=== PATIENT | female | born 1995 | race Two or more races ===

== ENCOUNTER 2020-08-25 18:26 | Emergency (ER) | payer MEDICAID, SELFPAY ==
[2020-08-25 18:46] VITALS: BP 141/69; PULSE 72; RESP 18; TEMP 36.9; O2SAT 98; BMI 47.7
== END 2020-08-25 19:58 | disposition left against medical advice (07) ==
PROVIDERS: Emergency Provider Emergency Medicine
DX: O46.90 Antepartum hemorrhage, unspecified, unspecified trimester (principal); Z3A.00 Weeks of gestation of pregnancy not specified
CPT/HCPCS: 99281; 99282

== ENCOUNTER 2020-08-28 11:27 | Outpatient (REF) | payer BC, SELFPAY ==
[2020-08-29 09:38] LABS: CT PCR NOT DETECTED (Not Detect.); NG PCR NOT DETECTED (Not Detect.)
== END 2020-08-28 11:28 | disposition home or self-care (01) ==
LOC: HO.LAB 11:27
PROVIDERS: Visit Provider Obstetrics & Gynecology
DX: O03.9 Complete or unspecified spontaneous abortion without complication (principal); O26.899 Other specified pregnancy related conditions, unspecified trimester; E28.2 Polycystic ovarian syndrome; Z3A.00 Weeks of gestation of pregnancy not specified
CPT/HCPCS: 87491; 87591

== ENCOUNTER 2020-09-02 06:14 | Outpatient (REF) | payer BC, SELFPAY ==
[2020-09-02 07:10] LABS: HCG Quantitative < 2 mIU/mL
== END 2020-09-02 06:15 | disposition home or self-care (01) ==
LOC: HO.LAB 06:14
PROVIDERS: Visit Provider Obstetrics & Gynecology
DX: N91.2 Amenorrhea, unspecified (principal); O03.9 Complete or unspecified spontaneous abortion without complication; E55.9 Vitamin D deficiency, unspecified
CPT/HCPCS: 36415; 84702

== ENCOUNTER 2020-09-05 08:58 | Outpatient (REF) | payer BC, SELFPAY ==
[2020-09-05 09:53] LABS: Alanine Aminotransferase 18 U/L (0-31); Albumin Level 4.3 g/dL (3.5-5.0); Alkaline Phosphatase 79 U/L (39-117); Anion Gap 10 (12-20); Aspartate Amino Transferase 14 U/L (5-31); Bilirubin Total 0.3 mg/dL (0.0-1.0); Blood Urea Nitrogen 9 mg/dL (9-16); Calcium 8.8 mg/dL (8.4-10.2); Carbon Dioxide 26 mmol/L (22-29); Chloride 104 mmol/L (96-108); Cholesterol 153 mg/dL; Estimated Glomerular Filt Rate > 60; Glucose Random 93 mg/dL (60-115); HDL Cholesterol 42 mg/dL; LDL Cholesterol Calculated 98 mg/dl; Potassium 4.2 mmol/L (3.3-5.1); Sodium 136 mmol/L (135-145); Total Protein 7.4 g/dL (6.5-8.0); Triglycerides 69 mg/dL
[2020-09-05 09:57] LABS: Estimated Average Glucose 100 mg/dL; Hemoglobin A1c % 5.1 %
[2020-09-05 10:16] LABS: Free T4 (Free Thyroxine) 1.08 ng/dL (0.71-1.85); Thyroid Stimulating Hormone 0.44 uIU/mL (0.32-4.0)
[2020-09-05 10:28] LABS: HCG Quantitative < 2 mIU/mL
[2020-09-06 03:52] LABS: LDL Cholesterol Direct 96 mg/dL (<100)
[2020-09-06 05:07] LABS: Follicle Stimulating Hormone 6.4 mIU/mL; Lutenizing Hormone 2.9 mIU/mL; Prolactin 9.6 ng/mL
[2020-09-06 10:17] LABS: DHEA Sulfate 266 mcg/dL (18-391); Sex Hormone Binding Globulin 18 nmol/L (17-124)
[2020-09-06 22:43] LABS: Adrenocorticotropic Hormone 13 pg/mL (6-50)
[2020-09-08 00:22] LABS: Estradiol Ultra Sensitive 26 pg/mL
[2020-09-10 14:26] LABS: Testosterone, Free 7.4 pg/mL (0.1-6.4); Testosterone, Total 39 ng/dL (2-45)
[2020-09-10 20:57] LABS: Androstenedione 145 ng/dL
[2020-09-12 01:56] LABS: Estradiol Free 0.71 pg/mL; Estradiol, Ultrasensitive 28 pg/mL
== END 2020-09-05 08:59 | disposition home or self-care (01) ==
LOC: HO.LAB 08:58
PROVIDERS: Visit Provider Internal Medicine
DX: N91.2 Amenorrhea, unspecified (principal); E55.9 Vitamin D deficiency, unspecified
CPT/HCPCS: 36415; 80053; 80061; 82024; 82157; 82306; 82533; 82627; 82670; 82681; 83001; 83002; 83036; 83498; 83721; 84146; 84270; 84402; 84403; 84439; 84443; 84702

== ENCOUNTER → 2020-10-24 11:59 | Outpatient (BNVA) | payer BC, SELFPAY | PROVIDERS: Visit Provider Internal Medicine ==

== ENCOUNTER → 2020-12-18 10:34 | Outpatient (BNVA) | payer BC, SELFPAY | PROVIDERS: Visit Provider Internal Medicine ==

== ENCOUNTER → 2021-02-03 11:05 | Outpatient (BNVA) | payer BC, SELFPAY | PROVIDERS: Visit Provider Internal Medicine ==

== ENCOUNTER 2022-12-02 11:46 | Outpatient (REF) | payer OTHER, SELFPAY ==
[2022-12-02 14:46] LABS: Syphilis Screen Nonreactive (Nonreactive)
[2022-12-03 02:44] LABS: CT PCR NOT DETECTED (Not Detect.); NG PCR NOT DETECTED (Not Detect.)
[2022-12-03 08:11] LABS: HBS Num1 8.23 mIU/mL (0-7.99); HBc Num1 0.23 S/CO (0.00-0.79); HIV AB/AG Nonreactive (Nonreactive); HIV Num 1 0.06 S/CO (0.00-0.99); Hepatitis A Antibody IgM 0.17 Index (0-0.79); Hepatitis B Core Antibody Nonreactive (Nonreactive); Hepatitis B Surface Antigen Negative (Negative); ~HepC Num1 0.17 S/CO (0.00-0.79); ~Hepatitis A Antibody IgM Nonreactive (Nonreactive); ~Hepatitis C Antibody Nonreactive (Nonreactive)
[2022-12-03 10:09] LABS: HBS Num2 7.82 mIU/mL (0-7.99); HBS Num3 7.87 mIU/mL (0-7.99)
[2022-12-03 10:10] LABS: ~Hepatitis B Surface Antibody NONREACTIVE (Nonreactive)
== END 2022-12-02 11:47 | disposition home or self-care (01) ==
LOC: HO.HHCL 11:46
PROVIDERS: Student in an Organized Health Care Education/Training Program; Visit Provider Registered Nurse
DX: Z11.4 Encounter for screening for human immunodeficiency virus [HIV] (principal); Z20.2 Contact with and (suspected) exposure to infections with a predominantly sexual mode of transmission
CPT/HCPCS: 0353U; 86704; 86706; 86709; 86780; 86803; 87340; 87389

== ENCOUNTER → 2022-12-23 08:05 | Outpatient (BNVA) | payer BC, SELFPAY | PROVIDERS: PCP Registered Nurse; Visit Provider Physician Assistant Surgical ==

== ENCOUNTER → 2022-12-23 08:10 | Outpatient (BNVA) | payer OTHER, SELFPAY | PROVIDERS: PCP Student in an Organized Health Care Education/Training Program; Visit Provider Physician Assistant Surgical ==

== ENCOUNTER 2023-01-06 12:03 | Emergency (ER) | payer OTHER, SELFPAY ==
[2023-01-06 12:18] VITALS: BP 143/86; PULSE 76; RESP 19; TEMP 36.6; O2SAT 98; BMI 23.0
--- NOTE | 2023-01-06 12:19 | ED.GENADULT ---
HPI - General Adult General Chief complaint: General Medical Stated complaint: ? Miscarriage Time Seen by Provider: 01/06/23 17:21 Source: patient Mode of arrival: ambulatory Limitations: no limitations History of Present Illness HPI narrative: 27 yo female with PMH of prior miscarriage and PCOS she comes in after she started to box and lose weight. On wednesday she was using a new squat machine and she developed some cramps and bleeding vaginally - nothing significant but it was out of the ordinary starting to Wednesday. She took a test on Wednesday x 2 one there was a positive line and the other was questionable. She has not bled since and feels okay but came to be sure. complaint: pos test at home Onset (ago): day(s) (2) Location: pelvis Radiation: non-radiation Severity: mild Quality: dull Pain Consistency: now resolved Relieving factors: none Exacerbating factors: none Associated symptoms: denies other symptoms Treatments prior to arrival: none Related Data Home Medications Medication Instructions Recorded Confirmed cholecalciferol (vitamin D3) 50 50 mcg PO DAILY 09/02/20 02/03/21 mcg (2,000 unit) capsule metformin 500 mg tablet 500 mg PO BID 09/02/20 02/03/21 vitamin B complex (B 1 tab PO DAILY 09/02/20 02/03/21 Complex-Vitamin B12 tablet) Allergies Allergy/AdvReac Type Severity Reaction Status Date / Time No Known Allergies Allergy Verified 01/06/23 12:16 [No Known Allergies*] Review of Systems Review of Systems: Constitutional : No Fever, No Chills Cardiovascular : No Chest Pain, No SOB Respiratory : No Cough, No Sputum, No Wheezing Gastrointestinal : positive Nausea, No Vomiting, No Diarrhea, no abdominal pain, Genitourinary : positive irregular bleeding, No Dysuria, No Urinary Frequency, positive pelvic pain Musculoskeletal : No Myalgias Skin : No rash Neuro : No Weakness, No Headache Psych : No Anxiety/Panic, No Depression Heme/Lymph: No bruising, No Lymphadenopathy Endocrine : No Polyuria, No Polydipsia All other systems reviewed and are negative [facility] Past Medical History Attestation statement: The following information was validated with the patient. Medical History Amenorrhea Elevated testosterone level in female Low serum cortisol level PCOS (polycystic ovarian syndrome) Vitamin D deficiency Surgical History No history of previous surgery Family History Family History Mother Unknown family medical history Father Unknown family medical history Social History Social History Alcohol intake: current Patient Tobacco Use Status: Current everyday Tobacco user Cigarettes Per Day: 5 Years Smoked: 5 Substance Use Type: Marijuana Advance Directives: No Advance Directives Information Provided: No Physical Exam ED Vital Signs: Vital Signs - 24 hr 01/06/23 12:18 Temperature 98 F Pulse Rate 76 Respiratory Rate 19 Blood Pressure 143/86 H Pulse Oximetry 98 Oxygen Delivery Method Room Air BMI result Body Mass Index 23.0 Appearance: Alert. Oriented X3. No acute distress. Eyes: Pupils equal, round and reactive to light. ENT: Pharynx normal. Neck: Normal inspection. CVS: Normal heart rate and rhythm. Pulses normal. Respiratory: No respiratory distress. Abdomen: Soft and non-tender. Skin: Skin warm and dry. Normal skin color. Extremities: No lower extremity edema. Neuro: Oriented X 3. No motor deficit. No sensory deficit. Course Course Course Narrative: This is an RME: Additional HPI, ROS, PE not included below will be deferred to primary provider. 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 Pt reports that she had unusal vaginal bleeding wednesday - wednesday. Took test on wednesday and was faintly positive. LMP was December 01. No abdominal pain. No longer having any vaginal bleeding. Plan: Labs, UA Medical Decision Making Medical Decision Making MDM Narrative: 27 yo female with hx of PCOS and prior miscarriages who comes in with c/o vaginal bleeding and cramping after doing squats at that gym that has resolved - she then had pos preg test that was questionable on Wednesday - she feels fine now does not have pain and bleeding has resolved - will obtain quant and urine. No pain to suggest cyst or ectopic at this time. Differential Diagnosis Differential Diagnoses: The differential diagnosis associated with the presentation includes , ovarian cyst, PCOS Admission/Observation Consideration of admission/observation: Escalation of care including admission/observation considered normal labs, VS, benign abdominal exam doubt ectopic Lab Data MDM Lab Attestation statement: I reviewed the patient's lab results. 01/06/23 13:22 01/06/23 13:22 Labs: Lab Results 01/06/23 01/06/23 01/06/23 Range/Units 13:22 13:22 13:22 WBC 9.9 (4.8-10.8) X10*3/uL RBC 4.83 (4.20-5.50) X10*6/uL Hgb 14.0 (12.0-16.0) g/dl Hct 41.6 (37.0-47.0) % MCV 86.1 (80.0-98.0) fL MCH 29.0 (27.0-33.0) pg MCHC 33.7 (31.0-35.0) g/dl RDW 13.8 (11.0-16.0) % Plt Count 271 (160-400) X10*3/uL MPV 8.8 L (9.4-12.3) fL Immature Gran % (Auto) 0.2 (0.0-0.4) % Neut % (Auto) 67.6 (45-73) % Lymph % (Auto) 23.7 (20-40) % [place] % (Auto) 6.1 (2-11) % Eos % (Auto) 1.8 (0-4) % Baso % (Auto) 0.6 (0-2) % Lymph # (Auto) 2.4 (1.2-4.9) X10*3/uL [place] # (Auto) 0.6 (0.1-1.2) X10*3/uL Eos # (Auto) 0.2 (0.0-0.4) X10*3/uL Baso # (Auto) 0.1 (0.0-0.2) X10*3/uL Abs Immat Gran (auto) 0.02 (0.00-0.03) X10*3/uL Absolute Neuts (auto) 6.7 (2.0-8.3) x10*3/uL Absolute Nucleated RBC 0.000 (0.0-0.012) X10*3/uL Nucleated RBC % (auto) 0.0 (0.0-0.2) /100WBC Sodium 140 (135-145) mmol/L Potassium 3.9 (3.3-5.1) mmol/L Chloride 107 (96-108) mmol/L Carbon Dioxide 26 (22-29) mmol/L Anion Gap 11 L (12-20) BUN 8 L (9-16) mg/dL Creatinine 0.66 (0.5-1.4) mg/dL Estim Creat Clear Calc 117.2 Estimated GFR > 60 Random Glucose 118 H (60-115) mg/dL Calcium 9.9 D (8.4-10.2) mg/dL Total Bilirubin 0.3 (0.0-1.0) mg/dL Direct Bilirubin 0.1 (0.0-0.5) mg/dL AST 18 (5-31) U/L ALT 20 (0-31) U/L Alkaline Phosphatase 64 (39-117) U/L Total Protein 7.9 (6.5-8.0) g/dL Albumin 4.3 (3.5-5.0) g/dL Beta HCG, Quant < 2 mIU/mL Urine Color Yellow Urine Appearance Cloudy Urine pH 6.0 (5.0-9.0) Ur Specific [place] >= 1.030 H (1.005-1.025) Urine Protein Trace (Neg-Trace) mg/dL Urine Glucose (UA) Negative (Negative) mg/dL Urine Ketones Trace (Negative) mg/dL Urine Blood Negative (Negative) Urine Nitrite Negative (Negative) Ur Leukocyte Esterase Negative (Negative) Urine Test (NEGATIVE) 01/06/23 Range/Units 13:22 WBC (4.8-10.8) X10*3/uL RBC (4.20-5.50) X10*6/uL Hgb (12.0-16.0) g/dl Hct (37.0-47.0) % MCV (80.0-98.0) fL MCH (27.0-33.0) pg MCHC (31.0-35.0) g/dl RDW (11.0-16.0) % Plt Count (160-400) X10*3/uL MPV (9.4-12.3) fL Immature Gran % (Auto) (0.0-0.4) % Neut % (Auto) (45-73) % Lymph % (Auto) (20-40) % [place] % (Auto) (2-11) % Eos % (Auto) (0-4) % Baso % (Auto) (0-2) % Lymph # (Auto) (1.2-4.9) X10*3/uL [place] # (Auto) (0.1-1.2) X10*3/uL Eos # (Auto) (0.0-0.4) X10*3/uL Baso # (Auto) (0.0-0.2) X10*3/uL Abs Immat Gran (auto) (0.00-0.03) X10*3/uL Absolute Neuts (auto) (2.0-8.3) x10*3/uL Absolute Nucleated RBC (0.0-0.012) X10*3/uL Nucleated RBC % (auto) (0.0-0.2) /100WBC Sodium (135-145) mmol/L Potassium (3.3-5.1) mmol/L Chloride (96-108) mmol/L Carbon Dioxide (22-29) mmol/L Anion Gap (12-20) BUN (9-16) mg/dL Creatinine (0.5-1.4) mg/dL Estim Creat Clear Calc Estimated GFR Random Glucose (60-115) mg/dL Calcium (8.4-10.2) mg/dL Total Bilirubin (0.0-1.0) mg/dL Direct Bilirubin (0.0-0.5) mg/dL AST (5-31) U/L ALT (0-31) U/L Alkaline Phosphatase (39-117) U/L Total Protein (6.5-8.0) g/dL Albumin (3.5-5.0) g/dL Beta HCG, Quant mIU/mL Urine Color Urine Appearance Urine pH (5.0-9.0) Ur Specific [place] (1.005-1.025) Urine Protein (Neg-Trace) mg/dL Urine Glucose (UA) (Negative) mg/dL Urine Ketones (Negative) mg/dL Urine Blood (Negative) Urine Nitrite (Negative) Ur Leukocyte Esterase (Negative) Urine Test NEGATIVE (NEGATIVE) External Record Review External record reviewed: Inpatient record Tests considered The following testing was considered but not selected: US but given negative quant and no further bleeding not indicated Discharge Plan Discharge Clinical Impression: Abnormal vaginal bleeding Patient Disposition: Home, Self-Care Instructions: Dysfunctional Uterine Bleeding (ED) Additional Instructions: repeat home test in 1 week return for worsening pain, bleeding and clots, fevers, severe pain or any other concerns. hold squats for one week. Prescriptions: No Action metformin 500 mg tablet 500 mg PO BID cholecalciferol (vitamin D3) 50 mcg (2,000 unit) capsule 50 mcg PO DAILY vitamin B complex [B Complex-Vitamin B12] Tablet 1 tab PO DAILY
[2023-01-06 13:28] LABS: MANUAL DIFF FLAG NO
[2023-01-06 13:29] LABS: Basophils Absolute Auto 0.1 X10*3/uL (0.0-0.2); Basophils Percent Auto 0.6 % (0-2); Eosinophils Absolute Auto 0.2 X10*3/uL (0.0-0.4); Eosinophils Percent Auto 1.8 % (0-4); Hematocrit 41.6 % (37.0-47.0); Imm Gran Abs Auto 0.02 X10*3/uL (0.00-0.03); Imm Gran Pct Auto 0.2 % (0.0-0.4); Lymphocytes Absolute Auto 2.4 X10*3/uL (1.2-4.9); Lymphocytes Percent Auto 23.7 % (20-40); Mean Corpuscular HGB Conc 33.7 g/dl (31.0-35.0); Mean Corpuscular Volume 86.1 fL (80.0-98.0); Mean Platelet Volume 8.8 fL (9.4-12.3); Monocytes Absolute Auto 0.6 X10*3/uL (0.1-1.2); Monocytes Percent Auto 6.1 % (2-11); Neutrophils Absolute Auto 6.7 x10*3/uL (2.0-8.3); Neutrophils Percent Auto 67.6 % (45-73); Platelet Count 271 X10*3/uL (160-400); Red Blood Count 4.83 X10*6/uL (4.20-5.50); Red Cell Distribution Width 13.8 % (11.0-16.0); White Blood Count 9.9 X10*3/uL (4.8-10.8)
[2023-01-06 13:34] LABS: Appearance Urine Cloudy; Color Urine Yellow; Glucose Urine UA Negative (Negative); Leukocyte Esterase Urine Negative (Negative); Nitrite Urine Negative (Negative); Specific Gravity - Urine >= 1.030 (1.005-1.025); Urine Blood Negative (Negative); Urine Ketones Trace mg/dL (Negative); Urine Protein Trace mg/dL (Neg-Trace)
[2023-01-06 13:35] LABS: UPreg QC Valid YES; Urine Pregnancy NEGATIVE (NEGATIVE)
[2023-01-06 13:49] LABS: Alanine Aminotransferase 20 U/L (0-31); Albumin Level 4.3 g/dL (3.5-5.0); Alkaline Phosphatase 64 U/L (39-117); Anion Gap 11 (12-20); Aspartate Amino Transferase 18 U/L (5-31); Bilirubin Direct 0.1 mg/dL (0.0-0.5); Bilirubin Total 0.3 mg/dL (0.0-1.0); Blood Urea Nitrogen 8 mg/dL (9-16); Calcium 9.9 mg/dL (8.4-10.2); Carbon Dioxide 26 mmol/L (22-29); Chloride 107 mmol/L (96-108); Creatinine Clr Calc Pharmacy 117.2; Estimated Glomerular Filt Rate > 60; Glucose Random 118 mg/dL (60-115); HCG Quantitative < 2 mIU/mL; Potassium 3.9 mmol/L (3.3-5.1); Sodium 140 mmol/L (135-145); Total Protein 7.9 g/dL (6.5-8.0)
[2023-01-06 17:00] VITALS: BP 136/84; PULSE 84; RESP 14; O2SAT 98
== END 2023-01-06 18:06 | disposition home or self-care (01) ==
PROVIDERS: Physician Assistant Medical; Emergency Provider Emergency Medicine
DX: N93.9 Abnormal uterine and vaginal bleeding, unspecified (principal); F17.210 Nicotine dependence, cigarettes, uncomplicated
CPT/HCPCS: 36415; 80048; 80076; 81003; 81025; 84702; 85025; 99282; 99283

== ENCOUNTER 2023-01-20 10:53 | Outpatient (AMB) | payer OTHER, SELFPAY ==
--- NOTE | 2023-01-20 10:57 | A.OFFVIS_ITS ---
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 Her goal isto weigh around 150 lbs. She reports first being concerned about her weight since childhood, over the last 3 months more committed. She has tried multiple methods of weight loss including exercise without permanent results. She lives with her . She works 5- 7 days per week from 7am - 6 pm. Has lost 17 lbs over the last 3 weeks with diet and exercise. Stopped soda She wakes at: 4am, bed at 10 pm Breakfast: 7:30 am - 1 egg , 1 slice toast, half avocado. water Lunch: 2 pm - chicken wrap or chicken with potatoes, sometimes with salad. makes it herself - water Dinner: 9pm - rice/beans and pork OR pasta with tuna. vegetables 3d/ week. water After dinner: grapres Other snacks: Fruits - mid morning banana, eats grapes all day. Liquids: stopped soda and fruit juice Alcohol intake: none, tobacco: cigarettes 5/day, marijuana: smokes twice per day Exercise: started 3 weeks ago - gym 4d/week. 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 2-3 d/ week PF - Treadmill for an hour, and stepper for 30 minutes. Last mammogram: never, too young Last pap smear: up to date control method: has had 2 miscarraiges, no contraception now - will contact her [place] provdier BHARAT: 7 ESS:14 GERD:0 QOL:101 PFSH Medical History (Updated 01/20/23 @ 11:30 by [place] [address] PA-C) PCOS (polycystic ovarian syndrome) Low serum cortisol level Elevated testosterone level in female Amenorrhea Vitamin D deficiency Surgical History No history of previous surgery Family History Mother Unknown family medical history Father Unknown family medical history Social History Alcohol intake: current Patient Tobacco Use Status: Current everyday Tobacco user Cigarettes Per Day: 5 Years Smoked: 5 Substance Use Type: Marijuana Female Reproductive History Menstrual Age of Menarche: 11 Physical Exam Vital Signs: Last Vital Signs Temp 98.3 F 01/20/23 11:06 Pulse 92 01/20/23 11:06 BP 136/69 01/20/23 11:06 Pulse Ox 97 01/20/23 11:06 Oxygen Delivery Method Room Air 01/20/23 11:06 BMI result Body Mass Index 50.4 Const General: cooperative, no acute distress and well developed Nutritional Appearance: obese Orientation/consciousness: patient oriented x3 HEENT Head: Yes normal to inspection Neck Neck: Yes normal visual inspection Thyroid: Thyroid normal Resp Effort & Inspection: normal respiratory effort Auscultation: clear to auscultation bilaterally Cardio Rate: regular rate Rhythm: regular rhythm Heart sounds: S1 normal heart sound present, S2 normal heart sound present and no murmurs GI Inspection: No distended and Yes obesity Palpation (GI): Soft to palpation, nontender and no guarding Skin General skin exam: no rashes or lesions noted and other (warm and dry) Wounds: no wounds Hair: normal Neuro General: patient oriented x3 Extrem General: Yes no pedal edema and Yes no calf tenderness Psych Attitude: cooperative Thought process: Normal thought process present Thought content: Normal thought content present Insight: Good insight present (Psych) Judgement: Good judgement present (Psych) Assessment & Plan Assessment & Plan (1) Morbid obesity: Code(s): E66.01 - Morbid (severe) obesity due to excess calories Plan: This is a 27 yo woman with morbid obesitywho will start SWL program to prepare for bariatric surgery. Blood work, h pylori , CXR, ECG, Abd ULS and UGI have been ordered. She is being scheduled for RD and BH initial consultations. She will start SWL classes and watch at 3 classes before her next appt with Jacy. Will have another sleep study now. 1. Adequate sleep of 7-8 hours per night discussed 2. Healthy meal plan - stop skipping meals and stop all sweetened drinks All meals/MR's need to take 20 minutes to complete 8am - 30 gram shake 11 am -yogurt or bar 2 pm- dinner of 6 oz lean protein, 6oz vegetable, 1 serving fruit 8pm - shake Exercise - Cardio - work with medical management trainer - if goes ot gym treadmill speed 3.5, inlcine 2-8 or hillprogram ofr 350 calories. The importance of avoiding and breast feeding for at least 18 months after bariatric surgery was discussed in the information session and was reinforced today. Pt will purchase body composition analyzer (recommended list given to patient) and weight herself weekly. Next appt with me in 3 weeks. Text me with any questions and weekly weights. Patient is morbidly obese and is not considered stable at this time.?I spent a total of 60 minutes reviewing/updating records, examining the patient and counseling the patient on weight management as detailed above. (2) PCOS (polycystic ovarian syndrome): Code(s): E28.2 - Polycystic ovarian syndrome Orders: Orders Insulin Today E28.2 - Polycystic ovarian syndrome, E66.01 - Morbid (severe) obesity due to excess calories, G47.30 - Sleep apnea, unspecified Lipid Panel Today E28.2 - Polycystic ovarian syndrome, E66.01 - Morbid (severe) obesity due to excess calories, G47.30 - Sleep apnea, unspecified IRON PROFILE Today E28.2 - Polycystic ovarian syndrome, E66.01 - Morbid (severe) obesity due to excess calories, G47.30 - Sleep apnea, unspecified C Reactive Protein Today E28.2 - Polycystic ovarian syndrome, E66.01 - Morbid (severe) obesity due to excess calories, G47.30 - Sleep apnea, unspecified Ferritin Today E28.2 - Polycystic ovarian syndrome, E66.01 - Morbid (severe) obesity due to excess calories, G47.30 - Sleep apnea, unspecified PTHI Today E28.2 - Polycystic ovarian syndrome, E66.01 - Morbid (severe) obesity due to excess calories, G47.30 - Sleep apnea, unspecified TSH reflex Free T4 Today E28.2 - Polycystic ovarian syndrome, E66.01 - Morbid (severe) obesity due to excess calories, G47.30 - Sleep apnea, unspecified H Pylori Breath Test Today E28.2 - Polycystic ovarian syndrome, E66.01 - Morbid (severe) obesity due to excess calories, G47.30 - Sleep apnea, unspecified Vitamin D 25-OH Total Today E28.2 - Polycystic ovarian syndrome, E66.01 - Morbid (severe) obesity due to excess calories, G47.30 - Sleep apnea, unspecified US abdomen comp w elastography Today E28.2 - Polycystic ovarian syndrome, E66.01 - Morbid (severe) obesity due to excess calories, G47.30 - Sleep apnea, unspecified XR chest 2V Today E28.2 - Polycystic ovarian syndrome, E66.01 - Morbid (severe) obesity due to excess calories, G47.30 - Sleep apnea, unspecified ECG 12 lead EKG Today E28.2 - Polycystic ovarian syndrome, E66.01 - Morbid (severe) obesity due to excess calories, G47.30 - Sleep apnea, unspecified RT home sleep study Today E28.2 - Polycystic ovarian syndrome, E66.01 - Morbid (severe) obesity due to excess calories, G47.30 - Sleep apnea, unspecified Vitamin B12 and Folate Today E28.2 - Polycystic ovarian syndrome, E66.01 - Morbid (severe) obesity due to excess calories, G47.30 - Sleep apnea, unspecified Zinc Today E28.2 - Polycystic ovarian syndrome, E66.01 - Morbid (severe) obesity due to excess calories, G47.30 - Sleep apnea, unspecified Vitamin B1 Today E28.2 - Polycystic ovarian syndrome, E66.01 - Morbid (severe) obesity due to excess calories, G47.30 - Sleep apnea, unspecified Vitamin A Today E28.2 - Polycystic ovarian syndrome, E66.01 - Morbid (severe) obesity due to excess calories, G47.30 - Sleep apnea, unspecified FL upper GI w air Today E28.2 - Polycystic ovarian syndrome, E66.01 - Morbid (severe) obesity due to excess calories, G47.30 - Sleep apnea, unspecified Referrals Nutrition/Dietitian Referral E28.2 - Polycystic ovarian syndrome, E66.01 - Morbid (severe) obesity due to excess calories, G47.30 - Sleep apnea, unspecified Behavioral Health Referral E28.2 - Polycystic ovarian syndrome, E66.01 - Morbid (severe) obesity due to excess calories, G47.30 - Sleep apnea, unspecified Coding Level of Care Code New Pt Level 5 (86132) Diagnoses Morbid obesity E66.01 PCOS (polycystic ovarian syndrome) E28.2
[2023-01-20 11:06] VITALS: BP 136/69; PULSE 92; TEMP 36.8; O2SAT 97; BMI 50.4
== END 2023-01-20 12:07 | disposition home or self-care (01) ==
PROVIDERS: PCP Registered Nurse; Visit Provider Physician Assistant
DX: E66.01 Morbid (severe) obesity due to excess calories (principal); Z68.43 Body mass index [BMI] 50.0-59.9, adult; E28.2 Polycystic ovarian syndrome
CPT/HCPCS: 99205

== ENCOUNTER 2023-01-20 10:53 | Outpatient (REF) | payer OTHER, SELFPAY ==
[2023-01-22 13:51] LABS: H Pylori Breath Test Negative (Negative)
== END 2023-01-20 10:54 | disposition home or self-care (01) ==
LOC: HO.LNP 10:53
PROVIDERS: PCP Registered Nurse; Visit Provider Physician Assistant
DX: E66.01 Morbid (severe) obesity due to excess calories (principal); E28.2 Polycystic ovarian syndrome; G47.30 Sleep apnea, unspecified
CPT/HCPCS: 83013; 99211

== ENCOUNTER 2023-02-03 10:00 | Outpatient (AMB) | payer OTHER, SELFPAY ==
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
== END 2023-02-03 11:00 | disposition home or self-care (01) ==
LOC: HO.HBST 10:27
PROVIDERS: PCP Registered Nurse; Visit Provider Counselor Mental Health
DX: F43.9 Reaction to severe stress, unspecified (principal)
CPT/HCPCS: 90791

== ENCOUNTER → 2023-02-03 10:00 | Outpatient (BNVA) | payer OTHER, SELFPAY | PROVIDERS: PCP Registered Nurse; Visit Provider Counselor Mental Health ==

== ENCOUNTER 2023-03-01 09:00 | Outpatient (AMB) | payer OTHER, SELFPAY ==
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
== END 2023-03-01 10:00 | disposition home or self-care (01) ==
LOC: HO.HBST 09:10
PROVIDERS: PCP Registered Nurse; Visit Provider Counselor Mental Health
DX: F43.9 Reaction to severe stress, unspecified (principal)
CPT/HCPCS: 90834

== ENCOUNTER → 2023-03-01 09:00 | Outpatient (BNVA) | payer OTHER, SELFPAY | PROVIDERS: PCP Registered Nurse; Visit Provider Counselor Mental Health ==

== ENCOUNTER 2024-01-05 10:02 | Outpatient (REF) | payer OTHER, SELFPAY ==
[2024-01-05 11:31] LABS: Hematocrit 42.9 % (37.0-47.0); Hemoglobin 14.1 g/dl (12.0-16.0); Mean Corpuscular HGB Conc 32.9 g/dl (31.0-35.0); Mean Corpuscular Hemoglobin 28.2 pg (27.0-33.0); Mean Corpuscular Volume 85.8 fL (80.0-98.0); Mean Platelet Volume 9.3 fL (9.4-12.3); Platelet Count 259 X10*3/uL (160-400); Red Cell Distribution Width 14.1 % (11.0-16.0); White Blood Count 10.9 X10*3/uL (4.8-10.8)
[2024-01-05 11:36] LABS: Estimated Average Glucose 111 mg/dL; Hemoglobin A1c % 5.5 % (<6.0)
[2024-01-05 11:48] LABS: Alanine Aminotransferase 19 U/L (0-31); Albumin Level 4.2 g/dL (3.5-5.0); Alkaline Phosphatase 64 U/L (39-117); Anion Gap 10 (12-20); Aspartate Amino Transferase 14 U/L (5-31); Bilirubin Total 0.5 mg/dL (0.0-1.0); Blood Urea Nitrogen 7 mg/dL (9-16); Calcium 9.8 mg/dL (8.4-10.2); Carbon Dioxide 25 mmol/L (22-29); Chloride 106 mmol/L (96-108); Cholesterol 130 mg/dL (<200); Estimated Glomerular Filt Rate > 60; Glucose Random 85 mg/dL (60-115); HDL Cholesterol 40 mg/dL (>40); LDL Cholesterol Calculated 75 mg/dL (<100); Potassium 4.1 mmol/L (3.3-5.1); Sodium 137 mmol/L (135-145); Total Protein 7.7 g/dL (6.5-8.0); Triglycerides 76 mg/dL (<150)
[2024-01-05 12:10] LABS: TSH reflex Free T4 0.58 uIU/mL (0.32-4.0); Vitamin D 25-OH Total 19.6 ng/mL (>30)
[2024-01-05 12:31] LABS: Folate 12.5 ng/mL (> or = 4.0); Vitamin B12 559 pg/mL (200-900)
[2024-01-06 03:56] LABS: Syphilis Screen Nonreactive (Nonreactive)
[2024-01-06 04:20] LABS: HBS Num1 8.35 mIU/mL (0-7.99); HBsAGNum1 0.24 S/CO (0.00-0.99); HIV AB/AG Nonreactive (Nonreactive); HIV Num 1 0.05 S/CO (0.00-0.99); Hepatitis B Core Antibody Nonreactive (Nonreactive); Hepatitis B Surface Antigen Negative (Negative); ~HepC Num1 0.19 S/CO (0.00-0.79); ~Hepatitis C Antibody Nonreactive (Nonreactive)
[2024-01-06 05:27] LABS: HBS Num2 8.28 mIU/mL (0-7.99); HBS Num3 8.08 mIU/mL (0-7.99); ~Hepatitis B Surface Antibody GRAYZONE (Nonreactive)
[2024-01-06 12:49] LABS: Follicle Stimulating Hormone 2.1 mIU/mL; Lutenizing Hormone 3.1 mIU/mL
[2024-01-11 15:19] LABS: Testosterone, Free 7.8 pg/mL (0.1-6.4); Testosterone, Total 51 ng/dL (2-45)
== END 2024-01-05 10:03 | disposition home or self-care (01) ==
LOC: HO.HHCL 10:02
PROVIDERS: Visit Provider Student in an Organized Health Care Education/Training Program
DX: Z00.00 Encounter for general adult medical examination without abnormal findings (principal); Z13.1 Encounter for screening for diabetes mellitus; Z13.89 Encounter for screening for other disorder
CPT/HCPCS: 36415; 80053; 80061; 82306; 82607; 82746; 83001; 83002; 83036; 84402; 84403; 84443; 85027; 86704; 86706; 86780; 86803; 87340; 87389

== ENCOUNTER 2024-01-11 17:55 | Outpatient (REF) | payer OTHER, SELFPAY ==
[2024-01-12 06:01] LABS: CT PCR NOT DETECTED (Not Detect.); NG PCR NOT DETECTED (Not Detect.)
== END 2024-01-11 17:56 | disposition home or self-care (01) ==
LOC: HO.HHCLNP 17:55
PROVIDERS: Visit Provider Student in an Organized Health Care Education/Training Program
DX: Z00.00 Encounter for general adult medical examination without abnormal findings (principal)
CPT/HCPCS: 87491; 87591

== ENCOUNTER 2024-01-18 05:19 | Emergency (ER) | payer OTHER, SELFPAY ==
--- NOTE | ~2024-01-18 | US_ITS ---
EXAMINATION: US OBSTETRICAL ULTRASOUND CLINICAL INFORMATION: Vaginal bleeding with COMPARISON: Ultrasound 07/06/2016 LMP: 12/06/2023. Gestational age by maternal dates is 6 weeks 1 day. Estimated date of delivery by maternal dates is 09/11/2024. TECHNIQUE: Both transabdominal and endovaginal scanning was seen. FINDINGS: An anteverted uterus is present. The endometrium is thickened at 1.7 cm and a gestational sac is not present. No heart beat is detected. The right ovary measures 4.4 x 2.0 x 2.3 cm and appears normal. The left ovary measures 3.3 x 2.4 x 2.4 cm and contains a 1.9 x 2.0 x 1.7 cm corpus luteal cyst. There is trace fluid in the cul-de-sac. US/US OB pelvic and transvaginal IMPRESSION: No intrauterine is identified at this time. Correlation with beta hCG levels is recommended, as nonvisualization of a gestational sac could be due to an early stage of . Alternatively, lack of an intrauterine gestational sac may also be seen with missed or ectopic , although no adnexal mass is seen to strongly suggest ectopic . Short-term sonographic follow-up and serial beta hCG levels are recommended to assess for development of an intrauterine gestational sac. Electronically signed by: Arthur Christina MD 01/18/2024 08:43 AM EDT
[2024-01-18 05:29] VITALS: BP 149/73; PULSE 75; RESP 14; TEMP 36.9; O2SAT 100; BMI 49.9
[2024-01-18 05:36] VITALS: BP 135/76; PULSE 79; RESP 17; TEMP 36.6; O2SAT 99
[2024-01-18 05:54] LABS: MANUAL DIFF FLAG NO
[2024-01-18 05:55] LABS: Basophils Percent Auto 0.3 % (0-2); Eosinophils Absolute Auto 0.2 X10*3/uL (0.0-0.4); Eosinophils Percent Auto 1.3 % (0-4); Hematocrit 38.1 % (37.0-47.0); Hemoglobin 12.7 g/dl (12.0-16.0); Imm Gran Abs Auto 0.04 X10*3/uL (0.00-0.03); Imm Gran Pct Auto 0.3 % (0.0-0.4); Lymphocytes Absolute Auto 2.3 X10*3/uL (1.2-4.9); Lymphocytes Percent Auto 19.8 % (20-40); Mean Corpuscular HGB Conc 33.3 g/dl (31.0-35.0); Mean Corpuscular Hemoglobin 28.5 pg (27.0-33.0); Mean Corpuscular Volume 85.4 fL (80.0-98.0); Mean Platelet Volume 8.3 fL (9.4-12.3); Monocytes Percent Auto 8.8 % (2-11); Neutrophils Percent Auto 69.5 % (45-73); Platelet Count 256 X10*3/uL (160-400); Red Blood Count 4.46 X10*6/uL (4.20-5.50); Red Cell Distribution Width 14.3 % (11.0-16.0); White Blood Count 11.5 X10*3/uL (4.8-10.8)
[2024-01-18 06:24] LABS: Alanine Aminotransferase 23 U/L (0-31); Albumin Level 3.7 g/dL (3.5-5.0); Alkaline Phosphatase 60 U/L (39-117); Anion Gap 9 (12-20); Aspartate Amino Transferase 16 U/L (5-31); Bilirubin Total 0.4 mg/dL (0.0-1.0); Blood Urea Nitrogen 6 mg/dL (9-16); Calcium 8.7 mg/dL (8.4-10.2); Carbon Dioxide 25 mmol/L (22-29); Chloride 107 mmol/L (96-108); Creatinine Clr Calc Pharmacy 212.9; Estimated Glomerular Filt Rate > 60; Glucose Random 113 mg/dL (60-115); HCG Quantitative 497 mIU/mL; Potassium 4.1 mmol/L (3.3-5.1); Sodium 137 mmol/L (135-145); Total Protein 6.9 g/dL (6.5-8.0)
--- NOTE | 2024-01-18 06:55 | ED.GENADULT ---
HPI - General Adult General Chief complaint: Vaginal Bleeding Stated complaint: vaginal bleeding, 6 weeks preg Time Seen by Provider: 01/18/24 06:41 Source: patient Mode of arrival: ambulatory Limitations: no limitations History of Present Illness ED Provider: Christiane Sellers PA-C HPI narrative: Patient is a 28 year old assigned female at with a history of previous miscarriage and currently being 6 weeks presenting to the emergency department today with vaginal bleeding. Patient states that she woke up this morning with bright red bleeding with clots. Patient states that she is 6 weeks along. Patient denies any dizziness, lightheadedness, abdominal pain, nausea, vomiting, fever, chills, blurry vision, double vision, loss of vision, chest pain, difficulty breathing, shortness of breath, back pain, night sweats, pain with urination, increased urinary frequency, increased urinary urgency, syncope or a near syncopal episode, recent trauma or falls, bowel incontinence, bladder incontinence, or any other complaints at this time. Relieving factors: none Exacerbating factors: none Associated symptoms: denies other symptoms Treatments prior to arrival: none Related Data Home Medications ?Medication ?Instructions ?Recorded ?Confirmed cholecalciferol (vitamin D3) 50 50 mcg PO DAILY 09/02/20 02/03/21 mcg (2,000 unit) capsule metformin 500 mg tablet 500 mg PO BID 09/02/20 02/03/21 vitamin B complex (B 1 tab PO DAILY 09/02/20 02/03/21 Complex-Vitamin B12 tablet) Allergies Allergy/AdvReac Type Severity Reaction Status Date / Time No Known Allergies Allergy Verified 01/18/24 05:31 [No Known Allergies*] Review of Systems Constitutional: Constitutional: Reports no additional constitutional complaints, Denies chills, Denies fever(s) and Denies night sweats Eyes: Eyes: Reports no additional eye complaints, Denies blurry vision, Denies change in vision, Denies diplopia, Denies eye discharge, Denies loss of vision and Denies eye pain ENT: Denies dizziness Cardiovascular: Cardiovascular: Reports no additional cardiovascular complaints, Denies chest pain, Denies lightheadedness, Denies Loss of Consciousness and Denies dyspnea Respiratory: Respiratory: Reports no additional respiratory complaints and Denies dyspnea Gastrointestinal: Gastrointestinal: Reports no additional gastrointestinal complaints, Denies abdominal pain, Denies melena, Denies hematochezia, Denies change in bowel habits and Denies change in stool character Genitourinary: Genitourinary: Denies hematuria, Denies urinary frequency, Denies dysuria, Denies urinary incontinence, Denies urinary hesitancy and Denies urinary urgency Comments: vaginal bleeding Musculoskeletal: Musculoskeletal: Reports no additional musculoskeletal complaints, Denies numbness and Denies tingling Neurologic: Denies dizziness, Denies loss of vision, Denies numbness and Denies tingling Psychiatric: Psychiatric: Reports no additional psychiatric complaints Endocrine: Endocrine: Reports no additional endocrine complaints Hematologic/Lymphatic: Hematologic/Lymphatic: Reports no additional hematologic/lymphatic complaints Allergic/Immunologic: Allergic/Immunologic: Reports no additional allergic/immunologic complaints PMF Past Medical History Attestation statement: The following information was validated with the patient. 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 Amenorrhea Vitamin D deficiency Surgical History No history of previous surgery Family History Family History Mother Unknown family medical history Father Unknown family medical history Social History Social History Alcohol intake: current Patient Tobacco Use Status: Current everyday Tobacco user Cigarettes Per Day: 5 Years Smoked: 5 Smoked in Last 30 Days: No Use of substances other than those prescribed or required for medical reasons: No Substance Use Type: Marijuana Advance Directives: No Advance Directives Information Provided: No Do you have a plan to hurt others: No Plan Patient : Yes Physical Exam ED Vital Signs: Vital Signs - 24 hr 01/18/24 05:29 01/18/24 05:36 01/18/24 08:16 Temperature 98.4 F 97.8 F Pulse Rate 75 79 79 Respiratory Rate 14 17 16 Blood Pressure 149/73 H 135/76 135/75 Pulse Oximetry 100 99 99 Oxygen Delivery Method Room Air Room Air Room Air 01/18/24 09:20 Temperature 97.8 F Pulse Rate 79 Respiratory Rate 16 Blood Pressure 135/75 Pulse Oximetry 99 Oxygen Delivery Method Room Air BMI result Body Mass Index 49.9 Const General: cooperative, no acute distress, alert and awake Nutritional Appearance: well nourished Orientation/consciousness: patient oriented x3 Limitations: no limitations HENMT Head: Yes normal to inspection and Yes atraumatic Ears: hearing grossly normal bilaterally and external ears normal General nose exam: Normal external nose present, no nasal discharge noted and no epistaxis Face and sinus: Yes normal facial exam, No abrasion and No laceration Mouth: Normal oral and palatal mucosa present, no drooling and no muffled voice Eyes General: appearance normal, both eyes and all related structures Periorbital: periorbital findings normal Eyelids: Yes eyelids normal Conjunctivae: conjunctivae normal Pupils: Equal, round and reactive pupils present EOM: EOMs intact bilaterally Neck Neck: Yes normal visual inspection, Yes full ROM and Yes no lymphadenopathy Chest Chest palpation & inspection: normal inspection of the chest Resp Effort & Inspection: normal respiratory effort and able to speak in complete sentences GI Inspection: Yes normal to inspection Palpation (GI): Soft to palpation, not firm, nontender and no guarding Neuro General: patient oriented x3 and moves all extremities Cranial nerves: Yes Equal, round and reactive pupils present Cognition (Neuro): normal cognition Extrem General: Yes normal to inspection, Yes full ROM and Yes capillary refill normal Psych Appearance: grossly normal Mental Status: mental status grossly normal Affect: normal affect Attitude: cooperative Thought process: Normal thought process present Thought content: Normal thought content present Insight: Good insight present (Psych) Medical Decision Making Medical Decision Making MDM Narrative: Patient is a 28 year old assigned female at with a history of previous miscarriage and being 6 weeks presenting to the emergency department today with vaginal bleeding. Patient's physical exam was unremarkable. Patient's blood work showed a low HCG of 497. Patient's OB US showed no acute process. I explained my physical exam findings as well as all test results to the patient. I answered all questions asked by the patient. I stressed the importance of the patient taking her medication as directed (either prescribed or as the over the counter packaging recommends). I stressed the importance of the patient following up with her primary care provider and an OBGYN to continue to follow up on her HCG levels. I stressed the importance of the patient returning to the emergency department immediately if her symptoms were to worsen or if she were to develop any dizziness, shortness of breath, difficulty breathing, chest pain, blurry vision, loss of vision, nausea, vomiting, abdominal pain, fever, chills, back pain, or any other complaints. Patient verbalized agreement and understanding with this treatment plan and discharge. Differential Diagnosis Differential Diagnoses: The differential diagnosis associated with the presentation includes Vaginal bleeding Miscarriage Admission/Observation Consideration of admission/observation: Escalation of care including admission/observation considered Patient would have been admitted to the hospital had her work up had any findings where hospital admission was appropriate and her clinical presentation warranted hospital admission. Lab Data [facility] Lab Attestation statement: I reviewed the patient's lab results. My interpretation of these results are in the [facility] Rationale portion of this note. 01/18/24 05:51 01/18/24 05:51 Labs: Lab Results 01/18/24 Range/Units 05:51 WBC 11.5 H (4.8-10.8) X10*3/uL RBC 4.46 (4.20-5.50) X10*6/uL Hgb 12.7 (12.0-16.0) g/dl Hct 38.1 (37.0-47.0) % MCV 85.4 (80.0-98.0) fL MCH 28.5 (27.0-33.0) pg MCHC 33.3 (31.0-35.0) g/dl RDW 14.3 (11.0-16.0) % Plt Count 256 (160-400) X10*3/uL MPV 8.3 L (9.4-12.3) fL Immature Gran % (Auto) 0.3 (0.0-0.4) % Neut % (Auto) 69.5 (45-73) % Lymph % (Auto) 19.8 L (20-40) % [place] % (Auto) 8.8 (2-11) % Eos % (Auto) 1.3 (0-4) % Baso % (Auto) 0.3 (0-2) % Lymph # (Auto) 2.3 (1.2-4.9) X10*3/uL [place] # (Auto) 1.0 (0.1-1.2) X10*3/uL Eos # (Auto) 0.2 (0.0-0.4) X10*3/uL Baso # (Auto) 0.0 (0.0-0.2) X10*3/uL Abs Immat Gran (auto) 0.04 H (0.00-0.03) X10*3/uL Absolute Neuts (auto) 8.0 (2.0-8.3) x10*3/uL Absolute Nucleated RBC 0.000 (0.0-0.012) X10*3/uL Nucleated RBC % (auto) 0.0 (0.0-0.2) /100WBC Sodium 137 (135-145) mmol/L Potassium 4.1 (3.3-5.1) mmol/L Chloride 107 (96-108) mmol/L Carbon Dioxide 25 (22-29) mmol/L Anion Gap 9 L (12-20) BUN 6 L (9-16) mg/dL Creatinine 0.56 (0.5-1.4) mg/dL Estim Creat Clear Calc 212.9 Estimated GFR > 60 Random Glucose 113 (60-115) mg/dL Calcium 8.7 D (8.4-10.2) mg/dL Total Bilirubin 0.4 (0.0-1.0) mg/dL AST 16 (5-31) U/L ALT 23 (0-31) U/L Alkaline Phosphatase 60 (39-117) U/L Total Protein 6.9 (6.5-8.0) g/dL Albumin 3.7 (3.5-5.0) g/dL Beta HCG, Quant 497 mIU/mL Independent Interpretation I performed an independent interpretation of an: Ultrasound Interpretation: My interpretation is in agreement with the radiologist's impression of this imaging study. EXAMINATION: US OBSTETRICAL ULTRASOUND CLINICAL INFORMATION: Vaginal bleeding with COMPARISON: Ultrasound 07/06/2016 LMP: 12/06/2023. Gestational age by maternal dates is 6 weeks 1 day. Estimated date of delivery by maternal dates is 09/11/2024. TECHNIQUE: Both transabdominal and endovaginal scanning was seen. FINDINGS: An anteverted uterus is present. The endometrium is thickened at 1.7 cm and a gestational sac is not present. No heart beat is detected. The right ovary measures 4.4 x 2.0 x 2.3 cm and appears normal. The left ovary measures 3.3 x 2.4 x 2.4 cm and contains a 1.9 x 2.0 x 1.7 cm corpus luteal cyst. There is trace fluid in the cul-de-sac. US/US OB pelvic and transvaginal IMPRESSION: No intrauterine is identified at this time. Correlation with beta hCG levels is recommended, as nonvisualization of a gestational sac could be due to an early stage of . Alternatively, lack of an intrauterine gestational sac may also be seen with missed or ectopic , although no adnexal mass is seen to strongly suggest ectopic . Short-term sonographic follow-up and serial beta hCG levels are recommended to assess for development of an intrauterine gestational sac. Electronically signed by: Arthur Christina MD 01/18/2024 08:43 AM EDT RP Dictated By: Arthur Christina MD Signed By: Electronically signed by Arthur Christina MD 01/18/24 0843 Radiology Impression Discussion of test interpretation with radiology: I have reviewed the radiologist's reading. Discharge Plan Discharge Clinical Impression: Miscarriage Patient Disposition: Home, Self-Care Instructions: Miscarriage (ED) Additional Instructions: Follow up with your primary care provider and an OBGYN. Return to the emergency department immediately if your symptoms worsen or if you develop any dizziness, shortness of breath, difficulty breathing, chest pain, blurry vision, loss of vision, nausea, vomiting, abdominal pain, fever, chills, back pain, or any other complaints. Prescriptions: No Action metformin 500 mg tablet 500 mg PO BID cholecalciferol (vitamin D3) 50 mcg (2,000 unit) capsule 50 mcg PO DAILY vitamin B complex [B Complex-Vitamin B12] Tablet 1 tab PO DAILY Referrals: May Tinsley MD [Primary Care Provider] - Lee Short MD [Physician] - (Call to establish and follow up with an OBGYN. ) Stand Alone Forms: Work/School Release Interventions: ED Discharge Assessment Last Done: 01/18/24 09:20 Discharge Date/Time: 01/18/24 09:51 Print Language: Khmer
[2024-01-18 08:16] VITALS: BP 135/75; PULSE 79; RESP 16; O2SAT 99
[2024-01-18 09:20] VITALS: BP 135/75; PULSE 79; RESP 16; TEMP 36.6; O2SAT 99
== END 2024-01-18 09:51 | disposition home or self-care (01) ==
PROVIDERS: Emergency Provider Emergency Medicine Emergency Medical Services; PCP Student in an Organized Health Care Education/Training Program
DX: O03.9 Complete or unspecified spontaneous abortion without complication (principal)
CPT/HCPCS: 36415; 76801; 76817; 80053; 84702; 85025; 99284

== ENCOUNTER 2024-01-28 08:40 | Outpatient (REF) | payer OTHER, SELFPAY ==
[2024-01-28 12:10] LABS: HCG Quantitative < 2 mIU/mL
[2024-02-04 21:47] LABS: Testosterone, Free 5.7 pg/mL (0.1-6.4); Testosterone, Total 39 ng/dL (2-45)
== END 2024-01-28 08:41 | disposition home or self-care (01) ==
LOC: HO.HHCL 08:40
PROVIDERS: Visit Provider Student in an Organized Health Care Education/Training Program
DX: Z34.90 Encounter for supervision of normal pregnancy, unspecified, unspecified trimester (principal); E28.2 Polycystic ovarian syndrome
CPT/HCPCS: 36415; 84402; 84403; 84702

== ENCOUNTER 2024-03-01 12:50 | Outpatient (AMB) | payer OTHER, SELFPAY ==
--- NOTE | 2024-03-01 12:53 | MHC.OFFVIS ---
Vital Signs 03/01/24 12:54 Height 5 ft 5 in Weight 345 lb 7.43 oz BMI 57.5 BP 118/82 Blood Pressure Location Lt brachial Position Sitting Pulse 72 Pulse Source Pulse Oximeter Intake Visit Reasons: PCOS/Wed only per pt-conf Intake Note: Patient present today for PCOS follow up visit. Cartographic Drafter Required: No Accompanied by: Self / Same As Patient Allergies No Known Allergies [No Known Allergies*] Allergy (Verified 03/01/24 12:58) Medication List - Last Reconciled 03/01/24 by Celina Liu MD cholecalciferol (vitamin D3) 50 mcg PO DAILY [id number] fum-folic ac-om3 [id number] mg-mcg-mg (One Daily ) pkgs PO vitamin B complex (B Complex-Vitamin B12 tablet) 1 tab PO DAILY HPI Comments Details: 28 YO Female here today for evaluation of PCOS with history of infertility and recurrent miscarriages . She has been seen in the past in our practice by Dr. Chino and her last visit was in 2020. She reports being diagnosed with PCOS in 2018. She was diagnosed due to infertility, and underwent a workup which revealed elevated testostosterone and with features of hyperandrogenism and irregular mensturation met criteria for PCOS. Menarche was age 11. Menses were irregular for many years. +4 Has been seeing OBgyn at [facility] She thinks she was 6 weeks long at the time of last miscarriagein Jan 2024. 2020: miscarried at 8 weeks , expectant management, conceived after being started on metformin July 2020 thinks it was 500 mg BID , subsequenlt miscarried 2021: miscarried early no sure when, expectant management 2022 : miscarried at 8 weeks , expenctant mangemtn 2023: most recent one in Jan 2024, at 6 weeks [place] ,expenctant No period since She had a light positive preganancy test 2 days ago 02/28/24 . Lives with OCP use: None /never Metformin use: Was Taking 500 mg PO BID. Stopped in 2022 She saw reproductive endocrinology in [facility] : per patient all testing was normal including blood work and hysteroslapingogram but at that time her doctor was leaving and it became difficult for her to afford treatment Not taken letrozole or clomid , no IUI or IVF done Weight gain: BMI 57.5 kg/m2 . Gained 45 lbs in the last month . Was seeing bariatric surgery Feb 2023 but no follow up because she wants to conceive now She denies a change in ring size or shoe size. Does endorse easy bruising, no proximal muscle weakness. Exercise Treadmill walks for an hour slowly daily for the past month Diet : 2 meals a day Yesterday Breakfast : sandwich with ham and cheese Dinner : mashed potatoes with ground beef and cheese Hirsutism/hyperandrogenism: Has hidradenitis suppurativa. not recently seeing dermatology Has hirsutism of her face and abdomen . Shaves daily. Denies hair loss Acne : not muc h She denies a history of HTN, hyperlipidemia, prediabetes. Physical exam General: sitting comfortably in no acute distress HEENT: normocephalic/atraumatic, no facial plethora Neck: supple, symmetrical, no thyromegaly , acanthosis nigricans noted on the neck, multiple skin tags noted, also has dorsocervical and supraclavicular fat pads Cardiac: normal heart sounds Pulm: normal breath sounds B/L, no added breath sounds Abd: not distended, no tenderness, excessive hair noted on the abdomen, no purple striae Extremities: no edema, no signs of myxedema PFSH Medical History PCOS (polycystic ovarian syndrome) Low serum cortisol level Elevated testosterone level in female Amenorrhea Vitamin D deficiency Surgical History No history of previous surgery Family History Mother Unknown family medical history Father Unknown family medical history Social History Alcohol intake: current Patient Tobacco Use Status: Current everyday Tobacco user Cigarettes Per Day: 5 Years Smoked: 5 Substance Use Type: Marijuana Female Reproductive History Menstrual Age of Menarche: 11 Results Reviewed Results Reviewed: Laboratory Tests 02/15/18 09/05/20 01/05/24 08:40 09:18 10:03 Hemoglobin A1c 5.1 Insulin Level 15.7 C-Peptide 2.07 TSH 0.44 Free Estradiol 0.71 Total Estradiol 28 [id number]-[id number] Progester 39 Estradiol Ultra LCMSMS 26 FSH 6.4 2.1 Luteinizing Hormone 2.9 3.1 Prolactin 9.6 Total Testosterone 39 39 51 H Free Testosterone 7.2 H Fr Testosterone Dialys 7.4 H 7.8 H Sex Hormone Bind Glob 18 Androstenedione 145 DHEA Sulfate 266 Cortisol 8.0 5.6 ACTH 13 17-Hydroxyprogesterone 20 01/28/24 08:47 Hemoglobin A1c Insulin Level C-Peptide TSH Free Estradiol Total Estradiol [id number]-zjpnrji Progester Estradiol Ultra LCMSMS FSH Luteinizing Hormone Prolactin Total Testosterone 39 Free Testosterone Fr Testosterone Dialys 5.7 Sex Hormone Bind Glob Androstenedione DHEA Sulfate Cortisol ACTH 17-Hydroxyprogesterone Laboratory Tests 02/15/18 01/05/24 08:40 10:03 Hemoglobin A1c 5.1 Hemoglobin A1c % 5.5 Triglycerides 76 Cholesterol 130 LDL Cholesterol, Calc 75 HDL Cholesterol 40 L 25-OH Vitamin D Total 19.6 L EXAMINATION: US OBSTETRICAL ULTRASOUND 01/31 CLINICAL INFORMATION: Vaginal bleeding with COMPARISON: Ultrasound 07/06/2016 LMP: 12/06/2023. Gestational age by maternal dates is 6 weeks 1 day. Estimated date of delivery by maternal dates is 09/11/2024. TECHNIQUE: Both transabdominal and endovaginal scanning was seen. FINDINGS: An anteverted uterus is present. The endometrium is thickened at 1.7 cm and a gestational sac is not present. No heart beat is detected. The right ovary measures 4.4 x 2.0 x 2.3 cm and appears normal. The left ovary measures 3.3 x 2.4 x 2.4 cm and contains a 1.9 x 2.0 x 1.7 cm corpus luteal cyst. There is trace fluid in the cul-de-sac. US/US OB pelvic and transvaginal IMPRESSION: No intrauterine is identified at this time. Correlation with beta hCG levels is recommended, as nonvisualization of a gestational sac could be due to an early stage of . Alternatively, lack of an intrauterine gestational sac may also be seen with missed or ectopic , although no adnexal mass is seen to strongly suggest ectopic . Short-term sonographic follow-up and serial beta hCG levels are recommended to assess for development of an intrauterine gestational sac. Electronically signed by: Arthur Christina MD 01/18/2024 08:43 AM EDT RP Assessment & Plan Assessment & Plan (1) PCOS (polycystic ovarian syndrome): Code(s): E28.2 - Polycystic ovarian syndrome Category: Medical Plan: Patient with a history of PCOS diagnosed in 2017 when she was having issues with fertility and was found to have history of irregular menses with elevated testosterone levels and features of hyperandrogenism. Workup from August 2020 showed unremarkable 17 hydroxyprogesterone, DHEA-S was within normal range. Total testosterone and free testosterone was noted to be elevated at 51 ng/dL and 7.2 pg/mL but actively. However total testosterone levels not greater than 150 ng/dL to suggest possible tumors of the adrenal grand or ovarian tumors. Plus her history of irregular menses, hyperandrogenism features such as hirsutism has been chronic with no sudden worsening. Unlikely she has any neoplasm of the adrenal glands are ovarian pathology to cause these symptoms. She has gained 45 lb in the past 1 month which she endorses herself as well. She has started working out in the treadmill by walking slowly for an hour daily for the past month, and though she can not give me an exact amount or account of calorie counting she is doing, however she says she only eats 2 meals in a day. Though some of these meals seem to be highly dense in calories. I reviewed with the patient the implications of polycystic ovarian syndrome in terms of 1) reproductive health (increased risk of infertity, miscarriage), 2) metabolic issues (type 2 diabetes, hypertension, dyslipidemia, cardiovascular disease) and 3) hyperandrogenism (acne, hirsuitism, male pattern hair loss). We reviewed that weight loss in overweight woman can help improve these morbidities, but often woman with PCOS do need further assistance with fertility using metformin plus clomiphene or letrazole. She has had history of recurrent miscarriages with 4 miscarriages since 2019. Most recently she miscarried at 6 weeks in January 2024. She seems to have been evaluated by reproductive endocrinology at [facility] back in 2020, which reportedly patient says the workup was unremarkable however she could not afford to go do them further. She is interested in conceiving. I discussed with her importance of weight loss. She had a positive test 2 days ago. At this point I will do an HCG serum levels since I am getting blood work. If she has conceived again, she would definitely be a high-risk needing close monitoring. She has an appointment coming up on 03/09/2024 with [facility] OBGYN. If she has not conceived, I discussed with her metformin can definitely have with conception, however she would likely be a better candidate for letrozole or Clomid. Again these discussions would be carried out by her OBGYN or reproductive endocrinology. I did discuss with her that [facility] reproductive endocrinology has now merged with [facility], and they have an office in [place] in the [facility]. I have asked her to discuss this with her OBGYN on her upcoming appointment to see if she is already or she would benefit from a referral to [facility] Recent labs from December 2023 showed normal HbA1c, lipids within good range. Her blood pressure is within normal range. Weight lost discussed in further detail below. She is not a candidate for spironolactone given she is actively trying to conceive for hirsutism. Plan: -follow up with the OBGYN on 03/09/2024 with regards to recurrent miscarriages and referral to reproductive endocrinology for consideration of letrozole/Clomid -she might benefit from metformin 500 mg twice or thrice a day to help with conception. There is also some weak data suggesting that it can also help with reducing the risk of miscarriage and PCOS. We will defer to OBGYN, she has an upcoming appointment -do serum hCG test as she had a positive urine test 2 days ago -weight loss with lifestyle modification advised as below -normal thyroid function, however we will also check TPO antibody levels given history of recurrent miscarriages (2) Morbid obesity: Code(s): E66.01 - Morbid (severe) obesity due to excess calories Category: Medical Plan: Patient with BMI of 57.5 kg per m2. Current weight is 345 lb. She says this is the highest weight she has ever been. She has put on 45 lb in the past month. Patient also endorses this. I reviewed with patient the importance of weight loss as it relates to decreasing the risk of diabetes, cardiovascular disease, obstructive sleep apnea,PCOS, arthritis. She has a diagnosis PCOS and has had in fertility plus recurrent miscarriages. She was evaluated by weight management/bariatric surgery in 2022, however she did not follow up with them as she was actively trying to conceive and did not want to undergo bariatric surgery requiring contraception. I did discuss with her that weight loss with bariatric surgery would help with achieving a healthy in the future and she should strongly consider it and she would need to stop trying to conceive for about 18 months after surgery but it would result in better outcomes. She is going to give this a thought. We reviewed the importance of decreasing total calorie consumption, minimizing fats and carbohydrates. We reviewed the 500 calorie deficit plan to lose 1 lb per week. While she is only eating 2 meals per day, she seems to be eating very calorie dense foods with a red meat and dressing. Encouraged to exercise at least 30 minutes daily Or walking more than 10,000 steps a day. She is not a candidate for weight loss medications such as GLP 1 agonist as she is actively trying to conceive and might currently be . She does have features of insulin resistance on exam including acanthosis nigricans, skin tags. No specific features of [place]'s syndrome. However I will check a cortisol level, acth, DHEA-S. We will also evaluate with 24 hour urine cortisol levels. Given this skin tags in the hidradenitis suppurativa, we will also check for acromegaly with IGF-1 levels. Plan: -weight loss with lifestyle modification as advised above -she denied being referred to a data integration developer -check IGF-1, growth hormone, 24 hour urine cortisol, cortisol, acth, DHEA-S levels Plan I spent 45 minutes in reviewing the record, seeing the patient and documenting in the medical record. Orders: Orders Free T4 (Free Thyroxine) Today E28.2 - Polycystic ovarian syndrome, E66.01 - Morbid (severe) obesity due to excess calories Thyroid Peroxidase Antibodies Today E28.2 - Polycystic ovarian syndrome, E66.01 - Morbid (severe) obesity due to excess calories Adrenocorticotropic Hormone Today E28.2 - Polycystic ovarian syndrome, E66.01 - Morbid (severe) obesity due to excess calories Creatinine, 24 Hr Group Today E28.2 - Polycystic ovarian syndrome, E66.01 - Morbid (severe) obesity due to excess calories Cortisol, Free 24Hr Urine Today E28.2 - Polycystic ovarian syndrome, E66.01 - Morbid (severe) obesity due to excess calories IGF-1 (Somatomedin C) Today E28.2 - Polycystic ovarian syndrome Human Growth Hormone Today E28.2 - Polycystic ovarian syndrome Thyroid Stimulating Hormone Today E28.2 - Polycystic ovarian syndrome, E66.01 - Morbid (severe) obesity due to excess calories Cortisol Random Today E28.2 - Polycystic ovarian syndrome, E66.01 - Morbid (severe) obesity due to excess calories HCG Quantitative Today E28.2 - Polycystic ovarian syndrome, E66.01 - Morbid (severe) obesity due to excess calories DHEA Sulfate Today E28.2 - Polycystic ovarian syndrome Patient Instructions: Do 24 hr urine collection 24 hr urine collection instructions You have been asked to collect your urine for 24 hours to assess for calcium excretion. You must choose a 24 hour period of time when you will be home. The morning of the first day, DISCARD the FIRST morning void and then note the time. You will collect every single void from then on for 24 hours. For example, if you wake up at 6am and urinate, flush down that void. You will then collect every drop of urine all day and all night through 6am the following day. You will urinate one last time at 6am for the collection. The jug of urine must be kept in the refrigerator until you bring it to the lab.You have been asked to collect your urine for 24 hours to assess for calcium excretion. You must choose a 24 hour period of time when you will be home. The morning of the first day, DISCARD the FIRST morning void and then note the time. You will collect every single void from then on for 24 hours. For example, if you wake up at 6am and urinate, flush down that void. You will then collect every drop of urine all day and all night through 6am the following day. You will urinate one last time at 6am for the collection. The jug of urine must be kept in the refrigerator until you bring it to the lab. Do blood work See filemaker developer on 03/09/24 Metformin helps with coneiving but since you think you might be we will hold off on starting this till you see your Obgyn Weight loss counselling Use LOSE IT angel to account for calories ? Limit added sugars to less than 25 grams daily. There are 4.2 grams of sugar per teaspoon of sugar. A teaspoon of honey has 6 grams of sugar! Bread also can have more sugar than you think-check labels ? No soda or juices. Drink water, unsweetened iced tea or seltzer ? Limit eating out/take out or prepared meals to twice weekly at most ? Avoid red meat, hot dogs, beauchamp and deli meat. Substitute plant protein for animal protein as much as you can. Beans, nuts, tofu, soy milk ? Limit cheese to 1 ounce a few times weekly ? Eat high fiber foods like beans, apples and green veggies, salsa is a great snack with whole grain cracker like Wasa ? Look for the whole grain stamp when choosing bread etc. Aim for 48 grams of whole grains daily. Whole wheat does not equal whole grains! ? Don't keep tempting treats in the house. Go out once in a while for a treat. ? Don't eat anything deep fried or cream based-no sour cream Coding Level of Care Code New Pt Level 4 (10645) Diagnoses PCOS (polycystic ovarian syndrome) E28.2 Morbid obesity E66.01 Time Spent (min) 45
[2024-03-01 12:54] VITALS: BP 118/82; PULSE 72; BMI 57.5
== END 2024-03-01 14:11 | disposition home or self-care (01) ==
PROVIDERS: PCP Student in an Organized Health Care Education/Training Program; Visit Provider Student in an Organized Health Care Education/Training Program
DX: E28.2 Polycystic ovarian syndrome (principal); E66.01 Morbid (severe) obesity due to excess calories
CPT/HCPCS: 99204

== ENCOUNTER → 2024-03-01 12:50 | Outpatient (BNVA) | payer OTHER, SELFPAY | PROVIDERS: PCP Student in an Organized Health Care Education/Training Program; Visit Provider Student in an Organized Health Care Education/Training Program ==

== ENCOUNTER 2024-03-03 08:04 | Outpatient (REF) | payer OTHER, SELFPAY ==
[2024-03-03 08:56] LABS: Creatinine, mg/dL 140.03
[2024-03-03 09:40] LABS: Creatinine, 24Hr Urine 1.8 G/Day (1.0-2.0); Total Volume 24 Hour Urine 1250 mL
[2024-03-11 17:34] LABS: Cortisol Free, 24 Hr Urine 35.6 mcg/24 h (4.0-50.0); Creatinine, 24 Hr Urine 1.68 g/24 h (0.50-2.15); Total Volume, 24 Hr Urine 1250 mL
== END 2024-03-03 08:05 | disposition home or self-care (01) ==
LOC: HO.LNP 08:04
PROVIDERS: Visit Provider Student in an Organized Health Care Education/Training Program
DX: E28.2 Polycystic ovarian syndrome (principal); E66.01 Morbid (severe) obesity due to excess calories
CPT/HCPCS: 82530; 82570

== ENCOUNTER 2024-03-27 05:16 | Inpatient (IN) | payer OTHER, SELFPAY ==
[2024-03-27] VITALS (11 sets, daily range): BP systolic 93–132; BP diastolic 37–77; PULSE 82–137; RESP 16–35; TEMP 36.8–39.4; O2SAT 97–100; BMI 55.6
--- NOTE | 2024-03-27 | ECG_ITS ---
Test Reason : TACHY Blood Pressure : / mmHG Vent. Rate : 115 BPM Atrial Rate : 115 BPM P-R Int : 172 ms QRS Dur : 086 ms QT Int : 314 ms P-R-T Axes : -05 009 005 degrees QTc Int : 434 ms Sinus tachycardia Cannot rule out Anterior infarct , age undetermined Abnormal ECG No previous ECGs available Referred By: Generic ED Physician Electronically Signed By:JAMA GALLEGOS MD
--- NOTE | ~2024-03-27 | US_ITS ---
EXAMINATION: US VENOUS LEFT LOWER EXTREMITY CLINICAL INFORMATION: Left lower extremity pain and cellulitis COMPARISON: Left lower extremity DVT study 12/17/2017. TECHNIQUE: Doppler spectral analysis and color flow Doppler imaging was performed of the left lower extremity. Compression and augmentation maneuvers were performed. FINDINGS: The left common femoral, femoral, popliteal and calf veins were well-identified and normal. They demonstrate normal compressibility and color fill-in. There is no Del Angel's cyst. There is a prominent left groin lymph node measuring 1.3 x 1.3 x 1.7 cm. US/US venous duplex LE LT IMPRESSION: No evidence for left lower extremity deep vein thrombosis. Electronically signed by: Arthur Christina MD 03/27/2024 08:15 AM [facility]
--- NOTE | ~2024-03-27 | MR_ITS ---
EXAMINATION: MR LUMBAR SPINE WITHOUT CONTRAST CLINICAL INFORMATION: Incontinence. Back pain. Concerning cauda equina syndrome. COMPARISON: None available. TECHNIQUE: MRI of the lumbar spine was obtained using routine sequences without contrast. FINDINGS: Last rib-bearing vertebra labeled T12. Disc desiccation at L5-S1. The alignment is normal. Intrinsic hyperintense T1 signal at L3 vertebra likely intraosseous hemangioma. Conus medullaris ends at inferior endplate of L1 with normal signal. T12-L1: Normal. L1-2: Normal. L2-3: Facet joint hypertrophy as well as ligamentum flavum. Broad-based disc bulging. No disc herniation. No neuroforamina stenosis. L3-4: Facet joint hypertrophy as well as ligamentum flavum. Broad-based disc bulging. No disc herniation. No neuroforamina stenosis L4-5: Facet joint hypertrophy as well as ligamentum flavum. Broad-based disc bulging. No disc herniation. No neuroforamina stenosis. L5-S1: Left subarticular foraminal and extraforaminal broad-based disc herniation encroaching likely compressing the left S1 and left L5 exiting nerve roots. Facet joint hypertrophy with facet effusions. Hypertrophy of ligamentum flavum. No prevertebral compartment hematoma, mass or fluid collection. MR/MR lumbar spine wo con IMPRESSION: [Subarticular, foraminal and extraforaminal broad-based disc herniation, L5-S1 encroaching likely compressing left S1 and L5 exiting nerve roots. Normal cauda equina. Electronically signed by: Gabriel Duran MD 03/27/2024 02:18 PM [facility] [place]
--- NOTE | ~2024-03-27 | CT_ITS ---
EXAMINATION: CT scan of the left lower leg with contrast CLINICAL INFORMATION: Cellulitis. Evaluate for gas necrotizing fasciitis COMPARISON: Venous ultrasound performed same day TECHNIQUE: CT scan of the left lower extremity performed with contrast. Contrast dose 85 cc of Omnipaque 300 given intravenously. [id number] extends from the knee through the foot. FINDINGS: Subcutaneous soft tissues: There is feathery appearing fluidlike density along the anterior medial aspect of the left lower leg and foot. No focal fluid collection. No ulceration or sinus tract. Muscles/tendons: Normal. No gas. Fascia unremarkable. Osseous structures: Normal. Neurovascular structures: CT/CT lower leg LT w IV con IMPRESSION: 1. Findings compatible with edema and/or cellulitis along the anterior medial aspect of the left lower leg and foot. 2. No evidence of necrotizing fasciitis. Electronically signed by: Harley Cortez MD 03/27/2024 01:45 PM [facility]
[2024-03-27 06:00] LABS: Basophils Absolute Auto 0.1 X10*3/uL (0.0-0.2); Basophils Percent Auto 0.3 % (0-2); Hematocrit 41.4 % (37.0-47.0); Imm Gran Abs Auto 0.67 X10*3/uL (0.00-0.03); Imm Gran Pct Auto 2.1 % (0.0-0.4); Lymphocytes Absolute Auto 1.1 X10*3/uL (1.2-4.9); Lymphocytes Percent Auto 3.6 % (20-40); MANUAL DIFF FLAG SCAN; Mean Corpuscular HGB Conc 33.8 g/dl (31.0-35.0); Mean Corpuscular Hemoglobin 28.3 pg (27.0-33.0); Mean Corpuscular Volume 83.8 fL (80.0-98.0); Mean Platelet Volume 8.7 fL (9.4-12.3); Monocytes Absolute Auto 1.3 X10*3/uL (0.1-1.2); Monocytes Percent Auto 4.1 % (2-11); Neutrophils Percent Auto 89.9 % (45-73); Platelet Count 229 X10*3/uL (160-400); Red Blood Count 4.94 X10*6/uL (4.20-5.50); Red Cell Distribution Width 13.5 % (11.0-16.0); SCAN SMEAR FLAG 1
[2024-03-27 06:01] LABS: White Blood Count 31.2 X10*3/uL (4.8-10.8)
--- NOTE | 2024-03-27 06:04 | PC.NURSE ---
MD Bernal made aware of pt WBC count. ordering blood cultures and lactic acid.
[2024-03-27 06:21] LABS: Alanine Aminotransferase 35 U/L (0-31); Albumin Level 4.1 g/dL (3.5-5.0); Alkaline Phosphatase 71 U/L (39-117); Anion Gap 14 (12-20); Aspartate Amino Transferase 32 U/L (5-31); Bilirubin Total 0.6 mg/dL (0.0-1.0); Blood Urea Nitrogen 10 mg/dL (9-16); Calcium 9.3 mg/dL (8.4-10.2); Carbon Dioxide 20 mmol/L (22-29); Chloride 101 mmol/L (96-108); Creatinine Clr Calc Pharmacy 182.2; Estimated Glomerular Filt Rate > 60; Glucose Fasting 130 mg/dL (60-99); Potassium 3.9 mmol/L (3.3-5.1); Sodium 131 mmol/L (135-145); Total Protein 7.7 g/dL (6.5-8.0)
[2024-03-27 06:23] LABS: SLIDE REVIEW VERIFIED
[2024-03-27] MEDS: Piperacillin Sodium/Tazobactam 3.375 GM in 0.9 % Sodium Chloride 50 ML IV (06:26)
[2024-03-27 06:27] LABS: Lipase 13 U/L (8-78); Magnesium 1.5 mg/dL (1.6-2.6)
[2024-03-27] MEDS: 0.9 % Sodium Chloride 2,000 ML 999 ML IVCONT (06:27)
[2024-03-27 06:36] LABS: Lactic Acid 1.2 mmol/L (0.5-2.0)
[2024-03-27] MEDS: Acetaminophen 325 MG TABLET 975 MG PO ×2 (06:55→11:30)
--- NOTE | 2024-03-27 06:56 | ED_ITS ---
HPI - General Adult General Chief complaint: General Medical Stated complaint: left leg pain Time Seen by Provider: 03/27/24 06:28 Source: patient, RN notes reviewed and old records reviewed Mode of arrival: wheelchair History of Present Illness ED Provider: Laura Plasencia PA-C HPI narrative: 28-year-old female with a past medical history PCOS, amenorrhea, presenting to the ED complaining left lower extremity pain/erythema and low back pain with 3 episodes of urinary incontinence beginning yesterday. States this morning was unable to ambulate secondary to LLE pain. Denies known injury, trauma, fall, numbness, tingling, weakness, travel, history of clots, known tick or insect bites. Denies taking daily prescribed medications. Denies dysuria/hematuria, abdominal pain, CP/SOB. Denies history of IVDA Related Data Home Medications ?Medication ?Instructions ?Recorded ?Confirmed cholecalciferol (vitamin D3) 50 50 mcg PO DAILY 09/02/20 03/01/24 mcg (2,000 unit) capsule vitamin B complex (B 1 tab PO DAILY 09/02/20 03/01/24 Complex-Vitamin B12 tablet) vits 75-iron 28 mg-folic pkg PO 03/01/24 03/01/24 acid 800 mcg-omega3 440 mg oral pack (One Daily ) Allergies Allergy/AdvReac Type Severity Reaction Status Date / Time No Known Allergies Allergy Verified 03/27/24 05:23 [No Known Allergies*] Review of Systems 2 Review of Systems: Yes all other systems are reviewed and are negative Constitutional: Constitutional: Reports as per HPI Neurologic: Denies Sensory deficit (Neuro) [facility] Past Medical History Attestation statement: The following information was validated with the patient. Source: old records reviewed Medical History PCOS (polycystic ovarian syndrome) Low serum cortisol level Elevated testosterone level in female Amenorrhea Vitamin D deficiency Surgical History No history of previous surgery Family History Family History Mother Unknown family medical history Father Unknown family medical history Social History Social History Alcohol intake: current Patient Tobacco Use Status: Current everyday Tobacco user Cigarettes Per Day: 5 Years Smoked: 5 Smoked in Last 30 Days: Yes Use of substances other than those prescribed or required for medical reasons: No Substance Use Type: Marijuana Advance Directives: No Advance Directives Information Provided: Yes Do you have a plan to hurt others: No Plan Patient : No Physical Exam ED Vital Signs: Vital Signs - 24 hr 03/27/24 05:21 03/27/24 06:45 03/27/24 06:45 Temperature 99.4 F 100.8 F H Pulse Rate 137 H 113 H Pulse Rate [Monitor] 113 H Respiratory Rate 20 35 H 35 H Blood Pressure 114/53 L Pulse Oximetry 98 Oxygen Delivery Method Room Air 03/27/24 07:58 03/27/24 08:30 03/27/24 09:19 Temperature 98.6 F 98.2 F Pulse Rate 101 H 111 H Pulse Rate [Monitor] Respiratory Rate 16 18 Blood Pressure 93/37 L 126/41 L 105/37 L Pulse Oximetry 97 97 Oxygen Delivery Method Room Air Room Air 03/27/24 11:22 03/27/24 14:39 03/27/24 15:02 Temperature 100.7 F H 98.5 F 98.3 F Pulse Rate 114 H 93 96 Pulse Rate [Monitor] Respiratory Rate 18 20 16 Blood Pressure 117/53 L 123/77 114/62 Pulse Oximetry 99 100 99 Oxygen Delivery Method Room Air Room Air Room Air BMI result Body Mass Index 55.6 Const General: cooperative, healthy appearing and no acute distress Orientation/consciousness: patient oriented x3 Limitations: no limitations HENWV Head: Yes normal to inspection and Yes atraumatic Ears: hearing grossly normal bilaterally General nose exam: Normal external nose present Face and sinus: Yes normal facial exam Eyes General: appearance normal, both eyes and all related structures EOM: EOMs intact bilaterally Neck Neck: Yes normal visual inspection and Yes no meningeal signs Resp Effort & Inspection: normal respiratory effort and no respiratory distress Auscultation: clear to auscultation bilaterally Cardio Rate: regular rate Heart sounds: S1 normal heart sound present and S2 normal heart sound present GI Inspection: Yes normal to inspection Palpation (GI): Soft to palpation, nontender, no guarding and not rigid General: Yes no CVA tenderness Back/Spine/Pelvis Other: No midline cervical/thoracic/lumbar spinous tenderness/step-off or deformity Back: no CVA tenderness Skin Wounds: no wounds Neuro Other: Limited ROM LLE secondaary to pain. No saddle anesthesia. Sensation intact to light touch. Neurovascular intact distally. Good rectal tone General: patient oriented x3, tone normal, moves all extremities and no meningeal signs Cranial nerves: Yes CN's II-XII intact bilaterally Motor exam (neuro): 5/5 motor strength present throughout Sensory Exam: No Sensory deficit (Neuro) Extrem Other: Please refer to image above. Well-demarcated erythema with warmth and tenderness to palpation. Pain out of proportion to exam findings. Compartments soft. No crepitus. Tenderness extends to upper medial thigh. No lymphangitis. Neurovascularly intact distally. Left ankle with tenderness and limited ROM secondary to pain. Slight ecchymosis. Course Course Course Narrative: Case d/w ED Attending Dr. Fields -Leukocytosis of 31.2 with left shift. Labs otherwise reassuring. Lactic acid WNL. CRP mildly elevated -[id number]--Consulted general surgery, Dr. Weaver > evaluated patient in the ED, low suspicion for acute necrotizing fasciitis at this time. US venous duplex LE LT IMPRESSION: No evidence for left lower extremity deep vein thrombosis. CT lower leg LT w IV con IMPRESSION: 1. Findings compatible with edema and/or cellulitis along the anterior medial aspect of the left lower leg and foot. 2. No evidence of necrotizing fasciitis. MR lumbar spine wo con IMPRESSION: [Subarticular, foraminal and extraforaminal broad-based disc herniation, L5-S1 encroaching likely compressing left S1 and L5 exiting nerve roots. Normal cauda equina. > plan to admit for further management Medications Administered Discontinued Medications Generic Name Dose Route Start Last Admin Trade Name Freq PRN Reason Stop Dose Admin Acetaminophen 975 mg 03/27/24 06:40 03/27/24 06:55 Acetaminophen 325 Mg Tablet PO 03/27/24 06:41 975 mg ONCE ONE Administration Acetaminophen 975 mg 03/27/24 11:25 03/27/24 11:30 Acetaminophen 325 Mg Tablet PO 03/27/24 11:26 975 mg ONCE ONE Administration Sodium Chloride 2,000 mls @ 999 mls/hr 03/27/24 06:11 03/27/24 08:30 Ns IVCONT 03/27/24 08:11 Infused .Q2H1M ONE Infusion Vancomycin HCl 2,000 mg in 500 mls @ 250 mls/hr 03/27/24 06:11 03/27/24 09:23 Vancomycin/Ns IV 03/27/24 08:10 Infused ONCE ONE Infusion Piperacillin Sod/Tazobactam 50 mls @ 100 mls/hr 03/27/24 06:11 03/27/24 07:18 Sod 3.375 gm/ Sodium Chloride IV 03/27/24 06:40 Infused ONCE ONE Infusion Clindamycin Phosphate 600 mg in 50 mls @ 100 mls/hr 03/27/24 07:42 03/27/24 09:46 Cleocin IV 03/27/24 08:11 Infused ONCE ONE Infusion Iohexol 85 ml 03/27/24 10:10 03/27/24 10:11 Iohexol 350 Mg/Ml 100 Ml Infus..Btl IV 03/27/24 10:11 85 ml ONCE ONE Administration Morphine Sulfate 2 mg 03/27/24 08:02 03/27/24 09:17 Morphine Sulfate 2 Mg/Ml Cartridge IVPUSH 03/27/24 08:03 2 mg ONCE ONE Administration Protocol Medical Decision Making Medical Decision Making MDM Narrative: 28-year-old female with a past medical history PCOS, amenorrhea, presenting to the ED complaining left lower extremity pain/erythema and low back pain with 3 episodes of urinary incontinence beginning yesterday. On exam tachycardic, tachypneic, febrile to 100.8 rectally. Please refer to image above, pain out of proportion to exam findings, compartments soft. Rectal tone WNL. Concern for cellulitis vs necrotizing fasciitis vs radiculopathy vs cauda equina vs DVT. Lower suspicion for PAD/arterial compromise, fracture Plan: EKG, labs, UA, x-ray, ultrasound, MRI, blood culture/sciatic, empiric IV antibiotics, admission Please refer to course for remaining clinical decision making, interpretation of labs/imaging results, and discussions with consultants and/or family members. 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 03/27/24 05:55 03/27/24 05:55 Labs: Lab Results 03/27/24 03/27/24 Range/Units 05:55 06:16 WBC 31.2 H* (4.8-10.8) X10*3/uL RBC 4.94 (4.20-5.50) X10*6/uL Hgb 14.0 (12.0-16.0) g/dl Hct 41.4 (37.0-47.0) % MCV 83.8 (80.0-98.0) fL MCH 28.3 (27.0-33.0) pg MCHC 33.8 (31.0-35.0) g/dl RDW 13.5 (11.0-16.0) % Plt Count 229 (160-400) X10*3/uL MPV 8.7 L (9.4-12.3) fL Immature Gran % (Auto) 2.1 H (0.0-0.4) % Neut % (Auto) 89.9 H (45-73) % Lymph % (Auto) 3.6 L (20-40) % [place] % (Auto) 4.1 (2-11) % Eos % (Auto) 0.0 (0-4) % Baso % (Auto) 0.3 (0-2) % Lymph # (Auto) 1.1 L (1.2-4.9) X10*3/uL [place] # (Auto) 1.3 H (0.1-1.2) X10*3/uL Eos # (Auto) 0.0 (0.0-0.4) X10*3/uL Baso # (Auto) 0.1 (0.0-0.2) X10*3/uL Abs Immat Gran (auto) 0.67 H (0.00-0.03) X10*3/uL Absolute Neuts (auto) 28.0 H (2.0-8.3) x10*3/uL Absolute Nucleated RBC 0.000 (0.0-0.012) X10*3/uL Nucleated RBC % (auto) 0.0 (0.0-0.2) /100WBC Smear Tech's Comments VERIFIED ESR 7 (0-20) MM/HR Sodium 131 L (135-145) mmol/L Potassium 3.9 (3.3-5.1) mmol/L Chloride 101 (96-108) mmol/L Carbon Dioxide 20 L (22-29) mmol/L Anion Gap 14 (12-20) BUN 10 (9-16) mg/dL Creatinine 0.70 (0.5-1.4) mg/dL Estim Creat Clear Calc 182.2 Estimated GFR > 60 Fasting Glucose 130 H (60-99) mg/dL Lactic Acid 1.2 (0.5-2.0) mmol/L Calcium 9.3 D (8.4-10.2) mg/dL Magnesium 1.5 L (1.6-2.6) mg/dL Total Bilirubin 0.6 (0.0-1.0) mg/dL AST 32 H (5-31) U/L ALT 35 H (0-31) U/L Alkaline Phosphatase 71 (39-117) U/L Total Creatine Kinase 64 (26-140) U/L C-Reactive Protein 5.30 H (< or = 0.50) mg/dL Total Protein 7.7 (6.5-8.0) g/dL Albumin 4.1 (3.5-5.0) g/dL Lipase 13 (8-78) U/L Beta HCG, Quant < 2 mIU/mL Independent Interpretation I performed an independent interpretation of an: EKG, Plain X-Ray and Ultrasound Radiology Impression Discussion of test interpretation with radiology: I have reviewed the radiologist's reading. External Record Review External record reviewed: Inpatient record, Office record, Outpatient record, Prior outpatient labs, Prior outpatient radiology, Primary care record and Outside ED record Tests considered The following testing was considered but not selected: As above Prescription Management I considered prescription management with: Pain Medication and Antibiotic Chronic Conditions Patient?s care impacted by: Other Social Determinants Patient?s care significantly limited by Social Determinants of Health including: Other Social Determinant of Health Critical Care Time Critical Care Time Critical Care Time: Yes Total Critical Care Time: 45 Attestation: I have personally provided critical care time exclusive of time spent on separately billable procedures. Time includes review of lab data, radiology results, discussion with consultants, and monitoring for potential decompensation. Intervention performed as documented. Discharge Plan Discharge Clinical Impression: Cellulitis of left leg, Herniation of lumbar intervertebral disc Patient Disposition: Admitted As Inpatient
[2024-03-27] MEDS: vancomycin/NS 2,000 MG/500 ML PLAST..BAG 250 MG IV (06:58)
--- NOTE | 2024-03-27 06:58 | PC.NURSE ---
Vanco admin delayed due to unavailability in pyxsis
--- NOTE | 2024-03-27 06:58 | PC.NURSE ---
Sepsis criteria met- provider initiated process as of 6:11 wbc, techy and febrile
[2024-03-27 07:00] LABS: Erythrocyte Sedimentation Rate 7 MM/HR (0-20)
--- NOTE | 2024-03-27 08:00 | PC.NURSE ---
ultrasound completed, awaiting results. IV fluids/antibiotics infusing
--- NOTE | 2024-03-27 09:06 | P.CONGS_ITS ---
History of Present Illness Consult details Consult date: 03/27/24 Narrative: Patient is a 28-year-old female who started having left lower leg pain and discomfort starting she states late last evening. Because of progression of symptoms, she presents to the emergency department further evaluation. Consultation is for left leg cellulitis. Patient denies any trauma to the area. He does not recall any ingrown hairs in the area or bug bites. She has never had this before. Patient has collection of comorbidities. Chart was reviewed and patient evaluated. Patient has a marked leukocytosis of 31,000. Lower extremity Doppler negative for DVT PMFSH Past Medical History Medical History PCOS (polycystic ovarian syndrome) Low serum cortisol level Elevated testosterone level in female Amenorrhea Vitamin D deficiency Family History Family History Mother Unknown family medical history Father Unknown family medical history Surgical History Surgical History No history of previous surgery Social History Social History Alcohol intake: current Patient Tobacco Use Status: Current everyday Tobacco user Cigarettes Per Day: 5 Years Smoked: 5 Smoked in Last 30 Days: Yes Use of substances other than those prescribed or required for medical reasons: No Substance Use Type: Marijuana Advance Directives: No Advance Directives Information Provided: Yes Do you have a plan to hurt others: No Plan Patient : No Meds Allergies Allergy/AdvReac Type Severity Reaction Status Date / Time No Known Allergies Allergy Verified 03/27/24 05:23 [No Known Allergies*] Home Medications ?Medication ?Instructions ?Recorded ?Confirmed ?Last Taken ?Type cholecalciferol (vitamin D3) 50 50 mcg PO DAILY 09/02/20 03/01/24 Unknown History mcg (2,000 unit) capsule vitamin B complex (B 1 tab PO DAILY 09/02/20 03/01/24 Unknown History Complex-Vitamin B12 tablet) vits 75-iron 28 mg-folic pkg PO 03/01/24 03/01/24 Unknown History acid 800 mcg-omega3 440 mg oral pack (One Daily ) Physical Exam 2 Vital Signs: Vital Signs: Last Vital Signs Temp 98.6 F 03/27/24 07:58 Pulse 101 H 03/27/24 07:58 Resp 16 03/27/24 07:58 BP 126/41 L 03/27/24 08:30 Pulse Ox 97 03/27/24 07:58 O2 Del Method Room Air 03/27/24 07:58 BMI result Body Mass Index 55.6 Const: Other: Patient was evaluated with mother present. Chest: Other: Chest breath sounds bilaterally. No evidence of any skin changes or infections. Breast exam grossly negative. GI: Other: Abdomen very corpulent, soft, benign Extrem: Other: Extremity exam is most noteworthy for a significant cellulitis involving the distal anterolateral aspect of the left lower leg. This was demarcated with a marking pen. The extremities grossly neurovascularly intact. No evidence of crepitus or skin blisters. Results Labs 03/27/24 05:55 03/27/24 05:55 Labs: Abnormal lab results 03/27/24 Range/Units 05:55 WBC 31.2 H* (4.8-10.8) X10*3/uL MPV 8.7 L (9.4-12.3) fL Immature Gran % (Auto) 2.1 H (0.0-0.4) % Neut % (Auto) 89.9 H (45-73) % Lymph % (Auto) 3.6 L (20-40) % Lymph # (Auto) 1.1 L (1.2-4.9) X10*3/uL [place] # (Auto) 1.3 H (0.1-1.2) X10*3/uL Abs Immat Gran (auto) 0.67 H (0.00-0.03) X10*3/uL Absolute Neuts (auto) 28.0 H (2.0-8.3) x10*3/uL Sodium 131 L (135-145) mmol/L Carbon Dioxide 20 L (22-29) mmol/L Fasting Glucose 130 H (60-99) mg/dL Magnesium 1.5 L (1.6-2.6) mg/dL AST 32 H (5-31) U/L ALT 35 H (0-31) U/L C-Reactive Protein 5.30 H (< or = 0.50) mg/dL Short CBC 03/27/24 Range/Units 05:55 WBC 31.2 H* (4.8-10.8) X10*3/uL Hgb 14.0 (12.0-16.0) g/dl Hct 41.4 (37.0-47.0) % Plt Count 229 (160-400) X10*3/uL BMP 03/27/24 05:55 Sodium 131 L Potassium 3.9 Chloride 101 Carbon Dioxide 20 L BUN 10 Creatinine 0.70 Calcium 9.3 D Cardiac Enzymes 03/27/24 Range/Units 05:55 Total Creatine Kinase 64 (26-140) U/L Liver Function 03/27/24 Range/Units 05:55 Total Bilirubin 0.6 (0.0-1.0) mg/dL AST 32 H (5-31) U/L ALT 35 H (0-31) U/L Alkaline Phosphatase 71 (39-117) U/L Albumin 4.1 (3.5-5.0) g/dL All other labs normal. Assessment and Plan (1) Left leg cellulitis: Status: Acute Plan Patient was having a CT scan of the area to rule out any other occult pathology. At present, we will continue IV antibiotics, local wound care in the form of wound elevation, and serial exams. Procedures Date of Service Date of Service: 03/27/24
[2024-03-27] MEDS: Clindamycin Phosphate/D5W 600 MG/50 ML PIGGYBACK 100 MG IV (09:16)
[2024-03-27] MEDS: Morphine Sulfate 2 MG/ML CARTRIDGE IVPUSH (09:17)
--- NOTE | 2024-03-27 09:26 | PC.NURSE ---
patient resting quietly in room, assisted with bedpan. patient reports improvement in symptoms, able to bend left leg and place some weight on it. states the pain has improved.
[2024-03-27 09:27] LABS: HCG Quantitative < 2 mIU/mL
[2024-03-27] MEDS: iohexoL 350 MG/ML 100 ML INFUS..BTL 85 ML IV (10:11)
--- NOTE | 2024-03-27 16:29 | PM.IMHP ---
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 The patient reports pain started last night with increasing erythema, warmth and tenderness with associated fever. No chest pain, palpitations, SOB, nausea, vomiting, diarrhea or urinary symptoms (reports incontinence though). In ED found to have elevated WBCs of 31k, CT LLE showing edema. She also had lower back pain with MR showing disc herniation with no cauda equina syndrome Admitted for further work up and treatment. Review of Systems Review of Systems: No fever, chills or weakness No chest pain, palpitation No shortness of breath or coughing No abdominal pain, nausea or vomiting No urinary symptoms LLE rash and erythema PMFSH Medical History PCOS (polycystic ovarian syndrome) Low serum cortisol level Elevated testosterone level in female Amenorrhea Vitamin D deficiency Family History Mother Unknown family medical history Father Unknown family medical history Surgical History No history of previous surgery Social History Alcohol intake: current Patient Tobacco Use Status: Current everyday Tobacco user Cigarettes Per Day: 5 Years Smoked: 5 Smoked in Last 30 Days: Yes Use of substances other than those prescribed or required for medical reasons: No Substance Use Type: Marijuana Advance Directives: No Advance Directives Information Provided: Yes Do you have a plan to hurt others: No Plan Patient : No Meds Allergies Allergy/AdvReac Type Severity Reaction Status Date / Time No Known Allergies Allergy Verified 03/27/24 05:23 [No Known Allergies*] Home Medications ?Medication ?Instructions ?Recorded ?Confirmed ?Last Taken ?Type cholecalciferol (vitamin D3) 50 50 mcg PO DAILY 09/02/20 03/01/24 Unknown History mcg (2,000 unit) capsule vitamin B complex (B 1 tab PO DAILY 09/02/20 03/01/24 Unknown History Complex-Vitamin B12 tablet) vits 75-iron 28 mg-folic pkg PO 03/01/24 03/01/24 Unknown History acid 800 mcg-omega3 440 mg oral pack (One Daily ) Physical Exam Vital Signs and Narrative: Vital Signs: Last Vital Signs Temp 98.3 F 03/27/24 15:02 Pulse 96 03/27/24 15:02 Resp 16 03/27/24 15:02 BP 114/62 03/27/24 15:02 Pulse Ox 99 03/27/24 15:02 O2 Del Method Room Air 03/27/24 15:02 BMI result Body Mass Index 55.6 Const: Other: Constitutional : Awake, interactive, morbidly obese Neck : Normal inspection, Supple Cardiovascular : RRR, no JVP, no lower extremity edema Respiratory : good bilateral air entry, no crackles, wheezes or rhonchi Gastrointestinal: soft, lax, Normal bowel sounds, Non tender Skin : Warm, Dry, LLE warmth, erythema and tenderness Neurological : Alert & oriented x3, No focal deficit Results Labs 03/27/24 05:55 03/27/24 05:55 Labs: Laboratory Results - last 24 hr 03/27/24 03/27/24 05:55 06:16 MCV 83.8 MCH 28.3 MCHC 33.8 RDW 13.5 Plt Count 229 MPV 8.7 L Immature Gran % (Auto) 2.1 H Neut % (Auto) 89.9 H Lymph % (Auto) 3.6 L [place] % (Auto) 4.1 Eos % (Auto) 0.0 Baso % (Auto) 0.3 Lymph # (Auto) 1.1 L [place] # (Auto) 1.3 H Eos # (Auto) 0.0 Baso # (Auto) 0.1 Abs Immat Gran (auto) 0.67 H Absolute Neuts (auto) 28.0 H Absolute Nucleated RBC 0.000 Nucleated RBC % (auto) 0.0 Smear Tech's Comments VERIFIED ESR 7 Anion Gap 14 Estim Creat Clear Calc 182.2 Estimated GFR > 60 Fasting Glucose 130 H Lactic Acid 1.2 Calcium 9.3 D Magnesium 1.5 L Total Bilirubin 0.6 AST 32 H ALT 35 H Alkaline Phosphatase 71 Total Creatine Kinase 64 C-Reactive Protein 5.30 H Total Protein 7.7 Albumin 4.1 Lipase 13 Beta HCG, Quant < 2 Imaging Radiologist's Impressions: Impressions Venous Duplex 03/27/24 07:30 IMPRESSION: No evidence for left lower extremity deep vein thrombosis. Electronically signed by: Arthur Christina MD 03/27/2024 08:15 AM EST RP Lower Extremity CT 03/27/24 10:01 IMPRESSION: 1. Findings compatible with edema and/or cellulitis along the anterior medial aspect of the left lower leg and foot. 2. No evidence of necrotizing fasciitis. Electronically signed by: Harley Cortez MD 03/27/2024 01:45 PM EST RP Lumbar Spine MRI 03/27/24 12:30 IMPRESSION: [Subarticular, foraminal and extraforaminal broad-based disc herniation, L5-S1 encroaching likely compressing left S1 and L5 exiting nerve roots. Normal cauda equina. 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 Sepsis 2/[address] LLE ruled out necrotizing faciatis US negative for DVT PEnding cultures IV VAncomycin and Cefazolin monitor vanco trough Disc hernation MRI as reported Pain is chronic, no acute neurological defecit will need OP PT and weight reduction Neurosurgery outpatient Morbid obesity Advised losing weight check HbA1c Athlete foot Apply Clotrimazole cream DVT PPx Lovenox The patient will need 2 overnight hospital stay for Sepsis management pending blood cultures on IV Antibiotics Quality Stroke Does the patient have a stroke diagnosis?: No VTE Prior VTE?: No VTE Risk Level:: Medical - moderate - high VTE Device Contraindication: Treatment Not Indicated VTE Drug Contraindication: N/A - Med Ordered
--- NOTE | 2024-03-27 16:46 | PHA.PROG ---
Admission Date/Time: Indication:skin and skin structure Weight in k.5 kg Adjusted body weight in Kg: [place] body weight in Kg: Obesity Dosing Indication % IBW: BMI 55.6 Serum Creatinine - Last 168 Hours 03/27/24 05:55 Creatinine 0.70 Estimated CrCl and GFR - Last 168 Hours 03/27/24 05:55 Estim Creat Clear Calc 182.2 Estimated GFR > 60 Vancomycin Loading Dose: 2000mg X1 Current Vancomycin Dosing Regimen: 1500mg Q12H Vancomycin Monitoring using AUC goal of 400 - 600 range with trough as surrogate marker: 504 Date and Time for next Vancomycin Level to be drawn: 03/28 @1700 Pharmacist Comments on Vancomycin Plan:renal function stable, BMI = 55.6, predicted trough 13.3. Vancomycin dosing will take advantage of [employer] as a clinical decision support tool that uses Bayesian modeling to calculate individual patient's pharmacokinetic parameters and forecast the patient's drug concentration time course with the target goal AUC 24 range of 400 - 600 mg/L/hr.
[2024-03-27] MEDS: Ketorolac Tromethamine 30 MG/ML VIAL IVPUSH (16:54)
[2024-03-27] MEDS: Acetaminophen 325 MG TABLET 650 MG PO (16:54)
[2024-03-27] MEDS: Enoxaparin Sodium 40 MG/0.4 ML SYRINGE SUBCUT (16:55)
[2024-03-27] MEDS: ceFAZolin Sodium 1 GM VIAL IVPUSH (16:55)
[2024-03-27] MEDS: 0.9 % Sodium Chloride 1,000 ML 100 ML IVCONT (16:59)
[2024-03-27 17:08] LABS: Estimated Average Glucose 114 mg/dL; Hemoglobin A1C 137.6467 umol/L; Hemoglobin A1c % 5.6 % (<6.0); Total Hemoglobin (HGBA1C) 3644.9244 umol/L
--- NOTE | 2024-03-27 17:42 | PHA.MEDREC ---
Addendum entered by Priscila Joshua RP 03/27/24 18:00: [facility] Original Note: Pharmacy Consult ? Medication Reconciliation Pharmacy has completed the medication reconciliation. Confirmed she is only taking a vitamins 75-iron 28 mg-folic acid 800 mcg-omega 3 440 mg oral pack and Vitamin D3 50mcg tab once daily and confirmed she gets them OTC but would fill any medications at the [facility] on [facility]. She states she took them both yesterday.
--- NOTE | 2024-03-27 18:54 | PC.NURSE ---
Pt given diet tray at this time.
[2024-03-27] MEDS: vancomycin HCL 1,500 MG in 0.9 % Sodium Chloride 500 ML 333.33 MG IV (19:23)
--- NOTE | 2024-03-27 22:24 | PC.NURSE ---
Pt sleeping at the bedside. No apparent distress noted. Breaths are even regular and unlabored with equal chest rises. Monitoring is ongoing.
[2024-03-28] VITALS (7 sets, daily range): BP systolic 113–135; BP diastolic 52–75; PULSE 84–108; RESP 16–20; TEMP 36.4–38.7; O2SAT 96–99; BMI 59.5
[2024-03-28] MEDS: ceFAZolin Sodium 1 GM VIAL IVPUSH ×3 (00:28→16:47)
[2024-03-28] MEDS: Ketorolac Tromethamine 30 MG/ML VIAL IVPUSH ×3 (02:08→20:34)
[2024-03-28] MEDS: 0.9 % Sodium Chloride 1,000 ML 100 ML IVCONT ×3 (02:09→23:38)
[2024-03-28 05:37] LABS: MANUAL DIFF FLAG NO
[2024-03-28 05:40] LABS: Basophils Absolute Auto 0.1 X10*3/uL (0.0-0.2); Basophils Percent Auto 0.3 % (0-2); Eosinophils Absolute Auto 0.1 X10*3/uL (0.0-0.4); Eosinophils Percent Auto 0.3 % (0-4); Hematocrit 36.5 % (37.0-47.0); Hemoglobin 12.1 g/dl (12.0-16.0); Imm Gran Abs Auto 0.09 X10*3/uL (0.00-0.03); Imm Gran Pct Auto 0.5 % (0.0-0.4); Lymphocytes Absolute Auto 1.9 X10*3/uL (1.2-4.9); Lymphocytes Percent Auto 11.1 % (20-40); Mean Corpuscular HGB Conc 33.2 g/dl (31.0-35.0); Mean Corpuscular Hemoglobin 27.8 pg (27.0-33.0); Mean Corpuscular Volume 83.7 fL (80.0-98.0); Mean Platelet Volume 8.5 fL (9.4-12.3); Monocytes Percent Auto 5.8 % (2-11); Neutrophils Absolute Auto 14.2 x10*3/uL (2.0-8.3); Platelet Count 203 X10*3/uL (160-400); Red Blood Count 4.36 X10*6/uL (4.20-5.50); Red Cell Distribution Width 13.6 % (11.0-16.0); White Blood Count 17.4 X10*3/uL (4.8-10.8)
[2024-03-28 05:52] LABS: Anion Gap 13 (12-20); Blood Urea Nitrogen 8 mg/dL (9-16); Calcium 8.9 mg/dL (8.4-10.2); Carbon Dioxide 19 mmol/L (22-29); Chloride 106 mmol/L (96-108); Creatinine Clr Calc Pharmacy 212.6; Estimated Glomerular Filt Rate > 60; Glucose Random 94 mg/dL (60-115); Potassium 3.6 mmol/L (3.3-5.1); Sodium 134 mmol/L (135-145)
[2024-03-28] MEDS: vancomycin HCL 1,500 MG in 0.9 % Sodium Chloride 500 ML 333.33 MG IV ×2 (07:29→18:40)
--- NOTE | 2024-03-28 09:46 | PC.NURSE ---
Lotrimin cream administration delayed d/t med not in pyxis. Pharmacy notified.
--- NOTE | 2024-03-28 12:47 | MHC.CM.PN ---
pt lives w/ has own ride home and is independent dc plan home no servies
[2024-03-28] MEDS: Acetaminophen 325 MG TABLET 650 MG PO (14:36)
--- NOTE | 2024-03-28 15:13 | P.PNIM_ITS ---
Subjective Subjective Date of Service: 03/28/24 Interval History: Seen and evaluated this morning still having significant eryhtma and tenderness extending up w lymphatic drainage LLE spiking fever no other overnight events Review of Systems Review of Systems: Yes all other systems are reviewed and are negative Physical Exam 2 Vital Signs: Vital Signs: Last Vital Signs Temp 101.7 F H 03/28/24 15:06 Pulse 100 03/28/24 15:06 Resp 18 03/28/24 15:06 BP 132/75 03/28/24 15:06 Pulse Ox 98 03/28/24 15:06 O2 Del Method Room Air 03/28/24 15:06 BMI result Body Mass Index 59.5 Const: Other: Constitutional : Awake, interactive, morbidly obese Neck : Normal inspection, Supple Cardiovascular : RRR, no JVP, no lower extremity edema Respiratory : good bilateral air entry, no crackles, wheezes or rhonchi Gastrointestinal: soft, lax, Normal bowel sounds, Non tender Skin : Warm, Dry, LLE warmth, erythema and tenderness with lymphangenic distribution up Neurological : Alert & oriented x3, No focal deficit Objective Data Active Medications Acetaminophen (Acetaminophen 325 Mg Tablet) 650 mg PO Q6H PRN PRN Reason: Pain, Mild (Pain Scale 1-3), fever or headache Last Admin: 03/28/24 14:36 Dose: 650 mg Documented By: ANDREA Calcium Carbonate (Calcium Carbonate 750 Mg Tab.Chew) 750 mg PO Q4H PRN PRN Reason: Heartburn Cefazolin Sodium (Cefazolin Sodium 1 Gm Vial) 1 gm IVPUSH Q8H [facility] Last Admin: 03/28/24 09:42 Dose: 1 gm Documented By: SALVADOR Clotrimazole (Clotrimazole 1 % Cream 15 Gm Tube) 1 appl TOPICAL BID [facility]; Protocol Last Admin: 03/28/24 09:46 Dose: Not Given Documented By: SALVADOR Non-Admin Reason: Med Not Available Enoxaparin Sodium (Enoxaparin Sodium 40 Mg/0.4 Ml Syringe) 40 mg SUBCUT Q24H [facility] Last Admin: 03/27/24 16:55 Dose: 40 mg Documented By: BHARATH Sodium Chloride (Ns) 1,000 mls @ 100 mls/hr IVCONT .Q10H [facility] Last Admin: 03/28/24 13:00 Dose: 100 mls/hr Documented By: SALVADOR Vancomycin HCl 1,500 mg/ (Sodium Chloride) 500 mls @ 333.333 mls/hr IV Q12H [facility] Last Infusion: 03/28/24 09:40 Dose: Infused Documented By: SALVADOR Ibuprofen (Ibuprofen 400 Mg Tablet) 400 mg PO Q6H PRN PRN Reason: Fever or Pain, Mild (Pain Scale 1-3) Ketorolac Tromethamine (Ketorolac Tromethamine 30 Mg/Ml Vial) 30 mg IVPUSH Q6H PRN PRN Reason: Pain, Moderate(Pain Scale 4-6) Stop: 04/01/24 16:16 Last Admin: 03/28/24 08:27 Dose: 30 mg Documented By: SALVADOR Magnesium Hydroxide (Milk Of Magnesia 30 Ml Oral.Susp) 30 ml PO DAILY PRN PRN Reason: Constipation Melatonin (Melatonin 3 Mg Tablet) 6 mg PO BEDTIME PRN PRN Reason: Insomnia Ondansetron HCl (Ondansetron Hcl 4 Mg/2 Ml Vial) 4 mg IVPUSH Q8H PRN PRN Reason: Nausea and Vomiting Pharmacy Consult (Consult Rx Vancomycin Dosing) 1 each MISCELLANE DAILY PRN PRN Reason: Consult order Sodium Chloride (0.9 % Sodium Chloride Flush 3 Ml Syringe) [facility] Last Admin: 03/28/24 08:39 Dose: Not Given Documented By: SALVADOR Non-Admin Reason: IV Running Labs 03/28/24 05:32 03/28/24 05:32 Labs: Laboratory Results - last 24 hr 03/27/24 03/28/24 05:55 05:32 MCV 83.7 MCH 27.8 MCHC 33.2 RDW 13.6 Plt Count 203 MPV 8.5 L Immature Gran % (Auto) 0.5 H Neut % (Auto) 82.0 H Lymph % (Auto) 11.1 L Nuckolls % (Auto) 5.8 Eos % (Auto) 0.3 Baso % (Auto) 0.3 Lymph # (Auto) 1.9 Nuckolls # (Auto) 1.0 Eos # (Auto) 0.1 Baso # (Auto) 0.1 Abs Immat Gran (auto) 0.09 H Absolute Neuts (auto) 14.2 H Absolute Nucleated RBC 0.000 Nucleated RBC % (auto) 0.0 Anion Gap 13 Estim Creat Clear Calc 212.6 Estimated GFR > 60 Random Glucose 94 Estimat Average Glucose 114 Hemoglobin A1c % 5.6 Calcium 8.9 Microbiology Microbiology Results: Microbiology 03/27/24 06:26 Blood Culture - Preliminary Blood - Venous No growth after 24 hours. 03/27/24 06:16 Blood Culture - Preliminary Blood - Venous No growth after 24 hours. Assessment and Plan (1) Herniation of lumbar intervertebral disc: Status: Acute (2) Cellulitis of left leg: Status: Acute (3) Sepsis: Status: Acute Plan A 28 years old lady with PMH of PCOSm VICKEY, obesity who presents to the hospital with LLE pain and erythema for 1 day [employer]. Sepsis 2/[address] LLE ruled out necrotizing faciatis US negative for DVT PEnding cultures Continue IV VAncomycin and Cefazolin Tylenol, Toradol for pain and fever monitor vanco trough Disc hernation MRI as reported Pain is chronic, no acute neurological deficit will need OP PT and weight reduction Neurosurgery outpatient Morbid obesity Advised losing weight HbA1c 5.6 Acute hypomagnesemia replacement given Athlete foot Apply Clotrimazole cream DVT PPx Lovenox The patient will need overnight hospital stay for Sepsis management pending blood cultures on IV Antibiotics Quality Stroke Does the patient have a stroke diagnosis?: No VTE Prior VTE?: No VTE Risk Level:: Medical - moderate - high VTE Device Contraindication: Treatment Not Indicated VTE Drug Contraindication: N/A - Med Ordered
[2024-03-28] MEDS: Magnesium Oxide 400 MG TABLET PO (15:39)
[2024-03-28] MEDS: Enoxaparin Sodium 40 MG/0.4 ML SYRINGE SUBCUT (16:45)
[2024-03-28] MEDS: 0.9 % Sodium Chloride Flush 3 ML SYRINGE IVFLUSH ×2 (16:47→20:27)
[2024-03-28 18:02] LABS: Vancomycin Random 3.2 mcg/mL (15-20)
[2024-03-29] MEDS: ceFAZolin Sodium 1 GM VIAL IVPUSH ×3 (00:30→17:09)
[2024-03-29] MEDS: vancomycin HCL 1,500 MG in 0.9 % Sodium Chloride 500 ML 333.33 MG IV ×3 (02:08→21:22)
[2024-03-29] MEDS: Acetaminophen 325 MG TABLET 650 MG PO (02:09)
[2024-03-29 03:11] VITALS: RESP 18
[2024-03-29 03:26] VITALS: BP 132/62; PULSE 97; RESP 20; TEMP 36; O2SAT 97
[2024-03-29 06:10] LABS: Hemoglobin 11.7 g/dl (12.0-16.0); Mean Corpuscular HGB Conc 33.4 g/dl (31.0-35.0); Mean Corpuscular Hemoglobin 27.8 pg (27.0-33.0); Mean Corpuscular Volume 83.1 fL (80.0-98.0); Mean Platelet Volume 8.7 fL (9.4-12.3); Platelet Count 192 X10*3/uL (160-400); Red Blood Count 4.21 X10*6/uL (4.20-5.50); Red Cell Distribution Width 13.8 % (11.0-16.0)
[2024-03-29 06:22] LABS: Anion Gap 13 (12-20); Blood Urea Nitrogen 6 mg/dL (9-16); Calcium 8.5 mg/dL (8.4-10.2); Carbon Dioxide 19 mmol/L (22-29); Chloride 109 mmol/L (96-108); Creatinine Clr Calc Pharmacy 246.8; Estimated Glomerular Filt Rate > 60; Glucose Random 101 mg/dL (60-115); Potassium 3.5 mmol/L (3.3-5.1); Sodium 137 mmol/L (135-145)
[2024-03-29 07:28] VITALS: BP 132/71; PULSE 83; RESP 18; TEMP 36.3; O2SAT 99
[2024-03-29] MEDS: 0.9 % Sodium Chloride Flush 3 ML SYRINGE IVFLUSH ×3 (08:33→22:56)
[2024-03-29] MEDS: Magnesium Oxide 400 MG TABLET PO (09:41)
--- NOTE | 2024-03-29 10:52 | P.PNIM_ITS ---
Subjective Subjective Date of Service: 03/29/24 Interval History: worsening lle pain and ertyhema Physical Exam 2 Vital Signs: Vital Signs: Last Vital Signs Temp 97.3 F 03/29/24 07:28 Pulse 83 03/29/24 07:28 Resp 18 03/29/24 07:28 BP 132/71 03/29/24 07:28 Pulse Ox 99 03/29/24 07:28 O2 Del Method Room Air 03/29/24 07:28 BMI result Body Mass Index 59.5 woresning erythema moving outside drawn borders Objective Data Active Medications Acetaminophen (Acetaminophen 325 Mg Tablet) 650 mg PO Q6H PRN PRN Reason: Pain, Mild (Pain Scale 1-3), fever or headache Last Admin: 03/29/24 02:09 Dose: 650 mg Documented By: BASHIR Calcium Carbonate (Calcium Carbonate 750 Mg Tab.Chew) 750 mg PO Q4H PRN PRN Reason: Heartburn Cefazolin Sodium (Cefazolin Sodium 1 Gm Vial) 1 gm IVPUSH Q8H [facility] Last Admin: 03/29/24 09:41 Dose: 1 gm Documented By: RICHARD Clotrimazole (Clotrimazole 1 % Cream 15 Gm Tube) 1 appl TOPICAL BID [facility]; Protocol Last Admin: 03/28/24 23:40 Dose: Not Given Documented By: BASHIR Non-Admin Reason: Patient Refused Enoxaparin Sodium (Enoxaparin Sodium 40 Mg/0.4 Ml Syringe) 40 mg SUBCUT Q24H [facility] Last Admin: 03/28/24 16:45 Dose: 40 mg Documented By: ANDREA Sodium Chloride (Ns) 1,000 mls @ 100 mls/hr IVCONT .Q10H [facility] Last Admin: 03/29/24 08:35 Dose: Not Given Documented By: RICHARD Non-Admin Reason: IV Running Vancomycin HCl 1,500 mg/ (Sodium Chloride) 500 mls @ 333.333 mls/hr IV Q8H [facility] Last Infusion: 03/29/24 03:39 Dose: Infused Documented By: BASHIR Ibuprofen (Ibuprofen 400 Mg Tablet) 400 mg PO Q6H PRN PRN Reason: Fever or Pain, Mild (Pain Scale 1-3) Ketorolac Tromethamine (Ketorolac Tromethamine 30 Mg/Ml Vial) 30 mg IVPUSH Q6H PRN PRN Reason: Pain, Moderate(Pain Scale 4-6) Stop: 04/01/24 16:16 Last Admin: 03/28/24 20:34 Dose: 30 mg Documented By: BASHIR Magnesium Hydroxide (Milk Of Magnesia 30 Ml Oral.Susp) 30 ml PO DAILY PRN PRN Reason: Constipation Magnesium Oxide (Magnesium Oxide 400 Mg Tablet) 400 mg PO DAILY [facility] Last Admin: 03/29/24 09:41 Dose: 400 mg Documented By: RICHARD Melatonin (Melatonin 3 Mg Tablet) 6 mg PO BEDTIME PRN PRN Reason: Insomnia Ondansetron HCl (Ondansetron Hcl 4 Mg/2 Ml Vial) 4 mg IVPUSH Q8H PRN PRN Reason: Nausea and Vomiting Pharmacy Consult (Consult Rx Vancomycin Dosing) 1 each MISCELLANE DAILY PRN PRN Reason: Consult order Sodium Chloride (0.9 % Sodium Chloride Flush 3 Ml Syringe) 3 ml IVFLUSH [facility] Last Admin: 03/29/24 08:33 Dose: 3 ml Documented By: RICHARD Labs 03/29/24 05:54 03/29/24 05:54 Labs: Laboratory Results - last 24 hr 03/28/24 03/29/24 17:17 05:54 MCV 83.1 MCH 27.8 MCHC 33.4 RDW 13.8 Plt Count 192 MPV 8.7 L Absolute Nucleated RBC 0.000 Nucleated RBC % (auto) 0.0 Anion Gap 13 Estim Creat Clear Calc 246.8 Estimated GFR > 60 Random Glucose 101 Calcium 8.5 Random Vancomycin 3.2 L Microbiology Microbiology Results: Microbiology 03/27/24 06:26 Blood Culture - Preliminary Blood - Venous No growth after 48 hours. 03/27/24 06:16 Blood Culture - Preliminary Blood - Venous No growth after 48 hours. Assessment and Plan (1) Left leg cellulitis: Status: Acute Plan 28F PMH PCOS, VICKEY, morbid obesity presented with LLE pain and erythema Sepsis due to left lower extremity cellulitis due to morbid obesity Continue IV vancomycin cefazolin, follow up cultures Ultrasound negative for DVT Back pain due to disc herniation Outpatient Neurosurgery and PT Morbid obesity Weight loss advised Hypomagnesemia Replaced DVT prophylaxis with Lovenox Full Code reason for continued hospitalization: Worsening erythema Quality Stroke Does the patient have a stroke diagnosis?: No VTE Prior VTE?: No VTE Risk Level:: Medical - moderate - high VTE Device Contraindication: Treatment Not Indicated VTE Drug Contraindication: N/A - Med Ordered
[2024-03-29] MEDS: Ketorolac Tromethamine 30 MG/ML VIAL IVPUSH (13:00)
[2024-03-29] MEDS: Clotrimazole 1 % Cream 15 GM TUBE 1 APPL TOPICAL ×2 (13:01→21:24)
--- NOTE | 2024-03-29 13:21 | MHC.CM.PN ---
EMR REVIEWED AND PER MD ROUNDS, PT IS NOT MEDICALLY CLEARED FOR DC (LLE PAIN, ERYTHEMA) CM WILL CONTINUE TO FOLLOW FOR ANY CHANGE TO DC PLAN/NEEDS.
[2024-03-29 15:40] VITALS: BP 138/78; PULSE 89; RESP 18; TEMP 36.3; O2SAT 97
[2024-03-29] MEDS: Enoxaparin Sodium 40 MG/0.4 ML SYRINGE SUBCUT (16:53)
[2024-03-29 19:21] VITALS: BP 112/70; PULSE 86; RESP 18; TEMP 36.2; O2SAT 100
[2024-03-29 19:31] LABS: Vancomycin Random 9.4 mcg/mL (15-20)
[2024-03-29] MEDS: Ibuprofen 400 MG TABLET PO (21:42)
[2024-03-30] MEDS: ceFAZolin Sodium 1 GM VIAL IVPUSH ×3 (01:17→17:14)
--- NOTE | 2024-03-30 03:41 | PC.NURSE ---
2300- Patients IVF noted to drop off for stop/renewal, Hospitalist on duty notified and responded okay leave off, therefore, NS 100ml/hr completed at this time and patient updated. Continue to monitor IVABX as ordered, tolerating po fluids with no N/V.
[2024-03-30 04:00] VITALS: BP 123/59; PULSE 71; RESP 18; TEMP 36.3; O2SAT 97
[2024-03-30] MEDS: vancomycin HCL 1,500 MG in 0.9 % Sodium Chloride 500 ML 333.33 MG IV ×3 (05:16→21:27)
[2024-03-30 07:10] LABS: Hematocrit 33.8 % (37.0-47.0); Hemoglobin 11.4 g/dl (12.0-16.0); Mean Corpuscular HGB Conc 33.7 g/dl (31.0-35.0); Mean Corpuscular Hemoglobin 27.9 pg (27.0-33.0); Mean Corpuscular Volume 82.8 fL (80.0-98.0); Mean Platelet Volume 9.4 fL (9.4-12.3); Platelet Count 246 X10*3/uL (160-400); Red Blood Count 4.08 X10*6/uL (4.20-5.50); Red Cell Distribution Width 13.9 % (11.0-16.0); White Blood Count 9.5 X10*3/uL (4.8-10.8)
[2024-03-30 07:20] LABS: Anion Gap 11 (12-20); Blood Urea Nitrogen 7 mg/dL (9-16); C Reactive Protein 10.09 mg/dL (< or = 0.50); Calcium 8.4 mg/dL (8.4-10.2); Carbon Dioxide 22 mmol/L (22-29); Chloride 108 mmol/L (96-108); Creatinine Clr Calc Pharmacy 277.6; Estimated Glomerular Filt Rate > 60; Glucose Fasting 84 mg/dL (60-99); Potassium 3.4 mmol/L (3.3-5.1); Sodium 138 mmol/L (135-145)
[2024-03-30 07:33] VITALS: BP 126/77; PULSE 80; RESP 17; TEMP 36.9; O2SAT 98
[2024-03-30] MEDS: Magnesium Oxide 400 MG TABLET PO (09:25)
[2024-03-30] MEDS: Ibuprofen 400 MG TABLET PO (09:25)
[2024-03-30] MEDS: 0.9 % Sodium Chloride Flush 3 ML SYRINGE IVFLUSH ×3 (09:25→21:28)
[2024-03-30] MEDS: Clotrimazole 1 % Cream 15 GM TUBE 1 APPL TOPICAL ×2 (09:27→21:27)
--- NOTE | 2024-03-30 09:32 | HO.PM.IMPN ---
Subjective Subjective Date of Service: 03/30/24 Interval History: a bit better today, less pain, still significant erythema Physical Exam Vital Signs: Vital Signs: Last Vital Signs Temp 98.4 F 03/30/24 07:33 Pulse 80 03/30/24 07:33 Resp 17 03/30/24 07:33 BP 126/77 03/30/24 07:33 Pulse Ox 98 03/30/24 07:33 O2 Del Method Room Air 03/30/24 07:33 BMI result Body Mass Index 59.5 LLE ertyhema Objective Data Active Medications Acetaminophen (Acetaminophen 325 Mg Tablet) 650 mg PO Q6H PRN PRN Reason: Pain, Mild (Pain Scale 1-3), fever or headache Last Admin: 03/29/24 02:09 Dose: 650 mg Documented By: BASHIR Calcium Carbonate (Calcium Carbonate 750 Mg Tab.Chew) 750 mg PO Q4H PRN PRN Reason: Heartburn Cefazolin Sodium (Cefazolin Sodium 1 Gm Vial) 1 gm IVPUSH Q8H [facility] Last Admin: 03/30/24 09:27 Dose: 1 gm Documented By: CARTER Clotrimazole (Clotrimazole 1 % Cream 15 Gm Tube) 1 appl TOPICAL BID [facility]; Protocol Last Admin: 03/30/24 09:27 Dose: 1 appl Documented By: CARTER Enoxaparin Sodium (Enoxaparin Sodium 40 Mg/0.4 Ml Syringe) 40 mg SUBCUT Q24H [facility] Last Admin: 03/29/24 16:53 Dose: 40 mg Documented By: RICHARD Vancomycin HCl 1,500 mg/ (Sodium Chloride) 500 mls @ 333.333 mls/hr IV Q8H [facility] Last Infusion: 03/30/24 06:57 Dose: Infused Documented By: NAEL Ibuprofen (Ibuprofen 400 Mg Tablet) 400 mg PO Q6H PRN PRN Reason: Fever or Pain, Mild (Pain Scale 1-3) Last Admin: 03/30/24 09:25 Dose: 400 mg Documented By: CARTER Ketorolac Tromethamine (Ketorolac Tromethamine 30 Mg/Ml Vial) 30 mg IVPUSH Q6H PRN PRN Reason: Pain, Moderate(Pain Scale 4-6) Stop: 04/01/24 16:16 Last Admin: 03/29/24 13:00 Dose: 30 mg Documented By: RICHARD Magnesium Hydroxide (Milk Of Magnesia 30 Ml Oral.Susp) 30 ml PO DAILY PRN PRN Reason: Constipation Magnesium Oxide (Magnesium Oxide 400 Mg Tablet) 400 mg PO DAILY [facility] Last Admin: 03/30/24 09:25 Dose: 400 mg Documented By: CARTER Melatonin (Melatonin 3 Mg Tablet) 6 mg PO BEDTIME PRN PRN Reason: Insomnia Ondansetron HCl (Ondansetron Hcl 4 Mg/2 Ml Vial) 4 mg IVPUSH Q8H PRN PRN Reason: Nausea and Vomiting Pharmacy Consult (Consult Rx Vancomycin Dosing) 1 each MISCELLANE DAILY PRN PRN Reason: Consult order Sodium Chloride (0.9 % Sodium Chloride Flush 3 Ml Syringe) 3 ml IVFLUSH QSHIFT [facility] Last Admin: 03/30/24 09:25 Dose: 3 ml Documented By: CARTER Labs 03/30/24 05:29 03/30/24 05:29 Labs: Laboratory Results - last 24 hr 03/29/24 03/30/24 19:02 05:29 MCV 82.8 MCH 27.9 MCHC 33.7 RDW 13.9 Plt Count 246 D MPV 9.4 Absolute Nucleated RBC 0.000 Nucleated RBC % (auto) 0.0 Anion Gap 11 L Estim Creat Clear Calc 277.6 Estimated GFR > 60 Fasting Glucose 84 Calcium 8.4 C-Reactive Protein 10.09 H Random Vancomycin 9.4 L Microbiology Microbiology Results: Microbiology 03/27/24 06:26 Blood Culture - Preliminary Blood - Venous No growth after 48 hours. 03/27/24 06:16 Blood Culture - Preliminary Blood - Venous No growth after 48 hours. Assessment and Plan (1) Left leg cellulitis: Status: Acute Plan 28F PMH PCOS, VICKEY, morbid obesity presented with LLE pain and erythema Sepsis due to left lower extremity cellulitis due to morbid obesity Continue IV vancomycin cefazolin Ultrasound negative for DVT Back pain due to disc herniation Outpatient Neurosurgery and PT Morbid obesity Weight loss advised Hypomagnesemia Replaced DVT prophylaxis with Lovenox Full Code reason for continued hospitalization: still with significant erythema Quality Stroke Does the patient have a stroke diagnosis?: No VTE Prior VTE?: No VTE Risk Level:: Medical - moderate - high VTE Device Contraindication: Treatment Not Indicated VTE Drug Contraindication: N/A - Med Ordered
[2024-03-30] MEDS: Ketorolac Tromethamine 30 MG/ML VIAL IVPUSH (11:20)
[2024-03-30 15:10] VITALS: BP 133/82; PULSE 72; RESP 18; TEMP 36.7; O2SAT 99
[2024-03-30] MEDS: Enoxaparin Sodium 40 MG/0.4 ML SYRINGE SUBCUT (17:04)
[2024-03-30 19:36] VITALS: BP 118/57; PULSE 84; RESP 20; TEMP 36.7; O2SAT 99
[2024-03-30 20:05] LABS: Vancomycin Random 11.7 mcg/mL (15-20)
--- NOTE | 2024-03-30 20:10 | HE.PHANOTE ---
RE: VANCO DOSING Random came back as 11.7. Patient's renal function is improving, continue with dose of 1500 mg q8h. Due to concern of dose dumping, next random is scheduled after 2 doses, @1100 on 03/31/24.
[2024-03-31] MEDS: ceFAZolin Sodium 1 GM VIAL IVPUSH ×3 (00:53→16:55)
[2024-03-31 03:27] VITALS: BP 119/56; PULSE 78; RESP 20; TEMP 36; O2SAT 97
[2024-03-31] MEDS: vancomycin HCL 1,500 MG in 0.9 % Sodium Chloride 500 ML 333.33 MG IV ×2 (05:10→12:30)
[2024-03-31 06:25] LABS: Hematocrit 33.1 % (37.0-47.0); Hemoglobin 11.1 g/dl (12.0-16.0); Mean Corpuscular HGB Conc 33.5 g/dl (31.0-35.0); Mean Corpuscular Hemoglobin 27.4 pg (27.0-33.0); Mean Corpuscular Volume 81.7 fL (80.0-98.0); Mean Platelet Volume 8.7 fL (9.4-12.3); Platelet Count 261 X10*3/uL (160-400); Red Blood Count 4.05 X10*6/uL (4.20-5.50); Red Cell Distribution Width 13.7 % (11.0-16.0); White Blood Count 8.7 X10*3/uL (4.8-10.8)
[2024-03-31 06:43] LABS: Anion Gap 13 (12-20); Blood Urea Nitrogen 6 mg/dL (9-16); C Reactive Protein 6.78 mg/dL (< or = 0.50); Calcium 8.6 mg/dL (8.4-10.2); Carbon Dioxide 20 mmol/L (22-29); Chloride 107 mmol/L (96-108); Creatinine Clr Calc Pharmacy 266.6; Estimated Glomerular Filt Rate > 60; Glucose Fasting 97 mg/dL (60-99); Potassium 3.8 mmol/L (3.3-5.1); Sodium 136 mmol/L (135-145)
--- NOTE | 2024-03-31 06:46 | PC.NURSE ---
0515- Vancomycin as ordered, shortly after start patient stated iv site was sore, burning some, therefore, abx stopped, iv site removed, catheter intact., and violeta well. 2 failed attempts by nursing park worker supervisor and staff. RN from ICU came to floor and inserted an ultrasound guided #20 to left forearm. Vanco dose running behind due to needing new iv site, day RN updated.
[2024-03-31 07:17] VITALS: BP 128/60; PULSE 75; RESP 16; TEMP 36.9; O2SAT 98
[2024-03-31] MEDS: 0.9 % Sodium Chloride Flush 3 ML SYRINGE IVFLUSH ×3 (07:56→20:44)
[2024-03-31] MEDS: Ketorolac Tromethamine 30 MG/ML VIAL IVPUSH ×2 (07:56→16:55)
[2024-03-31] MEDS: Magnesium Oxide 400 MG TABLET PO (07:56)
[2024-03-31] MEDS: Clotrimazole 1 % Cream 15 GM TUBE 1 APPL TOPICAL ×2 (07:57→22:19)
--- NOTE | 2024-03-31 09:24 | HO.PM.IMPN ---
Subjective Subjective Date of Service: 03/31/24 Interval History: pain improved, erythema about the same Physical Exam Vital Signs: Vital Signs: Last Vital Signs Temp 98.4 F 03/31/24 07:17 Pulse 75 03/31/24 07:17 Resp 16 03/31/24 07:17 BP 128/60 03/31/24 07:17 Pulse Ox 98 03/31/24 07:17 O2 Del Method Room Air 03/31/24 07:17 BMI result Body Mass Index 59.5 LLE ertmichaelhema Objective Data Active Medications Acetaminophen (Acetaminophen 325 Mg Tablet) 650 mg PO Q6H PRN PRN Reason: Pain, Mild (Pain Scale 1-3), fever or headache Last Admin: 03/29/24 02:09 Dose: 650 mg Documented By: BASHIR Calcium Carbonate (Calcium Carbonate 750 Mg Tab.Chew) 750 mg PO Q4H PRN PRN Reason: Heartburn Cefazolin Sodium (Cefazolin Sodium 1 Gm Vial) 1 gm IVPUSH Q8H [facility] Last Admin: 03/31/24 07:56 Dose: 1 gm Documented By: JEMIMA Clotrimazole (Clotrimazole 1 % Cream 15 Gm Tube) 1 appl TOPICAL BID [facility]; Protocol Last Admin: 03/31/24 07:57 Dose: 1 appl Documented By: JEMIMA Enoxaparin Sodium (Enoxaparin Sodium 40 Mg/0.4 Ml Syringe) 40 mg SUBCUT Q24H [facility] Last Admin: 03/30/24 17:04 Dose: 40 mg Documented By: CARTER Vancomycin HCl 1,500 mg/ (Sodium Chloride) 500 mls @ 333.333 mls/hr IV Q8H [facility] Last Infusion: 03/31/24 07:10 Dose: Infused Documented By: NAEL Ibuprofen (Ibuprofen 400 Mg Tablet) 400 mg PO Q6H PRN PRN Reason: Fever or Pain, Mild (Pain Scale 1-3) Last Admin: 03/30/24 09:25 Dose: 400 mg Documented By: CARTER Ketorolac Tromethamine (Ketorolac Tromethamine 30 Mg/Ml Vial) 30 mg IVPUSH Q6H PRN PRN Reason: Pain, Moderate(Pain Scale 4-6) Stop: 04/01/24 16:16 Last Admin: 03/31/24 07:56 Dose: 30 mg Documented By: JEMIMA Magnesium Hydroxide (Milk Of Magnesia 30 Ml Oral.Susp) 30 ml PO DAILY PRN PRN Reason: Constipation Magnesium Oxide (Magnesium Oxide 400 Mg Tablet) 400 mg PO DAILY [facility] Last Admin: 03/31/24 07:56 Dose: 400 mg Documented By: JEMIMA Melatonin (Melatonin 3 Mg Tablet) 6 mg PO BEDTIME PRN PRN Reason: Insomnia Ondansetron HCl (Ondansetron Hcl 4 Mg/2 Ml Vial) 4 mg IVPUSH Q8H PRN PRN Reason: Nausea and Vomiting Pharmacy Consult (Consult Rx Vancomycin Dosing) 1 each MISCELLANE DAILY PRN PRN Reason: Consult order Sodium Chloride (0.9 % Sodium Chloride Flush 3 Ml Syringe) 3 ml IVFLUSH [facility] Last Admin: 03/31/24 07:56 Dose: 3 ml Documented By: JEMIMA Labs 03/31/24 05:59 03/31/24 05:59 Labs: Laboratory Results - last 24 hr 03/30/24 03/31/24 18:58 05:59 MCV 81.7 MCH 27.4 MCHC 33.5 RDW 13.7 Plt Count 261 MPV 8.7 L Absolute Nucleated RBC 0.000 Nucleated RBC % (auto) 0.0 Anion Gap 13 Estim Creat Clear Calc 266.6 Estimated GFR > 60 Fasting Glucose 97 Calcium 8.6 C-Reactive Protein 6.78 H Random Vancomycin 11.7 L Assessment and Plan (1) Left leg cellulitis: Status: Acute Plan 28F PMH PCOS, VICKEY, morbid obesity presented with LLE pain and erythema Sepsis due to left lower extremity cellulitis due to morbid obesity Continue IV vancomycin cefazolin Ultrasound negative for DVT mildly improved, still needing iv abx for better bioavailability Back pain due to disc herniation Outpatient Neurosurgery and PT Morbid obesity Weight loss advised Hypomagnesemia Replaced DVT prophylaxis with Lovenox Full Code reason for continued hospitalization: still with significant erythema Quality Stroke Does the patient have a stroke diagnosis?: No VTE Prior VTE?: No VTE Risk Level:: Medical - moderate - high VTE Device Contraindication: Treatment Not Indicated VTE Drug Contraindication: N/A - Med Ordered
[2024-03-31 11:42] LABS: Vancomycin Random 11.5 mcg/mL (15-20)
--- NOTE | 2024-03-31 14:49 | MHC.CM.PN ---
PER ROUNDS PT NOT MEDICALLY READY FOR DC PLAN REMAINS HOME NO SERVIES
[2024-03-31 15:18] VITALS: BP 146/75; PULSE 70; RESP 16; TEMP 36.8; O2SAT 98
[2024-03-31] MEDS: Enoxaparin Sodium 40 MG/0.4 ML SYRINGE SUBCUT (16:55)
[2024-03-31 19:22] VITALS: BP 132/64; PULSE 77; RESP 17; TEMP 36.4; O2SAT 98
[2024-03-31] MEDS: vancomycin HCL 1,500 MG in 0.9 % Sodium Chloride 500 ML 333.3 MG IV (20:44)
[2024-04-01] MEDS: ceFAZolin Sodium 1 GM VIAL IVPUSH (01:10)
[2024-04-01 03:38] VITALS: BP 124/59; PULSE 75; RESP 18; TEMP 36.1; O2SAT 94
[2024-04-01] MEDS: vancomycin HCL 1,500 MG in 0.9 % Sodium Chloride 500 ML 333.3 MG IV (04:57)
--- NOTE | 2024-04-01 06:12 | PC.NURSE ---
IV in left arm infiltrated received 1/2 dose of IV vancomycin.Notified ? if he wanted us to restart IV since pt maybe discharged today said to defer to day team.
[2024-04-01 08:00] VITALS: BP 103/51; PULSE 80; RESP 14; TEMP 36.5; O2SAT 97
[2024-04-01 08:05] LABS: Hematocrit 35.1 % (37.0-47.0); Hemoglobin 11.6 g/dl (12.0-16.0); Mean Corpuscular Hemoglobin 27.6 pg (27.0-33.0); Mean Corpuscular Volume 83.6 fL (80.0-98.0); Mean Platelet Volume 8.8 fL (9.4-12.3); Platelet Count 304 X10*3/uL (160-400); Red Cell Distribution Width 13.7 % (11.0-16.0); White Blood Count 10.1 X10*3/uL (4.8-10.8)
[2024-04-01 08:19] LABS: Anion Gap 12 (12-20); Blood Urea Nitrogen 6 mg/dL (9-16); C Reactive Protein 4.09 mg/dL (< or = 0.50); Calcium 8.8 mg/dL (8.4-10.2); Carbon Dioxide 22 mmol/L (22-29); Chloride 107 mmol/L (96-108); Creatinine Clr Calc Pharmacy 233.8; Estimated Glomerular Filt Rate > 60; Glucose Fasting 89 mg/dL (60-99); Potassium 3.9 mmol/L (3.3-5.1); Sodium 137 mmol/L (135-145)
--- NOTE | 2024-04-01 08:47 | P.DS_ITS ---
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 The patient reports pain started last night with increasing erythema, warmth and tenderness with associated fever. No chest pain, palpitations, SOB, nausea, vomiting, diarrhea or urinary symptoms (reports incontinence though). In ED found to have elevated WBCs of 31k, CT LLE showing edema. She also had lower back pain with MR showing disc herniation with no cauda equina syndrome Admitted for further work up and treatment. hospital course: Patient was admitted for sepsis due to left lower extremity cellulitis due to morbid obesity. She was treated with IV vancomycin and cefazolin and sepsis resolved, erythema and pain resolved. CRP significantly improved from 10 to 4. Ultrasound was negative for DVT. Patient will be discharged home on 7 more days of doxycycline and Augmentin. Patient's back pain was found to be due to disc herniation and can follow up with Neurosurgery and PT as outpatient. For morbid obesity weight loss is advised. For hypomagnesemia she received replacement. Time Attestation Discharge Coordination Time (in mins): 37 Quality: Safe Use of Opioids Does Pt have an Active Cancer Diagnosis on the Problem List?: No Quality: Stroke Does the patient have a stroke diagnosis?: No Physical Exam Vital Signs: Vital Signs: Last Vital Signs Temp 97.7 F 04/01/24 08:00 Pulse 80 04/01/24 08:00 Resp 14 04/01/24 08:00 BP 103/51 L 04/01/24 08:00 Pulse Ox 97 04/01/24 08:00 O2 Del Method Room Air 04/01/24 08:00 BMI result Body Mass Index 59.5 Improving left lower extremity erythema, tenderness DS: Data Data Completed and Pending Labs on day of discharge: Laboratory Results - last 24 hr 03/31/24 04/01/24 11:05 06:43 WBC 10.1 RBC 4.20 Hgb 11.6 L Hct 35.1 L MCV 83.6 MCH 27.6 MCHC 33.0 RDW 13.7 Plt Count 304 MPV 8.8 L Absolute Nucleated RBC 0.000 Nucleated RBC % (auto) 0.0 Sodium 137 Potassium 3.9 Chloride 107 Carbon Dioxide 22 Anion Gap 12 BUN 6 L Creatinine 0.57 Estim Creat Clear Calc 233.8 Estimated GFR > 60 Fasting Glucose 89 Calcium 8.8 C-Reactive Protein 4.09 H Random Vancomycin 11.5 L Discharge Plan Discharge Anticipated Discharge Date/Time: 04/01/24 08:39 Patient Disposition: Home, Self-Care Discharge Diagnosis: cellulitis Referrals: [place] [Primary Care Provider] - 1 Week Discharge Medications: New doxycycline hyclate 100 mg tablet 100 mg PO BID Qty: 14 0RF amoxicillin-pot clavulanate 875-125 mg tablet 1 tab PO Q12H Qty: 14 0RF Continued cholecalciferol (vitamin D3) 50 mcg (2,000 unit) capsule 50 mcg PO DAILY One Daily [id number] mg-mcg-mg combo pack 1 pkg PO DAILY Discharge Orders: Discharge Order (Routine); Ordered 04/01/24 Ordered By: Mc Ross Diet: Advance to usual diet Activity on Discharge: As tolerated Stand Alone Forms: Patient Portal Discharge page Print Language: Congolese Care Plan Goals: recovery Health Concerns: cellulitis, morbid obesity Plan of Treatment: 7 days doxy and augmentin, weight loss monitor for fevers, worsening symptoms Assessment: see above
[2024-04-01] MEDS: Ibuprofen 400 MG TABLET PO (09:11)
[2024-04-01] MEDS: Magnesium Oxide 400 MG TABLET PO (09:12)
[2024-04-01] MEDS: Clotrimazole 1 % Cream 15 GM TUBE 1 APPL TOPICAL (09:15)
--- NOTE | 2024-04-01 09:41 | MHC.CM.PN ---
PT WILL DC HOME TODAY WITH NO SERVICES VIA PRIVATE TRANSPORT
[2024-04-01] MEDS: Amoxicillin/Potassium Clav 875 MG TABLET PO (09:53)
[2024-04-01] MEDS: Doxycycline Monohydrate 100 MG CAPSULE PO (09:53)
== END 2024-04-01 10:42 | disposition home or self-care (01) | DRG 603 ==
LOC: HO.ED 15:04 → HO.EDOVER 16:47 → HO.S3 03-28 13:53
PROVIDERS: Physician Assistant; Admitting Provider Student in an Organized Health Care Education/Training Program; Emergency Provider Emergency Medicine Emergency Medical Services; Visit Provider Internal Medicine
DX: L03.116 Cellulitis of left lower limb (principal); Z68.43 Body mass index [BMI] 50.0-59.9, adult; B35.3 Tinea pedis; G47.33 Obstructive sleep apnea (adult) (pediatric); E28.2 Polycystic ovarian syndrome; E83.42 Hypomagnesemia; M51.27 Other intervertebral disc displacement, lumbosacral region; F17.210 Nicotine dependence, cigarettes, uncomplicated; Z71.6 Tobacco abuse counseling; E66.01 Morbid (severe) obesity due to excess calories; Z79.899 Other long term (current) drug therapy
CPT/HCPCS: 36415; 72148; 73701; 80048; 80053; 80202; 82550; 83036; 83605; 83690; 83735; 84702; 85025; 85027; 85652; 86140; 87040; 93005; 93971; 99285; J0690; J0736; J1650; J1885; J2270; J2543; J3370; J3371; Q9967

== ENCOUNTER → 2024-03-27 05:29 | Outpatient (BNV) | payer OTHER, SELFPAY | PROVIDERS: Emergency Provider Emergency Medicine Emergency Medical Services; Visit Provider Student in an Organized Health Care Education/Training Program | DX: A41.9 Sepsis, unspecified organism (principal); L03.116 Cellulitis of left lower limb | CPT/HCPCS: 99223; 99232; 99233; 99239 ==

== ENCOUNTER → 2024-03-27 05:29 | Outpatient (BNV) | payer OTHER, SELFPAY | PROVIDERS: Emergency Provider Emergency Medicine Emergency Medical Services; Visit Provider Surgery | DX: L03.116 Cellulitis of left lower limb (principal) | CPT/HCPCS: 99222 ==

== ENCOUNTER → 2024-03-27 05:39 | Outpatient (BNV) | payer OTHER, SELFPAY | PROVIDERS: Emergency Provider Emergency Medicine Emergency Medical Services; Visit Provider Internal Medicine Cardiovascular Disease | DX: R00.0 Tachycardia, unspecified (principal) | CPT/HCPCS: 93010 ==

== ENCOUNTER → 2024-03-27 06:40 | Outpatient (BNV) | payer OTHER, SELFPAY | PROVIDERS: Emergency Provider Emergency Medicine Emergency Medical Services; Visit Provider Radiology Diagnostic Radiology | DX: G83.4 Cauda equina syndrome (principal) | CPT/HCPCS: 72148 ==

== ENCOUNTER 2024-04-12 07:53 | Outpatient (REF) | payer OTHER, SELFPAY ==
[2024-04-12] MEDS: iohexoL 350 MG/ML 100 ML INFUS..BTL 85 ML IV (09:07)
== END 2024-04-12 07:54 | disposition home or self-care (01) ==
LOC: HO.CT 07:53
PROVIDERS: PCP Student in an Organized Health Care Education/Training Program; Visit Provider Student in an Organized Health Care Education/Training Program
DX: L68.0 Hirsutism (principal)
CPT/HCPCS: 74178; Q9967

== ENCOUNTER → 2024-04-12 07:56 | Outpatient (BNV) | payer OTHER, SELFPAY | PROVIDERS: PCP Student in an Organized Health Care Education/Training Program; Visit Provider Radiology Diagnostic Radiology | DX: R16.0 Hepatomegaly, not elsewhere classified (principal) | CPT/HCPCS: 74178 ==

== ENCOUNTER 2024-04-12 13:51 | Outpatient (AMB) | payer OTHER, SELFPAY ==
--- NOTE | 2024-04-12 11:05 | A.SPINEOV_ITS ---
Intake Visit Reasons: ED follow up Intake Note: Ms. Soliz is here today leg pain difficult walking. Stem Frazer Required: No Allergies No Known Allergies [No Known Allergies*] Allergy (Verified 04/12/24 14:16) Assessment & Plan Assessment & Plan (1) Lumbar radiculopathy: Code(s): M54.16 - Radiculopathy, lumbar region Category: Medical Plan Dear colleague, HPI: Thank you for referring Nata to the office today with a chief complaint of low back pain and shooting pain down her left lower extremity. She was recently evaluated in the emergency department on 03/27 for low back pain and left lower extremity cellulitis. She reports that this pain 1st began about 3 y ears ago after she was lifting a very heavy box at work. 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 She was in significant pain for a few days before the pain slowly subsided. It has intermittently came back over the last few years. When describing her pain she states it starts in her low back shoots down her left posterior buttocks into her left posterior thigh. She feels her back pain is much worse than her leg pain. Overall, she states that her pain waxes and wanes in nature. Sometimes it is more severe, and sometimes it is tolerable. She reports she has tried Tylenol, ibuprofen, and pain patches with modest relief of her symptoms. She has never been to physical therapy for this issue. She has not tried day care teacher, acupuncture, or cortisone injections. PMH: Left lower extremity cellulitis, Sleep apnea, PCOS, amenorrhea, obesity, vitamin-D deficiency. Medications: Vitamin D3, vitamin. Allergies: NKDA. Social history: Patient smokes 1/2 pack cigarettes per day. Denies any other substance use. Physical Exam: The patient has 5/5 strength in her upper and lower extremities. She has no significant sensational deficits. Her reflexes are 2+ intact. She ambulates well without an antalgic gait. (-) bilateral straight leg raise. (-) Chowdhury's. (-) clonus. Radiological Studies: MRI of the lumbar spine completed here at [facility] shows disc herniation at L5-S1 causing moderate foraminal stenosis on the left. There is also significant facet hypertrophy at this level. Impression/Plan: Nata is a pleasant 28-year-old female comes in today with a chief complaint of low back pain and shooting pain to her left lower extremity. She describes her symptoms as transient, and has been treating her ?flare-ups? conservatively for many years. We discussed the healing course for disc herniations extensively during this visit. She is likely having episodes of resorption, followed by recurrence of disc bulging as a result of her excessive heavy lifting at work. I encouraged her to attempt a course of physical thera py, and prescribed her some gabapentin to help deal with the nerve pain. She was educated on red flag symptoms of back pain/cauda equina. She understands that she should call our office if her symptoms increase significantly in severity for follow-up. For the time being I believe she should treat this conservatively. Thank you for allowing me to participate in your patients care. total time spent was 50 minutes in counseling, coordination of plan, personal review of imaging, surgical decision making and subsequent plan. WALTER Romero MD, PhD Spine Fellowship Trained Neurosurgeon Director, [facility] Orders: Orders PT Evaluation and Treatment Today M54.16 - Radiculopathy, lumbar region Medications: New gabapentin 300 mg PO BID 30 caps 2RF nerve pain Coding Level of Care Code New Pt Level 4 (74760) Diagnoses Lumbar radiculopathy M54.16
== END 2024-04-12 15:41 | disposition home or self-care (01) ==
PROVIDERS: Visit Provider Physician Assistant
DX: M54.16 Radiculopathy, lumbar region (principal)
CPT/HCPCS: 99204; 99214

== ENCOUNTER 2024-06-01 15:45 | Outpatient (AMB) | payer OTHER, SELFPAY ==
[2024-06-01 15:47] VITALS: BP 124/80; PULSE 78; BMI 58.4
--- NOTE | 2024-06-01 15:47 | MHC.OFFVIS ---
Vital Signs 06/01/24 15:47 Height 5 ft 5 in Weight 351 lb 3.142 oz BMI 58.4 BP 124/80 Blood Pressure Location Lt brachial Position Sitting Pulse 78 Pulse Source Pulse Oximeter Intake Visit Reasons: PCOS Intake Note: Patient present today PCOS office visit. Delinquent Notice Machine Operator Required: No Accompanied by: Self / Same As Patient Allergies No Known Allergies [No Known Allergies*] Allergy (Verified 06/01/24 15:50) HPI Comments Details: 28 YO Female here today for follow up of PCOS with history of infertility and recurrent miscarriages and obesity . HPI from prior visit She reports being diagnosed with PCOS in 2018. She was diagnosed due to infertility, and underwent a workup which revealed elevated testostosterone and with features of hyperandrogenism and irregular mensturation met criteria for PCOS. Menarche was age 11. Menses were irregular for many years. +4 Has been seeing OBgyn at [facility] women She thinks she was 6 weeks long at the time of last miscarriagein Jan 2024. 2020: miscarried at 8 weeks , expectant management, conceived after being started on metformin July 2020 thinks it was 500 mg BID , subsequenlt miscarried 2021: miscarried early no sure when, expectant management 2022 : miscarried at 8 weeks , expenctant mangemtn 2023: most recent one in Jan 2024, at 6 weeks neftali francois No period since She had a light positive preganancy test 02/28/24, unclear whether this is from her in January. . Lives with OCP use: None /never Metformin use: Was Taking 500 mg PO BID. Stopped in 2022 She saw reproductive endocrinology in [facility] : per patient all testing was normal including blood work and hysteroslapingogram but at that time her doctor was leaving and it became difficult for her to afford treatment Not taken letrozole or clomid , no IUI or IVF done Weight gain: BMI 57.5 kg/m2 . Gained 45 lbs in the last month . Was seeing bariatric surgery Feb 2023 but no follow up because she wants to conceive now She denies a change in ring size or shoe size. Does endorse easy bruising, no proximal muscle weakness. Exercise Treadmill walks for an hour slowly daily for the past month Diet : 2 meals a day Yesterday Breakfast : sandwich with ham and cheese Dinner : mashed potatoes with ground beef and cheese Hirsutism/hyperandrogenism: Has hidradenitis suppurativa. not recently seeing dermatology Has hirsutism of her face and abdomen . Shaves daily. Denies hair loss Acne : not muc h She denies a history of HTN, hyperlipidemia, prediabetes. Interval history Patient is still has not gotten her period, her OBGYN rescheduled her appointment to 06/09/2024 She is interested in weight loss. Current BMI 58.4, weight 351 lb Weight is stable since last visit. Exercise: Very busy with work usually but tries to do treadmill Diet: She has not been doing calorie counting due to busy lifestyle however says she only eats during the evening but munches a lot on snacks after dinner. Feeling depressed about her weight. She has sleep apnea, currently not on CPAP. 03/03/2024 24 hour urine cortisol was normal Physical exam General: sitting comfortably in no acute distress HEENT: normocephalic/atraumatic, no facial plethora Neck: supple, symmetrical, no thyromegaly , acanthosis nigricans noted on the neck, multiple skin tags noted, also has dorsocervical and supraclavicular fat pads Cardiac: normal heart sounds Pulm: normal breath sounds B/L, no added breath sounds Abd: not distended, no tenderness, excessive hair noted on the abdomen, no purple striae Extremities: no edema, no signs of myxedema Laboratory Tests 02/15/18 09/05/20 01/05/24 08:40 09:18 10:03 Sodium Potassium Estimated GFR Hemoglobin A1c 5.1 Insulin Level 15.7 C-Peptide 2.07 TSH 0.44 0.58 Free Estradiol 0.71 Total Estradiol 28 [id number] Progester 39 Estradiol Ultra LCMSMS 26 FSH 6.4 2.1 Luteinizing Hormone 2.9 3.1 Prolactin 9.6 Total Testosterone 39 39 51 H Free Testosterone 7.2 H Fr Testosterone Dialys 7.4 H 7.8 H Sex Hormone Bind Glob 18 Androstenedione 145 DHEA Sulfate 266 Cortisol 8.0 5.6 ACTH 13 17-Hydroxyprogesterone 20 Urine Total Volume Ur 24 Hour Volume Ur Creatinine mg/dL Ur Creatinine 24 Hour Ur Free Cortisol 24 Hr 01/28/24 03/03/24 04/01/24 08:47 06:00 06:43 Sodium 137 Potassium 3.9 Estimated GFR > 60 Hemoglobin A1c Insulin Level C-Peptide TSH Free Estradiol Total Estradiol [id number] Progester Estradiol Ultra LCMSMS FSH Luteinizing Hormone Prolactin Total Testosterone 39 Free Testosterone Fr Testosterone Dialys 5.7 Sex Hormone Bind Glob Androstenedione DHEA Sulfate Cortisol ACTH 17-Hydroxyprogesterone Urine Total Volume 1250 Ur 24 Hour Volume 1250 Ur Creatinine mg/dL 140.03 Ur Creatinine 24 Hour 1.68 Ur Free Cortisol 24 Hr 35.6 PFSH Medical History PCOS (polycystic ovarian syndrome) Low serum cortisol level Elevated testosterone level in female Amenorrhea Vitamin D deficiency Surgical History No history of previous surgery Family History Mother Unknown family medical history Father Unknown family medical history Social History Household Members: Spouse Housing: Apartment Do you presently have visiting nurse or other home services: No Alcohol intake: current Patient Tobacco Use Status: Current everyday Tobacco user Tobacco use type: Cigarette Cigarettes Per Day: 5 Years Smoked: 5 e-Cigarette/Vaping Use: Never Used Second Hand Smoke Exposure: No Substance Use Type: Marijuana service: No Female Reproductive History Menstrual Age of Menarche: 11 Physical Exam Vital Signs: Last Vital Signs Pulse 78 06/01/24 15:47 BP 124/80 06/01/24 15:47 Assessment & Plan Assessment & Plan (1) PCOS (polycystic ovarian syndrome): Code(s): E28.2 - Polycystic ovarian syndrome Category: Medical Plan: Patient with a history of PCOS diagnosed in 2018 when she was having issues with fertility and was found to have history of irregular menses with elevated testosterone levels and features of hyperandrogenism. Workup from August 2020 showed unremarkable 17 hydroxyprogesterone, DHEA-S was within normal range. Total testosterone and free testosterone was noted to be elevated at 51 ng/dL and 7.2 pg/mL but actively. However total testosterone levels not greater than 150 ng/dL to suggest possible tumors of the adrenal grand or ovarian tumors. Plus her history of irregular menses, hyperandrogenism features such as hirsutism has been chronic with no sudden worsening. Unlikely she has any neoplasm of the adrenal glands are ovarian pathology to cause these symptoms. She has gained 45 lb in the past 3-4 month which she endorses herself as well. She has started working out in the treadmill by walking slowly for an hour daily and weight since last visit is stable, and though she can not give me an exact amount or account of calorie counting she is doing, however she says she only eats 2 meals in a day. Though some of these meals seem to be highly dense in calories. I reviewed with the patient the implications of polycystic ovarian syndrome in terms of 1) reproductive health (increased risk of infertity, miscarriage), 2) metabolic issues (type 2 diabetes, hypertension, dyslipidemia, cardiovascular disease) and 3) hyperandrogenism (acne, hirsuitism, male pattern hair loss). We reviewed that weight loss in overweight woman can help improve these morbidities, but often woman with PCOS do need further assistance with fertility using metformin plus clomiphene or letrazole. She has had history of recurrent miscarriages with 4 miscarriages since 2019. Most recently she miscarried at 6 weeks in January 2024. She seems to have been evaluated by reproductive endocrinology at [facility] back in 2020, which reportedly patient says the workup was unremarkable however she could not afford to go do them further. She is now interested in losing weight before she tries to conceive. Recent labs from December 2023 showed normal HbA1c, lipids within good range. Her blood pressure is within normal range. Weight lost discussed in further detail below. Her major concern right now is amenorrhea, she has not had her periods since she last miscarried in January 2024. She has an appointment coming up with OBGYN. She did recently start metformin to see if that regulate her periods. She might benefit from oral contraceptive pills to regulate her menstrual cycle as now she is not interested in before she loses significant weight. Plan: -follow up with the OBGYN on 06/09/2024 with regards to amenorrhea - test ordered today, she says she has had negative urine test at home -continue metformin 500 mg b.i.d., this was started recently in March or April 2024. -weight loss with lifestyle modification advised as below -normal thyroid function, however we will also check TPO antibody levels given history of recurrent miscarriages (2) Morbid obesity: Code(s): E66.01 - Morbid (severe) obesity due to excess calories Category: Medical Plan: Patient with BMI of 58 kg per m2. Current weight is 351 lb up from 345 lb. She says this is the highest weight she has ever been. She has put on 45 lb in the 3-4 months. Patient also endorses this. I reviewed with patient the importance of weight loss as it relates to decreasing the risk of diabetes, cardiovascular disease, obstructive sleep apnea,PCOS, arthritis. She has a diagnosis PCOS and has had in fertility plus recurrent miscarriages. She was evaluated by weight management/bariatric surgery in 2022, however she did not follow up with them as she was actively trying to conceive and did not want to undergo bariatric surgery requiring contraception. I did discuss with her that weight loss with bariatric surgery would help with achieving a healthy in the future and she should strongly consider it and she would need to stop trying to conceive for about 18 months after surgery but it would result in better outcomes. She is now interested in weight loss and is not trying to conceive anymore. She is not on contraception though. I did advise her that she will need to go on some sort of contraceptive so that does not happen while she is pursuing bariatric surgery. We reviewed the importance of decreasing total calorie consumption, minimizing fats and carbohydrates. We reviewed the 500 calorie deficit plan to lose 1 lb per week. While she is only eating 2 meals per day, she seems to be eating very calorie dense foods with a red meat and dressing. Encouraged to exercise at least 30 minutes daily Or walking more than 10,000 steps a day. Now that she is not actively trying to get , we can consider GLP 1 agonist. I did advise her that she can not become while she is on these medications as we do not know the side effects in the fetus. She does have features of insulin resistance on exam including acanthosis nigricans, skin tags. No specific features of Vanessa's syndrome. Last time I had ordered cortisol level, acth, DHEA-S. She did not getW this done, however e 24 hour urine cortisol unremarkable. Given this skin tags in the hidradenitis suppurativa, we will also check for acromegaly with IGF-1 levels. Plan: -weight loss with lifestyle modification as advised above -placed referral to Bariatric surgery. -check IGF-1, growth hormone, l, cortisol, acth, DHEA-S levels -re screen for diabetes with a HbA1c and check lipid panel -starts Zepbound 2.5 mg weekly injection, does not drink alcohol, denies history of pancreatitis and family history of thyroid cancer. Discussed side effects of the medication including GI intolerance - Plan I spent 30 minutes in reviewing the record, seeing the patient and documenting in the medical record. Orders: Orders Lipid Panel Today E66.01 - Morbid (severe) obesity due to excess calories Hemoglobin A1c Today E66.01 - Morbid (severe) obesity due to excess calories HCG Quantitative Today E28.2 - Polycystic ovarian syndrome Thyroid Peroxidase Antibodies Today E28.2 - Polycystic ovarian syndrome Referrals Bariatric Surgery Referral E66.01 - Morbid (severe) obesity due to excess calories Medications: New tirzepatide (weight loss) (Zepbound) 2.5 mg (0.5 mL) subcut QWEEK 2 mL 3RF Patient Instructions: Weight loss counselling Use LOSE IT angel to account for calories ?Limit added sugars to less than 25 grams daily. There are 4.2 grams of sugar per teaspoon of sugar. A teaspoon of honey has 6 grams of sugar! Bread also can have more sugar than you think-check labels ?No soda or juices. Drink water, unsweetened iced tea or seltzer ?Limit eating out/take out or prepared meals to twice weekly at most ?Avoid red meat, hot dogs, beauchamp and deli meat. Substitute plant protein for animal protein as much as you can. Beans, nuts, tofu, soy milk ?Limit cheese to 1 ounce a few times weekly ?Eat high fiber foods like beans, apples and green veggies, salsa is a great snack with whole grain cracker like Wasa ?Look for the whole grain stamp when choosing bread etc. Aim for 48 grams of whole grains daily. Whole wheat does not equal whole grains! ?Don't keep tempting treats in the house. Go out once in a while for a treat. ?Don't eat anything deep fried or cream based-no sour cream Start Zepbound 2.5 mg weekly if insurance approves it See obgyn Continue metformin 500 mg twice daily Follow up in 6 weeks Do blood work today Coding Level of Care Code Est Pt Level 4 (23771) Diagnoses PCOS (polycystic ovarian syndrome) E28.2 Morbid obesity E66.01 Time Spent (min) 30
== END 2024-06-01 16:17 | disposition home or self-care (01) ==
PROVIDERS: PCP Student in an Organized Health Care Education/Training Program; Visit Provider Student in an Organized Health Care Education/Training Program
DX: E28.2 Polycystic ovarian syndrome (principal); E66.01 Morbid (severe) obesity due to excess calories
CPT/HCPCS: 99214

== ENCOUNTER 2024-06-01 15:45 | Outpatient (REF) | payer OTHER, SELFPAY ==
[2024-06-01 17:58] LABS: HCG Quantitative < 2 mIU/mL
--- OUTSIDE RECORDS SUMMARY | 2024-06-01 18:59 | XMS_ITS | Encounter Summary ---
Author Organization [employer] Address [address] [facility] 7t [place] [address] Care Team Providers Care Digital Producer Name Role Phone May Tinsley MD Primary Care Pro vider Encounter Details Date Type Department Care Team ([facility] Contact Info) Description 06/01/2024 Orders Only GENERIC EXTERNAL DATA DEPARTMENT Provider, Generic External Data Social History Tobacco Use Types Packs/Day Years Used Date Smoking Tobacco: Every Day Cigarettes Smokeless Tobacco: Never Comments:Started smoking at 16 y of age until now ,stop in , states smokes 7 cig a day Alcohol Use Standard Drinks/Week Comments Yes 0 (1 standard drink = 0.6 oz pur e alcohol) social Depression Answer Date Recorded Patient Health Questionnaire-9 Score 7 01/11/2024 Patient Health Questionnaire-9 Score 7 01/11/2024 Last PHQ-9: Questionnaire Data Not on file 0 01/11/2024 Housing Stability Answer Date Recorded What is your housing situation today? I have robinson lopez 01/11/[address] you li ve. Do you have problems with any of the following? None of the above 01/11/2024 Food Insecurity Answer Date Recorded Within the past 12 months, y ou worried that your food would run out before you got money to buy more: Never True 01/11/2024 Within the past 12 months,th e food you bought just didn't last and you didn't have enough money to get more: Never True 07/2023 Transportation Answer Date Recorded In the past 12 months, has l ack of transportation kept you from medical appts, meetings, work or from getting things needed for daily living? No 01/11/2024 Utilities Answer Date Recorded In the past 12 months, has t he electric, gas, oil or water company threatened to shut off services in your home? No 01/11/2024 Depression Answer Date Recorded Patient Health Questionnaire-2 Score 3 01/11/2024 Internet Access Answer Date Recorded Internet Access Q1 No 01/11/2024 Internet Access Q2 I do not want or need it 07/2023 Comments Unknown Sex and Gender Information Value Date Recorded Sex Assigned at Female 03/09/2022 10:22 AM EDT Legal Sex Female 10:22 AM EDT Gender Identity Female 03/09/2022 10:22 AM EDT Sexual Orientation Straight 03/09/2022 10 :22 AM EDT documented as of this encounter Plan of Treatment Upcoming Encounters Date Type Department Care Team (Late st Contact Info) Description 07/12/2024 9:00 AM EST Nurse Only [facility] [address] [place] [address] documented as of this encounter Procedures Procedure Name Priority Date/Time Associated Diagnosis Comments HCG, TOTAL, QN Routine 06/01/2024 4:32 PM EST documented in this encounter Results * hCG, Total, Quantitative (06/01/2024 4:32 PM EST) HCG Quantitative <2 mIU/mL [facility] Comment:Weeks post LMP Appro ximate hCG(Last Menstrual Period) Range (mIU/ml)3 - 4 weeks 9 - 1304 - 5 weeks 75 - 2,6005 - 6 weeks 850 - 20,8006 - 7 weeks 4000 - 100,2007 - 12 weeks 11,500 - 289,14423 - 16 weeks 18,300 - 137,06727 - 29 weeks (2nd trimester) 1,400 - 53,13703 - 41 weeks (3rd trimester) 940 - 60,000The Estrada B- hCG assay is used for the early detection ofpregnancy; it cannot be used to diagnose any conditionunrelated to . If a B-hCG level is not supportedby the clinical evidence, results should be confirmed by analternative method (qualitative urine hCG, for example). 06/01/2024 4:32 PM EST 06/01/2024 4:34 PM EST us Generic External Data Provider LAB BLOOD ORDERAB LES Final Result [facility] [address] [place] [address] [phone] documented in this encounter Visit Diagnoses Not on filedocumented in this encounter Additional Health Concerns Assessment Noted Time PHQ-9 Depression Total Score: 7 01/11/20 24 10:52 AM EDT documented as of this encounter Care Teams Digital Producer Relationship Specialty Start Date End Date May Tinsley MD [address] [place] [address] PCP - General Internal Medicine 12/02/22 documented as of this encounter
--- OUTSIDE RECORDS SUMMARY | 2024-06-01 18:59 | XMS_ITS | Encounter Summary ---
Author Organization [employer] Address [address] [place] [address] [place] [address] Care Team Providers Care Cut Off Machine Unloader Name Role Phone Gloria Jacobo Primary Care Provider +1- [phone] May Tinsley MD Primary Care Pro vider Encounter Details Date Type Department Care Team ([facility] Contact Info) Description 06/18/2022 Telephone [facility] [address] [place] [phone] Gloria Jacobo [address] Dept [place] [address] Social History Tobacco Use Types Packs/Day Years Used Date Smoking Tobacco: Every Day Cigarettes Smokeless Tobacco: Never Alcohol Use Standard Drinks/Week Comments Yes 0 (1 standard drink = 0.6 oz pur e alcohol) Holidays Comments Unknown Sex and Gender Information Value Date Recorded Sex Assigned at Female 03/09/2022 10:22 AM EDT Legal Sex Female 10:22 AM EDT Gender Identity Female 03/09/2022 10:22 AM EDT Sexual Orientation Straight 03/09/2022 10 :22 AM EDT COVID-19 Exposure Response Date Recorded In the last 10 days, have yo u been in contact with someone who was confirmed or suspected to have Coronavirus/COVID-19? No / Unsure 06/17/2022 9:58 AM EST documented as of this encounter Plan of Treatment Upcoming Encounters Date Type Department Care Team ([facility] Contact Info) Description 07/12/2024 9:00 AM EST Nurse Only [facility] [address] [place] [address] documented as of this encounter Visit Diagnoses Not on filedocumented in this encounter Care Teams Cut Off Machine Unloader Relationship Specialty Start Date End Date Gloria Jacobo FNP PCP - General Family Medicine 01/01/22 12/01/22 May Tinsley MD [address] [place] [phone] PCP - General Internal Medicine 12/02/22 documented as of this encounter
--- OUTSIDE RECORDS SUMMARY | 2024-06-01 18:59 | XMS_ITS | Encounter Summary ---
Author Organization [employer] Address [address] [facility] 7t [place] [address] Care Team Providers Care Material Manager Name Role Phone May Tinsley MD Primary Care Pro vider Reason for Visit * Reason Onset Date Comments Results 05/27/2024 Encounter Details Date Type Department Care Team ([facility] Contact Info) Description 05/27/2024 Telephone [facility] [address] [place] [address] Risa Garner RN [address] [place] [address] Results Social History Tobacco Use Types Packs/Day Years [...] AM EDT documented as of this encounter Miscellaneous Notes * Telephone Encounter - Risa Garner RN - 05/27/2024 10:19 AM EST T/C placed to pt re below imaging results and POC. Apologized for the delay and explained that [facility] is behind on reading imaging so we just got the results. Informed of enlarged liver which correlated with elevated LFTs. Advised to cut down on fried, fatty processed foods. Increase intake of fruits, vegetables, and whole grains and it should improve her liver health. Pt verbalized understanding and denied having any further questions or concerns at this time. * Telephone Encounter - Risa Garner RN - 05/27/2024 10:15 AM EST ----- Message from Priscila Newton sent at 05/26/2024 4:58 PM EST ----- Please call Nata to let her know that CT of the abdomen demonstrated small umbilical hernia and some hepatomegaly, which is consistent with mild LFT elevation in Mar 2024. Please encourage lifestyle interventions such as 150 mins physical activity weekly and diet rich in fruits and vegetables. Thank you. Lamar gottlieb for Emanuel documented in this encounter Plan of Treatment Upcoming Encounters Date Type Department Care Team (Late st Contact Info) Description 07/12/2024 9:00 AM EST Nurse Only [facility] [address] [place] [address] documented as of this encounter Visit Diagnoses Not on filedocumented in this encounter Additional Health Concerns Assessment Noted Time PHQ-9 Depression Total Score: 7 01/11/20 24 10:52 AM EDT documented as of this encounter Care Teams Material Manager Relationship Specialty Start Date End Date May Tinsley MD [address] [place] [address] PCP - General Internal Medicine 12/02/22 documented as of this encounter
--- OUTSIDE RECORDS SUMMARY | 2024-06-01 18:59 | XMS_ITS | Encounter Summary ---
Author Organization [employer] Address [address] [place] [address] 7 [place] [address] Care Team Providers Care Oven Heater Name Role Phone May Tinsley MD Primary Care Pro vider Reason for Visit * Reason Onset Date Comments Medication Question 05/24/2024 Encounter Details Date Type Department Care Team ([facility] Contact Info) Description 05/24/2024 Telephone [facility]INE [address] [place] [address] May Tinsley MD [address] [place] [address] Medication Question Social History Tobacco Use Types Packs/Day Years [...] is your housing situation today? I have robinsonhiram lopez 01/11/[address] you [...] encounter Miscellaneous Notes * Telephone Encounter - Arlene Garcia RN - 05/25/2024 2:37 PM EST Telephone call to pt regarding below message, no answer, unable to leave voicemail. Will task to call again. * Telephone Encounter - Xiomara Whelan - 05/24/2024 8:15 AM EST Tc from pt requesting status of new script med for weight loss. [phone] documented in this encounter Plan of Treatment Upcoming Encounters Date Type Department Care Team (Late st Contact Info) Description 07/12/2024 9:00 AM EST Nurse Only [facility] [address] [place] [address] documented as of this encounter Visit Diagnoses Not on filedocumented in this encounter Additional Health Concerns Assessment Noted Time PHQ-9 Depression Total Score: 7 01/11/20 24 10:52 AM EDT documented as of this encounter Care Teams Oven Heater Relationship Specialty Start Date End Date May Tinsley MD [address] [place] [phone] PCP - General Internal Medicine 12/02/22 documented as of this encounter
--- OUTSIDE RECORDS SUMMARY | 2024-06-01 18:59 | XMS_ITS | Encounter Summary ---
Author Organization [employer] Address [address] [facility] [address] [address] 7t [place] [address] Care Team Providers Care Hydrographical Technical Officer Name Role Phone Gloria Jacobo Guillermina LOPEZ Primary Care Provider +1- [phone] May Tinsley MD Primary Care Pro vider Reason for Visit * Reason Onset Date Comments Referral 07/31/2022 Encounter Details Date Type Department Care Team (Late st Contact Info) Description 07/31/2022 Telephone [facility] [address] [place] [address] Monico Osborne, DMD [address] [place] [address] Referral Social History Tobacco Use Types Packs/Day Years [...] suspected to have Coronavirus/COVID-19? No / Unsure 07/27/2022 12:54 PM EDT documented as of this encounter Miscellaneous Notes * Telephone Encounter - Tawny Crawford - 08/03/2022 11:[address] Osborne. Yes she is interested in a referral. * Telephone Encounter - Tawny Crawford - 07/31/2022 1:52 PM EDT Patient is stating that referral was supposed to be sent to another Oral Surgery office for patientto be put to sleep. I didn't see any scanned in chart. Is there a referral for the patient that canbe sent in so she can make her appt? documented in this encounter Plan of Treatment Upcoming Encounters Date Type Department Care Team (Late st Contact Info) Description 07/12/2024 9:00 AM EST Nurse Only [facility] [address] [place] [address] [phone] documented as of this encounter Visit Diagnoses Not on filedocumented in this encounter Care Teams Hydrographical Technical Officer Relationship Specialty Start Date End Date Gloria Jacobo FNP PCP - General Family Medicine 01/01/22 12/01/22 May Tinsley MD [address] [place] [address] PCP - General Internal Medicine 12/02/22 documented as of this encounter
== END 2024-06-01 15:46 | disposition home or self-care (01) ==
LOC: HO.LAB 15:45
PROVIDERS: PCP Student in an Organized Health Care Education/Training Program; Visit Provider Student in an Organized Health Care Education/Training Program
DX: E28.2 Polycystic ovarian syndrome (principal)
CPT/HCPCS: 36415; 84702

== ENCOUNTER 2024-06-16 06:34 | Outpatient (REF) | payer OTHER, SELFPAY ==
--- OUTSIDE RECORDS SUMMARY | 2024-06-16 06:37 | XMS_ITS | Encounter Summary ---
Author Organization [employer] Address [address] [place] [address] 7 [place] [address] Care Team Providers Care Log Scaler Name Role Phone May Tinsley MD Primary Care Pro vider Reason for Visit * Reason Onset Date Comments Medication Question 05/24/2024 Encounter Details Date Type Department Care Team ([facility] Contact Info) Description 05/24/2024 Telephone [facility] MEDICINE [address] [place] [address] May Tinsley MD [address] [place] [address] Medication Question Social History Tobacco Use Types [...] of new script med for weight loss. [phone] documented in this encounter Plan of Treatment Upcoming Encounters Date Type Department Care Team (Late st Contact Info) Description 07/12/2024 9:00 AM EST Nurse Only [facility] [address] [place] [address] documented as of this encounter Visit Diagnoses Not on filedocumented in this encounter Additional Health Concerns Assessment Noted Time PHQ-9 Depression Total Score: 7 01/11/20 24 10:52 AM EDT documented as of this encounter Care Teams Log Scaler Relationship Specialty Start Date End Date May Tinsley MD [address] [place] [phone] PCP - General Internal Medicine 12/02/22 documented as of this encounter
--- OUTSIDE RECORDS SUMMARY | 2024-06-16 06:37 | XMS_ITS | Encounter Summary ---
Author Organization [employer] Address [address] 7[address] [place] [address] Care Team Providers Care Studio Model Name Role Phone Gloria Jacobo Guillermina LOPEZ Primary Care Provider +1- [phone] May Tinsley MD Primary Care Pro vider Reason for Visit * Reason Onset Date Comments Referral 07/31/2022 Encounter Details Date Type Department Care Team (Late st Contact Info) Description 07/31/2022 Telephone [facility] [address] [place] [address] Monico Osborne, DMD [address] [place] [address] Referral Social History Tobacco Use Types Packs/Day [...] 9:00 AM EST Nurse Only [facility] [address] [place] [phone] documented as of this encounter Visit Diagnoses Not on filedocumented in this encounter Care Teams Studio Model Relationship Specialty Start Date End Date Gloria Jacobo FNP PCP - General Family Medicine 01/01/22 12/01/22 May Tinsley MD [address] [place] [phone] PCP - General Internal Medicine 12/02/22 documented as of this encounter
--- OUTSIDE RECORDS SUMMARY | 2024-06-16 06:37 | XMS_ITS | Encounter Summary ---
Author Organization [employer] Address [address] [facility] 7t [place] [address] Care Team Providers Care Medical And Health Services Manager Name Role Phone May Tinsley MD Primary Care Pro vider Reason for Visit * Reason Onset Date Comments Results 05/27/2024 Encounter Details Date Type Department Care Team ([facility] Contact Info) Description 05/27/[address] [facility] MEDICINE [address] [place] [address] Rsia Garner RN [address] [place] [address] Results Social History Tobacco Use Types Packs/Day [...] Apologized for the delay and explained that [facility] is behind on reading imaging so [...] Description 07/12/2024 9:00 AM EST Nurse Only [facility] [address] [place] [address] documented as of this encounter Visit Diagnoses Not on filedocumented in this encounter Additional Health Concerns Assessment Noted Time PHQ-9 Depression Total Score: 7 01/11/20 24 10:52 AM EDT documented as of this encounter Care Teams Medical And Health Services Manager Relationship Specialty Start Date End Date May Tinsley MD [address] [place] [address] PCP - General Internal Medicine 12/02/22 documented as of this encounter
--- OUTSIDE RECORDS SUMMARY | 2024-06-16 06:37 | XMS_ITS | Encounter Summary ---
Author Organization [employer] Address [address] [facility] 7t [place] [address] Care Team Providers Care Postal Carrier Name Role Phone May Tinsley MD Primary Care Pro vider Encounter Details Date Type Department Care Team ([facility] Contact Info) Description 06/01/2024 Orders Only [...] Description 07/12/2024 9:00 AM EST Nurse Only [facility]INE [address] [place] [address] documented as of this encounter Procedures Procedure Name Priority Date/Time Associated Diagnosis Comments HCG, TOTAL, QN Routine 06/01/2024 4:32 PM EST documented in this encounter Results * hCG, Total, Quantitative (06/01/2024 4:32 PM EST) HCG Quantitative <2 mIU/mL [facility] Comment:Weeks post LMP Appro ximate hCG(Last Menstrual Period) Range (mIU/ml)3 - 4 weeks 9 - 1304 - 5 weeks 75 - 2,6005 - 6 weeks 850 - 20,8006 - 7 weeks 4000 - 100,2007 - 12 weeks 11,500 - 289,04056 - 16 weeks 18,300 - 137,64343 - 29 weeks (2nd trimester) 1,400 - 53,73267 - 41 weeks (3rd trimester) 940 - [...] Provider LAB BLOOD ORDERAB LES Final Result [facility] [address] [place] [address] [phone] documented in this encounter Visit Diagnoses Not on filedocumented in this encounter Additional Health Concerns Assessment Noted Time PHQ-9 Depression Total Score: 7 01/11/20 24 10:52 AM EDT documented as of this encounter Care Teams Postal Carrier Relationship Specialty Start Date End Date May Tinsley MD [address] [place] [address] PCP - General Internal Medicine 12/02/22 documented as of this encounter
--- OUTSIDE RECORDS SUMMARY | 2024-06-16 06:37 | XMS_ITS | Encounter Summary ---
Author Organization [employer] Address [address] [place] [address] [place] [address] Care Team Providers Care Subway Train Operator Name Role Phone Gloria Jacobo Primary Care Provider +1- [phone] May Tinsley MD Primary Care Pro vider Encounter Details Date Type Department Care Team ([facility] Contact Info) Description 06/18/2022 Telephone [facility] MEDICINE [address] [place] [address] Gloria Jacobo [address] Dept [place] [address] Social History Tobacco Use Types Packs/Day Years [...] Upcoming Encounters Date Type Department Care Team ([facility] Contact Info) Description 07/12/2024 9:00 AM EST Nurse Only [facility] [address] [place] [address] documented as of this encounter Visit Diagnoses Not on filedocumented in this encounter Care Teams Subway Train Operator Relationship Specialty Start Date End Date Gloria Jacobo FNP PCP - General Family Medicine 01/01/22 12/01/22 May Tinsley MD [address] [place] [phone] PCP - General Internal Medicine 12/02/22 documented as of this encounter
--- OUTSIDE RECORDS SUMMARY | 2024-06-16 06:38 | XMS_ITS | Clinical Summary ---
Author Organization [employer] Address [address] [facility] [address] [place] [address] Care Team Providers Care Footwear Sales Associate Name Role Phone May Tinsley MD Primary Care Pro vider Allergies No known active allergies Medications * This document contains information received from the source organization and may not represent a complete record from that organization. Vit-Fe Fumarate-FA ( Plus) 27-1 MG tabletIndicatio ns:PCOS (polycystic ovarian syndrome),Famil y planning education, guidance, and counseling Take 1 tablet by mouth in the morning. 90 tablet 3 3 Active cholecalciferol (Vitamin D-3) 25 MCG (1000 UT) tablet Take 1 tablet (25 mcg) by mouth Once per day. 90 tablet 1 4 01/11/20 25 Active lidocaine (Lidoderm) 5 % patch Apply 1 patch topically Once per day. Remove & discard patch within 12 hours or as directed by MD. 30 patch 2 4 Active metFORMIN (Glucophage) 500 MG tablet Take 1 tablet (500 mg) by mouth with breakfast and with evening meal. 180 tablet 1 4 04/12/20 25 Active Active Problems Problem Noted Date Diagnosed Date Left leg cellulitis 04/12/2024 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 08/12/2022 Overview (11/05/2022): Encouraged pt to stop smoking, avoid marijuana, and lose 5% weight will improve her fertility Had appt with [facility], pt uncertain if she will continue Assessment & Plan (12/02/2022 8:34 PM EDT): Never received reproductive notes from [facility] consult will hold sending since pt is focusing on weight loss currently and not seeking F/u 3 months or sooner PRN with new PCP Assessment & Plan (11/05/2022 8:49 PM EDT): Pt concerned about decreasing Testosterone to assist her fertility Will request notes from [facility] appt Will submit [facility] EConsult Followup 1 month or sooner PRN Attention and concentration deficit 07/10/2022 Overview (11/05/2022): Discussed ADHD with pt Pt history consistent with ADHD symptoms Sx improved w/ Adderrall 15mg BID Pt aware she will need to stop as soon as she may be Assessment & Plan (12/02/2022 8:25 PM EDT): Continue Adderral as prescribed States sometimes she would like medicine to help her not be sleepy. Educated pt that that is not the goal of the medicine Caution pt to not start using the medicine to stay awake at work or taking more frequently than prescribed Monitor pt use F/u 3 months or sooner PRN with new PCP Assessment & Plan (11/05/2022 8:46 PM EDT): Refill Adderrall Monitor for SE including new potential irritability on medication Followup 3 months with new PCP Vitamin D deficiency 06/18/2022 Health care maintenance 06/18/2022 Hidradenitis suppurativa 02/05/2017 Hirsutism 07/01/2016 Hyperinsulinism 07/01/2016 Irregular periods 07/01/2016 Polycystic ovary syndrome 07/01/2016 Assessment & Plan (11/05/2022 8:48 PM EDT): Encouraged pt to stop smoking, avoid marijuana, and lose 5% weight will improve her fertility Continue Metformin Continue Vaniqu, She already bought it and should use BID until tube is gone. Must pay out of pocket Spironolactone not taking d/t not recommended during Will discontinue Spironolactone Pt concerned about decreasing Testosterone to assist her fertility Will submit [place] EConsult Followup 1 month or sooner PRN Obstructive sleep apnea syndrome 12/20/2014 Overview (06/17/2022): Has CPAP machine Depressive disorder 03/14/2014 Gastritis 05/13/2012 Allergic rhinitis 02/16/2012 Anxiety 02/16/2012 Severe obesity 02/16/2012 Overview (12/02/2022): Diet and exercise currently Poor sleep Assessment & Plan (12/02/2022 8:30 PM EDT): Recommended pt drink 8 bottles water/day Sleep 8 hours Seek to optimize schedule Discussed lose-regain cycle. Weight loss affected by PCOS Will refer pt to Weight management F/u 3 months or sooner PRN Encounters Date Type Department Care Team Description 06/01/2024 Orders Only GENERIC EXTERNAL DATA DEPARTMENT Provider, Generic External Data 05/27/2024 Telephone [facility] [address] [place] [phone] Risa Garner, RN Results 05/24/[address] [address] May Tinsley MD Medication Question 04/13/[address] [phone] May Tinsley MD 04/12/2024 10:00 AM EST Office Visit [facility] [address] [place] [phone] May Tinsley MD Leukocytosis, unspecified type (Primary Dx); Foot pain, bilateral; Onychomycosis; Axillary hidradenitis suppurativa; Left leg cellulitis; Lumbar radiculopathy; Obstructive sleep apnea syndrome; Hyperinsulinism; Female fertility problem; Irregular periods; Polycystic ovary syndrome; Severe obesity (CMS/HCC); Hidradenitis suppurativa; Attention and concentration deficit; Health care maintenance; Tobacco use 04/12/2024 Travel 04/10/2024 5:20 PM EST Office Visit [facility] [address] [place] [address] Esme De La Cruz NP Left leg swelling (Primary Dx) 04/10/2024 Telephone [facility] [address] [place] [address] May Tinsley MD Nurse Triage 04/04/[address] [phone] Anne Marie Moore MA DME for Breastpumps 04/04/2024 Patient Outreach [facility] [address] [place], [place] [phone] May Tinsley MD Transition Of Care (Tcm) (HDF scheduled, SDOH was completed on 01/11/2024) 04/04/2024 Telephone [facility] [address] [place], [place] [phone] May Tinsley MD Hospital Follow-up 03/30/2024 Telephone [facility] [address] [place], [place] [phone] Tenisha Carrillo MA chart prep 03/27/2024 Orders Only [facility] External Provider, [facility] from Last 3 Months Immunizations Name Administration Dates Next Due DTP 07/21/2001, 8,1997,09/11 HPV, Quadrivalent 02/21/2013,05/13/2012,02/16/20 12 Hep A, ped/adol, 2 dose 03/21/2015 Hep B, Adolescent or Pediatric 02/07/1998,1997,1997 Hep B, adult 02/09/2024,01/11/2024 Hib (HbOC) 02/06/1999, 8,1997,09/11 Influenza injectable quadriv alent preservative free 02/02/2018 Influenza, Split (incl. dionicio fied surface antigen) 02/21/2013,02/16/2012 Influenza, seasonal, injecta ble, preservative free 01/26/2024 MMR 07/21/2001,08/12/1998 Meningococcal MCV4P ACYW-135 03/21/2015,02/16/20 12 OPV 07/21/2001, 8,1997,09/11 Tdap 01/26/2024,02/04/2012 Varicella 02/04/2012,10/28/1998 Family History Medical History Relation Name Comments Leukemia Brother DM2 Maternal Grandmother HTN Mother colon cancer ?? not sure Mother Relation Name Status Comments Brother Maternal Grandmother Mother Social History Tobacco Use Types Packs/Day Years Used Date Smoking Tobacco: Every Day Cigarettes Smokeless Tobacco: Never Tobacco Cessation:Ready to Q uit: Not Asked; Counseling Given: Not Answered Comments:Started smoking at 16 y of age [...] Orientation Straight 03/09/2022 10 :22 AM EDT Last Filed Vital Signs Vital Sign Reading Time Taken Comments Blood Pressure 130/73 04/12/2024 10:15 AM EST Pulse 78 04/12/2024 10:15 AM EST Temperature 36.6 ??C (97.8 ??F) 04/12/2024 10:[address] Respiratory Rate 20 04/12/2024 10:15 AM EST Oxygen Saturation 98% 04/12/2024 10:15 AM EST Inhaled Oxygen Concentration - - Weight 154 kg (339 lb) 04/12/2024 10:15 AM EST Height 165.1 cm (5' 5 ) 04/12/2024 10:15 AM EST Body Mass Index 56.41 04/12/2024 10:15 AM EST Plan of Treatment Upcoming Encounters Date Type Department Care Team (Late st Contact Info) Description 07/12/2024 9:00 AM EST Nurse Only [facility] [address] [place] [address] Health Maintenance Due Date Last Done Comments Dental Oral Exam 1997 Dental Prophylaxis 1997 Dental X-Ray: Bitewings 1997 Alcohol/Substance Use Screening 2009 Family Planning (PISQ) 2012 Hepatitis A Vaccines (2 of 2 - 2-dose series) 09/19/2015 03/21/2015 Pneumococcal Vaccine: Pediatrics (0 to 5 Years) and At-Risk Patients (6 to 49) Years) (1 of 2 - PCV) 2016 Pap Smear 2018 COVID-19 Vaccine ( season) 2024 Depression Screening 01/10/2025 01/11/2024, 01/11/20 24 SDOH Screening 01/10/2025 01/11/2024 Tobacco Screening 04/10/2025 04/10/2024 Dental X-Ray: Full Mouth 07/28/2025 07/27/2022 Lipid Panel 01/04/2029 01/05/2024, 06/11, 06/04/2020 DTaP/Tdap/Td Vaccines (7 - Td or Tdap) 01/25/2034 01/26/2024, 02/04/2012, 07/21/2001, Additional history exists Zoster Vaccines (1 of 2) 07/10/2047 RSV Patients and Patients Aged 60 years or older (1 - 1-dose 75+ series) 2072 HIB Vaccines Completed 02/06/1999, 05/1997, 1997, Additional history exists IPV Vaccines Completed 07/21/2001, 05/1997, 1997, Additional history exists HPV Vaccines Completed 02/21/2013, 08/2012, 02/16/2012 Meningococcal Vaccine Completed 03/21/2015, 012 HIV Screening Completed 01/05/2024, 11/08, 08/16/2020 Hepatitis C Screening Completed 01/05/2024 , 12/02/2022, 08/16/2020 Influenza Vaccine Completed 01/26/2024, , 02/21/2013, Additional history exists Hepatitis B Vaccines Completed 02/09/2024, 01/11/2024, 02/07/1998, Additional history exists RSV under 20 months Aged Out No longe r eligible based on patient's age to complete this topic Rotavirus Vaccines Aged Out No longer eligible based on patient's age to complete this topic Procedures Procedure Name Priority Date/Time Associated Diagnosis Comments HCG, TOTAL, QN Routine 06/01/2024 4:[address] ABDOMEN PELVIS W AND WO CONTRAST Routine 04/12/2024 8:16 AM EST Hirsutism MR LUMBAR SPINE WO CONTRAST Routine 03/27/2024 12:[address] LOWER EXTREMITY W CONTRAST LEFT Routine 03/27/2024 10:01 AM EST US VENOUS DUPLEX LE LT Routine 7:30 AM EST LACTIC ACID Routine 03/27/2024 6:16 AM EST HCG, TOTAL, QN Routine 03/27/2024 5:55 AM EST SED RATE BY MODIFIED WESTERGREN Routine 03/27/2024 5:55 AM EST CREATINE KINASE, TOTAL Routine 5:55 AM EST LIPASE Routine 03/27/2024 5:55 AM EST C-REACTIVE PROTEIN Routine 03/27/2024 5: 55 AM EST MAGNESIUM Routine 03/27/2024 5:55 AM EST SLIDE REVIEW Routine 03/27/2024 5:55 AM EST COMPREHENSIVE METABOLIC PANEL, FASTING Routine 03/27/2024 5:55 AM EST CBC WITH AUTO DIFFERENTIAL Routine 03/27/2024 5:55 AM EST HEPATITIS C AB W/REFL TO HCV RNA, QN, PCR Routine 01/05/2024 10:03 AM EDT Annual physical exam HIV 1/2 ANTIGEN/ANTIBODY, FOURTH GENERATION W/RFL Routine 01/05/2024 10:03 AM EDT Annual physical exam LIPID PANEL, STANDARD Routine 01/05/2024 10:03 AM EDT Annual physical exam PANORAMIC RADIOGRAPHIC IMAGE Routine 07/27/2022 1:00 PM EDT Dental abscess from Last 3 Months or Most Recently Relevant to Health Maintenance Results * hCG, Total, Quantitative (06/01/2024 4:32 PM EST) Only the most recent of2 resultswithin the time period is included. HCG Quantitative <2 mIU/mL [facility] Comment:Weeks post LMP Appr oximate hCG(Last Menstrual Period) Range (mIU/ml)3 - 4 weeks 9 - 1304 - 5 weeks 75 - 2,6005 - 6 weeks 850 - 20,8006 - 7 weeks 4000 - 100,2007 - 12 weeks 11,500 - 289,91651 - 16 weeks 18,300 - 137,55132 - 29 weeks (2nd trimester) 1,400 - 53,89451 - 41 weeks (3rd trimester) 940 - [...] Provider LAB BLOOD ORDERAB LES Final Result Performing Organization Address City/State/[facility] Co de Phone Number [facility] [address] [place] [address] [phone] * CT Abdomen Pelvis w/ and w/o Contrast (04/12/2024 8:16 AM EST) Anatomical Region Laterality Modality Body, Pelvis, Abdomen Computed T omography 04/12/2024 8:16 AM EST Narrative 05/26/2024 3:06 PM EST ? [facility] ?[address] ?[place] [address] ? CT Scan Report ? Signed ? Patient: Soliz,Nata ?MR#: [id number] ?? [id number] ? : 1995 ?Acct:[id number] ? Age/Sex: 28 / F ?ADM Date: 12/04/24 ? Loc: HO.CT ? Attending Dr: May Ruvalcaba MD ? Ordering Physician: May Tinsley MD ?? Date of Service: 04/12/24 ?? Procedure(s): CT abdomen pelvis wo/w IV con ?? Accession Number(s): [id number] ? cc: May Tinsley MD ? Report Number: ?? [id number]: Total DLP = 1875.00 mGy-cm ?? EXAMINATION: ?? CT ABDOMEN AND PELVIS WITHOUT AND WITH CONTRAST ? CLINICAL INFORMATION: ?? HIRSUTISM ? COMPARISON: ?? None available. ? TECHNIQUE: ?? Multidetector volumetric imaging was performed of the abdomen and ?? pelvis before and after the IV administration of 85 mL of Omnipaque 350 ?? strength intravenous contrast without reported immediate complications. ?? Sagittal and coronal reformatted images were obtained on the ?? technologist's workstation. ? This CT examination was performed using dose optimization techniques as ?? appropriate, variously including the following: ?? *Automated exposure control ?? *Adjustment of mA and/or kV according to patient size (this includes ?? techniques or standardized protocols for targeted exams where dose is ?? matched to indication/reason for exam; i.e. extremities or head) ?? *Use of iterative reconstruction technique. ?? DLP: 1875MGYCM ? FINDINGS: ? Submitted for interpretation on May 26, 2024. ? LUNG BASES: No acute airspace disease or gross pulmonary nodules in the ?? included lungs. ? LIVER, GALLBLADDER, AND BILIARY TREE: ? Liver measures 20 cm. ?? No focal mass. Portal veins and hepatic veins are patent. Intrahepatic ?? portion of the IVC is patent. No intrahepatic biliary ductal ?? dilatation. ?? Fluid-filled gallbladder without distention. No pericholecystic fluid ?? collection or gallbladder wall thickening. ?? Common bile duct measures 2 mm. ? PANCREAS: No focal lesion. No main pancreatic ductal dilatation. No ?? peripancreatic fluid collections. ? SPLEEN: 9 cm. No focal mass. ? ADRENAL GLANDS: ?? No nodular lesions. ? KIDNEYS AND URETERS: ?? No hydronephrosis. ?? No nephrolithiasis. ?? No gross renal mass. ?? Normal urinary excretion into the collecting system. ? BLADDER: Fluid-filled. ? GASTROINTESTINAL TRACT: ? No intestinal obstruction pattern. ?? No ascites. ?? No pneumatosis intestinalis. ?? No pneumoperitoneum. ?? Appendix is normal. ? ABDOMINAL WALL: Small tiny fat-containing umbilical hernia. ? LYMPH NODES: No specific prominent mesenteric lymph nodes with mild ?? edema pattern. ? VASCULAR: No aneurysm or dissection abdominal aorta. ? PELVIC VISCERA: No gross masses in the uterus or the adnexa. ? OSSEOUS STRUCTURES: Multilevel thoracolumbar spondylosis more ?? conspicuous at T11-12 and L5-S1 levels. ? CT/CT abdomen pelvis wo/w IV con ?? IMPRESSION: ?? Normal adrenal glands. ?? Hepatomegaly. ? Fleischner guidelines were followed. ? Electronically signed by: ??Gabriel Duran MD ??05/26/2024 03:02 PM ?? EST RP ? Dictated By: ?Gabriel Suarez MD ? Signed By: ?<Electronically signed by Gabriel Garner MD in OV> ? 05/26/24 1502 ? DD/ 0816 ? TD/TT: 04/12/2430 ? Network Operations Specialist: ? Procedure Note Je, Image - 05/26/[address] [place] [address] [address] Scan Report Signed Patient: Fannie SolizR#: [id number] 764 : 1995Acct:[id number] Age/Sex: 28 / FADM Date: 04/12/24 Loc: HO.CT Attending Dr: May Ruvalcaba MD Ordering Physician: May Tinsley MD Date of Service: 04/12/24 Procedure(s): CT abdomen pelvis wo/w IV con Accession Number(s): [id number] cc: May Tinsley MD Report Number: [id number]: Total DLP = 1875.00 mGy-cm EXAMINATION: CT ABDOMEN AND PELVIS WITHOUT AND WITH CONTRAST CLINICAL INFORMATION: HIRSUTISM COMPARISON: None available. TECHNIQUE: Multidetector volumetric imaging was performed of the abdomen and pelvis before and after the IV administration of 85 mL of Omnipaque 350 strength intravenous contrast without reported immediate complications. Sagittal and coronal reformatted images were obtained on the technologist's workstation. This CT examination was performed using dose optimization techniques as appropriate, variously including the following: *Automated exposure control *Adjustment of mA and/or kV according to patient size (this includes techniques or standardized protocols for targeted exams where dose is matched to indication/reason for exam; i.e. extremities or head) *Use of iterative reconstruction technique. DLP: 1875MGYCM FINDINGS: Submitted for interpretation on May 26, 2024. LUNG BASES: No acute airspace disease or gross pulmonary nodules in the included lungs. LIVER, GALLBLADDER, AND BILIARY TREE: Liver measures 20 cm. No focal mass. Portal veins and hepatic veins are patent. Intrahepatic portion of the IVC is patent. No intrahepatic biliary ductal dilatation. Fluid-filled gallbladder without distention. No pericholecystic fluid collection or gallbladder wall thickening. Common bile duct measures 2 mm. PANCREAS: No focal lesion. No main pancreatic ductal dilatation. No peripancreatic fluid collections. SPLEEN: 9 cm. No focal mass. ADRENAL GLANDS: No nodular lesions. KIDNEYS AND URETERS: No hydronephrosis. No nephrolithiasis. No gross renal mass. Normal urinary excretion into the collecting system. BLADDER: Fluid-filled. GASTROINTESTINAL TRACT: No intestinal obstruction pattern. No ascites. No pneumatosis intestinalis. No pneumoperitoneum. Appendix is normal. ABDOMINAL WALL: Small tiny fat-containing umbilical hernia. LYMPH NODES: No specific prominent mesenteric lymph nodes with mild edema pattern. VASCULAR: No aneurysm or dissection abdominal aorta. PELVIC VISCERA: No gross masses in the uterus or the adnexa. OSSEOUS STRUCTURES: Multilevel thoracolumbar spondylosis more conspicuous at T11-12 and L5-S1 levels. CT/CT abdomen pelvis wo/w IV con IMPRESSION: Normal adrenal glands. Hepatomegaly. Fleischner guidelines were followed. Electronically signed by: Gabriel Duran MD 05/26/2024 03:02 PM EST Dictated By: Gabriel Suarez MD Signed By: <Electronically signed by Gabriel Garner MDin OV> 05/26/24 1502 DD/ 0816 TD/TT: 04/12/24 0830 Network Operations Specialist: May Ruvalcaba MD [facility] PROCEDURES Edited Result - Final * MR Lumbar Spine w/o Contrast (03/27/2024 12:30 PM EST) Anatomical Region Laterality Modality Spine, L-spine Magnetic Resonan ce 03/27/2024 12:3 0 PM EST Narrative 03/27/2024 2:20 PM EST ? [facility] ?[address] ?[place], [place] [address] ? Magnetic Resonance Report ? Signed ? Patient: Soliz,Nata ?MR#: [id number] ?? [id number] ? : 1995 ?Acct:[id number] ? Age/Sex: 28 / F ?ADM Date: 03/27/24 ? Loc: HO.ED ? Attending Dr: ? Ordering Physician: Laura Plasencia ?? Date of Service: 03/27/24 ?? Procedure(s): MR lumbar spine wo con ?? Accession Number(s): [id number] ? cc: [facility]; Laura Plasencia ? EXAMINATION: ?? MR LUMBAR SPINE WITHOUT CONTRAST ? CLINICAL INFORMATION: ?? Incontinence. Back pain. Concerning cauda equina syndrome. ? COMPARISON: ?? None available. ? TECHNIQUE: ?? MRI of the lumbar spine was obtained using routine sequences without ?? contrast. ? FINDINGS: ?? Last rib-bearing vertebra labeled T12. ?? Disc desiccation at L5-S1. ?? The alignment is normal. ?? Intrinsic hyperintense T1 signal at L3 vertebra likely intraosseous ?? hemangioma. ? Conus medullaris ends at inferior endplate of L1 with normal signal. ? T12-L1: ?? Normal. ? L1-2: ?? Normal. ? L2-3: ?? Facet joint hypertrophy as well as ligamentum flavum. Broad-based disc ?? bulging. No disc herniation. No neuroforamina stenosis. ? L3-4: ?? Facet joint hypertrophy as well as ligamentum flavum. Broad-based disc ?? bulging. No disc herniation. No neuroforamina stenosis ? L4-5: ?? Facet joint hypertrophy as well as ligamentum flavum. Broad-based disc ?? bulging. No disc herniation. No neuroforamina stenosis. ? L5-S1: Left subarticular foraminal and extraforaminal broad-based disc ?? herniation encroaching likely compressing the left S1 and left L5 ?? exiting nerve roots. ?? Facet joint hypertrophy with facet effusions. Hypertrophy of ligamentum ?? flavum. ? No prevertebral compartment hematoma, mass or fluid collection. ? MR/MR lumbar spine wo con ?? IMPRESSION: ?? [Subarticular, foraminal and extraforaminal broad-based disc ?? herniation, L5-S1 encroaching likely compressing left S1 and L5 exiting ?? nerve roots. ? Normal cauda equina. ? Electronically signed by: ??Gabriel Duran MD ??03/27/2024 02:18 PM ?? EST RP ? Dictated By: ?Gabriel Suarez MD ? Signed By: ?<Electronically signed by Gabriel Garner MD in OV> ? 03/27/24 1418 ? DD/ 1230 ? TD/TT: 03/27/24 1245 ? Network Operations Specialist: ? Procedure Note Arsenio Wooten - 03/27/2024 [place] [address] Magnetic Resonance Report Signed Patient: Fannie SolizR#: [id number] [id number] : 1995Acct:[id number] Age/Sex: 28 / FADM Date: 03/27/24 Loc: .ED Attending Dr: Ordering Physician: Laura Plasencia Date of Service: 03/27/24 Procedure(s): MR lumbar spine wo con Accession Number(s): [id number] cc: [facility]; Laura Plasencia EXAMINATION: MR LUMBAR SPINE WITHOUT CONTRAST CLINICAL INFORMATION: Incontinence. Back pain. Concerning cauda equina syndrome. COMPARISON: None available. TECHNIQUE: MRI of the lumbar spine was obtained using routine sequences without contrast. FINDINGS: Last rib-bearing vertebra labeled T12. Disc desiccation at L5-S1. The alignment is normal. Intrinsic hyperintense T1 signal at L3 vertebra likely intraosseous hemangioma. Conus medullaris ends at inferior endplate of L1 with normal signal. T12-L1: Normal. L1-2: Normal. L2-3: Facet joint hypertrophy as well as ligamentum flavum. Broad-based disc bulging. No disc herniation. No neuroforamina stenosis. L3-4: Facet joint hypertrophy as well as ligamentum flavum. Broad-based disc bulging. No disc herniation. No neuroforamina stenosis L4-5: Facet joint hypertrophy as well as ligamentum flavum. Broad-based disc bulging. No disc herniation. No neuroforamina stenosis. L5-S1: Left subarticular foraminal and extraforaminal broad-based disc herniation encroaching likely compressing the left S1 and left L5 exiting nerve roots. Facet joint hypertrophy with facet effusions. Hypertrophy of ligamentum flavum. No prevertebral compartment hematoma, mass or fluid collection. MR/MR lumbar spine wo con IMPRESSION: [Subarticular, foraminal and extraforaminal broad-based disc herniation, L5-S1 encroaching likely compressing left S1 and L5 exiting nerve roots. Normal cauda equina. Electronically signed by: Gabriel Duran MD 03/27/2024 02:18 PM EST Dictated By: Gabriel Suarez MD Signed By: <Electronically signed by Gabriel Garner MDin OV> 03/27/24 1418 DD/ 1230 TD/TT: 03/27/24 1245 Network Operations Specialist: [facility] External Provider IMG MRI PROCEDURES Final Result * CT Lower Extremity w/ Contrast Left (03/27/2024 10:01 AM EST) Anatomical Region Laterality Modality Lower Extremities Left Computed Tomog gillian 03/27/2024 10:0 1 AM EST Narrative 03/27/2024 1:48 PM EST ? [facility] ?[address] ?[place] [address] ? CT Scan Report ? Signed ? Patient: Soliz,Nata ?MR#: [id number] ?? [id number] ? : 1995 ?Acct:[id number] ? Age/Sex: 28 / F ?ADM Date: 11/18/24 ? Loc: HO.ED ? Attending Dr: ? Ordering Physician: Laura Plasencia ?? Date of Service: 03/27/24 ?? Procedure(s): CT lower leg LT w IV con ?? Accession Number(s): [id number] ? cc: [facility]; Laura Plasencia ? EXAMINATION: ?? CT scan of the left lower leg with contrast ? CLINICAL INFORMATION: ?? Cellulitis. Evaluate for gas necrotizing fasciitis ? COMPARISON: ?? Venous ultrasound performed same day ? TECHNIQUE: ?? CT scan of the left lower extremity performed with contrast. Contrast ?? dose 85 cc of Omnipaque 300 given intravenously. [id number] extends ?? from the knee through the foot. ? FINDINGS: ?? Subcutaneous soft tissues: There is feathery appearing fluidlike ?? density along the anterior medial aspect of the left lower leg and ?? foot. No focal fluid collection. No ulceration or sinus tract. ? Muscles/tendons: Normal. No gas. Fascia unremarkable. ? Osseous structures: Normal. ? Neurovascular structures: ? CT/CT lower leg LT w IV con ?? IMPRESSION: ?? 1. ??Findings compatible with edema and/or cellulitis along the anterior ?? medial aspect of the left lower leg and foot. ?? 2. ??No evidence of necrotizing fasciitis. ? Electronically signed by: ??Harley Cortez MD ??03/27/2024 01:45 PM ?? EST RP ? Dictated By: ?Harley Cortez MD ? Signed By: ?<Electronically signed by Harley Cortez MD in OV> ?03/27/24 1345 ? DD/ 1001 ? TD/TT: 03/27/24 1112 ? Network Operations Specialist: WG ? Procedure Note Arsenio Wooten - 03/27/[address] [address] [address] Scan Report Signed Patient: Serenity Soliz#: [id number] : 1995Acct:[id number] Age/Sex: 28 / FADM Date: 03/27/24 Loc: HO.ED Attending Dr: Ordering Physician: Laura Plasencia Date of Service: 03/27/24 Procedure(s): CT lower leg LT w IV con Accession Number(s): [id number] cc: [facility]; Lauar Plasencia EXAMINATION: CT scan of the left lower leg with contrast CLINICAL INFORMATION: Cellulitis. Evaluate for gas necrotizing fasciitis COMPARISON: Venous ultrasound performed same day TECHNIQUE: CT scan of the left lower extremity performed with contrast. Contrast dose 85 cc of Omnipaque 300 given intravenously. Aqdwm-pt-pldx extends from the knee through the foot. FINDINGS: Subcutaneous soft tissues: There is feathery appearing fluidlike density along the anterior medial aspect of the left lower leg and foot. No focal fluid collection. No ulceration or sinus tract. Muscles/tendons: Normal. No gas. Fascia unremarkable. Osseous structures: Normal. Neurovascular structures: CT/CT lower leg LT w IV con IMPRESSION: 1. Findings compatible with edema and/or cellulitis along the anterior medial aspect of the left lower leg and foot. 2. No evidence of necrotizing fasciitis. Electronically signed by: Harley Cortez MD 03/27/2024 01:45 PM EST Dictated By: Harley Cortez MD Signed By: <Electronically signed by Harley Cortez MD inOV> 03/27/24 1345 DD/ 1001 TD/TT: 03/27/24 1112 Network Operations Specialist: JAZIEL [facility] External Provider IMG CT PROCEDURES Final Result * US VENOUS DUPLEX LE LT (03/27/2024 7:30 AM EST) Anatomical Region Laterality Modality Abdomen Ultrasound 03/27/2024 7:30 AM EST Narrative 03/27/2024 8:19 AM EST ? [facility] ?[address] ?[place] [address] ? Ultrasound Report ? Signed ? Patient: Soliz,Nata ?MR#: [id number] ?? [id number] ? : 1995 ?Acct:[id number] ? Age/Sex: 28 / F ?ADM Date: 11/18/24 ? Loc: HO.ED ? Attending Dr: ? Ordering Physician: Laura Plasencia ?? Date of Service: 03/27/24 ?? Procedure(s): US venous duplex LE LT ?? Accession Number(s): [id number] ? cc: [facility]; Laura Plasencia ? EXAMINATION: ?? US VENOUS LEFT LOWER EXTREMITY ? CLINICAL INFORMATION: ?? Left lower extremity pain and cellulitis ? COMPARISON: ?? Left lower extremity DVT study 12/17/2017. ? TECHNIQUE: ?? Doppler spectral analysis and color flow Doppler imaging was performed ?? of the left lower extremity. Compression and augmentation maneuvers ?? were performed. ? FINDINGS: ?? The left common femoral, femoral, popliteal and calf veins were ?? well-identified and normal. They demonstrate normal compressibility and ?? color fill-in. There is no Del Angel's cyst. There is a prominent left ?? groin lymph node measuring 1.3 x 1.3 x 1.7 cm. ? US/ venous duplex LE LT ?? IMPRESSION: ?? No evidence for left lower extremity deep vein thrombosis. ? Electronically signed by: ??Arthur Christina MD ??03/27/2024 08:15 AM EST ? Dictated By: ?Arthur Christina MD ? Signed By: ?<Electronically signed by Arthur Christina MD in OV> ? 03/27/24 0815 ? DD/ 0730 ? TD/TT: 03/27/24 0757 ? Network Operations Specialist: SS ? Procedure Note Arsenio Wooten - 03/27/2024 [place] [address] Ultrasound Report Signed Patient: Fannie SolizR#: [id number] : 1995Acct:[id number] Age/Sex: 28 / FADM Date: 03/27/24 Loc: HO.ED Attending Dr: Ordering Physician: Laura Plasencia Date of Service: 03/27/24 Procedure(s): US venous duplex LE LT Accession Number(s): [id number] cc: [facility]; Laura Plasencia EXAMINATION: US VENOUS LEFT LOWER EXTREMITY CLINICAL INFORMATION: Left lower extremity pain and cellulitis COMPARISON: Left lower extremity DVT study 12/17/2017. TECHNIQUE: Doppler spectral analysis and color flow Doppler imaging was performed of the left lower extremity. Compression and augmentation maneuvers were performed. FINDINGS: The left common femoral, femoral, popliteal and calf veins were well-identified and normal. They demonstrate normal compressibility and color fill-in. There is no Del Angel's cyst. There is a prominent left groin lymph node measuring 1.3 x 1.3 x 1.7 cm. US/US venous duplex LE LT IMPRESSION: No evidence for left lower extremity deep vein thrombosis. Electronically signed by: Arthur Christina MD 03/27/2024 08:15 AM EST Dictated By: Arthur Christina MD Signed By: <Electronically signed by Arthur Christina MD in OV> 03/27/24 0815 DD/ 0730 TD/TT: 03/27/24 0757 Network Operations Specialist: EUNICE [facility] External Provider IMG US PROCEDURES Final Result * Lactic Acid (03/27/2024 6:16 AM EST) Pathologist [facility] Lactic Acid 1.2 0.5 - 2.0 mmol/L [facility] 03/27/2024 6:16 AM EST 03/27/2024 6:21 AM EST Generic External Data Provider LAB BLOOD ORDERAB LES Final Result [facility] [address] [place] [phone] * (ABNORMAL) Comprehensive Metabolic Panel, Fasting (03/27/2024 5:55 AM EST) Sodium 131(L) 135 - 145 mmol/L [facility] Potassium 3.9 3.3 - 5.1 mmol/L [facility] Chloride 101 96 - 108 mmol/L [facility] Carbon Dioxide 20(L) 22 - 29 mmol/L [facility] Anion Gap 14 12 - 20 [facility] Urea Nitrogen (BUN) 10 9 - 16 mg/dL [facility] Creatinine, Serum 0.70 0.5 - 1.4 mg/dL [facility] Creatinine Clr Calc Pharmacy 182.2 [facility] Comment:Provided height and weight: 165.1 cm,151.5 kg.eGFR (calculated from the MDRD study equation) and eCrCl(calculated from the Cockcroft-Gault equation) are based ondifferent parameters and may not yield comparable results.If eCrCl result is absurd, please check patient'sheight/weight. Estimated Glomerular Filt Rate >60 [facility] Comment:Chronic Kidney Disea se: Estimated GFR < 60 mL/min/1.26b2Nwntda Kidney Disease: Estimated GFR < 15 mL/min/1.73m2 Glucose Fasting 130(H) 60 - 99 mg/dL [facility] Comment:A fasting glucose of 126 mg/dl or greater on more than oneoccasion is considered diagnostic of diabetes. Calcium 9.3 8.4 - 10.2 mg/dL [facility] Bilirubin, Total 0.6 0.0 - 1.0 mg/dL [facility] Aspartate Amino Transferase 32(H) 5 - 31 U/L [facility] Alanine Aminotransferase 35(H) 0 - 31 U/L [facility] Total Protein 7.7 6.5 - 8.0 g/dL [facility] Albumin Level 4.1 3.5 - 5.0 g/dL [facility] Alkaline Phosphatase 71 39 - 117 U/L [facility] 03/27/2024 5:55 AM EST 03/27/2024 5:58 AM EST us Generic External Data Provider LAB BLOOD ORDERAB LES Final Result [facility] [address] [place] [address] [phone] * Slide Review (03/27/2024 5:55 AM EST) Slide Review VERIFIED [facility] 03/27/2024 5:55 AM EST 03/27/2024 5:58 AM EST us Generic External Data Provider LAB BLOOD ORDERAB LES Final Result [facility] [address] [place] [phone] [phone] * (ABNORMAL) CBC auto differential (03/27/2024 5:55 AM EST) White Blood Count 31.2(HH) 4.8 - 10.8 X10*3/uL [facility] Comment:RESULTS OF WBC TO D TO AND READ BACK BY JACLYN 03/27/24 AT 0600 BY MACI. Red Blood Count 4.94 4.20 - 5.50 X10*6/uL [facility] Hemoglobin 14.0 12.0 - 16.0 g/dl [facility] Hematocrit 41.4 37.0 - 47.0 % [facility] Mean Corpuscular Volume 83.8 80.0 - 98.0 fL [facility] Mean Corpuscular Hemoglobin 28.3 27.0 - 33.0 pg [facility] Mean Corpuscular HGB Conc 33.8 31.0 - 35.0 g/dl [facility] Red Cell Distribution Width 13.5 11.0 - 16.0 % [facility] Platelet Count 229 160 - 400 X10*3/uL [facility] Mean Platelet Volume 8.7(L) 9.4 - 12.3 fL [facility] Neutrophils Percent Auto 89.9(H) 45 - 73 % [facility] Imm Gran Pct Auto 2.1(H) 0.0 - 0.4 % [facility] Lymphocytes Percent Auto 3.6(L) 20 - 40 % [facility] Monocytes Percent Auto 4.1 2 - 11 % [facility] Eosinophils Percent Auto 0.0 0 - 4 % [facility] Basophils Percent Auto 0.3 0 - 2 % [facility] NRBC Pct Auto 0.0 0.0 - 0.2 /100WBC [facility] Neutrophils Absolute Auto 28.0(H) 2.0 - 8.3 x10*3/uL [facility] Imm Gran Abs Auto 0.67(H) 0.00 - 0.03 X10*3/uL [facility] Lymphocytes Absolute Auto 1.1(L) 1.2 - 4.9 X10*3/uL [facility] Monocytes Absolute Auto 1.3(H) 0.1 - 1.2 X10*3/uL [facility] Eosinophils Absolute Auto 0.0 0.0 - 0.4 X10*3/uL [facility] Basophils Absolute Auto 0.1 0.0 - 0.2 X10*3/uL [facility] NRBC Abs Auto 0.000 0.0 - 0.012 X10*3/uL [facility] 03/27/2024 5:55 AM EST 03/27/2024 5:58 AM EST Generic External Data Provider LAB BLOOD ORDERAB LES Edited Result - Final Performing Organization Address [facility]/ZIP Co de Phone Number [facility] [address] [place] [phone] * Sed Rate by Modified Gilbertoergren (03/27/2024 5:55 AM EST) Pathologist [facility] Erythrocyte Sedimentation Rate 7 0 - 20 MM/HR [facility] Comment:Patients with polycy themia and many hemoglobin abnormalitiesmay have depressed sed rates whereas patients with anemiamay have elevated sed rates. 03/27/2024 5:55 AM EST 03/27/2024 6:10 AM EST us Generic External Data Provider LAB BLOOD ORDERAB LES Final Result Performing Organization Address [facility] de Phone Number [facility] [address] [place] [phone] * (ABNORMAL) C-reactive Protein (03/27/2024 5:55 AM EST) Pathologist [facility] C Reactive Protein 5.30(H) < or = 0.50 mg/dL [facility] 03/27/2024 5:55 AM EST 03/27/2024 5:58 AM EST us Generic External Data Provider LAB BLOOD ORDERAB LES Final Result Performing Organization Address [facility] Phone Number [facility] [address] [place] [phone] * (ABNORMAL) Magnesium (03/27/2024 5:55 AM EST) Magnesium 1.5(L) 1.6 - 2.6 mg/dL [facility] 03/27/2024 5:55 AM EST 03/27/2024 5:58 AM EST us Generic External Data Provider LAB BLOOD ORDERAB LES Final Result Performing Organization Address [facility] Phone Number [facility] [address] [place] [phone] * Lipase (03/27/2024 5:55 AM EST) Lipase 13 8 - 78 U/L [facility] 03/27/2024 5:55 AM EST 03/27/2024 5:58 AM EST us Generic External Data Provider LAB BLOOD ORDERAB LES Final Result Performing Organization Address [facility] Phone Number [facility] [address] [place] [phone] * Creatine Kinase, Total (03/27/2024 5:55 AM EST) Creatine Kinase Total 64 26 - 140 U/L [facility] 03/27/2024 5:55 AM EST 03/27/2024 5:58 AM EST us Generic External Data Provider LAB BLOOD ORDERAB LES Final Result Performing Organization Address [facility]/ZIP Co de Phone Number [facility] [address] [place] [phone] * Hepatitis C Antibody with Reflex to HCV, RNA, Quantitative, Real-Time PCR (01/05/2024 10:03 AM EDT) Hepatitis C Antibody Nonreactive Nonreactive [facility] Comment:Antibodies to HCV no t detected; does not exclude early acuteHCV infection. Blood Venous blood specimen / Unknown 01/05/2024 10:03 AM EDT 01/05/2024 11:13 AM EDT us May Ruvalcaba MD LAB BLOOD ORDERAB LES Final Result Performing Organization Address [facility] de Phone Number [facility] [address] [place] [phone] * HIV-1/2 Antigen and Antibodies, Fourth Generation, with Reflexes (01/05/2024 10:03 AM EDT) Pathologist [facility] HIV AB/AG Nonreactive Nonreactive [facility] Comment:HIV-1 p24 Ag and/or HIV-1/HIV-2 Ab not detected.A test result that is nonreactive does not exclude thepossibility of exposure to or infection with HIV-1 and/orHIV-2. Nonreactive results in this assay for individualswith prior exposure to HIV-1 and/or HIV-2 may be due toantigen and antibody levels that are below the limit ofdetection of this assay.The [employer] HIV Ag/Ab Combo assay result andsupplemental assay results should be interpreted inconjunction with the patient's clinical presentation,history and other laboratory results. If the results areinconsistent with clinical evidence, additional testing issuggested to confirm the result. Blood Venous blood specimen / Unknown 01/05/2024 10:03 AM EDT 01/05/2024 11:13 AM EDT us May Ruvalcaba MD LAB BLOOD ORDERAB LES Final Result Performing Organization Address [facility]/ZIP Co de Phone Number [facility] [address] [place] [address] [phone] * (ABNORMAL) Lipid Panel, Standard (01/05/2024 10:03 AM EDT) Triglycerides 76 <150 mg/dL [facility] Comment:Desirable Triglyceri de: less than 150 mg/dLBorderline High Triglyceride 150-199 mg/dLHigh Triglyceride: 200-499 mg/dLVery High Triglyceride: greater than or equal to 5OO mg/dL Cholesterol 130 <200 mg/dL [facility] Comment:Desirable Cholestero l: less than 200 mg/dLBorderline High Cholesterol: 200-239 mg/dLHigh Cholesterol: greater than 239 mg/dL LDL Cholesterol Calculated 75 <100 mg/dL [facility] Comment:Desirable LDL: less than 100 mg/dLNear Optimal/Above Optimal LDL: 110- 129 mg/dLBorderline High LDL: 130-159 mg/dLHigh LDL: 160-189 mg/dLVery High LDL: greater than or equal to 190 mg/dL HDL Cholesterol 40(L) >40 mg/dL [facility] Comment:Desirable HDL: great er than 40 mg/dL Note: This HDL assay may give artificially low results in patients with liver disease. Blood Venous blood specimen / Unknown 01/05/2024 10:03 AM EDT 01/05/2024 11:13 AM EDT May Ruvalcaba MD LAB BLOOD ORDERAB LES Final Result Performing Organization Address City/[facility] Co de Phone Number [facility] [address] [place] [address] [phone] from Last 3 Months or Most Recently Relevant to Health Maintenance [facility] Care Teams Footwear Sales Associate Relationship Specialty Start Date End Date May Tinsley MD [address] [place] [phone] PCP - General Internal Medicine 12/02/22
[2024-06-16 07:07] LABS: MANUAL DIFF FLAG NO
[2024-06-16 07:39] LABS: Basophils Absolute Auto 0.1 X10*3/uL (0.0-0.2); Basophils Percent Auto 0.6 % (0-2); Eosinophils Absolute Auto 0.2 X10*3/uL (0.0-0.4); Eosinophils Percent Auto 1.5 % (0-4); Hematocrit 44.2 % (37.0-47.0); Hemoglobin 14.3 g/dl (12.0-16.0); Imm Gran Abs Auto 0.03 X10*3/uL (0.00-0.03); Imm Gran Pct Auto 0.3 % (0.0-0.4); Lymphocytes Absolute Auto 2.6 X10*3/uL (1.2-4.9); Lymphocytes Percent Auto 25.6 % (20-40); Mean Corpuscular HGB Conc 32.4 g/dl (31.0-35.0); Mean Corpuscular Volume 83.6 fL (80.0-98.0); Mean Platelet Volume 8.9 fL (9.4-12.3); Monocytes Absolute Auto 0.8 X10*3/uL (0.1-1.2); Monocytes Percent Auto 7.9 % (2-11); Neutrophils Absolute Auto 6.4 x10*3/uL (2.0-8.3); Neutrophils Percent Auto 64.1 % (45-73); Platelet Count 300 X10*3/uL (160-400); Red Blood Count 5.29 X10*6/uL (4.20-5.50); Red Cell Distribution Width 14.4 % (11.0-16.0)
[2024-06-16 07:48] LABS: Estimated Average Glucose 117 mg/dL; Hemoglobin A1C 144.8185 umol/L; Hemoglobin A1c % 5.7 % (<6.0)
[2024-06-16 08:15] LABS: Alanine Aminotransferase 30 U/L (0-31); Albumin Level 4.1 g/dL (3.5-5.0); Alkaline Phosphatase 83 U/L (39-117); Anion Gap 11 (12-20); Aspartate Amino Transferase 22 U/L (5-31); Bilirubin Total 0.4 mg/dL (0.0-1.0); Blood Urea Nitrogen 10 mg/dL (9-16); Calcium 9.4 mg/dL (8.4-10.2); Carbon Dioxide 25 mmol/L (22-29); Chloride 104 mmol/L (96-108); Cholesterol 142 mg/dL (<200); Estimated Glomerular Filt Rate > 60; Glucose Random 93 mg/dL (60-115); HDL Cholesterol 43 mg/dL (>40); LDL Cholesterol Calculated 84 mg/dL (<100); Magnesium 2.2 mg/dL (1.6-2.6); Potassium 4.3 mmol/L (3.3-5.1); Sodium 136 mmol/L (135-145); Total Protein 8.2 g/dL (6.5-8.0); Triglycerides 77 mg/dL (<150)
[2024-06-16 08:27] LABS: Cortisol Random 3.6 ug/dL
[2024-06-16 08:36] LABS: Free T4 (Free Thyroxine) 1.13 ng/dL (0.71-1.85); HCG Quantitative < 2 mIU/mL; Thyroid Stimulating Hormone 0.92 uIU/mL (0.32-4.0)
[2024-06-17 08:22] LABS: DHEA Sulfate 241 mcg/dL (14-349)
[2024-06-19 18:39] LABS: Human Growth Hormone 0.1 ng/mL (< OR = 7.1)
[2024-06-20 06:03] LABS: Thyroid Peroxidase Antibodies <1 IU/mL (<9)
[2024-06-21 14:38] LABS: Adrenocorticotropic Hormone 14 pg/mL (6-50)
[2024-06-23 17:54] LABS: IGF-1 (Somatomedin C) 131 ng/mL (63-373); IGF-1 Z Score (Female) -0.6 SD (-2.0 - +2.0)
== END 2024-06-16 06:35 | disposition home or self-care (01) ==
LOC: HO.LAB 06:34
PROVIDERS: Absent Provider Student in an Organized Health Care Education/Training Program; PCP Student in an Organized Health Care Education/Training Program; Visit Provider Student in an Organized Health Care Education/Training Program
DX: E28.2 Polycystic ovarian syndrome (principal); E66.01 Morbid (severe) obesity due to excess calories; D72.829 Elevated white blood cell count, unspecified; Z13.1 Encounter for screening for diabetes mellitus
CPT/HCPCS: 36415; 80053; 80061; 82024; 82533; 82627; 83003; 83036; 83735; 84305; 84439; 84443; 84702; 85025; 86376

== ENCOUNTER 2024-06-16 07:59 | Outpatient (AMB) | payer OTHER, SELFPAY ==
--- OUTSIDE RECORDS SUMMARY | 2024-06-16 08:01 | XMS_ITS | Encounter Summary ---
Author Organization [employer] Address [address] [place] [address] Care Team Providers Care Strategy Intern Name Role Phone Gloria Jacobo Guillermina LOPEZ Primary Care Provider [phone]- [phone] May Tinsley MD Primary Care Pro vider Reason for Visit * Reason Onset Date Comments Referral 07/31/2022 Encounter Details Date Type Department Care Team (Late st Contact Info) Description 07/31/2022 Telephone [facility] [address] [place] [address] Monico Osborne, DMD [address] [place] [address] Referral Social History Tobacco Use Types Packs/Day [...] 9:00 AM EST Nurse Only [facility] [address] [place] [address] [phone] documented as of this encounter Visit Diagnoses Not on filedocumented in this encounter Care Teams Strategy Intern Relationship Specialty Start Date End Date Gloria Jacobo FNP PCP - General Family Medicine 01/01/22 12/01/22 May Tinsley MD [address] [place] [phone] PCP - General Internal Medicine 12/02/22 documented as of this encounter
--- OUTSIDE RECORDS SUMMARY | 2024-06-16 08:01 | XMS_ITS | Encounter Summary ---
Author Organization [employer] Address [address] [place] [address] [place] [address] Care Team Providers Care Chemical Strength Tester Name Role Phone Gloria Jacobo Primary Care Provider +1- [phone] May Tinsley MD Primary Care Pro vider Encounter Details Date Type Department Care Team ([facility] Contact Info) Description 06/18/2022 Telephone [facility] [address] [place] [phone] Gloria Jacobo [address] Dept [place] [address] Social History Tobacco Use Types Packs/Day Years [...] Upcoming Encounters Date Type Department Care Team ([facility] Contact Info) Description 07/12/2024 9:00 AM EST Nurse Only [facility] [address] [place] [phone] documented as of this encounter Visit Diagnoses Not on filedocumented in this encounter Care Teams Chemical Strength Tester Relationship Specialty Start Date End Date Gloria Jacobo FNP PCP - General Family Medicine 01/01/22 12/01/22 May Tinsley MD [address] [place] [phone] PCP - General Internal Medicine 12/02/22 documented as of this encounter
--- OUTSIDE RECORDS SUMMARY | 2024-06-16 08:01 | XMS_ITS | Encounter Summary ---
Author Organization [employer] Address [address] [place] [address] [address] [place] [address] Care Team Providers Care Divinity Professor Name Role Phone May Tinsley MD Primary Care Pro vider Reason for Visit * Reason Onset Date Comments Medication Question 05/24/2024 Encounter Details Date Type Department Care Team ([facility] Contact Info) Description 05/24/2024 Telephone [facility] [address] [place] [address] May Tinsley MD [address] [place] [address] Medication Question Social History Tobacco Use Types [...] of new script med for weight loss. [phone] documented in this encounter Plan of Treatment Upcoming Encounters Date Type Department Care Team (Late st Contact Info) Description 07/12/2024 9:00 AM EST Nurse Only [facility] [address] [place] [address] documented as of this encounter Visit Diagnoses Not on filedocumented in this encounter Additional Health Concerns Assessment Noted Time PHQ-9 Depression Total Score: 7 01/11/20 24 10:52 AM EDT documented as of this encounter Care Teams Divinity Professor Relationship Specialty Start Date End Date May Tinsley MD [address] [place] [phone] PCP - General Internal Medicine 12/02/22 documented as of this encounter
--- OUTSIDE RECORDS SUMMARY | 2024-06-16 08:01 | XMS_ITS | Encounter Summary ---
Author Organization [employer] Address [address] [facility] [address] [place] [address] Care Team Providers Care Computer Network Support Specialist Name Role Phone May Tinsley MD Primary Care Pro vider Reason for Visit * Reason Onset Date Comments Results 05/27/2024 Encounter Details Date Type Department Care Team ([facility] Contact Info[facility] Description 05/27/2024 Telephone [facility] [address] [place] [address] Risa Garner RN [address] [place] [address] Results Social History Tobacco Use Types Packs/Day [...] Apologized for the delay and explained that [facility] is behind on reading imaging so [...] Description 07/12/2024 9:00 AM EST Nurse Only [facility] [address] [place] [address] documented as of this encounter Visit Diagnoses Not on filedocumented in this encounter Additional Health Concerns Assessment Noted Time PHQ-9 Depression Total Score: 7 01/11/20 24 10:52 AM EDT documented as of this encounter Care Teams Computer Network Support Specialist Relationship Specialty Start Date End Date May Tinsley MD [address] [place] [address] PCP - General Internal Medicine 12/02/22 documented as of this encounter
--- OUTSIDE RECORDS SUMMARY | 2024-06-16 08:01 | XMS_ITS | Clinical Summary ---
Author Organization [employer] Address [address] [facility] 7t [place] [address] Care Team Providers Care Clip Coater Name Role Phone May Tinsley MD Primary [...] Encounters Date Type Department Care Team Description 06/16/2024 Orders Only GENERIC EXTERNAL DATA DEPARTMENT Provider, Generic External Data 06/01/2024 Orders Only GENERIC EXTERNAL DATA DEPARTMENT Provider, Generic External Data 05/27/2024 Telephone [facility] [address] [place] [address] [phone] Risa Garner, RN Results 05/24/2024 Telephone [facility] [address] [place] [address] [phone] May Tinsley MD Medication Question 04/13/2024 Telephone [facility] [address] [place] [address] [phone] May Tinsley MD 04/12/2024 10:00 AM EST Office Visit [facility] [address] [place] [address] May Tinsley MD Leukocytosis, unspecified type (Primary Dx); Foot pain, bilateral; Onychomycosis; Axillary hidradenitis suppurativa; Left leg cellulitis; Lumbar radiculopathy; Obstructive sleep apnea syndrome; Hyperinsulinism; Female fertility problem; Irregular periods; Polycystic ovary syndrome; Severe obesity (CMS/HCC); Hidradenitis suppurativa; Attention and concentration deficit; Health care maintenance; Tobacco use 04/12/2024 Travel 04/10/2024 5:20 PM EST Office Visit [facility] [address] [place] [address] [phone] Esme De La Cruz NP Left leg swelling (Primary Dx) 04/10/[address] [phone] May Tinsley MD Nurse Triage 04/04/[address] [phone] Anne Marie Moore MA DME for Breastpumps 04/04/2024 Patient Outreach [facility] [address] [place], [place] [phone] May Tinsley MD Transition Of Care (Tcm) (HDF scheduled, SDOH was completed on 01/11/2024) 04/04/[address] [phone] May Tinsley MD Hospital Follow-up 03/30/[address] [phone] Tenisha Carrillo MA chart prep 03/27/2024 Orders Only [facility] External Provider, [facility] from Last 3 Months Immunizations Name [...] Description 07/12/2024 9:00 AM EST Nurse Only [facility] [address] [place] [phone] Health Maintenance Due Date Last Done Comments [...] season) 2024 Depression Screening 01/10/2025 01/11/2024, 01/11/20 SDOH Screening 01/10/2025 01/11/2024 Tobacco Screening 04/10/2025 [...] Procedure Name Priority Date/Time Associated Diagnosis Comments HEMOGLOBIN A1C Routine 06/16/2024 7:06 AM EST CBC WITH AUTO DIFFERENTIAL Routine 06/16/2024 7:06 AM EST Leukocytosis, unspecified type HCG, TOTAL, QN Routine 06/01/2024 4:32 PM [...] Recently Relevant to Health Maintenance Results * (ABNORMAL) CBC auto differential (06/16/2024 7:06 AM EST) Only the most recent of2 resultswithin the time period is included. White Blood Count 10.0 4.8 - 10.8 X10*3/uL [facility] Red Blood Count 5.29 4.20 - 5.50 X10*6/uL [facility] Hemoglobin 14.3 12.0 - 16.0 g/dl [facility] Hematocrit 44.2 37.0 - 47.0 % [facility] Mean Corpuscular Volume 83.6 80.0 - 98.0 fL [facility] Mean Corpuscular Hemoglobin 27.0 27.0 - 33.0 pg [facility] Mean Corpuscular HGB Conc 32.4 31.0 - 35.0 g/dl [facility] Red Cell Distribution Width 14.4 11.0 - 16.0 % [facility] Platelet Count 300 160 - 400 X10*3/uL [facility] Mean Platelet Volume 8.9(L) 9.4 - 12.3 fL [facility] Neutrophils Percent Auto 64.1 45 - 73 % [facility] Imm Gran Pct Auto 0.3 0.0 - 0.4 % [facility] Lymphocytes Percent Auto 25.6 20 - 40 % [facility] Monocytes Percent Auto 7.9 2 - 11 % [facility] Eosinophils Percent Auto 1.5 0 - 4 % [facility] Basophils Percent Auto 0.6 0 - 2 % [facility] NRBC Pct Auto 0.0 0.0 - 0.2 /100WBC [facility] Neutrophils Absolute Auto 6.4 2.0 - 8.3 x10*3/uL [facility] Imm Gran Abs Auto 0.03 0.00 - 0.03 X10*3/uL [facility] Lymphocytes Absolute Auto 2.6 1.2 - 4.9 X10*3/uL [facility] Monocytes Absolute Auto 0.8 0.1 - 1.2 X10*3/uL [facility] Eosinophils Absolute Auto 0.2 0.0 - 0.4 X10*3/uL [facility] Basophils Absolute Auto 0.1 0.0 - 0.2 X10*3/uL [facility] NRBC Abs Auto 0.000 0.0 - 0.012 X10*3/uL [facility] Blood Venous blood specimen / Unknown 06/16/2024 7:06 AM EST 06/16/2024 7:06 AM EST us May Ruvalcaba MD LAB BLOOD ORDERAB LES Final Result [facility] [address] [place] [address] [phone] * Hemoglobin A1c (06/16/2024 7:06 AM EST) Hemoglobin A1c 5.7 <6.0 % [facility] Comment:Hemoglobin A1C Refer ence Range Adults: 4.8 - 6.0 % Non diabetic: < 6.0 % Goal: < 7.0 %Additional Action Suggested: > 8.0 %Note: Hemoglobin A1c results are invalid for patients with abnormal amounts of HbF. Blood transfusions may impact the HbA1c concentration in the patient sample. Estimated Average Glucose 117 mg/dL [facility] Comment:eAG = Estimated ave rage glucose which is %A1C expressed asaverage glucose, using the formula of the L7Q-JfppzrqVfhdrmr Glucose study (ADAG), Diabetes Care, Vol.31,#8,Dec. 2007 06/16/2024 7:06 AM EST 06/16/2024 7:06 AM EST us Generic External Data Provider LAB BLOOD ORDERAB LES Final Result Performing Organization Address City/[facility]/ZIP Co de Phone Number [facility] [address] [place] [phone] * hCG, Total, Quantitative (06/01/2024 4:32 PM EST) Only the most recent of2 resultswithin the time period is included. HCG Quantitative <2 mIU/mL [facility] Comment:Weeks post LMP Appro ximate hCG(Last Menstrual Period) Range (mIU/ml)3 - 4 weeks 9 - 1304 - 5 weeks 75 - 2,6005 - 6 weeks 850 - 20,8006 - 7 weeks 4000 - 100,2007 - 12 weeks 11,500 - 289,38037 - 16 weeks 18,300 - 137,96108 - 29 weeks (2nd trimester) 1,400 - 53,15192 - 41 weeks (3rd trimester) 940 - [...] ORDERAB LES Final Result Performing Organization Address City/State/[facility] Co de Phone Number [facility] [address] [place] [phone] * CT Abdomen Pelvis w/ and w/o Contrast (04/12/2024 8:16 AM EST) Anatomical Region Laterality Modality Body, Pelvis, Abdomen Computed T omography 04/12/2024 8:16 AM EST Narrative 05/26/2024 3:06 PM EST ? [facility] ?[address] [place] [address]. ?[place] [address] ? CT Scan Report ? Signed ? Patient: Soliz,Nata ?MR#: [id number] ?? 764 ? : 1995 ?Acct:[id number] ? Age/Sex: 28 / F ?ADM Date: 12/04/24 ? Loc: HO.CT ? Attending Dr: May Ruvalcaba MD ? Ordering Physician: May Tinsley MD ?? Date of Service: 04/12/24 ?? Procedure(s): CT abdomen pelvis wo/w IV con ?? Accession Number(s): [id number] ? cc: May Tinsley MD ? Report Number: ?? [id number]: Total DLP = 1875.00 mGy-cm ?? EXAMINATION: [...] ? DD/ 0816 ? TD/TT: 04/12/2430 ? Cream Gatherer: ? Procedure Note Donfaustinoleidyjose davidter, Image - 05/26/[address] [place] [address] [address] Scan Report Signed Patient: Serenity Soliz#: [id number] 764 : 1995Acct:[id number] Age/Sex: 28 / FADM Date: 04/12/24 Loc: HO.CT Attending Dr: May Ruvalcaba MD Ordering Physician: May Tinsley MD Date of Service: 04/12/24 Procedure(s): CT abdomen pelvis wo/w IV con Accession Number(s): [id number] cc: May Tinsley MD Report Number: [id number]: Total DLP = 1875.00 mGy-cm EXAMINATION: CT [...] by: Gabriel Duran MD 05/26/2024 03:02 PM [facility] Dictated By: Gabriel Suarez MD Signed By: <Electronically signed by Gabriel Garner MDin OV> 05/26/24 1502 DD/ 0816 TD/TT: 04/12/24 0830 Cream Gatherer: us May Ruvalcaba MD IMG CT PROCEDURES Edited Result - Final * MR Lumbar Spine w/o Contrast (03/27/2024 12:30 PM EST) Anatomical Region Laterality Modality Spine, L-spine Magnetic Resonan ce 03/27/2024 12:3 0 PM EST Narrative 03/27/2024 2:20 PM EST ? [facility] ?[address] ?[place] [address] ? Magnetic Resonance Report ? Signed ? Patient: Soliz,Nata ?MR#: [id number] ?? 764 ? : 1995 ?Acct:[id number] ? Age/Sex: 28 / F ?ADM Date: 03/27/24 ? Loc: HO.ED ? Attending Dr: ? Ordering Physician: Laura Plasencia ?? Date of Service: 03/27/24 ?? Procedure(s): MR lumbar spine wo con ?? Accession Number(s): [id number] ? cc: [facility]; Laura Plasencia ? EXAMINATION: ?? MR LUMBAR [...] DD/ 1230 ? TD/TT: 03/27/24 1245 ? Cream Gatherer: ? Procedure Note Malathiter, Image - 03/27/2024 [place] [address] Magnetic Resonance Report Signed Patient: Serenity Soliz#: [id number] 764 : 1995Acct:[id number] Age/Sex: 28 / FADM Date: 03/27/24 Loc: HO.ED Attending Dr: Ordering Physician: Laura Plasencia Date of Service: 03/27/24 Procedure(s): MR lumbar spine wo con Accession Number(s): [id number] cc: [facility]; Laura Plasencia EXAMINATION: MR LUMBAR SPINE WITHOUT [...] Gabriel Duran MD 03/27/2024 02:18 PM EST RP Dictated By: Gabriel Suarez MD Signed By: <Electronically signed by Gabriel Garner MDin OV> 03/27/24 1418 DD/ 1230 TD/TT: 03/27/24 1245 Cream Gatherer: [facility] External Provider IMG MRI PROCEDURES Final Result * CT Lower Extremity w/ Contrast Left (03/27/2024 10:01 AM EST) Anatomical Region Laterality Modality Lower Extremities Left Computed Tomog gillian 03/27/2024 10:0 1 AM EST Narrative 03/27/2024 1:48 PM EST ? [facility] ?[address] ?[place] [address] ? CT Scan Report ? Signed ? Patient: Soliz,Nata ?MR#: [id number] ?? 764 ? : 1995 ?Acct:[id number] ? Age/Sex: 28 / F ?ADM Date: 11/18/24 ? Loc: HO.ED ? Attending Dr: ? Ordering Physician: Laura Plasencia ?? Date of Service: 03/27/24 ?? Procedure(s): CT lower leg LT w IV con ?? Accession Number(s): [id number] ? cc: [facility]; Laura Plasencia ? EXAMINATION: ?? CT scan of the left lower leg with contrast ? CLINICAL INFORMATION: ?? Cellulitis. Evaluate for gas necrotizing fasciitis ? COMPARISON: ?? Venous ultrasound performed same day ? TECHNIQUE: ?? CT scan of the left lower extremity performed with contrast. Contrast ?? dose 85 cc of Omnipaque 300 given intravenously. Xumuy-bz-kimw extends ?? from the knee through the [...] DD/ 1001 ? TD/TT: 03/27/24 1112 ? Cream Gatherer: WG ? Procedure Note Je, Image - 03/27/[address] [address] [address] Scan Report Signed Patient: Serenity Soliz#: [id number] 764 : 1995Acct:[id number] Age/Sex: 28 / FADM Date: 03/27/24 Loc: HO.ED Attending Dr: Ordering Physician: Laura Plasencia Date of Service: 03/27/24 Procedure(s): CT lower leg LT w IV con Accession Number(s): [id number] cc: [facility]; Laura Plasencia EXAMINATION: CT scan of the left lower leg with contrast CLINICAL INFORMATION: Cellulitis. Evaluate for gas necrotizing fasciitis COMPARISON: Venous ultrasound performed same day TECHNIQUE: CT scan of the left lower extremity performed with contrast. Contrast dose 85 cc of Omnipaque 300 given intravenously. Lsiee-jm-sjje extends from the knee through the foot. [...] 03/27/24 1345 DD/ 1001 TD/TT: 03/27/24 1112 Cream Gatherer: JAZIEL [facility] External Provider IMG CT PROCEDURES Final Result * US VENOUS DUPLEX LE LT (03/27/2024 7:30 AM EST) Anatomical Region Laterality Modality Abdomen Ultrasound 03/27/2024 7:30 AM EST Narrative 03/27/2024 8:19 AM EST ? [facility] ?[address] ?[place] [address] ? Ultrasound Report ? Signed ? Patient: Soliz,Ntaa ?MR#: [id number] ?? 764 ? : 1995 ?Acct:[id number] ? Age/Sex: 28 / F ?ADM Date: 11/18/24 ? Loc: HO.ED ? Attending Dr: ? Ordering Physician: Laura Plasencia ?? Date of Service: 03/27/24 ?? Procedure(s): US venous duplex LE LT ?? Accession Number(s): [id number] ? cc: [facility]; Laura Plasencia ? EXAMINATION: ?? US VENOUS [...] DD/ 0730 ? TD/TT: 03/27/24 0757 ? Cream Gatherer: SS ? Procedure Note Arsenio Wooten - 03/27/2024 [place] [address] Ultrasound Report Signed Patient: Fannie SolizR#: [id number] 764 : 1995Acct:[id number] Age/Sex: 28 / FADM Date: 03/27/24 Loc: HO.ED Attending Dr: Ordering Physician: Laura Plasencia Date of Service: 03/27/24 Procedure(s): US venous duplex LE LT Accession Number(s): [id number] cc: [facility]; Laura Plasencia EXAMINATION: US VENOUS LEFT LOWER [...] 03/27/24 0815 DD/ 0730 TD/TT: 03/27/24 0757 Cream Gatherer: SS [facility] External Provider IMG US PROCEDURES Final Result * Lactic Acid (03/27/2024 6:16 AM EST) Lactic Acid 1.2 0.5 - 2.0 mmol/L [facility] 03/27/2024 6:16 AM EST 03/27/2024 6:21 AM EST Generic External Data Provider LAB BLOOD ORDERAB LES Final Result [facility] [address] [place] [address] [phone] * (ABNORMAL) Comprehensive Metabolic Panel, Fasting (03/27/2024 5:55 AM EST) Sodium 131(L) 135 - 145 mmol/L [facility] Potassium 3.9 3.3 - 5.1 mmol/L [facility] Chloride 101 96 - 108 mmol/L [facility] Carbon Dioxide 20(L) 22 - 29 mmol/L [facility] Anion Gap 14 12 - 20 [facility] Urea Nitrogen (BUN) 10 9 - 16 mg/dL [facility] Creatinine, Serum 0.70 0.5 - 1.4 mg/dL [facility] Creatinine Clr Calc Pharmacy 182.2 [facility] Comment:Provided height and weight: 165.1 cm,151.5 kg.eGFR (calculated from the MDRD study equation) and eCrCl(calculated from the Cockcroft-Gault equation) are based ondifferent parameters and may not yield comparable results.If eCrCl result is absurd, please check patient'sheight/weight. Estimated Glomerular Filt Rate >60 [facility] Comment:Chronic Kidney Disea se: Estimated GFR < 60 mL/min/1.48v1Byxaee Kidney Disease: Estimated GFR < 15 mL/min/1.73m2 Glucose Fasting 130(H) 60 - 99 mg/dL [facility] Comment:A fasting glucose of 126 mg/dl or greater on more than oneoccasion is considered diagnostic of diabetes. Calcium 9.3 8.4 - 10.2 mg/dL [facility] Bilirubin, Total 0.6 0.0 - 1.0 mg/dL [facility] Aspartate Amino Transferase 32(H) 5 - 31 U/L [facility] Alanine Aminotransferase 35(H) 0 - 31 U/L [facility] Total Protein 7.7 6.5 - 8.0 g/dL [facility] Albumin Level 4.1 3.5 - 5.0 g/dL [facility] Alkaline Phosphatase 71 39 - 117 U/L [facility] 03/27/2024 5:55 AM EST 03/27/2024 5:58 AM EST us Generic External Data Provider LAB BLOOD ORDERAB LES Final Result [facility] [address] [place] [address] [phone] * Slide Review (03/27/2024 5:55 AM EST) Slide Review VERIFIED [facility] 03/27/2024 5:55 AM EST 03/27/2024 5:58 AM EST Generic External Data Provider LAB BLOOD ORDERAB LES Final Result Performing Organization Address [facility] Phone Number [facility] [address] [place] [address] [phone] * Sed Rate by Modified Westergren (03/27/2024 5:55 AM EST) Pathologist [facility] Erythrocyte Sedimentation Rate 7 0 - 20 MM/HR [facility] Comment:Patients with polycy themia and many hemoglobin abnormalitiesmay have depressed sed rates whereas patients with anemiamay have elevated sed rates. 03/27/2024 5:55 AM EST 03/27/2024 6:10 AM EST Generic External Data Provider LAB BLOOD ORDERAB LES Final Result Performing Organization Address [facility] Phone Number [facility] [address] [place] [address] [phone] * (ABNORMAL) C-reactive Protein (03/27/2024 5:55 AM EST) Pathologist [facility] C Reactive Protein 5.30(H) < or = 0.50 mg/dL [facility] 03/27/2024 5:55 AM EST 03/27/2024 5:58 AM EST Generic External Data Provider LAB BLOOD ORDERAB LES Final Result Performing Organization Address [facility] de Phone Number [facility] [address] [place] [address] [phone] * (ABNORMAL) Magnesium (03/27/2024 5:55 AM EST) Pathologist [facility] Magnesium 1.5(L) 1.6 - 2.6 mg/dL [facility] 03/27/2024 5:55 AM EST 03/27/2024 5:58 AM EST us Generic External Data Provider LAB BLOOD ORDERAB LES Final Result Performing Organization Address [facility] Co de Phone Number [facility] [address] [place] [address] [phone] * Lipase (03/27/2024 5:55 AM EST) Lipase 13 8 - 78 U/L [facility] 03/27/2024 5:55 AM EST 03/27/2024 5:58 AM EST Generic External Data Provider LAB BLOOD ORDERAB LES Final Result Performing Organization Address [facility] Number [facility] [address] [place] [address] [phone] * Creatine Kinase, Total (03/27/2024 5:55 AM EST) Pathologist [facility] Creatine Kinase Total 64 26 - 140 U/L [facility] 03/27/2024 5:55 AM EST 03/27/2024 5:58 AM EST us [facility] External Data Provider LAB BLOOD ORDERAB LES Final Result Performing Organization Address [facility] Number [facility] [address] [place] [address] [phone] * Hepatitis C Antibody with Reflex to HCV, RNA, Quantitative, Real-Time PCR (01/05/2024 10:03 AM EDT) Pathologist [facility] Hepatitis C Antibody Nonreactive Nonreactive [facility] Comment:Antibodies to HCV no t detected; does not exclude early acuteHCV infection. Blood Venous blood specimen / Unknown 01/05/2024 10:03 AM EDT 01/05/2024 11:13 AM EDT us May Ruvalcaba MD LAB BLOOD ORDERAB LES Final Result Performing Organization Address [facility]/ZIP Co de Phone Number [facility] [address] [place] [phone] * HIV-1/2 Antigen and Antibodies, Fourth Generation, with Reflexes (01/05/2024 10:03 AM EDT) HIV AB/AG Nonreactive Nonreactive [facility] Comment:HIV-1 p24 Ag and/or HIV-1/HIV-2 Ab not detected.A test result that is nonreactive does not exclude thepossibility of exposure to or infection with HIV-1 and/orHIV-2. Nonreactive results in this assay for individualswith prior exposure to HIV-1 and/or HIV-2 may be due toantigen and antibody levels that are below the limit ofdetection of this assay.The [employer] HIV Ag/Ab Combo assay result andsupplemental assay results should be interpreted inconjunction with the patient's clinical presentation,history and other laboratory results. If the results areinconsistent with clinical evidence, additional testing issuggested to confirm the result. Blood Venous blood specimen / Unknown 01/05/2024 10:03 AM EDT 01/05/2024 11:13 AM EDT us May Ruvalcaba MD LAB BLOOD ORDERAB LES Final Result [facility] [address] [place] [phone] * (ABNORMAL) Lipid Panel, Standard (01/05/2024 10:03 AM EDT) Triglycerides 76 <150 mg/dL [facility] Comment:Desirable Triglyceri de: less than 150 mg/dLBorderline High Triglyceride 150-199 mg/dLHigh Triglyceride: 200-499 mg/dLVery High Triglyceride: greater than or equal to 5OO mg/dL Cholesterol 130 <200 mg/dL [facility] Comment:Desirable Cholestero l: less than 200 mg/dLBorderline High Cholesterol: 200-239 mg/dLHigh Cholesterol: greater than 239 mg/dL LDL Cholesterol Calculated 75 <100 mg/dL [facility] Comment:Desirable LDL: less than 100 mg/dLNear Optimal/Above Optimal LDL: 110- 129 mg/dLBorderline High LDL: 130-159 mg/dLHigh LDL: 160-189 mg/dLVery High LDL: greater than or equal to 190 mg/dL HDL Cholesterol 40(L) >40 mg/dL [facility] Comment:Desirable HDL: great er than 40 mg/dL Note: This HDL assay may give artificially low results in patients with liver disease. Blood Venous blood specimen / Unknown 01/05/2024 10:03 AM EDT 01/05/2024 11:13 AM EDT May Ruvalcaba MD LAB BLOOD ORDERAB LES Final Result [facility] [address] [place] [phone] from Last 3 Months or Most Recently Relevant to Health Maintenance [place] [place] [address] C3 [facility] [employer] [facility] Care Teams Clip Coater Relationship Specialty Start Date End Date May Tinsley MD [address] [place] [address] PCP - General Internal Medicine 12/02/22
--- OUTSIDE RECORDS SUMMARY | 2024-06-16 08:01 | XMS_ITS | Encounter Summary ---
Author Organization [employer] Address [address] [facility] [address] [place] [address] Care Team Providers Care Liability Claims Adjuster Name Role Phone May Tinsley MD Primary Care Pro vider Encounter Details Date Type Department Care Team ([facility] Contact Info) Description 06/01/2024 Orders Only [...] EST Nurse Only [facility] [address] [place] [address] documented as of this encounter Procedures Procedure Name Priority Date/Time Associated Diagnosis Comments HCG, TOTAL, QN Routine 06/01/2024 4:32 PM EST documented in this encounter Results * hCG, Total, Quantitative (06/01/2024 4:32 PM EST) HCG Quantitative <2 mIU/mL [facility] Comment:Weeks post LMP Appro ximate hCG(Last Menstrual Period) Range (mIU/ml)3 - 4 weeks 9 - 1304 - 5 weeks 75 - 2,6005 - 6 weeks 850 - 20,8006 - 7 weeks 4000 - 100,2007 - 12 weeks 11,500 - 289,79439 - 16 weeks 18,300 - 137,96882 - 29 weeks (2nd trimester) 1,400 - 53,39426 - 41 weeks (3rd trimester) 940 - [...] Provider LAB BLOOD ORDERAB LES Final Result [facility] [address] [place] [phone] documented in this encounter Visit Diagnoses Not on filedocumented in this encounter Additional Health Concerns Assessment Noted Time PHQ-9 Depression Total Score: 7 01/11/20 24 10:52 AM EDT documented as of this encounter Care Teams Liability Claims Adjuster Relationship Specialty Start Date End Date May Tinsley MD [address] [place] [address] PCP - General Internal Medicine 12/02/22 documented as of this encounter
--- OUTSIDE RECORDS SUMMARY | 2024-06-16 08:01 | XMS_ITS | Encounter Summary ---
Author Organization [employer] Address [address] [facility] [address] [place] [address] Care Team Providers Care Credit Advisor Name Role Phone May Tinsley MD Primary Care Pro vider Encounter Details Date Type Department Care Team ([facility] Contact Info) Description 06/16/2024 Orders Only GENERIC EXTERNAL DATA [...] 07/12/2024 9:00 AM EST Nurse Only [facility] [address] [place] [address] documented as of this encounter Procedures Procedure Name Priority Date/Time Associated Diagnosis Comments HEMOGLOBIN A1C Routine 06/16/2024 7:06 AM EST documented in this encounter Results * Hemoglobin A1c (06/16/2024 7:06 AM EST) Hemoglobin A1c 5.7 <6.0 % [facility] Comment:Hemoglobin A1C Refer ence Range Adults: 4.8 - 6.0 % Non diabetic: < 6.0 % Goal: < 7.0 %Additional Action Suggested: > 8.0 %Note: Hemoglobin A1c results are invalid for patients with abnormal amounts of HbF. Blood transfusions may impact the HbA1c concentration in the patient sample. Estimated Average Glucose 117 mg/dL [facility] Comment:eAG = Estimated ave rage glucose which is %A1C expressed asaverage glucose, using the formula of the I1X-CgwaoecIbgxqhb Glucose study (ADAG), Diabetes Care, Vol.31,#8,Dec. 2007 06/16/2024 7:06 AM EST 06/16/2024 7:06 AM EST us Generic External Data Provider LAB BLOOD ORDERAB LES Final Result [facility] [address] [place] [phone] documented in this encounter Visit Diagnoses Not on filedocumented in this encounter Additional Health Concerns Assessment Noted Time PHQ-9 Depression Total Score: 7 01/11/20 24 10:52 AM EDT documented as of this encounter Care Teams Credit Advisor Relationship Specialty Start Date End Date May Tinsley MD [address] [place] [address] PCP - General Internal Medicine 12/02/22 documented as of this encounter
--- NOTE | 2024-06-16 08:11 | A.OFFVIS_ITS ---
VS Expanded 06/16/24 08:26 Height 5 ft 5 in Weight 344 lb 3 oz BMI 57.3 Body Fat % 53.8 Body Fat Mass 185.2 Fat Free Mass 159 Visceral Fat Rating 20 Body Water Mass 114.2 Basal Metabolic Rate/Score 2,387 Intake Visit Reasons: [employer] BMI 57.3 Allergies No Known Allergies [No Known Allergies*] Allergy (Verified 06/16/24 08:17) Medication List - Last Reconciled 06/16/24 by Tera Lucas MD apple cider vinegar mg PO cholecalciferol (vitamin D3) 50 mcg PO DAILY medroxyprogesterone (Provera) 10 mg PO DAILY metformin 500 mg PO BID norethindrone (contraceptive) 0.35 mg PO DAILY [id number]-[id number] fum-folic ac-om3 [phone] mg-mcg-mg (One Daily ) 1 pkg PO DAILY HPI HPI [employer] BMI 57.3: Details: Start time: 8.07am, End time: 9.07am I spent 55 minutes speaking with the patient on the phone plus an additional 5 minutes reviewing and updating records for a total of 60 minutes HPI Comments Details: Previous weight loss efforts: exercise, WMP program Wakes up: 4am, Sleeps: 9am Breakfast: skips Lunch: skips Dinner: 6-7pm (pasta, chicken) Snacks: 2 snacks before dinner ([employer]), 1 snack after dinner (cookies, cake) Exercise: has a treadmill at home Fluids: Coffee: none, tea: none, soda: regular Pepsi 1/day, juice: 3-4/wk, ETOH: rarely PFSH Medical History (Updated 06/16/24 @ 08:20 by Tera Lucas MD) Non-insulin dependent type 2 diabetes mellitus PCOS (polycystic ovarian syndrome) Low serum cortisol level Elevated testosterone level in female Amenorrhea Vitamin D deficiency Surgical History No history of previous surgery Family History Mother Unknown family medical history Father Unknown family medical history Social History Household Members: Spouse Housing: Apartment Do you presently have visiting nurse or other home services: No Alcohol intake: current Patient Tobacco Use Status: Current everyday Tobacco user Tobacco use type: Cigarette Cigarettes Per Day: 5 Years Smoked: 5 e-Cigarette/Vaping Use: Never Used Second Hand Smoke Exposure: No Substance Use Type: Marijuana service: No Female Reproductive History Menstrual Age of Menarche: 11 Telehealth Telehealth Telehealth Platform: Telephone Location of provider rendering services: practice address Location of patient: address on file Patient Identification confirmed using: Name, : Yes Telehealth method: voice only Patient verbally consented to treatment: Yes Patient verbally consented to billing insurance company: Yes Patient informed of any privacy concerns related to visit: Yes Minutes spent on Phone/Video with Pt.: 60 Assessment & Plan Assessment & Plan (1) Morbid obesity: Code(s): E66.01 - Morbid (severe) obesity due to excess calories Category: Medical Plan: 1. Plan for lap sleeve gastrectomy. If diaphragmatic or ventral hernias are present at time of surgery, these will be repaired laparoscopically as well. I e mphasized the importance of close follow-up, adherence to instructions and good communication. The surgery does not replace the need to change your lifestlyle which is the cause of the obesity problem. The surgery provides the motivation to try again to change your lifestyle, it reduces the appetite and make the transition to a better lifestyle easier and doubles the amount of weight you would lose compared to doing the lifestyle change without the surgery. You will need to be on a liquid diet with protein shakes for 2 weeks before surgery to maximize weight loss and boost your nutritional status to recover better from surgery and also for the first two weeks after surgery to let the stomach heal before we introduce other foods. After the first 2 weeks we will introduce protein bars and soft foods like scrambled eggs, cottage cheese and yogurt and after the 6th week will introduce meat, fish and cooked vegetables in small amounts. Over time you should be able to eat everything in small amounts. Side effects like nausea, vomiting, heartburn or abdominal pain are not common in the practice unless you are not following in the practice. This operation requires lifetime commitment to following in our practice and communication with me. You will much less weight and experience side effects if you don?t communicate or not following in the practice. Complications are rare and in our practice is about 1/10 of the national average. However, you can develop bleeding that may require transfusion (hasn?t happened for year in the practice), you may from complications (we did not have any deaths in the practice) and infections. Infections are usually a result of breakdown in communication or not understanding or following directions correctly. They are difficult to treat, they can happen during the first 6 weeks, they may require to be in the hospital for weeks or even months, not being able to eat by mouth and you may have drains and surgeries to try and correct the issue. Other risks and complications include possible conversion to an open procedure, leaks, small bowel obstruction, blood clots, cardiac, or pulmonary complications, as nursing home complications such as ulcers, insufficient weight loss and vitamin deficiencies. 2. You will receive a link of our software angel to generate an individualized nutritional and exercise plan specific for you. Please send me a screenshot of the plans you will generate Meal to include lean meat (beef, fish, pork, turkey, chicken), or equatorial guinean yogurt, or egg whites, or beans with a salad with olive oil and fruits (berries, pears, apples, kiwi). Avoid salt, breads, potatoes, rice, pasta, desserts. 3. If you choose shakes, each shake would be drunk slowly, like coffee in a period of 2 hours. 4. If you choose bars, cut each bar in 4 pieces and eat each piece in 30min to make each bar last 2 hours. 5. I emphasized the importance of measuring accurately the food portion and measure it when serving the food in plate 6. The meal portions include a specific number of forks of meat and salad. You always eat the meat portion but you can replace up to half of salad/vegetables portion with rice, potatoes or pasta, or a fruit if you like. The less you do it the better weight loss will be. 7. One full-size fork is what it can be scooped on the fork without falling aside and not what can be bit with the fork. Use regular forks like those you find in a typical restaurant. 8. Please buy the body composition scale we discussed and send me weight measurements as soon as possible and then once a week. Always include your diet and exercise plan. 9. The best choice would be to purchase a stationary bike, elliptical or treadmill at home that can track calories. Let me know if you do so I can give you an exercise plan. 10. It is important of avoiding and for at least 18 months postoperatively and has been discussed at the infosession. 11. Goal is to lose at least 1.5-2lbs per week 12. Goal to lose 10% of your weight before surgery, which is about 40lbs. Ultimate weight goal: 300lbs before surgery 13. Please follow the diet plan exactly without any change. If you don't like something about the plan or you feel hungry you need to communicate with me so I can help you revise the plan. You should not change the plan yourself. 14. To be scheduled for EGD to assess the stomach's anatomy. The possibility of biopsies was discussed. Patient needs to avoid use of NSAIDs and aspirin for 1 week prior to EGD. You must be on liquids only the day before your endoscopy. Risks of perforation and bleeding was discussed with the patient. This will be an outpatient procedure with IV sedation. Orders: Orders Insulin Today E11.9 - Type 2 diabetes mellitus without complications, E28.2 - Polycystic ovarian syndrome, E66.01 - Morbid (severe) obesity due to excess calories C Reactive Protein Today E11.9 - Type 2 diabetes mellitus without complications, E28.2 - Polycystic ovarian syndrome, E66.01 - Morbid (severe) obesity due to excess calories Ferritin Today E11.9 - Type 2 diabetes mellitus without complications, E28.2 - Polycystic ovarian syndrome, E66.01 - Morbid (severe) obesity due to excess calories Vitamin D 25-OH Total Today E11.9 - Type 2 diabetes mellitus without complications, E28.2 - Polycystic ovarian syndrome, E66.01 - Morbid (severe) obesity due to excess calories XR chest 2V Today E11.9 - Type 2 diabetes mellitus without complications, E28.2 - Polycystic ovarian syndrome, E66.01 - Morbid (severe) obesity due to excess calories Hemoglobin A1c Today E11.9 - Type 2 diabetes mellitus without complications, E28.2 - Polycystic ovarian syndrome, E66.01 - Morbid (severe) obesity due to excess calories H Pylori Breath Test Today E11.9 - Type 2 diabetes mellitus without complications, E28.2 - Polycystic ovarian syndrome, E66.01 - Morbid (severe) obesity due to excess calories Complete Blood Count Auto Diff Today E11.9 - Type 2 diabetes mellitus without complications, E28.2 - Polycystic ovarian syndrome, E66.01 - Morbid (severe) obesity due to excess calories IRON PROFILE Today E11.9 - Type 2 diabetes mellitus without complications, E28.2 - Polycystic ovarian syndrome, E66.01 - Morbid (severe) obesity due to excess calories Vitamin B12 and Folate Today E11.9 - Type 2 diabetes mellitus without complications, E28.2 - Polycystic ovarian syndrome, E66.01 - Morbid (severe) obesity due to excess calories Zinc Today E11.9 - Type 2 diabetes mellitus without complications, E28.2 - Polycystic ovarian syndrome, E66.01 - Morbid (severe) obesity due to excess calories Vitamin B1 Today E11.9 - Type 2 diabetes mellitus without complications, E28.2 - Polycystic ovarian syndrome, E66.01 - Morbid (severe) obesity due to excess calories Vitamin A Today E11.9 - Type 2 diabetes mellitus without complications, E28.2 - Polycystic ovarian syndrome, E66.01 - Morbid (severe) obesity due to excess calories TSH reflex Free T4 Today E11.9 - Type 2 diabetes mellitus without complications, E28.2 - Polycystic ovarian syndrome, E66.01 - Morbid (severe) obesity due to excess calories US abdomen comp w elastography Today E11.9 - Type 2 diabetes mellitus without complications, E28.2 - Polycystic ovarian syndrome, E66.01 - Morbid (severe) obesity due to excess calories ECG 12 lead EKG Today E11.9 - Type 2 diabetes mellitus without complications, E28.2 - Polycystic ovarian syndrome, E66.01 - Morbid (severe) obesity due to excess calories FL upper GI w air Today E11.9 - Type 2 diabetes mellitus without complications, E28.2 - Polycystic ovarian syndrome, E66.01 - Morbid (severe) obesity due to excess calories Referrals Nutrition/Dietitian Referral E11.9 - Type 2 diabetes mellitus without complications, E28.2 - Polycystic ovarian syndrome, E66.01 - Morbid (severe) obesity due to excess calories Behavioral Health Referral E11.9 - Type 2 diabetes mellitus without complications, E28.2 - Polycystic ovarian syndrome, E66.01 - Morbid (severe) obesity due to excess calories Medications: New tirzepatide (weight loss) (Zepbound) for 4 weeks 2.5 mg (0.5 mL) subcut QWEEK 2 mL 0RF E11.9 - Type 2 diabetes mellitus without complications, E28.2 - Polycystic ovarian syndrome, E66.01 - Morbid (severe) obesity due to excess calories
[2024-06-16 08:26] VITALS: BMI 57.3
== END 2024-06-16 09:08 | disposition home or self-care (01) ==
LOC: HO.HBS 07:59
PROVIDERS: PCP Student in an Organized Health Care Education/Training Program; Visit Provider Surgery
DX: E66.01 Morbid (severe) obesity due to excess calories (principal); E66.813 Obesity, class 3; Z68.43 Body mass index [BMI] 50.0-59.9, adult
CPT/HCPCS: 99215

== ENCOUNTER 2024-06-28 08:16 | Outpatient (AMB) | payer OTHER, SELFPAY ==
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
--- OUTSIDE RECORDS SUMMARY | 2024-06-28 08:20 | XMS_ITS | Encounter Summary ---
Author Organization [employer] Address [address] [place] [address] Care Team Providers Care Spectrographer Name Role Phone Gloria Jacobo Guillermina LOPEZ Primary Care Provider [phone] May Tinsley MD Primary Care Pro vider Reason for Visit * Reason Onset Date Comments Referral 07/31/2022 Encounter Details Date Type Department Care Team (Late st Contact Info) Description 07/31/2022 Telephone [facility] [address] [place] [address] Monico Osborne, DMD [address] [place] [address] Referral Social History Tobacco Use Types Packs/Day [...] Description 07/12/2024 9:00 AM EST Nurse Only [facility] [address] [place] [address] [phone] documented as of this encounter Visit Diagnoses Not on filedocumented in this encounter Care Teams Spectrographer Relationship Specialty Start Date End Date Gloria Jacobo FNP PCP - General Family Medicine 01/01/22 12/01/22 May Tinsley MD [address] [place] [id number] PCP - General Internal Medicine 12/02/22 documented as of this encounter
--- OUTSIDE RECORDS SUMMARY | 2024-06-28 08:20 | XMS_ITS | Encounter Summary ---
Author Organization [employer] Address [address] [facility] [address] [place] [address] Care Team Providers Care Maid Housekeeper Name Role Phone May Tinsley MD Primary Care Pro vider Encounter Details Date Type Department Care Team ([facility] Contact Info) Description 06/01/2024 Orders Only [...] Description 07/12/2024 9:00 AM EST Nurse Only [facility] [address] [place] [address] documented as of this encounter Procedures Procedure Name Priority Date/Time Associated Diagnosis Comments HCG, TOTAL, QN Routine 06/01/2024 4:32 PM EST documented in this encounter Results * hCG, Total, Quantitative (06/01/2024 4:32 PM EST) HCG Quantitative <2 mIU/mL [facility] Comment:Weeks post LMP Appro ximate hCG(Last Menstrual Period) Range (mIU/ml)3 - 4 weeks 9 - 1304 - 5 weeks 75 - 2,6005 - 6 weeks 850 - 20,8006 - 7 weeks 4000 - 100,2007 - 12 weeks 11,500 - 289,85840 - 16 weeks 18,300 - 137,88615 - 29 weeks (2nd trimester) 1,400 - 53,11414 - 41 weeks (3rd trimester) 940 - [...] LAB BLOOD ORDERAB LES Final Result [facility] [address] [place] [phone] documented in this encounter Visit Diagnoses Not on filedocumented in this encounter Additional Health Concerns Assessment Noted Time PHQ-9 Depression Total Score: 7 01/11/20 24 10:52 AM EDT documented as of this encounter Care Teams Maid Housekeeper Relationship Specialty Start Date End Date May Tinsley MD [address] [place] [address] PCP - General Internal Medicine 12/02/22 documented as of this encounter
--- OUTSIDE RECORDS SUMMARY | 2024-06-28 08:20 | XMS_ITS | Clinical Summary ---
Author Organization [employer] Address [address] [place] [address] Care Team Providers Care Business Broker Name Role Phone May Tinsley MD Primary [...] will improve her fertility Had appt with [facility], pt uncertain if she will continue Assessment & Plan (12/02/2022 8:34 PM EDT): Never received reproductive notes from [facility] consult will hold sending since pt is focusing on weight loss currently and not seeking F/u 3 months or sooner PRN with new PCP Assessment & Plan (11/05/2022 8:49 PM EDT): Pt concerned about decreasing Testosterone to assist her fertility Will request notes from [facility] appt Will submit Leilaven EConsult [...] DEPARTMENT Provider, Generic External Data 05/27/2024 Telephone [facility] [address] [place] [phone] Risa Garner, RN Results 05/24/2024 Telephone [facility] [address] [place] [address] [phone] May Tinsley MD Medication Question 04/13/2024 Telephone [facility] [address] [place] [address] [phone] May Tinsley MD 04/12/2024 10:00 AM EST Office Visit [facility] [address] [place] [address] May Tinsley MD Leukocytosis, unspecified type (Primary Dx); Foot pain, bilateral; Onychomycosis; Axillary hidradenitis suppurativa; Left leg cellulitis; Lumbar radiculopathy; Obstructive sleep apnea syndrome; Hyperinsulinism; Female fertility problem; Irregular periods; Polycystic ovary syndrome; Severe obesity (CMS/HCC); Hidradenitis suppurativa; Attention and concentration deficit; Health care maintenance; Tobacco use 04/12/2024 Travel 04/10/2024 5:20 PM EST Office Visit [facility] [address] [place] [phone] Esme De La Cruz NP Left leg swelling (Primary Dx) 04/10/2024 Telephone [facility] [address] [place] [address] [phone] May Tinsley MD Nurse Triage 04/04/[address] [phone] Anne Marie Moore MA DME for Breastpumps 04/04/2024 Patient Outreach [facility] [address] [place], [place] [phone] May Tinsley MD Transition Of Care (Tcm) (HDF scheduled, SDOH was completed on 01/11/2024) 04/04/[address] [phone] May Tinsley MD Hospital Follow-up 03/30/[address] [phone] Tenisha Carrillo MA chart prep from Last 3 Months Immunizations Name Administration [...] Description 07/12/2024 9:00 AM EST Nurse Only [facility] [address] [place] [address] Health Maintenance Due Date Last Done Comments [...] Screening 01/10/2025 01/11/2024 Tobacco Screening 04/10/2025 04/10/2024 Diabetes: Hemoglobin A1C 06/16/2025 025, 01/05/2024, 11/05/2022, Additional history exists Dental X-Ray: Full Mouth 07/28/2025 07/27/2022 Lipid Panel 06/16/2029 06/16/2024, 12/09, 07/01/2022, Additional history exists DTaP/Tdap/Td Vaccines (7 - Td or Tdap) [...] Procedure Name Priority Date/Time Associated Diagnosis Comments IGF 1, LC/MS Routine 06/16/2024 7:06 AM EST ACTH, PLASMA Routine 06/16/2024 7:06 AM EST THYROID PEROXIDASE ANTIBODIES Routine 06/16/2024 7:06 AM EST GROWTH HORMONE (GH) Routine 06/16/2024 7 :06 AM EST DHEA SULFATE Routine 06/16/2024 7:06 AM EST HCG, TOTAL, QN Routine 06/16/2024 7:06 AM EST TSH Routine 06/16/2024 7:06 AM EST T4, FREE Routine 06/16/2024 7:06 AM EST CORTISOL RANDOM Routine 06/16/2024 7:06 AM EST LIPID PANEL, STANDARD Routine 06/16/2024 7:06 AM EST HEMOGLOBIN A1C Routine 06/16/2024 7:06 AM EST MAGNESIUM Routine 06/16/2024 7:06 AM EST Leukocytosis, unspecified type COMPREHENSIVE METABOLIC PANEL Routine 06/16/2024 7:06 AM EST Leukocytosis, unspecified type CBC WITH AUTO DIFFERENTIAL Routine 06/16/2024 7:06 AM EST Leukocytosis, unspecified type HCG, TOTAL, QN Routine 06/01/2024 4:[address] ABDOMEN PELVIS W AND WO CONTRAST Routine 04/12/2024 8:16 AM EST Hirsutism HEPATITIS C AB W/REFL TO HCV RNA, QN, PCR Routine 01/05/2024 10:03 AM EDT Annual physical exam HIV 1/2 ANTIGEN/ANTIBODY, FOURTH GENERATION W/RFL Routine 01/05/2024 10:03 AM EDT Annual physical exam PANORAMIC RADIOGRAPHIC IMAGE Routine 07/27/2022 1:00 PM EDT Dental abscess from Last 3 Months or Most Recently Relevant to Health Maintenance Results * Cortisol Random (06/16/2024 7:06 AM EST) Cortisol Random 3.6 ug/dL [facility] Comment:Reference Range*: Be fore 10 am 6.2-19.4 ug/dL After 5 pm 2.3-11.9 ug/dL*Please interpret above results accordingly.This test was performed using the Estrada chemiluminescentmethod. Values obtained from different assay methods cannotbe used interchangeably.Patients receiving fludrocortisone, prednisolone orprednisone may show artificially elevated cortisol valuesdue to cross-reactivity. 06/16/2024 7:06 AM EST 06/16/2024 7:06 AM EST us Generic External Data Provider LAB BLOOD ORDERAB LES Final Result [facility] [address] [place] [address] [phone] * (ABNORMAL) CBC auto differential (06/16/2024 7:06 AM EST) White Blood Count 10.0 4.8 - 10.8 X10*3/uL [facility] Red Blood Count 5.29 4.20 - 5.50 X10*6/uL [facility] Hemoglobin 14.3 12.0 - 16.0 g/dl [facility] Hematocrit 44.2 37.0 - 47.0 % [facility] Mean Corpuscular Volume 83.6 80.0 - 98.0 fL [facility] Mean Corpuscular Hemoglobin 27.0 27.0 - 33.0 pg [facility] Mean Corpuscular HGB Conc 32.4 31.0 - 35.0 g/dl [facility] Red Cell Distribution Width 14.4 11.0 - 16.0 % [facility] Platelet Count 300 160 - 400 X10*3/uL [facility] Mean Platelet Volume 8.9(L) 9.4 - 12.3 fL [facility] Neutrophils Percent Auto 64.1 45 - 73 % [facility] Imm Gran Pct Auto 0.3 0.0 - 0.4 % [facility] Lymphocytes Percent Auto 25.6 20 - 40 % [facility] Monocytes Percent Auto 7.9 2 - 11 % [facility] Eosinophils Percent Auto 1.5 0 - 4 % [facility] Basophils Percent Auto 0.6 0 - 2 % [facility] NRBC Pct Auto 0.0 0.0 - 0.2 /100WBC [facility] Neutrophils Absolute Auto 6.4 2.0 - 8.3 x10*3/uL [facility] Imm Gran Abs Auto 0.03 0.00 - 0.03 X10*3/uL [facility] Lymphocytes Absolute Auto 2.6 1.2 - 4.9 X10*3/uL [facility] Monocytes Absolute Auto 0.8 0.1 - 1.2 X10*3/uL [facility] Eosinophils Absolute Auto 0.2 0.0 - 0.4 X10*3/uL [facility] Basophils Absolute Auto 0.1 0.0 - 0.2 X10*3/uL [facility] NRBC Abs Auto 0.000 0.0 - 0.012 X10*3/uL [facility] Blood Venous blood specimen / Unknown 06/16/2024 7:06 AM EST 06/16/2024 7:06 AM EST us May Ruvalcaba MD LAB BLOOD ORDERAB LES Final Result Performing Organization Address City/[facility]/ZIP Co de Phone Number [facility] [address] [place] [phone] * Thyroid Peroxidase Antibodies (06/16/2024 7:06 AM EST) Thyroid Peroxidase Antibodies <1 <9 IU/mL [facility] Comment:THIS TEST WAS PERFOR MED AT:[employer] [place] [phone] GATES MD 06/16/2024 7:06 AM EST 06/16/2024 7:06 AM EST us Generic External Data Provider LAB BLOOD ORDERAB LES Final Result Performing Organization Address City/[facility]/ZIP Co de Phone Number [facility] [address] [place] [phone] * IGF-1, LC/MS (06/16/2024 7:06 AM EST) IGF 1, LC/MS 131 63 - 373 ng/mL [facility] Z Score (Male) TNP [facility] Z Score (Female) -0.6 -2.0 - 2.0 SD [facility] Comment:This test was develo ped and its analytical performancecharacteristics have been determined by [employer].It has not been cleared or approved by FDA. This assay hasbeen validated pursuant to the CLIA regulations and is usedfor clinical purposes.THIS TEST WAS PERFORMED AT:[employer] [id number] [place] [address]ETOPIGALEN GARDINER MD,PHD,DENY 06/16/2024 7:06 AM EST 06/16/2024 7:06 AM EST us Generic External Data Provider LAB BLOOD ORDERAB LES Final Result [facility] [address] [place] [phone] * Growth Hormone (GH) (06/16/2024 7:06 AM EST) Growth Hormone 0.1 < OR = 7.1 ng/mL [facility] Comment: Because of a pulsatile secretion pattern, random(unstimulated) growth hormone (GH) levels arefrequently undetectable in normal children and adultsand are not reliable for diagnosing GH deficiency.Regarding suppression tests, failure to suppress GHis diagnostic of acromegaly.Typical GH response in healthy subjects: ??Using the glucose tolerance (GH suppression) test, ??acromegaly is ruled out if the patient's GH level ??is <1.0 ng/mL at any point in the timed sequence. ??[Ronnie Humphries, [place] Germain [facility], Mar S, et al. ??Acromegaly: an Endocrine Society Clinical Practice ??Guideline. J Clin Endocrinol Metab 2014; 99: 3933- ??3951]. ??Using GH stimulation testing, the following result ??at any point in the timed sequence makes GH ??deficiency unlikely: ?? Adults (> or = 20 years): ?Insulin Hypoglycemia ??> or = 5.1 ng/mL ?Arginine/GHRH ? > or = 4.1 ng/mL ?Glucagon ?> or = 3.0 ng/mL ?? Children (< 20 years): ?All Stimulation Tests > or = 10.0 ng/mLTHIS TEST WAS PERFORMED AT:[facility] [address] ??[phone] GATES MD 06/16/2024 7:06 AM EST 06/16/2024 7:06 AM EST Generic External Data Provider LAB BLOOD ORDERAB LES Final Result Performing Organization Address [facility] Co de Phone Number [facility] [address] [place] [phone] * DHEA Sulfate (06/16/2024 7:06 AM EST) Pathologist [facility] DHEA Sulfate 241 14 - 349 mcg/dL [facility] Comment:THIS TEST WAS PERFOR MED AT:[facility] [address] [phone] GATES MD 06/16/2024 7:06 AM EST 06/16/2024 7:06 AM EST Generic External Data Provider LAB BLOOD ORDERAB LES Final Result Performing Organization Address [facility] de Phone Number [facility] [address] [place] [phone] * ACTH, Plasma (06/16/2024 7:06 AM EST) ACTH, Plasma 14 6 - 50 pg/mL [facility] Comment:Reference range appl ies only to specimens collectedbetween 7am-10am.THIS TEST WAS PERFORMED AT:[employer]/[id number] [place] [address]QALSWEJBERNARD FOLEY MD,PHD 06/16/2024 7:06 AM EST 06/16/2024 7:06 AM EST Generic External Data Provider LAB BLOOD ORDERAB LES Final Result Performing Organization Address City/[facility] Co de Phone Number [facility] [address] [place] [phone] * hCG, Total, Quantitative (06/16/2024 7:06 AM EST) Only the most recent of2 resultswithin the time period is included. HCG Quantitative <2 mIU/mL [facility] Comment:Weeks post LMP Appro ximate hCG(Last Menstrual Period) Range (mIU/ml)3 - 4 weeks 9 - 1304 - 5 weeks 75 - 2,6005 - 6 weeks 850 - 20,8006 - 7 weeks 4000 - 100,2007 - 12 weeks 11,500 - 289,86338 - 16 weeks 18,300 - 137,35990 - 29 weeks (2nd trimester) 1,400 - 53,65926 - 41 weeks (3rd trimester) 940 - 60,000The Estrada B- hCG assay is used for the early detection ofpregnancy; it cannot be used to diagnose any conditionunrelated to . If a B-hCG level is not supportedby the clinical evidence, results should be confirmed by analternative method (qualitative urine hCG, for example). 06/16/2024 7:06 AM EST 06/16/2024 7:06 AM EST Generic External Data Provider LAB BLOOD ORDERAB LES Final Result Performing Organization Address [facility] Co de Phone Number [facility] [address] [place] [phone] * TSH (06/16/2024 7:06 AM EST) Thyroid Stimulating Hormone 0.92 0.32 - 4.0 uIU/mL [facility] Comment:TSH 3rd Generation ( [employer]) 06/16/2024 7:06 AM EST 06/16/2024 7:06 AM EST us Generic External Data Provider LAB BLOOD ORDERAB LES Final Result Performing Organization Address City/[facility]/ZIP Co de Phone Number [facility] [address] [place] [phone] * T4, Free (06/16/2024 7:06 AM EST) [facility] Free T4 (Free Thyroxine) 1.13 0.71 - 1.85 ng/dL [facility] 06/16/2024 7:06 AM EST 06/16/2024 7:06 AM EST us Generic External Data Provider LAB BLOOD ORDERAB LES Final Result Performing Organization Address [facility]/ZIP Co de Phone Number [facility] [address] [place] [phone] * Magnesium (06/16/2024 7:06 AM EST) [facility] Magnesium 2.2 1.6 - 2.6 mg/dL [facility] Blood Venous blood specimen / Unknown 06/16/2024 7:06 AM EST 06/16/2024 7:06 AM EST us May Ruvalcaba MD LAB BLOOD ORDERAB LES Final Result Performing Organization Address [facility]/ZIP Co de Phone Number [facility] [address] [place] [phone] * Hemoglobin A1c (06/16/2024 7:06 AM EST) Pathologist [facility] Hemoglobin A1c 5.7 <6.0 % [facility] Comment:Hemoglobin A1C Refer ence Range Adults: 4.8 - 6.0 % Non diabetic: < 6.0 % Goal: < 7.0 %Additional Action Suggested: > 8.0 %Note: Hemoglobin A1c results are invalid for patients with abnormal amounts of HbF. Blood transfusions may impact the HbA1c concentration in the patient sample. Estimated Average Glucose 117 mg/dL [facility] Comment:eAG = Estimated ave rage glucose which is %A1C expressed asaverage glucose, using the formula of the L3D-YytdjuuEnysihh Glucose study (ADAG), Diabetes Care, Vol.31,#8,Dec. 2007 06/16/2024 7:06 AM EST 06/16/2024 7:06 AM EST us Generic External Data Provider LAB BLOOD ORDERAB LES Final Result [facility] [address] [place] [phone] * Lipid Panel, Standard (06/16/2024 7:06 AM EST) Triglycerides 77 <150 mg/dL [facility] Comment:Desirable Triglyceri de: less than 150 mg/dLBorderline High Triglyceride 150-199 mg/dLHigh Triglyceride: 200-499 mg/dLVery High Triglyceride: greater than or equal to 5OO mg/dL Cholesterol 142 <200 mg/dL [facility] Comment:Desirable Cholestero l: less than 200 mg/dLBorderline High Cholesterol: 200-239 mg/dLHigh Cholesterol: greater than 239 mg/dL LDL Cholesterol Calculated 84 <100 mg/dL [facility] Comment:Desirable LDL: less than 100 mg/dLNear Optimal/Above Optimal LDL: 110- 129 mg/dLBorderline High LDL: 130-159 mg/dLHigh LDL: 160-189 mg/dLVery High LDL: greater than or equal to 190 mg/dL HDL Cholesterol 43 >40 mg/dL [facility] Comment:Desirable HDL: great er than 40 mg/dL Note: This HDL assay may give artificially low results in patients with liver disease. 06/16/2024 7:06 AM EST 06/16/2024 7:06 AM EST us Generic External Data Provider LAB BLOOD ORDERAB LES Final Result [facility] [address] [place] [phone] * (ABNORMAL) Comprehensive Metabolic Panel (06/16/2024 7:06 AM EST) Sodium 136 135 - 145 mmol/L [facility] Potassium 4.3 3.3 - 5.1 mmol/L [facility] Chloride 104 96 - 108 mmol/L [facility] Carbon Dioxide 25 22 - 29 mmol/L [facility] Anion Gap 11(L) 12 - 20 [facility] Urea Nitrogen (BUN) 10 9 - 16 mg/dL [facility] Creatinine, Serum 0.53 0.5 - 1.4 mg/dL [facility] Estimated Glomerular Filt Rate >60 [facility] Comment:Chronic Kidney Disea se: Estimated GFR < 60 mL/min/1.57z8Cvutzo Kidney Disease: Estimated GFR < 15 mL/min/1.73m2 Glucose 93 60 - 115 mg/dL [facility] Calcium 9.4 8.4 - 10.2 mg/dL [facility] Bilirubin, Total 0.4 0.0 - 1.0 mg/dL [facility] Aspartate Amino Transferase 22 5 - 31 U/L [facility] Alanine Aminotransferase 30 0 - 31 U/L [facility] Total Protein 8.2(H) 6.5 - 8.0 g/dL [facility] Albumin Level 4.1 3.5 - 5.0 g/dL [facility] Alkaline Phosphatase 83 39 - 117 U/L [facility] Blood Venous blood specimen / Unknown 06/16/2024 7:06 AM EST 06/16/2024 7:06 AM EST us May Ruvalcaba MD LAB BLOOD ORDERAB LES Final Result Performing Organization Address City/[facility]/ZIP Co de Phone Number [facility] [address] [place] [phone] * CT Abdomen Pelvis w/ and w/o Contrast (04/12/2024 8:16 AM EST) Anatomical Region Laterality Modality Body, Pelvis, Abdomen Computed T omography 04/12/2024 8:16 AM EST Narrative 05/26/2024 3:06 PM EST ? [facility] ?[address] ?[place] [address] ? CT Scan Report ? Signed ? Patient: Soliz,Nata ?MR#: [id number] ?? [id number] ? : 1995 ?Acct:[id number] ? Age/Sex: 28 / F ?ADM Date: 04/12/24 ? Loc: HO.CT ? Attending Dr: May Ruvalcaba MD ? Ordering Physician: May iTnsley MD ?? Date of Service: 04/12/24 ?? Procedure(s): CT abdomen pelvis wo/w IV con ?? Accession Number(s): [id number] ? cc: May Tinsley MD ? Report Number: ?? [id number]: Total DLP = 1875.00 mGy-cm ?? EXAMINATION: [...] by Gabriel Garner MD in OV> ? 01/17/25 1502 ? DD/ 0816 ? TD/TT: 04/12/24 0830 ? Station Installation Supervisor: ? Procedure Note Donotuseinterpreter, Image - 05/26/[address] [address] [address] Scan Report Signed Patient: Serenity Soliz#: [id number] : 1995Acct:[id number] Age/Sex: 28 / FADM Date: 04/12/24 Loc: HO.CT Attending Dr: May Ruvalcaba MD Ordering Physician: May Tinsley MD Date of Service: 04/12/24 Procedure(s): CT abdomen pelvis wo/w IV con Accession Number(s): [id number] cc: May Tinsley MD Report Number: [id number]: Total DLP = 1875.00 mGy-cm EXAMINATION: CT [...] 05/26/24 1502 DD/ 0816 TD/TT: 04/12/24 0830 Station Installation Supervisor: May Ruvalcaba MD IMG CT PROCEDURES Edited Result - Final * Hepatitis C Antibody with Reflex to HCV, RNA, Quantitative, Real-Time PCR (01/05/2024 10:03 AM EDT) Pathologist [facility] Hepatitis C Antibody [facility] Comment:Antibodies to HCV no t detected; does not exclude early acuteHCV infection. Blood Venous blood specimen / Unknown 01/05/2024 10:03 AM EDT 01/05/2024 11:13 AM EDT May Ruvalcaba MD LAB BLOOD ORDERAB LES Final Result [facility] [address] [place] [phone] * HIV-1/2 Antigen and Antibodies, Fourth Generation, with Reflexes (01/05/2024 10:03 AM EDT) HIV AB/AG Nonreactive Nonreactive [facility] Comment:HIV-1 p24 Ag and/or HIV-1/HIV-2 Ab not detected.A test result that is nonreactive does not exclude thepossibility of exposure to or infection with HIV-1 and/orHIV-2. Nonreactive results in this assay for individualswith prior exposure to HIV-1 and/or HIV-2 may be due toantigen and antibody levels that are below the limit ofdetection of this assay.The [employer] HIV Ag/Ab Combo assay result andsupplemental assay results should be interpreted inconjunction with the patient's clinical presentation,history and other laboratory results. If the results areinconsistent with clinical evidence, additional testing issuggested to confirm the result. Blood Venous blood specimen / Unknown 01/05/2024 10:03 AM EDT 01/05/2024 11:13 AM EDT May Ruvalcaba MD LAB BLOOD ORDERAB LES Final Result [facility] [address] [place] [phone] from Last 3 Months or Most Recently Relevant to Health Maintenance [place] [address] [place] [address] C3 [facility] Care Teams Business Broker Relationship Specialty Start Date End Date May Tinsley MD [address] [place] [address] PCP - General Internal Medicine 12/02/22
--- OUTSIDE RECORDS SUMMARY | 2024-06-28 08:20 | XMS_ITS | Encounter Summary ---
Author Organization [employer] Address [address] [place] [address] Care Team Providers Care Gage Maker Name Role Phone May Tinsley MD Primary Care Pro vider Encounter Details Date Type Department Care Team ([facility] Contact Info) Description 06/16/2024 Orders Only GENERIC [...] Description 07/12/2024 9:00 AM EST Nurse Only [facility] [address] [place] [phone] documented as of this encounter Procedures Procedure Name Priority Date/Time Associated Diagnosis Comments CORTISOL RANDOM Routine 06/16/2024 7:06 AM EST THYROID PEROXIDASE ANTIBODIES Routine 06/16/2024 7:06 AM EST IGF 1, LC/MS Routine 06/16/2024 7:06 AM EST GROWTH HORMONE (GH) Routine 06/16/2024 7 :06 AM EST DHEA SULFATE Routine 06/16/2024 7:06 AM EST ACTH, PLASMA Routine 06/16/2024 7:06 AM EST HCG, TOTAL, QN Routine 06/16/2024 7:06 AM EST TSH Routine 06/16/2024 7:06 AM EST T4, FREE Routine 06/16/2024 7:06 AM EST HEMOGLOBIN A1C Routine 06/16/2024 7:06 AM EST LIPID PANEL, STANDARD Routine 06/16/2024 7:06 AM EST documented in this encounter Results * IGF-1, LC/MS (06/16/2024 7:06 AM EST) IGF 1, LC/MS 131 63 - 373 ng/mL [facility] Z Score (Male) TNP [facility] Z Score (Female) -0.6 -2.0 - 2.0 SD [facility] Comment:This test was develo ped and its analytical performancecharacteristics have been determined by [employer].It has not been cleared or approved by FDA. This assay hasbeen validated pursuant to the CLIA regulations and is usedfor clinical purposes.THIS TEST WAS PERFORMED AT:[facility]/PERDUE [id number] [facility] [place] [address]RZLHFGALEN GARDINER MD,PHD,DENY 06/16/2024 7:06 AM EST 06/16/2024 7:06 AM EST us Generic External Data Provider LAB BLOOD ORDERAB LES Final Result Performing Organization Address [facility]/ZIP Co de Phone Number [facility] [address] [place] [place] [address] [phone] * ACTH, Plasma (06/16/2024 7:06 AM EST) Pathologist [facility] ACTH, Plasma 14 6 - 50 pg/mL [facility] Comment:Reference range appl ies only to specimens collectedbetween 7am-10am.THIS TEST WAS PERFORMED AT:[facility]/[address]DUE [id number] [place] [address]HVPLHFJBERNARD FOLEY MD,PHD 06/16/2024 7:06 AM EST 06/16/2024 7:06 AM EST us Generic External Data Provider LAB BLOOD ORDERAB LES Final Result Performing Organization Address City/[facility]/ZIP Co de Phone Number [facility] [address] [place] [place] [address] [phone] * Thyroid Peroxidase Antibodies (06/16/2024 7:06 AM EST) Thyroid Peroxidase Antibodies <1 <9 IU/mL [facility] Comment:THIS TEST WAS PERFOR MED AT:[facility] [place] [id number] GATES MD 06/16/2024 7:0 6 AM EST 06/16/2024 7:06 AM EST us Generic External Data Provider LAB BLOOD ORDERAB LES Final Result [facility] [address] [place] [phone] * Growth Hormone (GH) (06/16/2024 7:06 AM EST) Growth Hormone 0.1 < OR = 7.1 ng/mL [facility] Comment: Because of a pulsatile secretion [...] or = 10.0 ng/mLTHIS TEST WAS PERFORMED AT:[facility] [address] ??[id number] GATES MD 06/16/2024 7:06 AM EST 06/16/2024 7:06 AM EST Generic External Data Provider LAB BLOOD ORDERAB LES Final Result Performing Organization Address [facility] Co de Phone Number [facility] [address] [place] [phone] * DHEA Sulfate (06/16/2024 7:06 AM EST) DHEA Sulfate 241 14 - 349 mcg/dL [facility] Comment:THIS TEST WAS PERFOR MED AT:[facility] [address] [id number] GATES MD 06/16/2024 7:06 AM EST 06/16/2024 7:06 AM EST Generic External Data Provider LAB BLOOD ORDERAB LES Final Result Performing Organization Address [facility] de Phone Number [facility] [address] [place] [phone] * hCG, Total, Quantitative (06/16/2024 7:06 AM EST) HCG Quantitative <2 mIU/mL [facility] Comment:Weeks post LMP Appro ximate hCG(Last Menstrual Period) Range (mIU/ml)3 - 4 weeks 9 - 1304 - 5 weeks 75 - 2,6005 - 6 weeks 850 - 20,8006 - 7 weeks 4000 - 100,2007 - 12 weeks 11,500 - 289,98064 - 16 weeks 18,300 - 137,10991 - 29 weeks (2nd trimester) 1,400 - 53,02614 - 41 weeks (3rd trimester) 940 - [...] Final Result Performing Organization Address [facility] Co de Phone Number [facility] [address] [place] [phone] * TSH (06/16/2024 7:06 AM EST) Thyroid Stimulating Hormone 0.92 0.32 - 4.0 uIU/mL [facility] Comment:TSH 3rd Generation ( [facility]) 06/16/2024 7:06 AM EST 06/16/2024 7:06 AM EST Generic External Data Provider LAB BLOOD ORDERAB LES Final Result Performing Organization Address [facility] Phone Number [facility] [address] [place] [phone] * T4, Free (06/16/2024 7:06 AM EST) Free T4 (Free Thyroxine) 1.13 0.71 - 1.85 ng/dL [facility] 06/16/2024 7:06 AM EST 06/16/2024 7:06 AM EST Generic External Data Provider LAB BLOOD ORDERAB LES Final Result Performing Organization Address [facility] de Phone Number [facility] [address] [place] [phone] * Cortisol Random (06/16/2024 7:06 AM EST) Cortisol Random 3.6 ug/dL [facility] Comment:Reference Range*: Be fore 10 am 6.2-19.4 ug/dL After 5 pm 2.3-11.9 ug/dL*Please interpret above results accordingly.This test was performed using the [employer] chemiluminescentmethod. Values obtained from different assay methods cannotbe used interchangeably.Patients receiving fludrocortisone, prednisolone orprednisone may show artificially elevated cortisol valuesdue to cross-reactivity. 06/16/2024 7:06 AM EST 06/16/2024 7:06 AM EST us [employer] External Data Provider LAB BLOOD ORDERAB LES Final Result Performing Organization Address City/[facility]/ZIP Co de Phone Number [facility] [address] [place] [phone] * Lipid Panel, Standard (06/16/2024 7:06 AM EST) Triglycerides 77 <150 mg/dL [facility] Comment:Desirable Triglyceri de: less than 150 mg/dLBorderline High Triglyceride 150-199 mg/dLHigh Triglyceride: 200-499 mg/dLVery High Triglyceride: greater than or equal to 5OO mg/dL Cholesterol 142 <200 mg/dL [facility] Comment:Desirable Cholestero l: less than 200 mg/dLBorderline High Cholesterol: 200-239 mg/dLHigh Cholesterol: greater than 239 mg/dL LDL Cholesterol Calculated 84 <100 mg/dL [facility] Comment:Desirable LDL: less than 100 mg/dLNear Optimal/Above Optimal LDL: 110- 129 mg/dLBorderline High LDL: 130-159 mg/dLHigh LDL: 160-189 mg/dLVery High LDL: greater than or equal to 190 mg/dL HDL Cholesterol 43 >40 mg/dL [facility] Comment:Desirable HDL: great er than 40 mg/dL Note: This HDL assay may give artificially low results in patients with liver disease. 06/16/2024 7:06 AM EST 06/16/2024 7:06 AM EST us Generic External Data Provider LAB BLOOD ORDERAB LES Final Result [facility] [address] [place] [phone] * Hemoglobin A1c (06/16/2024 7:06 AM EST) Hemoglobin A1c 5.7 <6.0 % [facility] Comment:Hemoglobin A1C Refer ence Range Adults: 4.8 - 6.0 % Non diabetic: < 6.0 % Goal: < 7.0 %Additional Action Suggested: > 8.0 %Note: Hemoglobin A1c results are invalid for patients with abnormal amounts of HbF. Blood transfusions may impact the HbA1c concentration in the patient sample. Estimated Average Glucose 117 mg/dL [facility] Comment:eAG = Estimated ave rage glucose which is %A1C expressed asaverage glucose, using the formula of the J1O-NmefhiuJqhslfe Glucose study (ADAG), Diabetes Care, Vol.31,#8,Dec. 2007 06/16/2024 7:06 AM EST 06/16/2024 7:06 AM EST us Generic External Data Provider LAB BLOOD ORDERAB LES Final Result Performing Organization Address [facility] de Phone Number [facility] [address] [place] [phone] documented in this encounter Visit Diagnoses Not on filedocumented in this encounter Additional Health Concerns Assessment Noted Time PHQ-9 Depression Total Score: 7 01/11/20 24 10:52 AM EDT documented as of this encounter Care Teams Gage Maker Relationship Specialty Start Date End Date May Tinsley MD [address] [place] [address] PCP - General Internal Medicine 12/02/22 documented as of this encounter
--- OUTSIDE RECORDS SUMMARY | 2024-06-28 08:20 | XMS_ITS | Encounter Summary ---
Author Organization [employer] Address [address] [place] [address] [place] [address] Care Team Providers Care Community Development Worker Name Role Phone Gloria Jacobo Primary Care Provider [phone] May Tinsley MD Primary Care Pro vider Encounter Details Date Type Department Care Team ([facility] Contact Info) Description 06/18/2022 Telephone [facility] [address] [place] [phone] Gloria Jacobo [address] [place] [address] Social History Tobacco Use Types Packs/Day Years [...] Upcoming Encounters Date Type Department Care Team ([facility] Contact Info) Description 07/12/2024 9:00 AM EST Nurse Only [facility] [address] [place] [phone] documented as of this encounter Visit Diagnoses Not on filedocumented in this encounter Care Teams Community Development Worker Relationship Specialty Start Date End Date Gloria Jacobo FNP PCP - General Family Medicine 01/01/22 12/01/22 May Tinsley MD [address] [place] [phone] PCP - General Internal Medicine 12/02/22 documented as of this encounter
== END 2024-06-28 09:40 | disposition home or self-care (01) ==
LOC: HO.HBST 08:16
PROVIDERS: PCP Student in an Organized Health Care Education/Training Program; Visit Provider Counselor Mental Health
DX: F43.9 Reaction to severe stress, unspecified (principal)
CPT/HCPCS: 90791

== ENCOUNTER → 2024-06-28 08:16 | Outpatient (BNVA) | payer OTHER, SELFPAY | PROVIDERS: PCP Student in an Organized Health Care Education/Training Program; Visit Provider Counselor Mental Health ==

== ENCOUNTER 2024-07-12 06:43 | Outpatient (REF) | payer OTHER, SELFPAY ==
--- NOTE | ~2024-07-12 | XR_ITS ---
EXAMINATION: XR CHEST CLINICAL INFORMATION: E66.01 - Morbid (severe) obesity due to excess calories COMPARISON: None available. TECHNIQUE: 2 views of the chest were obtained. FINDINGS: No consolidation, pleural effusion or pneumothorax. Cardiomediastinal silhouette size is normal. Mild multilevel thoracic and upper lumbar spondylosis. XR/XR chest 2V IMPRESSION: No acute airspace disease. Electronically signed by: Gabriel Duran MD 07/12/2024 07:54 AM EST
--- NOTE | 2024-07-12 07:02 | ECG_ITS ---
Test Reason : E66.01 Blood Pressure : */* mmHG Vent. Rate : 69 BPM Atrial Rate : 69 BPM P-R Int : 170 ms QRS Dur : 98 ms QT Int : 386 ms P-R-T Axes : 9 10 16 degrees QTcB Int : 413 ms Normal sinus rhythm Normal ECG When compared with ECG of 27-Mar-2024 05:39, Vent. rate has decreased by 46 bpm T wave amplitude has increased in Anterior leads Referred By: Tera Lucas Electronically Signed By: JAMA GALLEGOS MD
[2024-07-12 07:03] LABS: MANUAL DIFF FLAG NO
[2024-07-12 08:01] LABS: Basophils Percent Auto 0.5 % (0-2); Eosinophils Absolute Auto 0.2 X10*3/uL (0.0-0.4); Eosinophils Percent Auto 1.8 % (0-4); Hematocrit 42.1 % (37.0-47.0); Hemoglobin 13.7 g/dl (12.0-16.0); Imm Gran Abs Auto 0.02 X10*3/uL (0.00-0.03); Imm Gran Pct Auto 0.2 % (0.0-0.4); Lymphocytes Absolute Auto 2.4 X10*3/uL (1.2-4.9); Lymphocytes Percent Auto 28.4 % (20-40); Mean Corpuscular HGB Conc 32.5 g/dl (31.0-35.0); Mean Corpuscular Hemoglobin 26.8 pg (27.0-33.0); Mean Corpuscular Volume 82.2 fL (80.0-98.0); Mean Platelet Volume 9.5 fL (9.4-12.3); Monocytes Absolute Auto 0.8 X10*3/uL (0.1-1.2); Monocytes Percent Auto 8.9 % (2-11); Neutrophils Absolute Auto 5.1 x10*3/uL (2.0-8.3); Neutrophils Percent Auto 60.2 % (45-73); Platelet Count 319 X10*3/uL (160-400); Red Blood Count 5.12 X10*6/uL (4.20-5.50); Red Cell Distribution Width 14.3 % (11.0-16.0); White Blood Count 8.4 X10*3/uL (4.8-10.8)
[2024-07-12 08:11] LABS: Estimated Average Glucose 114 mg/dL; Hemoglobin A1C 134.0109 umol/L; Hemoglobin A1c % 5.6 % (<6.0); Total Hemoglobin (HGBA1C) 3594.4226 umol/L
[2024-07-12 08:19] LABS: C Reactive Protein 1.24 mg/dL (< or = 0.50); Iron 79 mcg/dL (30-160); Percent Iron Saturation 26 % (15-50); Total Iron Binding Capacity 302 mcg/dL (228-428); Unsaturated Iron Binding 223 ug/dL
[2024-07-12 08:38] LABS: Ferritin 57 ng/mL (10-122); Insulin 19 uU/mL (2-29); TSH reflex Free T4 0.98 uIU/mL (0.32-4.0); Vitamin D 25-OH Total 19.2 ng/mL (>30)
[2024-07-12 08:58] LABS: Folate 12.7 ng/mL (> or = 4.0); Vitamin B12 620 pg/mL (200-900)
[2024-07-15 12:02] LABS: Zinc 71 mcg/dL (60-130)
[2024-07-15 23:08] LABS: Vitamin A 31 mcg/dL (38-98)
[2024-07-22 08:34] LABS: Vitamin B1 <6 nmol/L (8-30)
== END 2024-07-12 06:44 | disposition home or self-care (01) ==
LOC: HO.XRAY 06:43
PROVIDERS: PCP Student in an Organized Health Care Education/Training Program; Visit Provider Surgery
DX: E66.01 Morbid (severe) obesity due to excess calories (principal); E28.2 Polycystic ovarian syndrome; E11.9 Type 2 diabetes mellitus without complications
CPT/HCPCS: 36415; 71046; 82306; 82607; 82728; 82746; 83036; 83525; 83540; 84425; 84443; 84590; 84630; 85025; 86140; 93005

== ENCOUNTER → 2024-07-12 07:02 | Outpatient (BNV) | payer OTHER, SELFPAY | PROVIDERS: PCP Student in an Organized Health Care Education/Training Program; Visit Provider Internal Medicine Cardiovascular Disease | DX: E66.01 Morbid (severe) obesity due to excess calories (principal) | CPT/HCPCS: 93010 ==

== ENCOUNTER → 2024-07-12 07:09 | Outpatient (BNV) | payer OTHER, SELFPAY | PROVIDERS: PCP Student in an Organized Health Care Education/Training Program; Visit Provider Radiology Diagnostic Radiology | DX: E66.01 Morbid (severe) obesity due to excess calories (principal) | CPT/HCPCS: 71046 ==

== ENCOUNTER 2024-07-12 08:19 | Outpatient (AMB) | payer OTHER, SELFPAY ==
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
--- OUTSIDE RECORDS SUMMARY | 2024-07-12 08:43 | XMS_ITS | Encounter Summary ---
Author Organization [employer] Address [address] [facility] [address] [place] [address] Care Team Providers Care Crop Setting Out Machine Operator Name Role Phone May Tinsley MD Primary Care Pro vider Encounter Details Date Type Department Care Team ([facility] Contact Info) Description 07/12/2024 Orders Only GENERIC EXTERNAL DATA DEPARTMENT Provider, [...] Description 07/12/2024 9:00 AM EST Nurse Only [facility] [address] [place] [address] 10/09/2024 9:30 AM EDT Office Visit [facility] OPTOMETRY [address] [place], [place] [phone] Harry, Bonita, OD [address] [place] [address] documented as of this encounter Procedures Procedure Name Priority Date/Time Associated Diagnosis Comments VITAMIN D,25-OH,TOTAL,IA Routine 07/12/2024 6:58 AM EST TSH W/REFLEX TO FT4 Routine 07/12/2024 6 :58 AM EST CBC WITH AUTO DIFFERENTIAL Routine 07/12/2024 6:58 AM EST IRON AND TOTAL IRON BINDING CAPACITY Routine 07/12/2024 6:58 AM EST INSULIN Routine 07/12/2024 6:58 AM EST C-REACTIVE PROTEIN Routine 07/12/2024 6: 58 AM EST HEMOGLOBIN A1C Routine 07/12/2024 6:58 AM EST FERRITIN Routine 07/12/2024 6:58 AM EST documented in this encounter Results * Insulin (07/12/2024 6:58 AM EST) Insulin 19 2 - 29 uU/mL [facility] Comment:This test was perfor med using the Estrada chemiluminescentmethod. Values obtained from different assay methods cannot beused interchangeably. This insulin assay shows a possiblecross-reactivity with antibodies generated against insulin(immunoreactive insulin and some patients treated withbovine or porcine insulin). Insulin levels may be measuredlower in patients with insulin autoimmune syndrome orfamilial high pro-insulinemia. 07/12/2024 6:58 AM EST 07/12/2024 6:58 AM EST Generic External Data Provider LAB BLOOD ORDERAB LES Final Result Performing Organization Address [facility] Co de Phone Number [facility] [address] [place] [phone] * TSH with Reflex to Free T4 (07/12/2024 6:58 AM EST) TSH reflex Free T4 0.98 0.32 - 4.0 uIU/mL [facility] 07/12/2024 6:58 AM EST 07/12/2024 6:58 AM EST Generic External Data Provider LAB BLOOD ORDERAB LES Final Result Performing Organization Address [facility] Co de Phone Number [facility] [address] [place] [phone] * (ABNORMAL) Vitamin D, 25-Hydroxy, Total, Immunoassay (07/12/2024 6:58 AM EST) Vitamin D 25-OH Total 19.2(L) >30 ng/mL [facility] Comment:Health Based Referen ce Values*< 20 ng/mL Ngytgypmp80-73 ng/mL Insufficient> 30 ng/mL Sufficient*Dyllan LIZAMA. N Engl J Med. 2007;357:266-280Care must be taken in interpreting Vitamin D results fromdifferent laboratories and methodologies. Published datademonstrated that results from patients undergoinghemodialysis may show a negative bias when tested withvarious automated 25-OH vitamin D assays when compared toLC-MS/MS.When testing samples from patients whose predominant form ofVitamin D is Vitamin D2, such as patients receiving VitaminD2 supplementation, results that are subtherapeutic shouldbe confirmed with another method such as LC-MS/MS. 07/12/2024 6:58 AM EST 07/12/2024 6:58 AM EST Generic External Data Provider LAB BLOOD ORDERAB LES Final Result Performing Organization Address [facility] Co wi Phone Number [facility] [address] [place] [phone] * Ferritin (07/12/2024 6:58 AM EST) Ferritin 57 10 - 122 ng/mL [facility] 07/12/2024 6:58 AM EST 07/12/2024 6:58 AM EST Generic External Data Provider LAB BLOOD ORDERAB LES Final Result Performing Organization Address [facility] Phone Number [facility] [address] [place] [phone] * (ABNORMAL) C-reactive Protein (07/12/2024 6:58 AM EST) C Reactive Protein 1.24(H) < or = 0.50 mg/dL [facility] 07/12/2024 6:58 AM EST 07/12/2024 6:58 AM EST Generic External Data Provider LAB BLOOD ORDERAB LES Final Result Performing Organization Address [facility] Co de Phone Number [facility] [address] [place] [phone] * Iron And Total Iron Binding Capacity (07/12/2024 6:58 AM EST) Iron 79 30 - 160 mcg/dL [facility] Total Iron Binding Capacity 302 228 - 428 mcg/dL [facility] Percent Iron Saturation 26 15 - 50 % [facility] Unsaturated Iron Binding 223 ug/dL [facility] 07/12/2024 6:58 AM EST 07/12/2024 6:58 AM EST Generic External Data Provider LAB BLOOD ORDERAB LES Final Result Performing Organization Address [facility] Co de Phone Number [facility] [address] [place] [phone] * Hemoglobin A1c (07/12/2024 6:58 AM EST) Hemoglobin A1c 5.6 <6.0 % [facility] Comment:Hemoglobin A1C Refer ence Range Adults: 4.8 - 6.0 % Non diabetic: < 6.0 % Goal: < 7.0 %Additional Action Suggested: > 8.0 %Note: Hemoglobin A1c results are invalid for patients with abnormal amounts of HbF. Blood transfusions may impact the HbA1c concentration in the patient sample. Estimated Average Glucose 114 mg/dL [facility] Comment:eAG = Estimated ave rage glucose which is %A1C expressed asaverage glucose, using the formula of the H5R-YefshkjQowhryd Glucose study (ADAG), Diabetes Care, Vol.31,#8,Dec. 2007 07/12/2024 6:58 AM EST 07/12/2024 6:58 AM EST [employer] External Data Provider LAB BLOOD ORDERAB LES Final Result Performing Organization Address [facility] Co de Phone Number [facility] [address] [place] [phone] * (ABNORMAL) CBC auto differential (07/12/2024 6:58 AM EST) White Blood Count 8.4 4.8 - 10.8 X10*3/uL [facility] Red Blood Count 5.12 4.20 - 5.50 X10*6/uL [facility] Hemoglobin 13.7 12.0 - 16.0 g/dl [facility] Hematocrit 42.1 37.0 - 47.0 % [facility] Mean Corpuscular Volume 82.2 80.0 - 98.0 fL [facility] Mean Corpuscular Hemoglobin 26.8(L) 27.0 - 33.0 pg [facility] Mean Corpuscular HGB Conc 32.5 31.0 - 35.0 g/dl [facility] Red Cell Distribution Width 14.3 11.0 - 16.0 % [facility] Platelet Count 319 160 - 400 X10*3/uL [facility] Mean Platelet Volume 9.5 9.4 - 12.3 fL [facility] Neutrophils Percent Auto 60.2 45 - 73 % [facility] Imm Gran Pct Auto 0.2 0.0 - 0.4 % [facility] Lymphocytes Percent Auto 28.4 20 - 40 % [facility] Monocytes Percent Auto 8.9 2 - 11 % [facility] Eosinophils Percent Auto 1.8 0 - 4 % [facility] Basophils Percent Auto 0.5 0 - 2 % [facility] NRBC Pct Auto 0.0 0.0 - 0.2 /100WBC [facility] Neutrophils Absolute Auto 5.1 2.0 - 8.3 x10*3/uL [facility] Imm Gran Abs Auto 0.02 0.00 - 0.03 X10*3/uL [facility] Lymphocytes Absolute Auto 2.4 1.2 - 4.9 X10*3/uL [facility] Monocytes Absolute Auto 0.8 0.1 - 1.2 X10*3/uL [facility] Eosinophils Absolute Auto 0.2 0.0 - 0.4 X10*3/uL [facility] Basophils Absolute Auto 0.0 0.0 - 0.2 X10*3/uL [facility] NRBC Abs Auto 0.000 0.0 - 0.012 X10*3/uL [facility] 07/12/2024 6:58 AM EST 07/12/2024 6:58 AM EST us Generic External Data Provider LAB BLOOD ORDERAB LES Final Result [facility] [address] [place] [phone] documented in this encounter Visit Diagnoses Not on filedocumented in this encounter Additional Health Concerns Assessment Noted Time PHQ-9 Depression Total Score: 7 01/11/20 24 10:52 AM EDT documented as of this encounter Care Teams Crop Setting Out Machine Operator Relationship Specialty Start Date End Date May Tinsley MD [address] [place] [phone] PCP - General Internal Medicine 12/02/22 documented as of this encounter
--- OUTSIDE RECORDS SUMMARY | 2024-07-12 08:43 | XMS_ITS | Encounter Summary ---
Author Organization [employer] Address [address] [facility] [address] [place] [address] Care Team Providers Care Folder Stitcher Operator Name Role Phone May Tinsley MD Primary Care Pro vider Encounter Details Date Type Department Care Team ([facility] Contact Info) Description 06/16/2024 Orders [...] Description 07/12/2024 9:00 AM EST Nurse Only [facility] [address] [place] [address] 10/09/2024 9:30 AM EDT Office Visit [facility] OPTOMETRY [address] [place] [address] Harry, Bonita, OD [address] [place] [address] documented as of this encounter Procedures Procedure Name Priority Date/Time Associated Diagnosis Comments XR CHEST 2 VIEWS Routine 07/12/2024 7:09 AM EST CORTISOL RANDOM Routine 06/16/2024 7:06 [...] EST documented in this encounter Results * XR Chest 2 Views (07/12/2024 7:09 AM EST) Anatomical Region Laterality Modality Chest Radiographic Devika ging 07/12/2024 7:09 AM EST Narrative 07/12/2024 7:57 AM EST ? [facility] ?[address] ?[place] [address] ?XRay Report ? Signed ? Patient: Soliz,Nata ?MR#: [id number] ?? [id number] ? : 1995 ?Acct:[id number] ? Age/Sex: 29 / F ?ADM Date: 07/12/24 ? Loc: HO.XRAY ? Attending Dr: Tera Lucas MD ? Ordering Physician: Tera Lucas MD ?? Date of Service: 07/12/24 ?? Procedure(s): XR chest 2V ?? Accession Number(s): [id number] ? cc: May Tinsley MD; Tera Lucas MD ? EXAMINATION: ?? XR CHEST ? CLINICAL INFORMATION: ?? E66.01 - Morbid (severe) obesity due to excess calories ? COMPARISON: ?? None available. ? TECHNIQUE: ?? 2 views of the chest were obtained. ? FINDINGS: ?? No consolidation, pleural effusion or pneumothorax. ?? Cardiomediastinal silhouette size is normal. ?? Mild multilevel thoracic and upper lumbar spondylosis. ? XR/XR chest 2V ?? IMPRESSION: ?? No acute airspace disease. ? Electronically signed by: ??Gabriel Duran MD ??07/12/2024 07:54 AM ?? EST RP ? Dictated By: ?Gabriel Suarez MD ? Signed By: ?<Electronically signed by Gabriel Garner MD in OV> ? 07/12/24 0754 ? DD/ 0709 ? TD/TT: 07/12/24 0718 ? [employer]: ? Procedure Note Donestuardo, Image - 07/12/[address] [address] XRay Report Signed Patient: Fannie SolizR#: [id number] : 1995Acct:[id number] Age/Sex: M Date: 07/12/24 Loc: HO.MARU Attending Dr: Tera Lucas MD Ordering Physician: Tera Lucas MD Date of Service: 07/12/24 Procedure(s): XR chest 2V Accession Number(s): [id number] cc: May Tinsley MD; Tera Lucas MD EXAMINATION: XR CHEST CLINICAL INFORMATION: E66.01 - Morbid (severe) obesity due to excess calories COMPARISON: None available. TECHNIQUE: 2 views of the chest were obtained. FINDINGS: No consolidation, pleural effusion or pneumothorax. Cardiomediastinal silhouette size is normal. Mild multilevel thoracic and upper lumbar spondylosis. XR/XR chest 2V IMPRESSION: No acute airspace disease. Electronically signed by: Gabriel Duran MD 07/12/2024 07:54 AM EST Dictated By: Gabriel Suarez MD Signed By: <Electronically signed by Gabriel Garner MDin OV> 07/12/24 0754 DD/ 0709 TD/TT: 07/12/24 0718 [employer] Slinger: [facility] External Provider IMG XR PROCEDURES Edited Result - Final * IGF-1, LC/MS (06/16/2024 7:06 AM EST) IGF 1, LC/MS 131 63 - 373 ng/mL [facility] Z Score (Male) TNP [facility] Z Score (Female) -0.6 -2.0 - 2.0 SD [facility] Comment:This test was develo ped and its analytical performancecharacteristics have been determined by [employer].It has not been cleared or approved by FDA. This assay hasbeen validated pursuant to the CLIA regulations and is usedfor clinical purposes.THIS TEST WAS PERFORMED AT:[employer]/PERDUE [id number] [facility] [place] [address]YPQFBGALEN GARDINER MD,PHD,DENY 06/16/2024 7:06 AM EST 06/16/2024 7:06 AM EST Generic External Data Provider LAB BLOOD ORDERAB LES Final Result Performing Organization Address [facility] Co de Phone Number [facility] [address] [place] [phone] * ACTH, Plasma (06/16/2024 7:06 AM EST) ACTH, Plasma 14 6 - 50 pg/mL [facility] Comment:Reference range appl ies only to specimens collectedbetween 7am-10am.THIS TEST WAS PERFORMED AT:[employer]/IRON [id number] [place] [address]SMAIWFTBERNARD FOLEY MD,PHD 06/16/2024 7:06 AM EST 06/16/2024 7:06 AM EST Generic External Data Provider LAB BLOOD ORDERAB LES Final Result Performing Organization Address [facility] Co de Phone Number [facility] [address] [place] [phone] * Thyroid Peroxidase Antibodies (06/16/2024 7:06 AM EST) Thyroid Peroxidase Antibodies <1 <9 IU/mL [facility] Comment:THIS TEST WAS PERFOR MED AT:[employer] [address] [id number] GATES MD 06/16/2024 7:06 AM EST 06/16/2024 7:06 AM EST us Generic External Data Provider LAB BLOOD ORDERAB LES Final Result [facility] [address] [place] [address] [phone] * Growth Hormone (GH) (06/16/2024 7:06 AM EST) Growth Hormone 0.1 < OR = 7.1 ng/mL [facility] Comment: Because of a pulsatile [...] any point in the timed sequence. ??[Ronnie L, [place] Germain ER, Mar S, et al. [...] or = 10.0 ng/mLTHIS TEST WAS PERFORMED AT:[employer] [place] [address] ??[id number] GATES MD 06/16/2024 7:06 AM EST 06/16/2024 7:06 AM EST us Generic External Data Provider LAB BLOOD ORDERAB LES Final Result Performing Organization Address [facility] Co de Phone Number [facility] [address] [place] [phone] * DHEA Sulfate (06/16/2024 7:06 AM EST) DHEA Sulfate 241 14 - 349 mcg/dL [facility] Comment:THIS TEST WAS PERFOR MED AT:[facility] [place] [phone] GATES MD 06/16/2024 7:06 AM EST 06/16/2024 7:06 AM EST Generic External Data Provider LAB BLOOD ORDERAB LES Final Result Performing Organization Address [facility] de Phone Number [facility] [address] [place] [phone] * hCG, Total, Quantitative (06/16/2024 7:06 AM EST) HCG Quantitative <2 mIU/mL [facility] Comment:Weeks post LMP Appr oximate hCG(Last Menstrual Period) Range (mIU/ml)3 - 4 weeks 9 - 1304 - 5 weeks 75 - 2,6005 - 6 weeks 850 - 20,8006 - 7 weeks 4000 - 100,2007 - 12 weeks 11,500 - 289,61934 - 16 weeks 18,300 - 137,14568 - 29 weeks (2nd trimester) 1,400 - 53,39648 - 41 weeks (3rd trimester) 940 - [...] ORDERAB LES Final Result Performing Organization Address [facility] Co de Phone Number [facility] [address] [place] [phone] * TSH (06/16/2024 7:06 AM EST) Thyroid Stimulating Hormone 0.92 0.32 - 4.0 uIU/mL [facility] Comment:TSH 3rd Generation ( [employer]) 06/16/2024 7:06 AM EST 06/16/2024 7:06 AM EST Generic External Data Provider LAB BLOOD ORDERAB LES Final Result Performing Organization Address [facility] Co de Phone Number [facility] [address] [place] [phone] * T4, Free (06/16/2024 7:06 AM EST) Free T4 (Free Thyroxine) 1.13 0.71 - 1.85 ng/dL [facility] 06/16/2024 7:06 AM EST 06/16/2024 7:06 AM EST Generic External Data Provider LAB BLOOD ORDERAB LES Final Result Performing Organization Address [facility] de Phone Number [facility] [address] [place] [phone] * Cortisol Random (06/16/2024 7:06 AM EST) Cortisol Random 3.6 ug/dL [facility] Comment:Reference Range*: Be fore 10 [...] Provider LAB BLOOD ORDERAB LES Final Result [facility] [address] [place] [phone] * Lipid Panel, Standard (06/16/2024 7:06 AM EST) Triglycerides 77 <150 mg/dL [facility] Comment:Desirable Triglyceri de: less than 150 mg/dLBorderline High Triglyceride 150-199 mg/dLHigh Triglyceride: 200-499 mg/dLVery High Triglyceride: greater than or equal to 5OO mg/dL Cholesterol 142 <200 mg/dL [facility] Comment:Desirable Cholestero l: less than 200 mg/dLBorderline High Cholesterol: 200-239 mg/dLHigh Cholesterol: greater than 239 mg/dL LDL Cholesterol Calculated 84 <100 mg/dL [facility] Comment:Desirable LDL: less than 100 mg/dLNear Optimal/Above Optimal LDL: 110- 129 mg/dLBorderline High LDL: 130-159 mg/dLHigh LDL: 160-189 mg/dLVery High LDL: greater than or equal to 190 mg/dL HDL Cholesterol 43 >40 mg/dL [facility] Comment:Desirable HDL: great er than 40 mg/dL Note: This HDL assay may give artificially low results in patients with liver disease. 06/16/2024 7:06 AM EST 06/16/2024 7:06 AM EST us Generic External Data Provider LAB BLOOD ORDERAB LES Final Result Performing Organization Address City/[facility]/ZIP Co de Phone Number [facility] [address] [place] [phone] * Hemoglobin A1c (06/16/2024 7:06 AM EST) Hemoglobin A1c 5.7 <6.0 % [facility] Comment:Hemoglobin A1C Refer ence Range Adults: 4.8 - 6.0 % Non diabetic: < 6.0 % Goal: < 7.0 %Additional Action Suggested: > 8.0 %Note: Hemoglobin A1c results are invalid for patients with abnormal amounts of HbF. Blood transfusions may impact the HbA1c concentration in the patient sample. Estimated Average Glucose 117 mg/dL [facility] Comment:eAG = Estimated ave rage glucose which is %A1C expressed asaverage glucose, using the formula of the W8D-ZmvvnvoNvtctcf Glucose study (ADAG), Diabetes Care, Vol.31,#8,Dec. 2007 06/16/2024 7:06 AM EST 06/16/2024 7:06 AM EST us Generic External Data Provider LAB BLOOD ORDERAB LES Final Result [facility] [address] [place] [phone] documented in this encounter Visit Diagnoses Not on filedocumented in this encounter Additional Health Concerns Assessment Noted Time PHQ-9 Depression Total Score: 7 01/11/20 24 10:52 AM EDT documented as of this encounter Care Teams Folder Stitcher Operator Relationship Specialty Start Date End Date May Tinsley MD [address] [place] [address] PCP - General Internal Medicine 12/02/22 documented as of this encounter
--- OUTSIDE RECORDS SUMMARY | 2024-07-12 08:43 | XMS_ITS | Encounter Summary ---
Author Organization [employer] Address [address] [place] [address] [place] [address] Care Team Providers Care Ball Rolling Machine Operator Name Role Phone Gloria Jacobo Primary Care Provider [phone] May Tinsley MD Primary Care Pro vider Encounter Details Date Type Department Care Team ([facility] Contact Info) Description 06/18/2022 Telephone [facility] MED[facility]INE [address] [place] [phone] Gloria Jacobo [address] Dept [place] [address] Social History Tobacco Use Types Packs/Day Years [...] Upcoming Encounters Date Type Department Care Team ([facility] Contact Info) Description 07/12/2024 9:00 AM EST Nurse Only [facility] [address] [place] [phone] 10/09/2024 9:30 AM EDT Office Visit [facility] OPTOMETRY [address] [place] [address] Bonita Mcdonald, OD [address] [place], [place] [phone] documented as of this encounter Visit Diagnoses Not on filedocumented in this encounter Care Teams Ball Rolling Machine Operator Relationship Specialty Start Date End Date Gloria Jacobo FNP PCP - General Family Medicine 01/01/22 12/01/22 May Tinsley MD [address] [place] [address] PCP - General Internal Medicine 12/02/22 documented as of this encounter
--- OUTSIDE RECORDS SUMMARY | 2024-07-12 08:43 | XMS_ITS | Clinical Summary ---
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 Name Role Phone May Tinsley MD Primary [...] will improve her fertility Had appt with [facility], pt uncertain if she will continue Assessment & Plan (12/02/2022 8:34 PM EDT): Never received reproductive notes from [facility] will hold sending since pt is focusing on weight loss currently and not seeking F/u 3 months or sooner PRN with new PCP Assessment & Plan (11/05/2022 8:49 PM EDT): Pt concerned about decreasing Testosterone to assist her fertility Will request notes from [facility] appt Will submit Leilaven EConsult [...] Encounters Date Type Department Care Team Description 07/12/2024 Orders Only GENERIC EXTERNAL DATA DEPARTMENT Provider, Generic External Data 06/16/2024 Orders Only GENERIC EXTERNAL DATA DEPARTMENT Provider, Generic External Data 06/01/2024 Orders Only GENERIC EXTERNAL DATA DEPARTMENT Provider, Generic External Data 05/27/2024 Telephone [facility] [address] [place], [place] [phone] Risa Garner, RN Results 05/24/2024 Telephone [facility] [address] [place], [place] [phone] May Tinsley MD Medication Question 04/13/2024 Telephone [facility] [address] [place], [place] [phone] May Tinsley MD from Last 3 Months Immunizations Name Administration [...] Description 07/12/2024 9:00 AM EST Nurse Only [facility] [address] [place] [address] 10/09/2024 9:30 AM EDT Office Visit [facility] [address] [place] [address] Harry, Bonita, OD [address] [place] [address] Health Maintenance Due Date Last Done Comments Dental Oral Exam 1997 Dental Prophylaxis 1997 Dental X-Ray: Bitewings 1997 Alcohol/Substance Use Screening 2009 Family Planning (PISQ) 2012 Hepatitis A Vaccines (2 of 2 - 2-dose series) 09/19/2015 03/21/2015 Pneumococcal Vaccine: Pediatrics (0 to 5 Years) and At-Risk Patients (6 to 49) Years) (1 of 2 - PCV) 2016 Pap Smear 2018 COVID-19 Vaccine (1 - season) 2024 Depression Screening 01/10/2025 01/11/2024, 01/11/20 24 SDOH Screening 01/10/2025 01/11/2024 Tobacco Screening 04/10/2025 04/10/2024 Diabetes: Hemoglobin A1C 07/12/2025 025, 06/16/2024, 01/05/2024, Additional history exists Dental X-Ray: Full Mouth [...] 2 VIEWS Routine 07/12/2024 7:09 AM EST INSULIN Routine 07/12/2024 6:58 AM EST TSH W/REFLEX TO FT4 Routine 07/12/2024 6 :58 AM EST VITAMIN D,25-OH,TOTAL,IA Routine 07/12/2024 6:58 AM EST FERRITIN Routine 07/12/2024 6:58 AM EST C-REACTIVE PROTEIN Routine 07/12/2024 6: 58 AM EST IRON AND TOTAL IRON BINDING CAPACITY Routine 07/12/2024 6:58 AM EST HEMOGLOBIN A1C Routine 07/12/2024 6:58 AM EST CBC WITH AUTO DIFFERENTIAL Routine 07/12/2024 6:58 AM EST IGF 1, LC/MS Routine 06/16/2024 [...] TOTAL, QN Routine 06/01/2024 4:32 PM EST HEPATITIS C AB W/REFL TO HCV RNA, QN, PCR Routine 01/05/2024 10:03 AM EDT Annual physical exam HIV 1/2 ANTIGEN/ANTIBODY, FOURTH GENERATION W/RFL Routine 01/05/2024 10:03 AM EDT Annual physical exam PANORAMIC RADIOGRAPHIC IMAGE Routine 07/27/2022 1:00 PM EDT Dental abscess from Last 3 Months or Most Recently Relevant to Health Maintenance Results * XR Chest 2 Views (07/12/2024 7:09 AM EST) Anatomical Region Laterality Modality Chest Radiographic Devika ging 07/12/2024 7:09 AM EST Narrative 07/12/2024 7:57 AM EST ? [facility] ?[address] ?[place] [address] ?XRay Report ? Signed ? Patient: Soliz,Nata ?MR#: [id number] ?? [id number] ? : 1995 ?Acct:[id number] ? Age/Sex: 29 / F ?ADM Date: 03/05/25 ? Loc: HO.XRAY ? Attending Dr: Tera Lucas MD ? Ordering Physician: Tera Lucas MD ?? Date of Service: 07/12/24 ?? Procedure(s): XR chest 2V ?? Accession Number(s): [id number] ? cc: May Tinsley MD; Tera Lucas [...] in OV> ? 07/12/24 0754 ? DD/ ? TD/TT: 07/12/2418 ? Floor Covering Printer Assistant: ? Procedure Note Je, Arsenio - 07/12/2024 [place] [address] XRay Report Signed Patient: Fannie SolizR#: [id number] : 1995Acct:[id number] Age/Sex: 29 / FADM Date: 07/12/24 Loc: [facility] Attending Dr: Tera Lucas MD Ordering Physician: Tera Lucas MD Date of Service: 07/12/24 Procedure(s): XR chest 2V Accession Number(s): [id number] cc: May Tinsley MD; Tera Lucas MD [...] 07/12/24 0754 DD/ 0709 TD/TT: 07/12/24 0718 Floor Covering Printer Assistant: [facility] External Provider IMG XR PROCEDURES Edited Result - Final * (ABNORMAL) Vitamin D, 25-Hydroxy, Total, Immunoassay (07/12/2024 6:58 AM EST) Vitamin D 25-OH Total 19.2(L) >30 ng/mL [facility] Comment:Health Based Referen ce Values*< 20 ng/mL Vwucgmqim31-67 ng/mL Insufficient> 30 ng/mL Sufficient*Dyllan LIZAMA. N [...] Provider LAB BLOOD ORDERAB LES Final Result [facility] [address] [place] [phone] * TSH with Reflex to Free T4 (07/12/2024 6:58 AM EST) TSH reflex Free T4 0.98 0.32 - 4.0 uIU/mL [facility] 07/12/2024 6:58 AM EST 07/12/2024 6:58 AM EST us Generic External Data Provider LAB BLOOD ORDERAB LES Final Result [facility] [address] [place] [address] [phone] * (ABNORMAL) CBC auto differential (07/12/2024 6:58 AM EST) Only the most recent of2 resultswithin the time period is included. White Blood Count 8.4 4.8 - 10.8 X10*3/uL [facility] Red Blood Count 5.12 4.20 - 5.50 X10*6/uL [facility] Hemoglobin 13.7 12.0 - 16.0 g/dl [facility] Hematocrit 42.1 37.0 - 47.0 % [facility] Mean Corpuscular Volume 82.2 80.0 - 98.0 fL [facility] Mean Corpuscular Hemoglobin 26.8(L) 27.0 - 33.0 pg [facility] Mean Corpuscular HGB Conc 32.5 31.0 - 35.0 g/dl [facility] Red Cell Distribution Width 14.3 11.0 - 16.0 % [facility] Platelet Count 319 160 - 400 X10*3/uL [facility] Mean Platelet Volume 9.5 9.4 - 12.3 fL [facility] Neutrophils Percent Auto 60.2 45 - 73 % [facility] Imm Gran Pct Auto 0.2 0.0 - 0.4 % [facility] Lymphocytes Percent Auto 28.4 20 - 40 % [facility] Monocytes Percent Auto 8.9 2 - 11 % [facility] Eosinophils Percent Auto 1.8 0 - 4 % [facility] Basophils Percent Auto 0.5 0 - 2 % [facility] NRBC Pct Auto 0.0 0.0 - 0.2 /100WBC [facility] Neutrophils Absolute Auto 5.1 2.0 - 8.3 x10*3/uL [facility] Imm Gran Abs Auto 0.02 0.00 - 0.03 X10*3/uL [facility] Lymphocytes Absolute Auto 2.4 1.2 - 4.9 X10*3/uL [facility] Monocytes Absolute Auto 0.8 0.1 - 1.2 X10*3/uL [facility] Eosinophils Absolute Auto 0.2 0.0 - 0.4 X10*3/uL [facility] Basophils Absolute Auto 0.0 0.0 - 0.2 X10*3/uL [facility] NRBC Abs Auto 0.000 0.0 - 0.012 X10*3/uL [facility] 07/12/2024 6:58 AM EST 07/12/2024 6:58 AM EST Generic External Data Provider LAB BLOOD ORDERAB LES Final Result Performing Organization Address City/[facility]/ZIP Co de Phone Number [facility] [address] [place] [phone] * Iron And Total Iron Binding Capacity (07/12/2024 6:58 AM EST) Iron 79 30 - 160 mcg/dL [facility] Total Iron Binding Capacity 302 228 - 428 mcg/dL [facility] Percent Iron Saturation 26 15 - 50 % [facility] Unsaturated Iron Binding 223 ug/dL [facility] 07/12/2024 6:58 AM EST 07/12/2024 6:58 AM EST us Generic External Data Provider LAB BLOOD ORDERAB LES Final Result Performing Organization Address [facility] Co de Phone Number [facility] [address] [place] [phone] * Insulin (07/12/2024 6:58 AM EST) Insulin 19 2 - 29 uU/mL [facility] Comment:This test was perfor med using [...] ORDERAB LES Final Result Performing Organization Address [facility]/ZIP Co de Phone Number [facility] [address] [place] [phone] * (ABNORMAL) C-reactive Protein (07/12/2024 6:58 AM EST) C Reactive Protein 1.24(H) < or = 0.50 mg/dL [facility] 07/12/2024 6:58 AM EST 07/12/2024 6:58 AM EST Generic External Data Provider LAB BLOOD ORDERAB LES Final Result Performing Organization Address [facility] Co de Phone Number [facility] [address] [place] [phone] * Hemoglobin A1c (07/12/2024 6:58 AM EST) Only the most recent of2 resultswithin the time period is included. Hemoglobin A1c 5.6 <6.0 % [facility] Comment:Hemoglobin A1C Refer ence Range Adults: 4.8 - 6.0 % Non diabetic: < 6.0 % Goal: < 7.0 %Additional Action Suggested: > 8.0 %Note: Hemoglobin A1c results are invalid for patients with abnormal amounts of HbF. Blood transfusions may impact the HbA1c concentration in the patient sample. Estimated Average Glucose 114 mg/dL [facility] Comment:eAG = Estimated ave rage glucose which is %A1C expressed asaverage glucose, using the formula of the G2O-BclenzuMbngziw Glucose study (ADAG), Diabetes Care, Vol.31,#8,Dec. 2007 07/12/2024 6:58 AM EST 07/12/2024 6:58 AM EST us Generic External Data Provider LAB BLOOD ORDERAB LES Final Result Performing Organization Address [facility] Phone Number [facility] [address] [place] [phone] * Ferritin (07/12/2024 6:58 AM EST) Ferritin 57 10 - 122 ng/mL [facility] 07/12/2024 6:58 AM EST 07/12/2024 6:58 AM EST Generic External Data Provider LAB BLOOD ORDERAB LES Final Result Performing Organization Address [facility] Phone Number [facility] [address] [place] [phone] * Cortisol Random (06/16/2024 7:06 AM EST) Cortisol Random 3.6 ug/dL [facility] Comment:Reference Range*: Be fore 10 am 6.2-19.4 ug/dL After 5 pm 2.3-11.9 ug/dL*Please interpret above results accordingly.This test was performed using the [employer] chemiluminescentmethod. Values obtained from different assay methods cannotbe used interchangeably.Patients receiving fludrocortisone, prednisolone orprednisone may show artificially elevated cortisol valuesdue to cross-reactivity. 06/16/2024 7:06 AM EST 06/16/2024 7:06 AM EST us Generic External Data Provider LAB BLOOD ORDERAB LES Final Result Performing Organization Address [facility] de Phone Number [facility] [address] [place] [phone] * Thyroid Peroxidase Antibodies (06/16/2024 7:06 AM EST) Thyroid Peroxidase Antibodies <1 <9 IU/mL [facility] Comment:THIS TEST WAS PERFOR MED AT:[employer] [address] [id number] GATES MD 06/16/2024 7:06 AM EST 06/16/2024 7:06 AM EST Generic External Data Provider LAB BLOOD ORDERAB LES Final Result Performing Organization Address [facility]/ZIP Co de Phone Number [facility] [address] [place] [phone] * IGF-1, LC/MS (06/16/2024 7:06 AM EST) IGF 1, LC/MS 131 63 - 373 ng/mL [facility] Z Score (Male) TNP [facility] Z Score (Female) -0.6 -2.0 - 2.0 SD [facility] Comment:This test was develo ped and its analytical performancecharacteristics have been determined by [employer].It has not been cleared or approved by FDA. This assay hasbeen validated pursuant to the CLIA regulations and is usedfor clinical purposes.THIS TEST WAS PERFORMED AT:[employer]/[id number] [place] [address]APYCTGALEN GARDINER MD,PHD,DENY 06/16/2024 7:06 AM EST 06/16/2024 7:06 AM EST Generic External Data Provider LAB BLOOD ORDERAB LES Final Result Performing Organization Address [facility] Co de Phone Number [facility] [address] [place] [phone] * Growth Hormone (GH) (06/16/2024 7:06 AM EST) Growth Hormone 0.1 < OR = 7.1 ng/mL [facility] Comment: Because of a pulsatile [...] or = 10.0 ng/mLTHIS TEST WAS PERFORMED AT:[employer] [place] [address] ??[phone] GATES MD 06/16/2024 7:06 AM EST 06/16/2024 7:06 AM EST us Generic External Data Provider LAB BLOOD ORDERAB LES Final Result [facility] [address] [place] [phone] [phone] * DHEA Sulfate (06/16/2024 7:06 AM EST) DHEA Sulfate 241 14 - 349 mcg/dL [facility] Comment:THIS TEST WAS PERFOR MED AT:[employer] [place] [phone] GATES MD 06/16/2024 7:06 AM EST 06/16/2024 7:06 AM EST Generic External Data Provider LAB BLOOD ORDERAB LES Final Result Performing Organization Address [facility] Co de Phone Number [facility] [address] [place] [phone] * ACTH, Plasma (06/16/2024 7:06 AM EST) ACTH, Plasma 14 6 - 50 pg/mL [facility] Comment:Reference range appl ies only to specimens collectedbetween 7am-10am.THIS TEST WAS PERFORMED AT:[employer] [id number] [place] [address]YOFFCXIBERNARD FOLEY MD,PHD 06/16/2024 7:06 AM EST 06/16/2024 7:06 AM EST Generic External Data Provider LAB BLOOD ORDERAB LES Final Result Performing Organization Address [facility] de Phone Number [facility] [address] [place] [phone] * hCG, Total, Quantitative (06/16/2024 7:06 AM EST) Only the most recent of2 resultswithin the time period is included. HCG Quantitative <2 mIU/mL [facility] Comment:Weeks post LMP Appro ximate hCG(Last Menstrual Period) Range (mIU/ml)3 - 4 weeks 9 - 1304 - 5 weeks 75 - 2,6005 - 6 weeks 850 - 20,8006 - 7 weeks 4000 - 100,2007 - 12 weeks 11,500 - 289,75282 - 16 weeks 18,300 - 137,50946 - 29 weeks (2nd trimester) 1,400 - 53,77445 - 41 weeks (3rd trimester) 940 - [...] ORDERAB LES Final Result Performing Organization Address [facility] Co de Phone Number [facility] [address] [place] [phone] * TSH (06/16/2024 7:06 AM EST) Thyroid Stimulating Hormone 0.92 0.32 - 4.0 uIU/mL [facility] Comment:TSH 3rd Generation ( [facility]) 06/16/2024 7:06 AM EST 06/16/2024 7:06 AM EST Generic External Data Provider LAB BLOOD ORDERAB LES Final Result Performing Organization Address [facility] Phone Number [facility] [address] [place] [phone] * T4, Free (06/16/2024 7:06 AM EST) Free T4 (Free Thyroxine) 1.13 0.71 - 1.85 ng/dL [facility] 06/16/2024 7:06 AM EST 06/16/2024 7:06 AM EST Generic External Data Provider LAB BLOOD ORDERAB LES Final Result Performing Organization Address [facility] de Phone Number [facility] [address] [place] [phone] * Magnesium (06/16/2024 7:06 AM EST) Magnesium 2.2 1.6 - 2.6 mg/dL [facility] Blood Venous blood specimen / Unknown 06/16/2024 7:06 AM EST 06/16/2024 7:06 AM EST us May Ruvalcaba MD LAB BLOOD ORDERAB LES Final Result Performing Organization Address City/[facility]/ZIP Co de Phone Number [facility] [address] [place] [phone] * Lipid Panel, Standard (06/16/2024 7:06 AM EST) Triglycerides 77 <150 mg/dL [facility] Comment:Desirable Triglyceri de: less than 150 mg/dLBorderline High Triglyceride 150-199 mg/dLHigh Triglyceride: 200-499 mg/dLVery High Triglyceride: greater than or equal to 5OO mg/dL Cholesterol 142 <200 mg/dL [facility] Comment:Desirable Cholestero l: less than 200 mg/dLBorderline High Cholesterol: 200-239 mg/dLHigh Cholesterol: greater than 239 mg/dL LDL Cholesterol Calculated 84 <100 mg/dL [facility] Comment:Desirable LDL: less than 100 mg/dLNear Optimal/Above Optimal LDL: 110- 129 mg/dLBorderline High LDL: 130-159 mg/dLHigh LDL: 160-189 mg/dLVery High LDL: greater than or equal to 190 mg/dL HDL Cholesterol 43 >40 mg/dL [facility] Comment:Desirable HDL: great er than 40 mg/dL Note: This HDL assay may give artificially low results in patients with liver disease. 06/16/2024 7:06 AM EST 06/16/2024 7:06 AM EST us Generic External Data Provider LAB BLOOD ORDERAB LES Final Result Performing Organization Address City/[facility]/ZIP Co de Phone Number [facility] [address] [place] [phone] * (ABNORMAL) Comprehensive Metabolic Panel (06/16/2024 7:06 AM EST) Sodium 136 135 - 145 mmol/L [facility] Potassium 4.3 3.3 - 5.1 mmol/L [facility] Chloride 104 96 - 108 mmol/L [facility] Carbon Dioxide 25 22 - 29 mmol/L [facility] Anion Gap 11(L) 12 - 20 [facility] Urea Nitrogen (BUN) 10 9 - 16 mg/dL [facility] Creatinine, Serum 0.53 0.5 - 1.4 mg/dL [facility] Estimated Glomerular Filt Rate >60 [facility] Comment:Chronic Kidney Disea se: Estimated GFR < 60 mL/min/[id number] Kidney Disease: Estimated GFR < 15 mL/min/1.73m2 Glucose 93 60 - 115 mg/dL [facility] Calcium 9.4 8.4 - 10.2 mg/dL [facility] Bilirubin, Total 0.4 0.0 - 1.0 mg/dL [facility] Aspartate Amino Transferase 22 5 - 31 U/L [facility] Alanine Aminotransferase 30 0 - 31 U/L [facility] Total Protein 8.2(H) 6.5 - 8.0 g/dL [facility] Albumin Level 4.1 3.5 - 5.0 g/dL [facility] Alkaline Phosphatase 83 39 - 117 U/L [facility] Blood Venous blood specimen / Unknown 06/16/2024 7:06 AM EST 06/16/2024 7:06 AM EST us May Ruvalcaba MD LAB BLOOD ORDERAB LES Final Result [facility] [address] [place] [phone] * Hepatitis C Antibody with Reflex to HCV, RNA, Quantitative, Real-Time PCR (01/05/2024 10:03 AM EDT) Hepatitis C Antibody Nonreactive Nonreactive [facility] Comment:Antibodies to HCV no t detected; does not exclude early acuteHCV infection. Blood Venous blood specimen / Unknown 01/05/2024 10:03 AM EDT 01/05/2024 11:13 AM EDT us May Ruvalcaba MD LAB BLOOD ORDERAB LES Final Result Performing Organization Address [facility] Co de Phone Number [facility] [address] [place] [phone] * HIV-1/2 Antigen and Antibodies, Fourth Generation, with Reflexes (01/05/2024 10:03 AM EDT) [facility] HIV AB/AG Nonreactive Nonreactive [facility] Comment:HIV-1 p24 Ag and/or HIV-1/HIV-2 Ab not detected.A test result that is nonreactive does not exclude thepossibility of exposure to or infection with HIV-1 and/orHIV-2. Nonreactive results in this assay for individualswith prior exposure to HIV-1 and/or HIV-2 may be due toantigen and antibody levels that are below the limit ofdetection of this assay.[employer] HIV Ag/Ab Combo assay result andsupplemental assay results should be interpreted inconjunction with the patient's clinical presentation,history and other laboratory results. If the results areinconsistent with clinical evidence, additional testing issuggested to confirm the result. Blood Venous blood specimen / Unknown 01/05/2024 10:03 AM EDT 01/05/2024 11:13 AM EDT us May Ruvalcaba MD LAB BLOOD ORDERAB LES Final Result Performing Organization Address City/[facility]/ZIP Co de Phone Number [facility] [address] [place] [address] [phone] from Last 3 Months or Most Recently Relevant to Health Maintenance Insurance [facility] Care Teams Gun Barrel Finisher Relationship Specialty Start Date End Date May Tinsley MD [address] [place] [phone] PCP - General Internal Medicine 12/02/22
--- OUTSIDE RECORDS SUMMARY | 2024-07-12 08:43 | XMS_ITS | Encounter Summary ---
Author Organization 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 * Telephone Encounter - Tawny Crawofrd - 07/31/2022 1:52 PM EDT Patient is [...] 07/12/2024 9:00 AM EST Nurse Only [facility] [address] [place] [address] 10/09/2024 9:30 AM EDT Office Visit [facility] [address] [place] [address] Bonita Mcdonald, OD [address] [place] [address] documented as of this encounter Visit Diagnoses Not on filedocumented in this encounter Care Teams Eyeglass Cutter Relationship Specialty Start Date End Date Gloria Jacobo FNP PCP - General Family Medicine 01/01/22 12/01/22 May Tinsley MD [address] [place] [address] PCP - General Internal Medicine 12/02/22 documented as of this encounter
== END 2024-07-12 09:12 | disposition home or self-care (01) ==
LOC: HO.HBST 08:19
PROVIDERS: PCP Student in an Organized Health Care Education/Training Program; Visit Provider Counselor Mental Health
DX: F43.9 Reaction to severe stress, unspecified (principal)
CPT/HCPCS: 90837

== ENCOUNTER 2024-07-19 07:49 | Outpatient (REF) | payer OTHER, SELFPAY ==
--- NOTE | ~2024-07-19 | US_ITS ---
EXAMINATION: US ABDOMEN COMPLETE WITH LIVER ELASTOGRAPHY HISTORY: E66.01 - Morbid (severe) obesity due to excess calories TECHNIQUE: Real-time grayscale ultrasound imaging of the abdomen was performed and images were reviewed. COMPARISON: Correlation is made with a CT of the abdomen with contrast dated 04/12/2024. FINDINGS: Liver: The right lobe of the liver measures 18.6 cm in size. The left lobe of the liver measures 13.6 cm in size. The liver demonstrates increased echotexture, consistent with steatosis. No focal mass or intrahepatic biliary ductal dilatation is identified. There is normal hepatopedal flow in the portal vein. Ultrasound elastography of the liver was performed with 10 separate measurements of the liver parenchyma with the patient in the supine position. Measurements were obtained approximately 2 cm below Alfie's capsule and perpendicular to the capsule. Images are of satisfactory quality. The median shear wave velocity is 1.73 m/s. The interquartile range/median (IQR/median) is 0.11. Gallbladder and biliary tree: The gallbladder is unremarkable, without evidence of calculi, wall thickening, or pericholecystic fluid. There is no sonographic Walker sign. The common bile duct is normal in caliber measuring 2 mm. Kidneys: The right kidney measures 13.9 cm in length. The left kidney measures 13.8 cm in length. The kidneys are unremarkable, without evidence of masses, hydronephrosis, or calculi. Pancreas: The pancreatic head, neck, and body are unremarkable. The pancreatic tail is obscured by bowel gas. Spleen: The spleen is normal in size and contour, measuring 10.1 cm in length. Abdominal aorta and inferior vena cava: The visualized portions of the abdominal aorta and inferior vena cava are normal in caliber. There is no free fluid in the abdomen. US/US abdomen comp w elastography IMPRESSION: Hepatomegaly and hepatic steatosis. The median shear wave velocity in the liver is 1.73 m/s, corresponding to a median liver stiffness of 9.36 kPa. The IQR/median value is 0.11. This is indicative of a quality data set. Findings are indicative of a high elastography value suggestive of compensated advanced chronic liver disease. REFERENCE: Society of Radiologists in Ultrasound Liver Stiffness Thresholds (2020): LIVER STIFFNESS THRESHOLDS: *Shear wave velocity less than 1.3 m/s (Liver Stiffness equal or less than 5 kPa): High probability of being normal. *Shear wave velocity less than 1.7 m/s (Liver Stiffness less than 9 kPa): In the absence of other known clinical signs, rules out compensated advanced chronic liver disease. *Shear wave velocity between 1.7-2.1 m/s (Liver Stiffness 9-13 kPa): Suggestive of compensated advanced chronic liver disease but need further test for confirmation. *Shear wave velocity between 2.1-2.4 m/s (Liver Stiffness 13-17 kPa): Rules in compensated advanced chronic liver disease. *Shear wave velocity greater than 2.4 m/s (Liver Stiffness over 17 kPa): Suggestive of clinically significant portal hypertension. QUALITY OF DATA SET: *IQR/Median value equal or less than 0.15 implies a quality data set. *IQR/Median value over 0.15 implies a poor quality data set. SIGNIFICANT CHANGE FROM PRIOR EXAM: Significant change if liver stiffness measurement is 10% or greater from prior exam. OTHER CONSIDERATIONS: The stage of liver fibrosis may be overestimated in the setting of acute hepatitis, liver inflammation, elevated liver function tests, hepatic vascular congestion, obstructive cholestasis, non-fasting state, and infiltrative diseases such as amyloidosis and lymphoma. In some patients with NAFLD, the liver stiffness thresholds for compensated advanced chronic liver disease may be lower. In causes other than viral hepatitis and NAFLD, liver stiffness thresholds are not well established. Electronically signed by: Piter Russo MD 07/19/2024 08:55 AM EDT
--- OUTSIDE RECORDS SUMMARY | 2024-07-19 07:51 | XMS_ITS | Encounter Summary ---
Author Organization [employer] Address [address] [facility] [address] [facility] [address] [address] [place] [address] Care Team Providers Care [employer] Name Role Phone Gloria Jacobo Guillermina LOPEZ Primary Care Provider [phone] May Tinsley MD Primary Care Pro vider Reason for Visit * Reason Onset Date Comments Referral 07/31/2022 Encounter Details Date Type Department Care Team (Late st Contact Info) Description 07/31/2022 Telephone [facility] [address] [place] [address] Monico Osborne, DMD [address] [place] [address] Referral Social History Tobacco Use Types Packs/Day [...] a referral. * Telephone Encounter - Tawny Ty - 07/31/2022 1:52 PM EDT Patient is [...] Care Team (Late st Contact Info) Description 09/13/2024 10:00 AM EDT Office Visit [facility] [address] [place] [address] May Tinsley MD [address] [place] [address] 10/09/2024 9:30 AM EDT Office Visit [facility] [address] [place], [place] [phone] Bonita Mcdonald, OD [address] [place] [address] documented as of this encounter Visit Diagnoses Not on filedocumented in this encounter Care Teams [employer] Relationship Specialty Start Date End Date Gloria Jacobo FNP PCP - General Family Medicine 01/01/22 12/01/22 May Tinsley MD [address] [place] [address] PCP - General Internal Medicine 12/02/22 documented as of this encounter
--- OUTSIDE RECORDS SUMMARY | 2024-07-19 07:51 | XMS_ITS | Encounter Summary ---
Author Organization [employer] Address [address] [facility] 7t [place] [address] Care Team Providers Care Hand Paint Mixer Name Role Phone May Tinsley MD Primary Care Pro vider Encounter Details Date Type Department Care Team ([facility] Contact Info) Description 07/12/2024 Orders Only GENERIC [...] Description 09/13/2024 10:00 AM EDT Office Visit [facility] MEDICINE [address] [place] [address] May Tinsley MD [address] [place] [address] 10/09/2024 9:30 AM EDT Office Visit [facility] OPTOMETRY [address] [place] [address] Harry, Bonita, OD [address] [place] [address] Pending Results Name Type Priority Associated Diagnoses Date /Time Vitamin A Lab Routine 07/12/2024 6:5 8 AM EST documented as of this encounter Procedures Procedure Name Priority Date/Time Associated Diagnosis Comments VITAMIN D,25-OH,TOTAL,IA Routine 07/12/2024 6:58 AM EST VITAMIN B12/FOLATE, SERUM PANEL Routine 07/12/2024 6:58 AM EST TSH W/REFLEX TO FT4 Routine 07/12/2024 6 :58 AM EST CBC WITH AUTO DIFFERENTIAL Routine 07/12/2024 6:58 AM EST IRON AND TOTAL IRON BINDING CAPACITY Routine 07/12/2024 6:58 AM EST INSULIN Routine 07/12/2024 6:58 AM EST ZINC Routine 07/12/2024 6:58 AM EST VITAMIN A Routine 07/12/2024 6:58 AM EST C-REACTIVE PROTEIN Routine 07/12/2024 6: 58 AM EST HEMOGLOBIN A1C Routine 07/12/2024 6:58 AM EST FERRITIN Routine 07/12/2024 6:58 AM EST documented in this encounter Results * Zinc (07/12/2024 6:58 AM EST) Zinc 71 60 - 130 mcg/dL [facility] Comment:This test was develo ped and its analytical performancecharacteristics have been determined by [employer] [place], [place]. It hasnot been cleared or approved by the U.S. Food and DrugAdministration. This assay has been validated pursuantto the CLIA regulations and is used for clinicalpurposes.THIS TEST WAS PERFORMED AT:[employer] [place] [address]FHANHMKBERNARD FOLEY MD,PHD 07/12/2024 6:58 AM EST 07/12/2024 6:58 AM EST us Generic External Data Provider LAB BLOOD ORDERAB LES Final Result [facility] [address] [place] [address] [phone] * Vitamin B12 (Cobalamin) and Folate Panel, Serum (07/12/2024 6:58 AM EST) Vitamin B12 620 200 - 900 pg/mL [facility] Comment:NORMAL 200-900 PG/ML INDETERMINATE 160-199 PG/ML DEFICIENT < 160 PG/ML Folate 12.7 > or = 4.0 ng/mL [facility] Comment:Reference Values:> o r = 4.0 ng/mL< 4.0 ng/mL suggests folate deficiency Methotrexate, aminopterin and folinic acid(leucovorin) are chemotherapeutic agents whose molecularstructures are similar to folate; therefore, the Architectfolate assay cannot be used for patients using these drugs. 07/12/2024 6:58 AM EST 07/12/2024 6:58 AM EST Generic External Data Provider LAB BLOOD ORDERAB LES Final Result Performing Organization Address [facility] Co de Phone Number [facility] [address] [place] [phone] * Insulin (07/12/2024 6:58 AM EST) Insulin 19 2 - 29 uU/mL [facility] Comment:This test was perfor med [...] ORDERAB LES Final Result Performing Organization Address [facility] Co de Phone Number [facility] [address] [place] [phone] * TSH with Reflex to Free T4 (07/12/2024 6:58 AM EST) TSH reflex Free T4 0.98 0.32 - 4.0 uIU/mL [facility] 07/12/2024 6:58 AM EST 07/12/2024 6:58 AM EST Generic External Data Provider LAB BLOOD ORDERAB LES Final Result Performing Organization Address [facility]/ZIP Co de Phone Number [facility] [address] [place] [phone] [phone] * (ABNORMAL) Vitamin D, 25-Hydroxy, Total, Immunoassay (07/12/2024 6:58 AM EST) Vitamin D 25-OH Total 19.2(L) >30 ng/mL [facility] Comment:Health Based Referen ce Values*< 20 ng/mL Biinttzkc44-62 ng/mL Insufficient> 30 ng/mL Sufficient*Dyllan LIZAMA. N [...] ORDERAB LES Final Result Performing Organization Address [facility]/ZIP Co de Phone Number [facility] [address] [place] [address] [phone] * Ferritin (07/12/2024 6:58 AM EST) Ferritin 57 10 - 122 ng/mL [facility] 07/12/2024 6:58 AM EST 07/12/2024 6:58 AM EST us Generic External Data Provider LAB BLOOD ORDERAB LES Final Result Performing Organization Address [facility]/ZIP Co de Phone Number [facility] [address] [place] [phone] [phone] * (ABNORMAL) C-reactive Protein (07/12/2024 6:58 AM EST) C Reactive Protein 1.24(H) < or = 0.50 mg/dL [facility] 07/12/2024 6:58 AM EST 07/12/2024 6:58 AM EST Generic External Data Provider LAB BLOOD ORDERAB LES Final Result Performing Organization Address [facility] de Phone Number [facility] [address] [place] [phone] * Iron And Total Iron Binding Capacity (07/12/2024 6:58 AM EST) Iron 79 30 - 160 mcg/dL [facility] Total Iron Binding Capacity 302 228 - 428 mcg/dL [facility] Percent Iron Saturation 26 15 - 50 % [facility] Unsaturated Iron Binding 223 ug/dL [facility] 07/12/2024 6:58 AM EST 07/12/2024 6:58 AM EST [employer] External Data Provider LAB BLOOD ORDERAB LES Final Result Performing Organization Address [facility] Phone Number [facility] [address] [place] [phone] * Hemoglobin A1c (07/12/2024 6:58 AM EST) Hemoglobin A1c 5.6 <6.0 % [facility] Comment:Hemoglobin A1C Refer ence Range Adults: 4.8 - 6.0 % Non diabetic: < 6.0 % Goal: < 7.0 %Additional Action Suggested: > 8.0 %Note: Hemoglobin A1c results are invalid for patients with abnormal amounts of HbF. Blood transfusions may impact the HbA1c concentration in the patient sample. Estimated Average Glucose 114 mg/dL [facility] Comment:eAG = Estimated ave rage glucose which is %A1C expressed asaverage glucose, using the formula of the X2U-MphuyicRfxcgvc Glucose study (ADAG), Diabetes Care, Vol.31,#8,2007 07/12/2024 6:58 AM EST 07/12/2024 6:58 AM EST us Generic External Data Provider LAB BLOOD ORDERAB LES Final Result [facility] [address] [place] [phone] [phone] * (ABNORMAL) CBC auto differential (07/12/2024 6:58 AM EST) White Blood Count 8.4 4.8 - 10.8 X10*3/uL [facility] Red Blood Count 5.12 4.20 - 5.50 X10*6/uL [facility] Hemoglobin 13.7 12.0 - 16.0 g/dl [facility] Hematocrit 42.1 37.0 - 47.0 % [facility] Mean Corpuscular Volume 82.2 80.0 - 98.[address] [facility] Mean Corpuscular Hemoglobin 26.8(L) 27.0 - 33.[address] [facility] Mean Corpuscular HGB Conc 32.5 31.0 - 35.0 g/dl [facility] Red Cell Distribution Width 14.3 11.0 - 16.0 % [facility] Platelet Count 319 160 - 400 X10*3/uL [facility] Mean Platelet Volume 9.5 9.4 - 12.[address] [facility] Neutrophils Percent Auto 60.2 45 - 73 % [facility] Imm Gran Pct Auto 0.2 0.0 - 0.4 % [facility] Lymphocytes Percent Auto 28.4 20 - 40 % [facility] Monocytes Percent Auto 8.9 2 - 11 % [facility] Eosinophils Percent Auto 1.8 0 - 4 % [facility] Basophils Percent Auto 0.5 0 - 2 % [facility] NRBC Pct Auto 0.0 0.0 - 0.2 /100WBC [facility] Neutrophils Absolute Auto 5.1 2.0 - 8.3 x10*3/uL [facility] Imm Gran Abs Auto 0.02 0.00 - 0.03 X10*3/uL [facility] Lymphocytes Absolute Auto 2.4 1.2 - 4.9 X10*3/uL [facility] Monocytes Absolute Auto 0.8 0.1 - 1.2 X10*3/uL [facility] Eosinophils Absolute Auto 0.2 0.0 - 0.4 X10*3/uL [facility] Basophils Absolute Auto 0.0 0.0 - 0.2 X10*3/uL [facility] NRBC Abs Auto 0.000 0.0 - 0.012 X10*3/uL [facility] 07/12/2024 6:58 AM EST 07/12/2024 6:58 AM EST us Generic External Data Provider LAB BLOOD ORDERAB LES Final Result Performing Organization Address City/State/[facility] Co de Phone Number [facility] [address] [place] [phone] documented in this encounter Visit Diagnoses Not on filedocumented in this encounter Additional Health Concerns Assessment Noted Time PHQ-9 Depression Total Score: 7 01/11/20 24 10:52 AM EDT documented as of this encounter Care Teams Hand Paint Mixer Relationship Specialty Start Date End Date May Tinsley MD [address] [place] [address] PCP - General Internal Medicine 12/02/22 documented as of this encounter
--- OUTSIDE RECORDS SUMMARY | 2024-07-19 07:51 | XMS_ITS | Encounter Summary ---
Author Organization [employer] Address [address] [place] [address] [place] [address] Care Team Providers Care Shipper Receiver Name Role Phone Gloria Jacobo Primary Care Provider [phone] May Tinsley MD Primary Care Pro vider Encounter Details Date Type Department Care Team ([facility] Contact Info) Description 06/18/2022 Telephone [facility] MEDICINE [address] [place] [phone] Gloria Jacobo FNP [address] [place] [address] Dept [place] [address] Social History Tobacco Use Types Packs/Day Years [...] Upcoming Encounters Date Type Department Care Team ([facility] Contact Info) Description 09/13/2024 10:00 AM EDT Office Visit [facility] MEDICINE [address] [place] [phone] May Tinsley MD [address] [place] [address] 10/09/2024 9:30 AM EDT Office Visit [facility]OMETRY [address] [place], [place] [phone] Harry Bonita, OD [address] [place] [address] documented as of this encounter Visit Diagnoses Not on filedocumented in this encounter Care Teams Shipper Receiver Relationship Specialty Start Date End Date Gloria Jacobo FNP PCP - General Family Medicine 01/01/22 12/01/22 May Tinsley MD [address] [place], [place] [phone] PCP - General Internal Medicine 12/02/22 documented as of this encounter
--- OUTSIDE RECORDS SUMMARY | 2024-07-19 07:52 | XMS_ITS | Encounter Summary ---
Author Organization [employer] Address [address] [facility] [address] [place] [address] Care Team Providers Care Burr Sander Name Role Phone May Tinsley MD Primary Care Pro vider Encounter Details Date Type Department Care Team ([facility] st Contact Info) Description 07/12/2024 Telephone [facility] MEDICINE [address] [place] [phone] May Tinsley MD [address] [place] [address] Social History Tobacco Use Types Packs/Day Years [...] encounter Miscellaneous Notes * Telephone Encounter - May Edmond - 07/12/2024 10:19 AM EST Attempted to call the patient to reschedule a missed vaccine . No answer and no voice mail available documented in this encounter Plan of Treatment Upcoming Encounters Date Type Department Care Team (Late st Contact Info) Description 09/13/2024 10:00 AM EDT Office Visit [facility] MEDICINE [address] [place] [phone] May Tinsley MD [address] [place] [address] 10/09/2024 9:30 AM EDT Office Visit [facility] OPTOMETRY [address] [place] [address] Bonita Mcdonald, BERE [address] [place] [address] documented as of this encounter Visit Diagnoses Not on filedocumented in this encounter Additional Health Concerns Assessment Noted Time PHQ-9 Depression Total Score: 7 01/11/20 24 10:52 AM EDT documented as of this encounter Care Teams Burr Sander Relationship Specialty Start Date End Date May Tinsley MD [address] [place] [phone] PCP - General Internal Medicine 12/02/22 documented as of this encounter
--- OUTSIDE RECORDS SUMMARY | 2024-07-19 07:52 | XMS_ITS | Clinical Summary ---
Author Organization [employer] Address [address] [facility] 7[address] [place] [address] Care Team Providers Care Hog Scalder Name Role Phone May Tinsley MD Primary [...] will improve her fertility Had appt with [facility], pt uncertain if she will continue Assessment & Plan (12/02/2022 8:34 PM EDT): Never received reproductive notes from [facility] consult will hold sending since pt is focusing on weight loss currently and not seeking F/u 3 months or sooner PRN with new PCP Assessment & Plan (11/05/2022 8:49 PM EDT): Pt concerned about decreasing Testosterone to assist her fertility Will request notes from [facility] appt Will submit Leilaven [...] Date Type Department Care Team Description 07/12/2024 Telephone [facility] [address] [place] [address] May Tinsley MD may recall 07/12/2024 Telephone [facility] [address] [place] [address] May Tinsley MD 07/12/2024 Orders Only GENERIC EXTERNAL DATA DEPARTMENT Provider, Generic External Data 06/16/2024 Orders Only GENERIC EXTERNAL DATA DEPARTMENT Provider, Generic External Data 06/01/2024 Orders Only GENERIC EXTERNAL DATA DEPARTMENT Provider, Generic External Data 05/27/2024 Telephone [facility] [address] [place] [address] Risa Garner, RN Results 05/24/2024 Telephone [facility] [address] [place] [address] May Tinsley MD Medication Question from Last 3 Months Immunizations Name Administration [...] Description 09/13/2024 10:00 AM EDT Office Visit [facility] [address] [place], [place] [phone] May Tinsley MD [address] [place], [place] [phone] 10/09/2024 9:30 AM EDT Office Visit [facility] [address] [place] [address] Bonita Mcdonald, OD [address] [place] [address] Health Maintenance Due Date Last Done Comments [...] 2 VIEWS Routine 07/12/2024 7:09 AM EST VITAMIN A Routine 07/12/2024 6:58 AM EST ZINC Routine 07/12/2024 6:58 AM EST VITAMIN B12/FOLATE, SERUM PANEL Routine 07/12/2024 6:58 AM EST INSULIN Routine [...] EST Narrative 07/12/2024 7:57 AM EST ? [facility] ?[address] ?[place] [address] ?XRay Report ? Signed ? Patient: Soliz,Nata ?MR#: [id number] ?? [id number] ? : 1995 ?Acct:[id number] ? Age/Sex: 29 / F ?ADM Date: 07/12/24 ? Loc: HO.XRAY ? Attending Dr: Tera Lucas MD ? Ordering Physician: Tera Lucas MD ?? Date of Service: 07/12/24 ?? Procedure(s): XR chest 2V ?? Accession Number(s): [id number] ? cc: May Tinsley MD; Tera Lucas [...] DD/ 0709 ? TD/TT: 07/12/24 0718 ? 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 N [...] Final Result Performing Organization Address [facility] Co de Phone Number [facility] [address] [place] [address] [phone] * Vitamin B12 (Cobalamin) and Folate Panel, Serum (07/12/2024 6:58 AM EST) Vitamin B12 620 200 - 900 pg/mL [facility] Comment:NORMAL 200-900 PG/ML INDETERMINATE 160-199 PG/ML DEFICIENT < 160 PG/ML Folate 12.7 > or = 4.0 ng/mL [facility] Comment:Reference Values:> o r = [...] Final Result Performing Organization Address [facility] Co de Phone Number [facility] [address] [place] [address] [phone] * TSH with Reflex to Free T4 (07/12/2024 6:58 AM EST) TSH reflex Free T4 0.98 0.32 - 4.0 uIU/mL [facility] 07/12/2024 6:58 AM EST 07/12/2024 6:58 AM EST Generic External Data Provider LAB BLOOD ORDERAB LES Final Result Performing Organization Address [facility] Co de Phone Number [facility] [address] [place] [address] [phone] * (ABNORMAL) CBC auto differential (07/12/2024 6:58 AM EST) Only the most recent of2 resultswithin the time period is included. White Blood Count 8.4 4.8 - 10.8 X10*3/uL [facility] Red Blood Count 5.12 4.20 - 5.50 X10*6/uL [facility] Hemoglobin 13.7 12.0 - 16.0 g/dl [facility] Hematocrit 42.1 37.0 - 47.0 % [facility] Mean Corpuscular Volume 82.2 80.0 - 98.0 fL [facility] Mean Corpuscular Hemoglobin 26.8(L) 27.0 - 33.0 pg [facility] Mean Corpuscular HGB Conc 32.5 31.0 - 35.0 g/dl [facility] Red Cell Distribution Width 14.3 11.0 - 16.0 % [facility] Platelet Count 319 160 - 400 X10*3/uL [facility] Mean Platelet Volume 9.5 9.4 - 12.3 fL [facility] Neutrophils Percent Auto 60.2 45 - 73 % [facility] Imm Gran Pct Auto 0.2 0.0 - 0.4 % [facility] Lymphocytes Percent Auto 28.4 20 - 40 % [facility] Monocytes Percent Auto 8.9 2 - 11 % [facility] Eosinophils Percent Auto 1.8 0 - 4 % [facility] Basophils Percent Auto 0.5 0 - 2 % [facility] NRBC Pct Auto 0.0 0.0 - 0.2 /100WBC [facility] Neutrophils Absolute Auto 5.1 2.0 - 8.3 x10*3/uL [facility] Imm Gran Abs Auto 0.02 0.00 - 0.03 X10*3/uL [facility] Lymphocytes Absolute Auto 2.4 1.2 - 4.9 X10*3/uL [facility] Monocytes Absolute Auto 0.8 0.1 - 1.2 X10*3/uL [facility] Eosinophils Absolute Auto 0.2 0.0 - 0.4 X10*3/uL [facility] Basophils Absolute Auto 0.0 0.0 - 0.2 X10*3/uL [facility] NRBC Abs Auto 0.000 0.0 - 0.012 X10*3/uL [facility] 07/12/2024 6:58 AM EST 07/12/2024 6:58 AM EST Generic External Data Provider LAB BLOOD ORDERAB LES Final Result Performing Organization Address [facility] Phone Number [facility] [address] [place] [address] [phone] * Iron And Total Iron Binding Capacity (07/12/2024 6:58 AM EST) Iron 79 30 - 160 mcg/dL [facility] Total Iron Binding Capacity 302 228 - 428 mcg/dL [facility] Percent Iron Saturation 26 15 - 50 % [facility] Unsaturated Iron Binding 223 ug/dL [facility] 07/12/2024 6:58 AM EST 07/12/2024 6:58 AM EST Generic External Data Provider LAB BLOOD ORDERAB LES Final Result Performing Organization Address [facility] Number [facility] [address] [place] [address] [phone] * Insulin (07/12/2024 6:58 AM EST) Insulin 19 2 - 29 uU/mL [facility] Comment:This test was perfor med [...] Final Result Performing Organization Address [facility]/ZIP Co de Phone Number [facility] [address] [place] [address] [phone] * Zinc (07/12/2024 6:58 AM EST) Zinc 71 60 - 130 mcg/dL [facility] Comment:This test was develo ped and its analytical performancecharacteristics have been determined by [employer] [place], [place]. It hasnot been cleared or approved by the U.S. Food and DrugAdministration. This assay has been validated pursuantto the CLIA regulations and is used for clinicalpurposes.THIS TEST WAS PERFORMED AT:[employer] by [employer]/[facility] [place] [address]LQWRLZS W. MASON,MD,PHD 07/12/2024 6:58 AM EST 07/12/2024 6:58 AM EST Generic External Data Provider LAB BLOOD ORDERAB LES Final Result Performing Organization Address [facility] de Phone Number [facility] [address] [place] [address] [phone] * (ABNORMAL) C-reactive Protein (07/12/2024 6:58 AM EST) C Reactive Protein 1.24(H) < or = 0.50 mg/dL [facility] 07/12/2024 6:58 AM EST 07/12/2024 6:58 AM EST Generic External Data Provider LAB BLOOD ORDERAB LES Final Result Performing Organization Address [facility] Co de Phone Number [facility] [address] [place] [address] [phone] * Hemoglobin A1c (07/12/2024 6:58 AM EST) Only the most recent of2 resultswithin the time period is included. Hemoglobin A1c 5.6 <6.0 % [facility] Comment:Hemoglobin A1C Refer ence Range Adults: 4.8 - 6.0 % Non diabetic: < 6.0 % Goal: < 7.0 %Additional Action Suggested: > 8.0 %Note: Hemoglobin A1c results are invalid for patients with abnormal amounts of HbF. Blood transfusions may impact the HbA1c concentration in the patient sample. Estimated Average Glucose 114 mg/dL [facility] Comment:eAG = Estimated ave rage glucose which is %A1C expressed asaverage glucose, using the formula of the B3B-IptmqazTaqzoqd Glucose study (ADAG), Diabetes Care, Vol.31,#8,2007 07/12/2024 6:58 AM EST 07/12/2024 6:58 AM EST Generic External Data Provider LAB BLOOD ORDERAB LES Final Result Performing Organization Address [facility] de Phone Number [facility] [address] [place] [address] [phone] * Ferritin (07/12/2024 6:58 AM EST) Pathologist [facility] Ferritin 57 10 - 122 ng/mL [facility] 07/12/2024 6:58 AM EST 07/12/2024 6:58 AM EST [facility] External Data Provider LAB BLOOD ORDERAB LES Final Result Performing Organization Address [facility] de Phone Number [facility] [address] [place] [address] [phone] * Cortisol Random (06/16/2024 7:06 AM EST) Cortisol Random 3.6 ug/dL [facility] Comment:Reference Range*: Be fore 10 am 6.2-19.4 ug/dL After 5 pm 2.3-11.9 ug/dL*Please interpret above results accordingly.This test was performed using the [employer] chemiluminescentmethod. Values obtained from different assay methods cannotbe used interchangeably.Patients receiving fludrocortisone, prednisolone orprednisone may show artificially elevated cortisol valuesdue to cross-reactivity. 06/16/2024 7:06 AM EST 06/16/2024 7:06 AM EST Generic External Data Provider LAB BLOOD ORDERAB LES Final Result Performing Organization Address [facility]/ZIP Co de Phone Number [facility] [address] [place] [address] [phone] * Thyroid Peroxidase Antibodies (06/16/2024 7:06 AM EST) Thyroid Peroxidase Antibodies <1 <9 IU/mL [facility] Comment:THIS TEST WAS PERFOR MED AT:[facility] [employer]/[facility] [address] [address]WCLVSJORY GATES MD 06/16/2024 7:06 AM EST 06/16/2024 7:06 AM EST Generic External Data Provider LAB BLOOD ORDERAB LES Final Result Performing Organization Address [facility] de Phone Number [facility] [address] [place] [address] [phone] * IGF-1, LC/MS (06/16/2024 7:06 AM EST) Pathologist [facility] IGF 1, LC/MS 131 63 - 373 ng/mL [facility] Z Score (Male) TNP [facility] Z Score (Female) -0.6 -2.0 - 2.0 SD [facility] Comment:This test was develo ped and its analytical performancecharacteristics have been determined by [employer].It has not been cleared or approved by FDA. This assay hasbeen validated pursuant to the CLIA regulations and is usedfor clinical purposes.THIS TEST WAS PERFORMED AT:[facility] [employer]/[employer] [id number] TAYLOR SHETTY [address]DMCPKGALEN GARDINER MD,PHD,DENY 06/16/2024 7:06 AM EST 06/16/2024 7:06 AM EST us Generic External Data Provider LAB BLOOD ORDERAB LES Final Result [facility] [address] [place] [phone] * Growth Hormone (GH) (06/16/2024 7:06 AM EST) Growth Hormone 0.1 < OR = 7.1 ng/mL [facility] Comment: Because of a pulsatile [...] or = 10.0 ng/mLTHIS TEST WAS PERFORMED AT:[employer] [place] [address] ??[phone] GATES MD 06/16/2024 7:06 AM EST 06/16/2024 7:06 AM EST Generic External Data Provider LAB BLOOD ORDERAB LES Final Result Performing Organization Address [facility] Co de Phone Number [facility] [address] [place] [address] [phone] * DHEA Sulfate (06/16/2024 7:06 AM EST) DHEA Sulfate 241 14 - 349 mcg/dL [facility] Comment:THIS TEST WAS PERFOR MED AT:[facility] [employer]/[facility] [address] [address]DEHQRJORY GATES MD 06/16/2024 7:06 AM EST 06/16/2024 7:06 AM EST Generic External Data Provider LAB BLOOD ORDERAB LES Final Result Performing Organization Address [facility] Number [facility] [address] [place] [address] [phone] * ACTH, Plasma (06/16/2024 7:06 AM EST) Pathologist [facility] ACTH, Plasma 14 6 - 50 pg/mL [facility] Comment:Reference range appl ies only to specimens collectedbetween 7am-10am.THIS TEST WAS PERFORMED AT:[facility] [id number] [place] [address]XXKCYPE W. MASON,MD,PHD 06/16/2024 7:06 AM EST 06/16/2024 7:06 AM EST Generic External Data Provider LAB BLOOD ORDERAB LES Final Result Performing Organization Address [facility] de Phone Number [facility] [address] [place] [address] [phone] * hCG, Total, Quantitative (06/16/2024 7:06 AM EST) Only the most recent of2 resultswithin the time period is included. HCG Quantitative <2 mIU/mL [facility] Comment:Weeks post LMP Appro ximate hCG(Last Menstrual Period) Range (mIU/ml)3 - 4 weeks 9 - 1304 - 5 weeks 75 - 2,6005 - 6 weeks 850 - 20,8006 - 7 weeks 4000 - 100,2007 - 12 weeks 11,500 - 289,77293 - 16 weeks 18,300 - 137,23890 - 29 weeks (2nd trimester) 1,400 - 53,50240 - 41 weeks (3rd trimester) 940 - [...] Final Result Performing Organization Address [facility]/ZIP Co de Phone Number [facility] [address] [place] [address] [phone] * TSH (06/16/2024 7:06 AM EST) Thyroid Stimulating Hormone 0.92 0.32 - 4.0 uIU/mL [facility] Comment:TSH 3rd Generation ( [facility]) 06/16/2024 7:06 AM EST 06/16/2024 7:06 AM EST Generic External Data Provider LAB BLOOD ORDERAB LES Final Result Performing Organization Address City/[facility]/ZIP Co de Phone Number [facility] [address] [place] [address] [phone] * T4, Free (06/16/2024 7:06 AM EST) Free T4 (Free Thyroxine) 1.13 0.71 - 1.85 ng/dL [facility] 06/16/2024 7:06 AM EST 06/16/2024 7:06 AM EST us Generic External Data Provider LAB BLOOD ORDERAB LES Final Result Performing Organization Address [facility]/ZIP Co de Phone Number [facility] [address] [place] [address] [phone] * Magnesium (06/16/2024 7:06 AM EST) Magnesium 2.2 1.6 - 2.6 mg/dL [facility] Blood Venous blood specimen / Unknown 06/16/2024 7:06 AM EST 06/16/2024 7:06 AM EST us May Ruvalcaba MD LAB BLOOD ORDERAB LES Final Result Performing Organization Address [facility]/ZIP Co de Phone Number [facility] [address] [place] [address] [phone] * Lipid Panel, Standard (06/16/2024 7:06 AM EST) Triglycerides 77 <150 mg/dL [facility] Comment:Desirable Triglyceri de: less than 150 mg/dLBorderline High Triglyceride 150-199 mg/dLHigh Triglyceride: 200-499 mg/dLVery High Triglyceride: greater than or equal to 5OO mg/dL Cholesterol 142 <200 mg/dL [facility] Comment:Desirable Cholestero l: less than 200 mg/dLBorderline High Cholesterol: 200-239 mg/dLHigh Cholesterol: greater than 239 mg/dL LDL Cholesterol Calculated 84 <100 mg/dL [facility] Comment:Desirable LDL: less than 100 mg/dLNear Optimal/Above Optimal LDL: 110- 129 mg/dLBorderline High LDL: 130-159 mg/dLHigh LDL: 160-189 mg/dLVery High LDL: greater than or equal to 190 mg/dL HDL Cholesterol 43 >40 mg/dL [facility] Comment:Desirable HDL: great er than 40 mg/dL Note: This HDL assay may give artificially low results in patients with liver disease. 06/16/2024 7:06 AM EST 06/16/2024 7:06 AM EST us Generic External Data Provider LAB BLOOD ORDERAB LES Final Result [facility] [address] [place] [phone] * (ABNORMAL) Comprehensive Metabolic Panel (06/16/2024 7:06 AM EST) Sodium 136 135 - 145 mmol/L [facility] Potassium 4.3 3.3 - 5.1 mmol/L [facility] Chloride 104 96 - 108 mmol/L [facility] Carbon Dioxide 25 22 - 29 mmol/L [facility] Anion Gap 11(L) 12 - 20 [facility] Urea Nitrogen (BUN) 10 9 - 16 mg/dL [facility] Creatinine, Serum 0.53 0.5 - 1.4 mg/dL [facility] Estimated Glomerular Filt Rate >60 [facility] Comment:Chronic Kidney Disea se: Estimated GFR < 60 mL/min/1.62j3Zybymq Kidney Disease: Estimated GFR < 15 mL/min/1.73m2 Glucose 93 60 - 115 mg/dL [facility] Calcium 9.4 8.4 - 10.2 mg/dL [facility] Bilirubin, Total 0.4 0.0 - 1.0 mg/dL [facility] Aspartate Amino Transferase 22 5 - 31 U/L [facility] Alanine Aminotransferase 30 0 - 31 U/L [facility] Total Protein 8.2(H) 6.5 - 8.0 g/dL [facility] Albumin Level 4.1 3.5 - 5.0 g/dL [facility] Alkaline Phosphatase 83 39 - 117 U/L [facility] Blood Venous blood specimen / Unknown 06/16/2024 7:06 AM EST 06/16/2024 7:06 AM EST us May Ruvalcaba MD LAB BLOOD ORDERAB LES Final Result [facility] [address] [place] [address] [phone] * Hepatitis C Antibody with Reflex to HCV, RNA, Quantitative, Real-Time PCR (01/05/2024 10:03 AM EDT) Hepatitis C Antibody Nonreactive Nonreactive [facility] Comment:Antibodies to HCV no t detected; does not exclude early acuteHCV infection. Blood Venous blood specimen / Unknown 01/05/2024 10:03 AM EDT 01/05/2024 11:13 AM EDT May Ruvalcaba MD LAB BLOOD ORDERAB LES Final Result Performing Organization Address [facility] de Phone Number [facility] [address] [place] [address] [phone] * HIV-1/2 Antigen and Antibodies, Fourth Generation, with Reflexes (01/05/2024 10:03 AM EDT) HIV AB/AG Nonreactive Nonreactive [facility] Comment:HIV-1 p24 Ag and/or HIV-1/HIV-2 Ab not detected.A test result that is nonreactive does not exclude thepossibility of exposure to or infection with HIV-1 and/orHIV-2. Nonreactive results in this assay for individualswith prior exposure to HIV-1 and/or HIV-2 may be due toantigen and antibody levels that are below the limit ofdetection of this assay.[employer] HIV Ag/Ab Combo assay result andsupplemental assay results should be interpreted inconjunction with the patient's clinical presentation,history and other laboratory results. If the results areinconsistent with clinical evidence, additional testing issuggested to confirm the result. Blood Venous blood specimen / Unknown 01/05/2024 10:03 AM EDT 01/05/2024 11:13 AM EDT May Ruvalcaba MD LAB BLOOD ORDERAB LES Final Result [facility] [address] [place] [phone] from Last 3 Months or Most Recently Relevant to Health Maintenance [place] [address] [place] [address] C3 [employer] [facility] Care Teams Hog Scalder Relationship Specialty Start Date End Date May Tinsley MD [address] [place] [address] PCP - General Internal Medicine 12/02/22
--- OUTSIDE RECORDS SUMMARY | 2024-07-19 07:52 | XMS_ITS | Encounter Summary ---
Author Organization [employer] Address [address] [facility] 7 [place] [address] Care Team Providers Care Manager Business Planning Name Role Phone May Tinsley MD Primary Care Pro vider Reason for Visit * Reason Onset Date Comments may recall 07/12/2024 Encounter Details Date Type Department Care Team ([facility] Contact Info) Description 07/12/2024 Telephone [facility] [address] [place] [address] May Tinsley MD [address] [place] [address] may recall Social History Tobacco Use Types Packs/Day Years [...] your housing situation today? I have robinson john 01/11/[address] you li [...] encounter Miscellaneous Notes * Telephone Encounter - Tenisha Carrillo MA - 07/12/2024 1:58 PM EST Telephone call to patient to schedule the following recall: Visit type: Office visit Appointment notes: Chronic conditions Patient agree to appointment on 09/13/24 at 10 AM with Emanuel. documented in this encounter Plan of Treatment Upcoming Encounters Date Type Department Care Team (Late st Contact Info) Description 09/13/2024 10:00 AM EDT Office Visit [facility] [address] [place] [address] May Tinsley MD [address] [place] [address] 10/09/2024 9:30 AM EDT Office Visit [facility] [address] [place] [address] Bonita Mcdonald, OD [address] [place] [address] documented as of this encounter Visit Diagnoses Not on filedocumented in this encounter Additional Health Concerns Assessment Noted Time PHQ-9 Depression Total Score: 7 01/11/20 24 10:52 AM EDT documented as of this encounter Care Teams Manager Business Planning Relationship Specialty Start Date End Date May Tinsley MD [address] [place] [phone] PCP - General Internal Medicine 12/02/22 documented as of this encounter
== END 2024-07-19 07:50 | disposition home or self-care (01) ==
LOC: HO.US 07:49
PROVIDERS: PCP Student in an Organized Health Care Education/Training Program; Visit Provider Surgery
DX: E66.01 Morbid (severe) obesity due to excess calories (principal); E28.2 Polycystic ovarian syndrome; E11.9 Type 2 diabetes mellitus without complications
CPT/HCPCS: 76700; 76981

== ENCOUNTER → 2024-07-19 07:50 | Outpatient (BNV) | payer OTHER, SELFPAY | PROVIDERS: PCP Student in an Organized Health Care Education/Training Program; Visit Provider Radiology Diagnostic Radiology | DX: K76.0 Fatty (change of) liver, not elsewhere classified (principal); R16.0 Hepatomegaly, not elsewhere classified | CPT/HCPCS: 76700 ==

== ENCOUNTER 2024-08-02 09:17 | Outpatient (AMB) | payer OTHER, SELFPAY ==
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
== END 2024-08-02 10:29 | disposition home or self-care (01) ==
LOC: HO.HBST 09:17
PROVIDERS: PCP Student in an Organized Health Care Education/Training Program; Visit Provider Counselor Mental Health
DX: F43.9 Reaction to severe stress, unspecified (principal)
CPT/HCPCS: 90834

== ENCOUNTER → 2024-08-02 09:17 | Outpatient (BNVA) | payer OTHER, SELFPAY | PROVIDERS: PCP Student in an Organized Health Care Education/Training Program; Visit Provider Counselor Mental Health ==

== ENCOUNTER 2024-08-16 10:00 | Outpatient (AMB) | payer OTHER, SELFPAY ==
--- NOTE | 2024-08-16 10:10 | A.OFFWM_ITS ---
Intake Intake Visit Reasons: VIDEO BH F/U Allergies No Known Allergies [No Known Allergies*] Allergy (Verified 06/16/24 08:17) [facility] Medical History (Updated 06/16/24 @ 08:20 by Tera Lucas MD) Non-insulin dependent type 2 diabetes mellitus PCOS (polycystic ovarian syndrome) Low serum cortisol level Elevated testosterone level in female Amenorrhea Vitamin D deficiency Surgical History No history of previous surgery Family History Mother Unknown family medical history Father Unknown family medical history Social History Household Members: Spouse Housing: Apartment Do you presently have visiting nurse or other home services: No Alcohol intake: current Patient Tobacco Use Status: Current everyday Tobacco user Tobacco use type: Cigarette Cigarettes Per Day: 5 Years Smoked: 5 e-Cigarette/Vaping Use: Never Used Second Hand Smoke Exposure: No Substance Use Type: Marijuana service: No Female Reproductive History Menstrual Age of Menarche: 11 Behavioral Health Assessment Weight Management Therapy Therapy Notes Details Subjective PT reports that she has not weighed herself since her last weight check. She decided to take her day off really off today, indicating a break from her usual routine. PT shared feelings of work-related stress, which may be affecting her overall well-being and focus on her goals. She expressed some concerns about balancing work and personal health, feeling overwhelmed by competing priorities. Objective: PT presents for a follow-up visit. During the session, CBT-based interventions were used to support the client with habit building and readiness for weight loss surgery. * Gently challenged some of her attempts to incorporate new diet trends, while reflecting on the importance of adhering to the prescribed meal/exercise plan. Emphasized the progress she has experienced when following the plan consistently versus when trying other approaches. * Focused on enhancing self-confidence and decision-making skills, particularly related to work-life balance. Worked on helping PT feel less guilty about prioritizing her health and well-being. * Explored her avoidance of weighing herself and discussed the emotional reactions tied to weight-checks, encouraging a more balanced approach to progress tracking. Assessment/Response: * Mental status: PT appeared alert and oriented. Mood was moderately anxious, likely due to work stress, but she engaged actively in the session. Thought processes were logical and goal-directed. No signs of significant depression or distress, though mild anxiety about balancing priorities was noted. * Risk reported/identified: None Food/Weight/Diet Expectations of change The initial goal to lose 10% of your weight before surgery, which is about 44lbs. Ultimate weight goal: 300lbs before surgery. PT started the program at 344Lbs, and her most recent weight is 343Lbs. Weight as of 07/19/2024: 332Lbs (came for a weight check) Recent weight as of PT is implementing the following: Current meal plan: started using the [employer] website. Combination of shakes and bars and 1 meal (12FT/12FT) Exercise plan: Stepper machine. Assessment & Plan Assessment & Plan (1) Trauma and stressor-related disorder: Code(s): F43.9 - Reaction to severe stress, unspecified Plan Continue CBT-based interventions to address stress management, work-life balance, and adherence to the prescribed weight-loss plan. Support PT in developing healthier coping mechanisms for work-related stress, possibly incorporating mindfulness techniques or stress-reduction strategies. Next appointment scheduled for 09/13/2024 at 10am, Telehealth. Telehealth Telehealth Telehealth Platform: [facility] Location of provider rendering services: other Location of patient: address on file Patient Identification confirmed using: Name, : Yes Telehealth method: voice only Patient verbally consented to treatment: Yes Patient verbally consented to billing insurance company: Yes Patient informed of any privacy concerns related to visit: Yes Minutes spent on Phone/Video with Pt.: 50 Coding Level of Care Code Established Pt Tele Psytx 45 mins ([id number]) Patient Type Established Diagnoses Trauma and stressor-related disorder F43.9 Time Spent (min) 50
--- OUTSIDE RECORDS SUMMARY | 2024-08-16 11:56 | XMS_ITS | Encounter Summary ---
Author Organization [employer] Address [address] [place] [address] Care Team Providers Care Yard Demurrage Clerk Name Role Phone Gloria Jacobo Guillermina LOPEZ Primary Care Provider [phone]- [phone] May Tinsley MD Primary Care Pro vider Reason for Visit * Reason Onset Date Comments Referral 07/31/2022 Encounter Details Date Type Department Care Team (Late st Contact Info) Description 07/31/2022 Telephone [facility] ADULT DENTAL [address] [place] [address] Monico Osborne, DMD [address] [place] [address] Referral Social History Tobacco Use Types Packs/Day [...] Description 09/13/2024 10:00 AM EDT Office Visit [facility] MEDICINE [address] [place] [address] May Tinsley MD [address] [place] [address] 10/09/2024 9:30 AM EDT Office Visit [facility] OPTOMETRY [address] [place], [place] [phone] Bonita Mcdonald, OD [address] [place] [address] documented as of this encounter Visit Diagnoses Not on filedocumented in this encounter Care Teams Yard Demurrage Clerk Relationship Specialty Start Date End Date Gloria Jacobo FNP PCP - General Family Medicine 01/01/22 12/01/22 May Tinsley MD [address] [place] [address] PCP - General Internal Medicine 12/02/22 documented as of this encounter
--- OUTSIDE RECORDS SUMMARY | 2024-08-16 11:56 | XMS_ITS | Encounter Summary ---
Author Organization [employer] Address [address] [place] [address] [place] [address] Care Team Providers Care Silvering Applicator Name Role Phone Gloria Jacobo Primary Care Provider [phone]- [phone] May Tinsley MD Primary Care Pro vider Encounter Details Date Type Department Care Team ([facility] Contact Info) Description 06/18/2022 Telephone [facility] MEDICINE [address] [place] [phone] Gloria Jacobo FNP [address] [place] [address] Dept [place] [address] Social History Tobacco Use Types Packs/Day Years [...] Upcoming Encounters Date Type Department Care Team ([facility] Contact Info) Description 09/13/2024 10:00 AM EDT Office Visit [facility] MEDICINE [address] [place] [phone] May Tinsley MD [address] [place] [address] 10/09/2024 9:30 AM EDT Office Visit [facility] OPTOMETRY [address] [place], [place] [phone] Harry Bonita, OD [address] [place] [address] documented as of this encounter Visit Diagnoses Not on filedocumented in this encounter Care Teams Silvering Applicator Relationship Specialty Start Date End Date Gloria Jacobo FNP PCP - General Family Medicine 01/01/22 12/01/22 May Tinsley MD [address], [place] [phone] PCP - General Internal Medicine 12/02/22 documented as of this encounter
--- OUTSIDE RECORDS SUMMARY | 2024-08-16 11:57 | XMS_ITS | Clinical Summary ---
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 Name Role Phone May Tinsley MD [...] will improve her fertility Had appt with [facility], pt uncertain if she will continue Assessment & Plan (12/02/2022 8:34 PM EDT): Never received reproductive notes from [facility] consult will hold sending since pt is focusing on weight loss currently and not seeking F/u 3 months or sooner PRN with new PCP Assessment & Plan (11/05/2022 8:49 PM EDT): Pt concerned about decreasing Testosterone to assist her fertility Will request notes from [facility] appt Will submit Leilaven EConsult [...] Type Department Care Team Description 07/12/2024 Telephone [facility] [address] [place] [address] May Tinsley MD may recall 07/12/2024 Telephone [facility] [address] [place] [address] May Tinsley MD 07/12/2024 Orders Only GENERIC EXTERNAL DATA DEPARTMENT Provider, Generic External Data 06/16/2024 Orders Only GENERIC EXTERNAL DATA DEPARTMENT Provider, Generic External Data 06/01/2024 Orders Only GENERIC EXTERNAL DATA DEPARTMENT Provider, Generic External Data 05/27/2024 Telephone [facility] [address] [place] [address] Risa Garner, RN Results 05/24/2024 Telephone [facility] [address] [place] [address] May Tinsley MD Medication Question from Last [...] MMR 07/21/2001,08/12/1998 Meningococcal MCV4P ACYW-135 03/21/2015,02/16/20 12 OPV, Trivalent 07/21/2001, 8,1997,09/11 Tdap 01/26/2024,02/04/2012 Varicella 02/04/2012,10/28/1998 Family [...] Description 09/13/2024 10:00 AM EDT Office Visit [facility] [address] [place], [place] [phone] May Tinsley MD [address] [place] [address] 10/09/2024 9:30 AM EDT Office Visit [facility] [address] [place], [place] [phone] Bonita Mcdonald, OD [address] [place] [address] Health Maintenance Due Date Last Done Comments Dental Oral Exam 1997 Dental Prophylaxis 1997 Dental X-Ray: Bitewings 1997 Alcohol/Substance Use Screening 2009 Family Planning (PISQ) 2012 Hepatitis A Vaccines (2 of 2 - 2-dose series) 09/19/2015 03/21/2015 Pneumococcal Vaccine: Pediatrics (0 to 5 Years) and At-Risk Patients (6 to 49) Years) (1 of 2 - PCV) 2016 Pap Smear 2018 COVID-19 Vaccine ( - 2023- season) 2024 Depression Screening 01/10/2025 01/11/2024, 01/11/20 [...] Procedure Name Priority Date/Time Associated Diagnosis Comments US ABDOMEN COMPLETE WITH ELASTOGRAPHY Routine 07/19/2024 8:05 AM EDT XR CHEST 2 VIEWS Routine 07/12/2024 7:09 AM EST VITAMIN B1 Routine 07/12/2024 6:58 AM EST VITAMIN A [...] Recently Relevant to Health Maintenance Results * US Abdomen Comp w elastography (07/19/2024 8:05 AM EDT) Anatomical Region Laterality Modality Abdomen Ultrasound 07/19/2024 8:05 AM EDT Narrative 07/19/2024 8:58 AM EDT ? [facility] ?[address] ?[place] [address] ? Ultrasound Report ? Signed ? Patient: Soliz,Nata ?MR#: [id number] ?? [id number] ? : 1995 ?Acct:[id number] ? Age/Sex: 29 / F ?ADM Date: 07/19/24 ? Loc: HO.US ? Attending Dr: Tera Lucas MD ? Ordering Physician: Tera Lucas MD ?? Date of Service: 07/19/24 ?? Procedure(s): US abdomen comp w elastography ?? Accession Number(s): [id number] ? cc: May Tinsley MD; Tera Lucas MD ? EXAMINATION: ??US ABDOMEN COMPLETE WITH LIVER ELASTOGRAPHY ? HISTORY: E66.01 - Morbid (severe) obesity due to excess calories ? TECHNIQUE: Real-time grayscale ultrasound imaging of the abdomen was ?? performed and images were reviewed. ? COMPARISON: Correlation is made with a CT of the abdomen with contrast ?? dated 04/12/2024. ? FINDINGS: ?? Liver: ??The right lobe of the liver measures 18.6 cm in size. The left ?? lobe of the liver measures 13.6 cm in size. The liver demonstrates ?? increased echotexture, consistent with steatosis. ??No focal mass or ?? intrahepatic biliary ductal dilatation is identified. ??There is normal ?? hepatopedal flow in the portal vein. ? Ultrasound elastography of the liver was performed with 10 separate ?? measurements of the liver parenchyma with the patient in the supine ?? position. ??Measurements were obtained approximately 2 cm below ?? Alfie's capsule and perpendicular to the capsule. ??Images are of ?? satisfactory quality. ? The median shear wave velocity is 1.73 m/s. ?? The interquartile range/median (IQR/median) is 0.11. ? Gallbladder and biliary tree: The gallbladder is unremarkable, without ?? evidence of calculi, wall thickening, or pericholecystic fluid. ??There ?? is no sonographic Walker sign. ??The common bile duct is normal in ?? caliber measuring 2 mm. ? Kidneys: ??The right kidney measures 13.9 cm in length. The left kidney ?? measures 13.8 cm in length. ??The kidneys are unremarkable, without ?? evidence of masses, hydronephrosis, or calculi. ? Pancreas: The pancreatic head, neck, and body are unremarkable. The ?? pancreatic tail is obscured by bowel gas. ? Spleen: The spleen is normal in size and contour, measuring 10.1 cm in ?? length. ? Abdominal aorta and inferior vena cava: The visualized portions of the ?? abdominal aorta and inferior vena cava are normal in caliber. ? There is no free fluid in the abdomen. ? US/US abdomen comp w elastography ?? IMPRESSION: ? Hepatomegaly and hepatic steatosis. ? The median shear wave velocity in the liver is 1.73 m/s, corresponding ?? to a median liver stiffness of 9.36 kPa. ??The IQR/median value is 0.11. ?? This is indicative of a quality data set. ?? Findings are indicative of a high elastography value suggestive of ?? compensated advanced chronic liver disease. ? REFERENCE: ?? Society of Radiologists in Ultrasound Liver Stiffness Thresholds (2019): ? LIVER STIFFNESS THRESHOLDS: ?? *Shear wave velocity less than 1.3 m/s (Liver Stiffness equal or less ?? than 5 kPa): ??High probability of being normal. ?? *Shear wave velocity less than 1.7 m/s (Liver Stiffness less than 9 ?? kPa): ??In the absence of other known clinical signs, rules out ?? compensated advanced chronic liver disease. ?? *Shear wave velocity between 1.7-2.1 m/s (Liver Stiffness 9-13 kPa): ? Suggestive of compensated advanced chronic liver disease but need ?? further test for confirmation. ?? *Shear wave velocity between 2.1-2.4 m/s (Liver Stiffness 13-17 kPa): ? Rules in compensated advanced chronic liver disease. ?? *Shear wave velocity ??greater than 2.4 m/s (Liver Stiffness over 17 ?? kPa): ??Suggestive of clinically significant portal hypertension. ? QUALITY OF DATA SET: ?? *IQR/Median value equal or less than 0.15 implies a quality data set. ?? *IQR/Median value over 0.15 implies a poor quality data set. ? SIGNIFICANT CHANGE FROM PRIOR EXAM: ?? Significant change if liver stiffness measurement is 10% or greater ?? from prior exam. ? OTHER CONSIDERATIONS: ?? The stage of liver fibrosis may be overestimated in the setting of ?? acute hepatitis, liver inflammation, elevated liver function tests, ?? hepatic vascular congestion, obstructive cholestasis, non-fasting ?? state, and infiltrative diseases such as amyloidosis and lymphoma. ??In ?? some patients with NAFLD, the liver stiffness thresholds for ?? compensated advanced chronic liver disease may be lower. ??In causes ?? other than viral hepatitis and NAFLD, liver stiffness thresholds are ?? not well established. ? Electronically signed by: ??Piter Russo MD ??07/19/2024 08:55 AM EDT ? Dictated By: ?Piter Russo MD ? Signed By: ?<Electronically signed by Piter Russo MD in OV> ?07/19/24854 ? DD/ 4 ? TD/TT: 07/19/24826 ? Mineral Resources Inspector: ? Procedure Note Arsenio Wooten - 07/19/[address] [address] Ultrasound Report Signed Patient: Fannie SolizR#: [id number] 764 : 1995Acct:[id number] Age/Sex: 29 / FADM Date: 07/19/24 Loc: HO.US Attending Dr: Tera Lucas MD Ordering Physician: Tera Lucas MD Date of Service: 07/19/24 Procedure(s): US abdomen comp w elastography Accession Number(s): [id number] cc: May Tinsley MD; Tera Lucas MD EXAMINATION: US ABDOMEN COMPLETE WITH LIVER ELASTOGRAPHY HISTORY: E66.01 - Morbid (severe) obesity due to excess calories TECHNIQUE: Real-time grayscale ultrasound imaging of the abdomen was performed and images were reviewed. COMPARISON: Correlation is made with a CT of the abdomen with contrast dated 04/12/2024. FINDINGS: Liver: The right lobe of the liver measures 18.6 cm in size. The left lobe of the liver measures 13.6 cm in size. The liver demonstrates increased echotexture, consistent with steatosis. No focal mass or intrahepatic biliary ductal dilatation is identified. There is normal hepatopedal flow in the portal vein. Ultrasound elastography of the liver was performed with 10 separate measurements of the liver parenchyma with the patient in the supine position. Measurements were obtained approximately 2 cm below Alfie's capsule and perpendicular to the capsule. Images are of satisfactory quality. The median shear wave velocity is 1.73 m/s. The interquartile range/median (IQR/median) is 0.11. Gallbladder and biliary tree: The gallbladder is unremarkable, without evidence of calculi, wall thickening, or pericholecystic fluid. There is no sonographic Walker sign. The common bile duct is normal in caliber measuring 2 mm. Kidneys: The right kidney measures 13.9 cm in length. The left kidney measures 13.8 cm in length. The kidneys are unremarkable, without evidence of masses, hydronephrosis, or calculi. Pancreas: The pancreatic head, neck, and body are unremarkable. The pancreatic tail is obscured by bowel gas. Spleen: The spleen is normal in size and contour, measuring 10.1 cm in length. Abdominal aorta and inferior vena cava: The visualized portions of the abdominal aorta and inferior vena cava are normal in caliber. There is no free fluid in the abdomen. US/US abdomen comp w elastography IMPRESSION: Hepatomegaly and hepatic steatosis. The median shear wave velocity in the liver is 1.73 m/s, corresponding to a median liver stiffness of 9.36 kPa. The IQR/median value is 0.11. This is indicative of a quality data set. Findings are indicative of a high elastography value suggestive of compensated advanced chronic liver disease. REFERENCE: Society of Radiologists in Ultrasound Liver Stiffness Thresholds (2020): LIVER STIFFNESS THRESHOLDS: *Shear wave velocity less than 1.3 m/s (Liver Stiffness equal or less than 5 kPa): High probability of being normal. *Shear wave velocity less than 1.7 m/s (Liver Stiffness less than 9 kPa): In the absence of other known clinical signs, rules out compensated advanced chronic liver disease. *Shear wave velocity between 1.7-2.1 m/s (Liver Stiffness 9-13 kPa): Suggestive of compensated advanced chronic liver disease but need further test for confirmation. *Shear wave velocity between 2.1-2.4 m/s (Liver Stiffness 13-17 kPa): Rules in compensated advanced chronic liver disease. *Shear wave velocity greater than 2.4 m/s (Liver Stiffness over 17 kPa): Suggestive of clinically significant portal hypertension. QUALITY OF DATA SET: *IQR/Median value equal or less than 0.15 implies a quality data set. *IQR/Median value over 0.15 implies a poor quality data set. SIGNIFICANT CHANGE FROM PRIOR EXAM: Significant change if liver stiffness measurement is 10% or greater from prior exam. OTHER CONSIDERATIONS: The stage of liver fibrosis may be overestimated in the setting of acute hepatitis, liver inflammation, elevated liver function tests, hepatic vascular congestion, obstructive cholestasis, non-fasting state, and infiltrative diseases such as amyloidosis and lymphoma. In some patients with NAFLD, the liver stiffness thresholds for compensated advanced chronic liver disease may be lower. In causes other than viral hepatitis and NAFLD, liver stiffness thresholds are not well established. Electronically signed by: Piter Russo MD 07/19/2024 08:55 AM EDT Dictated By: Piter Russo MD Signed By: <Electronically signed by Piter Russo MD in OV> 07/19/24 0855 DD/ 08 TD/TT: 07/19/24826 Mineral Resources Inspector: us [facility] External Provider IMG US PROCEDURES Final Result * XR Chest 2 Views (07/12/2024 7:09 AM EST) Anatomical Region Laterality Modality Chest Radiographic Devika ging 07/12/2024 7:09 AM EST Narrative 07/12/2024 7:57 AM EST ? [facility] ?[address] ?[place] [address] ?XRay Report ? Signed ? Patient: Solzi,Nata ?MR#: [id number] ?? 764 ? : 1995 ?Acct:[id number] ? Age/Sex: 29 / F ?ADM Date: 07/12/24 ? Loc: HO.XRAY ? Attending Dr: Tera Lucas MD ? Ordering Physician: Tera Lucas MD ?? Date of Service: 07/12/24 ?? Procedure(s): XR chest 2V ?? Accession Number(s): [id number] ? cc: May Tinsley MD; Tera Lucas [...] DD/ 0709 ? TD/TT: 07/12/24 0718 ? Mineral Resources Inspector: ? Procedure Note Arsenio Wooten - 07/12/[address] [address] XRay Report Signed Patient: Serenity Soliz#: [id number] 764 : 1995Acct:[id number] Age/Sex: 29 / FADM Date: 07/12/24 Loc: ENEIDA Attending Dr: Tera Lucas MD Ordering Physician: Tera Lucas MD Date of Service: 07/12/24 Procedure(s): XR chest 2V Accession Number(s): [id number] cc: May Tinsley MD; Tera Lucas MD [...] Gabriel Duran MD 07/12/2024 07:54 AM EST RP Dictated By: Gabriel Suarez MD Signed By: <Electronically signed by Gabriel Garner MDin OV> 07/12/24 0754 DD/ 8 TD/TT: 07/12/24 0718 Mineral Resources Inspector: [facility] External Provider IMG XR PROCEDURES Edited Result - Final * (ABNORMAL) Vitamin D, 25-Hydroxy, Total, Immunoassay (07/12/2024 6:58 AM EST) Vitamin D 25-OH Total 19.2(L) >30 ng/mL [facility] Comment:Health Based Referen ce Values*< 20 ng/mL Dxgpclpbx64-12 ng/mL Insufficient> 30 ng/mL Sufficient*Dyllan LIZAMA. N [...] ORDERAB LES Final Result Performing Organization Address City/[facility] Co de Phone Number [facility] [address] [place] [phone] * Vitamin B12 (Cobalamin) and Folate Panel, Serum (07/12/2024 6:58 AM EST) [facility] Vitamin B12 620 200 - 900 pg/mL [facility] Comment:NORMAL 200-900 PG/ML INDETERMINATE 160-199 PG/ML DEFICIENT < 160 PG/ML Folate 12.7 > or = 4.0 ng/mL [facility] Comment:Reference Values:> o r = 4.0 ng/mL< 4.0 ng/mL suggests folate deficiency Methotrexate, aminopterin and folinic acid(leucovorin) are chemotherapeutic agents whose molecularstructures are similar to folate; therefore, the Architectfolate assay cannot be used for patients using these drugs. 07/12/2024 6:58 AM EST 07/12/2024 6:58 AM EST us Generic External Data Provider LAB BLOOD ORDERAB LES Final Result Performing Organization Address [facility] de Phone Number [facility] [address] [place] [phone] * TSH with Reflex to Free T4 (07/12/2024 6:58 AM EST) [facility] TSH reflex Free T4 0.98 0.32 - 4.0 uIU/mL [facility] 07/12/2024 6:58 AM EST 07/12/2024 6:58 AM EST us Generic External Data Provider LAB BLOOD ORDERAB LES Final Result Performing Organization Address [facility] Co de Phone Number [facility] [address] [place] [phone] * (ABNORMAL) CBC auto differential (07/12/2024 6:58 AM EST) Only the most recent of2 resultswithin the time period is included. White Blood Count 8.4 4.8 - 10.8 X10*3/uL [facility] Red Blood Count 5.12 4.20 - 5.50 X10*6/uL [facility] Hemoglobin 13.7 12.0 - 16.0 g/dl [facility] Hematocrit 42.1 37.0 - 47.0 % [facility] Mean Corpuscular Volume 82.2 80.0 - 98.0 fL [facility] Mean Corpuscular Hemoglobin 26.8(L) 27.0 - 33.0 pg [facility] Mean Corpuscular HGB Conc 32.5 31.0 - 35.0 g/dl [facility] Red Cell Distribution Width 14.3 11.0 - 16.0 % [facility] Platelet Count 319 160 - 400 X10*3/uL [facility] Mean Platelet Volume 9.5 9.4 - 12.3 fL [facility] Neutrophils Percent Auto 60.2 45 - 73 % [facility] Imm Gran Pct Auto 0.2 0.0 - 0.4 % [facility] Lymphocytes Percent Auto 28.4 20 - 40 % [facility] Monocytes Percent Auto 8.9 2 - 11 % [facility] Eosinophils Percent Auto 1.8 0 - 4 % [facility] Basophils Percent Auto 0.5 0 - 2 % [facility] NRBC Pct Auto 0.0 0.0 - 0.2 /100WBC [facility] Neutrophils Absolute Auto 5.1 2.0 - 8.3 x10*3/uL [facility] Imm Gran Abs Auto 0.02 0.00 - 0.03 X10*3/uL [facility] Lymphocytes Absolute Auto 2.4 1.2 - 4.9 X10*3/uL [facility] Monocytes Absolute Auto 0.8 0.1 - 1.2 X10*3/uL [facility] Eosinophils Absolute Auto 0.2 0.0 - 0.4 X10*3/uL [facility] Basophils Absolute Auto 0.0 0.0 - 0.2 X10*3/uL [facility] NRBC Abs Auto 0.000 0.0 - 0.012 X10*3/uL [facility] 07/12/2024 6:58 AM EST 07/12/2024 6:58 AM EST us Generic External Data Provider LAB BLOOD ORDERAB LES Final Result Performing Organization Address [facility] Co de Phone Number [facility] [address] [place] [phone] * Iron And Total Iron Binding Capacity (07/12/2024 6:58 AM EST) Iron 79 30 - 160 mcg/dL [facility] Total Iron Binding Capacity 302 228 - 428 mcg/dL [facility] Percent Iron Saturation 26 15 - 50 % [facility] Unsaturated Iron Binding 223 ug/dL [facility] 07/12/2024 6:58 AM EST 07/12/2024 6:58 AM EST Generic External Data Provider LAB BLOOD ORDERAB LES Final Result Performing Organization Address [facility] Number [facility] [address] [place] [phone] * Insulin (07/12/2024 6:58 AM EST) Insulin 19 2 - 29 uU/mL [facility] Comment:This test was perfor med [...] ORDERAB LES Final Result Performing Organization Address [facility] Co de Phone Number [facility] [address] [place] [phone] * Zinc (07/12/2024 6:58 AM EST) Zinc 71 60 - 130 mcg/dL [facility] Comment:This test was develo ped and its analytical performancecharacteristics have been determined by [employer] formerly [employer] [place], [place]. It hasnot been cleared or approved by the U.S. Food and DrugAdministration. This assay has been validated pursuantto the CLIA regulations and is used for clinicalpurposes.THIS TEST WAS PERFORMED AT:[employer] [id number] [place] [address]HEEVXDLBERNARD FOLEY MD,PHD 07/12/2024 6:58 AM EST 07/12/2024 6:58 AM EST us Generic External Data Provider LAB BLOOD ORDERAB LES Final Result [facility] [address] [place] [phone] * (ABNORMAL) Vitamin A (07/12/2024 6:58 AM EST) Pathologist [facility] Vitamin A (Retinol) 31(A) 38 - 98 mcg/dL [facility] Comment:Vitamin supplementat ion within 24 hours prior toblood draw may affect the accuracy of the results.This test was developed and its analytical performancecharacteristics have been determined by [place]. It hasnot been cleared or approved by the U.S. Food and DrugAdministration. This assay has been validated pursuantto the CLIA regulations and is used for clinicalpurposes.THIS TEST WAS PERFORMED AT:[employer] [facility]/[id number] [place] [address]QTGHCCXBERNARD FOLEY MD,PHD 07/12/2024 6:5 8 AM EST 07/12/2024 6:58 AM EST us Generic External Data Provider LAB BLOOD ORDERAB LES Final Result Performing Organization Address [facility] Co de Phone Number [facility] [address] [place] [phone] * (ABNORMAL) C-reactive Protein (07/12/2024 6:58 AM EST) C Reactive Protein 1.24(H) < or = 0.50 mg/dL [facility] 07/12/2024 6:58 AM EST 07/12/2024 6:58 AM EST Generic External Data Provider LAB BLOOD ORDERAB LES Final Result Performing Organization Address [facility] Phone Number [facility] [address] [place] [phone] * (ABNORMAL) Vitamin B1 (07/12/2024 6:58 AM EST) Vitamin B1 <6(A) 8 - 30 nmol/L [facility] Comment:Vitamin supplementat ion within 24 hours prior toblood draw may affect the accuracy of the results.This test was developed and its analytical performancecharacteristics have been determined by [employer] [place], [place]. It hasnot been cleared or approved by the U.S. Food and DrugAdministration. This assay has been validated pursuantto the CLIA regulations and is used for clinicalpurposes.THIS TEST WAS PERFORMED AT:[facility]/[id number] [place] [address]GXTTWLYBERNARD FOLEY MD,PHD 07/12/2024 6:58 AM EST 07/12/2024 6:58 AM EST Generic External Data Provider LAB BLOOD ORDERAB LES Final Result Performing Organization Address [facility] Co de Phone Number [facility] [address] [place] [phone] * Hemoglobin A1c (07/12/2024 6:58 AM EST) Only the most recent of2 resultswithin the time period is included. Hemoglobin A1c 5.6 <6.0 % [facility] Comment:Hemoglobin A1C Refer ence Range Adults: 4.8 - 6.0 % Non diabetic: < 6.0 % Goal: < 7.0 %Additional Action Suggested: > 8.0 %Note: Hemoglobin A1c results are invalid for patients with abnormal amounts of HbF. Blood transfusions may impact the HbA1c concentration in the patient sample. Estimated Average Glucose 114 mg/dL [facility] Comment:eAG = Estimated ave rage glucose which is %A1C expressed asaverage glucose, using the formula of the K6Q-LkdakarPfuillk Glucose study (ADAG), Diabetes Care, Vol.31,#8,2007 07/12/2024 6:58 AM EST 07/12/2024 6:58 AM EST us Generic External Data Provider LAB BLOOD ORDERAB LES Final Result Performing Organization Address [facility] Co de Phone Number [facility] [address] [place] [phone] * Ferritin (07/12/2024 6:58 AM EST) Ferritin 57 10 - 122 ng/mL [facility] 07/12/2024 6:58 AM EST 07/12/2024 6:58 AM EST us Generic External Data Provider LAB BLOOD ORDERAB LES Final Result Performing Organization Address [facility] Co de Phone Number [facility] [address] [place] [phone] * Cortisol Random (06/16/2024 7:06 AM EST) Cortisol Random 3.6 ug/dL [facility] Comment:Reference Range*: Be fore 10 [...] ORDERAB LES Final Result Performing Organization Address [facility] Co de Phone Number [facility] [address] [place] [phone] * Thyroid Peroxidase Antibodies (06/16/2024 7:06 AM EST) Pathologist [facility] Thyroid Peroxidase Antibodies <1 <9 IU/mL [facility] Comment:THIS TEST WAS PERFOR MED AT:[facility] [address] [address]BRMQQJORY GATES MD 06/16/2024 7:06 AM EST 06/16/2024 7:06 AM EST Generic External Data Provider LAB BLOOD ORDERAB LES Final Result Performing Organization Address [facility] de Phone Number [facility] [address] [place] [phone] * IGF-1, LC/MS (06/16/2024 7:06 AM EST) Pathologist [facility] IGF 1, LC/MS 131 63 - 373 ng/mL [facility] Z Score (Male) TNP [facility] Z Score (Female) -0.6 -2.0 - 2.0 SD [facility] Comment:This test was develo ped and its analytical performancecharacteristics have been determined by [employer].It has not been cleared or approved by FDA. This assay hasbeen validated pursuant to the CLIA regulations and is usedfor clinical purposes.THIS TEST WAS PERFORMED AT:[facility] [id number] [place] [address]AVHXCGALEN GARDINER MD,PHD,DENY 06/16/2024 7:06 AM EST 06/16/2024 7:06 AM EST us Generic External Data Provider LAB BLOOD ORDERAB LES Final Result [facility] [address] [place] [phone] * Growth Hormone (GH) (06/16/2024 7:06 AM EST) Growth Hormone 0.1 < OR = 7.1 ng/mL [facility] Comment: Because of a pulsatile [...] or = 10.0 ng/mLTHIS TEST WAS PERFORMED AT:[employer] [place] [address] ??[id number] GATES MD 06/16/2024 7:06 AM EST 06/16/2024 7:06 AM EST Generic External Data Provider LAB BLOOD ORDERAB LES Final Result Performing Organization Address [facility]/ZIP Co de Phone Number [facility] [address] [place] [phone] * DHEA Sulfate (06/16/2024 7:06 AM EST) DHEA Sulfate 241 14 - 349 mcg/dL [facility] Comment:THIS TEST WAS PERFOR MED AT:[facility] [address] [address]PJLBCJORY GATES MD 06/16/2024 7:06 AM EST 06/16/2024 7:06 AM EST Generic External Data Provider LAB BLOOD ORDERAB LES Final Result Performing Organization Address [facility] Co de Phone Number [facility] [address] [place] [phone] * ACTH, Plasma (06/16/2024 7:06 AM EST) ACTH, Plasma 14 6 - 50 pg/mL [facility] Comment:Reference range appl ies only to specimens collectedbetween 7am-10am.THIS TEST WAS PERFORMED AT:[id number] [place] [address]ZUIFJGEBERNARD FOLEY MD,PHD 06/16/2024 7:06 AM EST 06/16/2024 7:06 AM EST Generic External Data Provider LAB BLOOD ORDERAB LES Final Result Performing Organization Address [facility] Co de Phone Number [facility] [address] [place] [phone] * hCG, Total, Quantitative (06/16/2024 7:06 AM EST) Only the most recent of2 resultswithin the time period is included. HCG Quantitative <2 mIU/mL [facility] Comment:Weeks post LMP Appro ximate hCG(Last Menstrual Period) Range (mIU/ml)3 - 4 weeks 9 - 1304 - 5 weeks 75 - 2,6005 - 6 weeks 850 - 20,8006 - 7 weeks 4000 - 100,2007 - 12 weeks 11,500 - 289,01456 - 16 weeks 18,300 - 137,28561 - 29 weeks (2nd trimester) 1,400 - 53,41170 - 41 weeks (3rd trimester) 940 - [...] ORDERAB LES Final Result Performing Organization Address City/[facility]/ZIP Co de Phone Number [facility] [address] [place] [address] [phone] * TSH (06/16/2024 7:06 AM EST) Thyroid Stimulating Hormone 0.92 0.32 - 4.0 uIU/mL [facility] Comment:TSH 3rd Generation ( [facility]) 06/16/2024 7:06 AM EST 06/16/2024 7:06 AM EST Generic External Data Provider LAB BLOOD ORDERAB LES Final Result Performing Organization Address City/[facility]/ZIP Co de Phone Number [facility] [address] [place] [phone] * T4, Free (06/16/2024 7:06 AM EST) Free T4 (Free Thyroxine) 1.13 0.71 - 1.85 ng/dL [facility] 06/16/2024 7:06 AM EST 06/16/2024 7:06 AM EST us Generic External Data Provider LAB BLOOD ORDERAB LES Final Result Performing Organization Address [facility]/ZIP Co de Phone Number [facility] [address] [place] [phone] * Magnesium (06/16/2024 7:06 AM EST) Magnesium 2.2 1.6 - 2.6 mg/dL [facility] Blood Venous blood specimen / Unknown 06/16/2024 7:06 AM EST 06/16/2024 7:06 AM EST us May Ruvalcaba MD LAB BLOOD ORDERAB LES Final Result Performing Organization Address [facility] Co de Phone Number [facility] [address] [place] [phone] * Lipid Panel, Standard (06/16/2024 7:06 AM EST) Triglycerides 77 <150 mg/dL [facility] Comment:Desirable Triglyceri de: less than 150 mg/dLBorderline High Triglyceride 150-199 mg/dLHigh Triglyceride: 200-499 mg/dLVery High Triglyceride: greater than or equal to 5OO mg/dL Cholesterol 142 <200 mg/dL [facility] Comment:Desirable Cholestero l: less than 200 mg/dLBorderline High Cholesterol: 200-239 mg/dLHigh Cholesterol: greater than 239 mg/dL LDL Cholesterol Calculated 84 <100 mg/dL [facility] Comment:Desirable LDL: less than 100 mg/dLNear Optimal/Above Optimal LDL: 110- 129 mg/dLBorderline High LDL: 130-159 mg/dLHigh LDL: 160-189 mg/dLVery High LDL: greater than or equal to 190 mg/dL HDL Cholesterol 43 >40 mg/dL [facility] Comment:Desirable HDL: great er than 40 mg/dL Note: This HDL assay may give artificially low results in patients with liver disease. 06/16/2024 7:06 AM EST 06/16/2024 7:06 AM EST us Generic External Data Provider LAB BLOOD ORDERAB LES Final Result [facility] [address] [place] [phone] * (ABNORMAL) Comprehensive Metabolic Panel (06/16/2024 7:06 AM EST) Sodium 136 135 - 145 mmol/L [facility] Potassium 4.3 3.3 - 5.1 mmol/L [facility] Chloride 104 96 - 108 mmol/L [facility] Carbon Dioxide 25 22 - 29 mmol/L [facility] Anion Gap 11(L) 12 - 20 [facility] Urea Nitrogen (BUN) 10 9 - 16 mg/dL [facility] Creatinine, Serum 0.53 0.5 - 1.4 mg/dL [facility] Estimated Glomerular Filt Rate >60 [facility] Comment:Chronic Kidney Disea se: Estimated GFR < 60 mL/min/1.09h9Zdpnib Kidney Disease: Estimated GFR < 15 mL/min/1.73m2 Glucose 93 60 - 115 mg/dL [facility] Calcium 9.4 8.4 - 10.2 mg/dL [facility] Bilirubin, Total 0.4 0.0 - 1.0 mg/dL [facility] Aspartate Amino Transferase 22 5 - 31 U/L [facility] Alanine Aminotransferase 30 0 - 31 U/L [facility] Total Protein 8.2(H) 6.5 - 8.0 g/dL [facility] Albumin Level 4.1 3.5 - 5.0 g/dL [facility] Alkaline Phosphatase 83 39 - 117 U/L [facility] Blood Venous blood specimen / Unknown 06/16/2024 7:06 AM EST 06/16/2024 7:06 AM EST May Ruvalcaba MD LAB BLOOD ORDERAB LES Final Result Performing Organization Address [facility] Co de Phone Number [facility] [address] [place] [phone] * Hepatitis C Antibody with Reflex to HCV, RNA, Quantitative, Real-Time PCR (01/05/2024 10:03 AM EDT) Hepatitis C Antibody Nonreactive Nonreactive [facility] Comment:Antibodies to HCV no t detected; does not exclude early acuteHCV infection. Blood Venous blood specimen / Unknown 01/05/2024 10:03 AM EDT 01/05/2024 11:13 AM EDT May Ruvalcaba MD LAB BLOOD ORDERAB LES Final Result Performing Organization Address [facility] de Phone Number [facility] [address] [place] [phone] * HIV-1/2 Antigen and Antibodies, Fourth Generation, with Reflexes (01/05/2024 10:03 AM EDT) [facility] HIV AB/AG Nonreactive Nonreactive [facility] Comment:HIV-1 p24 Ag and/or HIV-1/HIV-2 Ab not detected.A test result that is nonreactive does not exclude thepossibility of exposure to or infection with HIV-1 and/orHIV-2. Nonreactive results in this assay for individualswith prior exposure to HIV-1 and/or HIV-2 may be due toantigen and antibody levels that are below the limit ofdetection of this assay.[employer] HIV Ag/Ab Combo assay result andsupplemental assay results should be interpreted inconjunction with the patient's clinical presentation,history and other laboratory results. If the results areinconsistent with clinical evidence, additional testing issuggested to confirm the result. Blood Venous blood specimen / Unknown 01/05/2024 10:03 AM EDT 01/05/2024 11:13 AM EDT May Ruvalcaba MD LAB BLOOD ORDERAB LES Final Result [facility] [address] [place] [phone] from Last 3 Months or Most Recently Relevant to Health Maintenance Insurance [address] [address] [id number] [employer] [facility] Care Teams Quenching Car Operator Relationship Specialty Start Date End Date May Tinsley MD [address] [place] [address] PCP - General Internal Medicine 12/02/22
== END 2024-08-16 13:50 | disposition home or self-care (01) ==
LOC: HO.HBST 10:31
PROVIDERS: PCP Student in an Organized Health Care Education/Training Program; Visit Provider Counselor Mental Health
DX: F43.9 Reaction to severe stress, unspecified (principal)
CPT/HCPCS: 90834

== ENCOUNTER → 2024-08-16 10:00 | Outpatient (BNVA) | payer OTHER, SELFPAY | PROVIDERS: PCP Student in an Organized Health Care Education/Training Program; Visit Provider Counselor Mental Health ==

== ENCOUNTER 2024-10-11 11:01 | Outpatient (REF) | payer OTHER, SELFPAY ==
--- OUTSIDE RECORDS SUMMARY | 2024-10-11 11:57 | XMS_ITS | Encounter Summary ---
Author Organization [employer] Address [address] [place] [address] 7 [place] [address] Care Team Providers Care Auto Slip Cover Installer Name Role Phone May Tinsley MD Primary Care Pro vider Reason for Visit * Reason Onset Date Comments Chart Prep 10/10/2024 Encounter Details Date Type Department Care Team ([facility] Contact Info) Description 10/10/2024 Telephone [facility] [address] [place] [phone] May Tinsley MD [address] [place] [address] Chart Prep Social History Tobacco Use Types Packs/Day Years Used Date Smoking Tobacco: Every Day Cigarettes Smokeless Tobacco: Never Comments:Started smoking at 16 y of age until now ,stop in , states smokes 7 cig a day Alcohol Use Standard Drinks/Week Comments Yes 0 (1 standard drink = 0.6 oz pur e alcohol) social Depression Answer Date Recorded Patient Health Questionnaire-9 Score 0 09/13/2024 Patient Health Questionnaire-9 Score 0 09/13/2024 Last PHQ-9: Questionnaire Data Not on file 0 09/13/2024 Housing Stability Answer Date Recorded What is [...] Answer Date Recorded Patient Health Questionnaire-2 Score 0 09/13/2024 Internet Access Answer Date Recorded Internet Access Q1 Yes 09/13/2024 Internet Access Q2 I do not want or need it 11/2024 Comments No Sex and Gender Information Value Date Recorded Sex Assigned at Female 03/09/2022 10:22 AM EDT Legal Sex Female 10:22 AM EDT Gender Identity Female 03/09/2022 10:22 AM EDT Sexual Orientation Straight 03/09/2022 10 :22 AM EDT documented as of this encounter Miscellaneous Notes * Telephone Encounter - Nicole Calvo [place] - 10/10/2024 3:13 PM EDT Chart Prep Labs: not done Images: not applicable Vaccines due: Covid Due, Hep A Due, and PCV20 Due Referrals: Not Applicable Screenings: Not Applicable Overdue care gaps: None documented in this encounter Plan of Treatment Upcoming Encounters Date Type Department Care Team (Late st Contact Info) Description 11/01/2024 11:00 AM EDT Procedure Visit [facility] [address] [place] [phone] Meri Ron CNM [address] [place] [address] 12/20/2024 11:30 AM EDT Office Visit [facility] [address] [place] [phone] May Tinsley MD [address] [place] [address] documented as of this encounter Visit Diagnoses Not on filedocumented in this encounter Additional Health Concerns Assessment Noted Time PHQ-9 Depression Total Score: 0 09/14/19 25 10:04 AM EDT documented as of this encounter Care Teams Auto Slip Cover Installer Relationship Specialty Start Date End Date May Tinsley MD [address] [place] [phone] PCP - General Internal Medicine 12/02/22 documented as of this encounter
[2024-10-11 14:23] LABS: Alanine Aminotransferase 22 U/L (0-31); Albumin Level 4.2 g/dL (3.5-5.0); Alkaline Phosphatase 76 U/L (39-117); Anion Gap 10 (12-20); Aspartate Amino Transferase 18 U/L (5-31); Bilirubin Total 0.3 mg/dL (0.0-1.0); Blood Urea Nitrogen 9 mg/dL (9-16); Calcium 8.9 mg/dL (8.4-10.2); Carbon Dioxide 22 mmol/L (22-29); Chloride 109 mmol/L (96-108); Estimated Glomerular Filt Rate > 60; Glucose Random 95 mg/dL (60-115); Sodium 137 mmol/L (135-145); Total Protein 7.6 g/dL (6.5-8.0)
[2024-10-12 20:43] LABS: Cardiolipin IgG Ab <2.0 GPL-U/mL; Cardiolipin IgM Ab <2.0 MPL-U/mL
[2024-10-14 22:14] LABS: Beta-2 Glycoprotein IgA <2.0 U/mL (<20.0); Beta-2 Glycoprotein IgG <2.0 U/mL (<20.0); Beta-2 Glycoprotein IgM <2.0 U/mL (<20.0)
[2024-10-18 16:39] LABS: Hexagonal Phase Neutralization Negative (Negative); PTT (LAC) Screen 41 sec (<=40)
== END 2024-10-11 11:02 | disposition home or self-care (01) ==
LOC: HO.LAB 11:01
PROVIDERS: PCP Student in an Organized Health Care Education/Training Program; Visit Provider Student in an Organized Health Care Education/Training Program
DX: O03.9 Complete or unspecified spontaneous abortion without complication (principal)
CPT/HCPCS: 36415; 80053; 85597; 85598; 85613; 85730; 86146; 86147

== ENCOUNTER 2024-12-01 07:07 | Outpatient (AMB) | payer OTHER, SELFPAY ==
--- OUTSIDE RECORDS SUMMARY | 2024-12-01 07:09 | XMS_ITS | Encounter Summary ---
Author Organization [employer] Address [address] [place] [address] [place] [address] Care Team Providers Care Health Policy Analyst Name Role Phone Gloria aJcobo [facility] Primary Care Provider [phone] May Tinsley MD Primary Care Pro vider Encounter Details Date Type Department Care Team ([facility] [address] Contact Info) Description 06/18/2022 Telephone [facility] [address] [place] [phone] Gloria Jacobo [address] [place] [address] Social History Tobacco Use Types Packs/Day Years [...] Upcoming Encounters Date Type Department Care Team ([facility] [address] Contact Info) Description 12/20/2024 11:30 AM EDT Office Visit [facility] [address] [place] [phone] May Tinsley MD [address] [place] [address] documented as of this encounter Visit Diagnoses Not on filedocumented in this encounter Care Teams Health Policy Analyst Relationship Specialty Start Date End Date Gloria Jacobo FNP PCP - General Family Medicine 01/01/22 12/01/22 May Tinsley MD [address] [place] [address] PCP - General Internal Medicine 12/02/22 documented as of this encounter
[2024-12-01 07:38] VITALS: BP 118/86; PULSE 83; O2SAT 98; BMI 56.9
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
== END 2024-12-01 08:05 | disposition home or self-care (01) ==
LOC: HO.ENCR 07:07
PROVIDERS: PCP Student in an Organized Health Care Education/Training Program; Visit Provider Student in an Organized Health Care Education/Training Program
DX: E28.2 Polycystic ovarian syndrome (principal); E66.01 Morbid (severe) obesity due to excess calories
CPT/HCPCS: 99214

== ENCOUNTER 2025-03-01 16:43 | Outpatient (AMB) | payer OTHER, SELFPAY ==
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
[2025-03-01 16:42] VITALS: BP 130/82; PULSE 80; O2SAT 98; BMI 53.2
--- OUTSIDE RECORDS SUMMARY | 2025-03-01 19:34 | XMS_ITS | Encounter Summary ---
Author Organization [employer] Address [address] [place] [address] Care Team Providers Care Operations Vocational Instructor Name Role Phone Gloria Jacobo ENVIRONMENTAL SCIENCE TECHNICIAN Primary Care Provider May Lowe MD Primary Care Pro vider Reason for Visit * Reason Onset Date Comments Referral 07/31/2022 Encounter Details Date Type Department Care Team (Late st Contact Info) Description 07/31/2022 Telephone [facility] [address] [place] [address] Monico Osborne, DMD [address] [place] [address] Referral Social History Tobacco Use Types Packs/Day [...] documented in this encounter Plan of Treatment Not on file documented as of this encounter Visit Diagnoses Not on filedocumented in this encounter Care Teams Operations Vocational Instructor Relationship Specialty Start Date End Date Gloria Jacobo FNP PCP - General Family Medicine 01/01/22 12/01/22 May Tinsley MD [address] [place] [phone] PCP - General Internal Medicine 12/02/22 documented as of this encounter
--- OUTSIDE RECORDS SUMMARY | 2025-03-01 19:34 | XMS_ITS | Encounter Summary ---
Author Organization [employer] Address [address] [place] [address] [address] [place] [address] Care Team Providers Care Testing Analyst Name Role Phone Gloria Jacobo Primary Care Provider Jacinda May Leos MD Primary Care Pro vider Encounter Details Date Type Department Care Team (Late st Contact Info) Description 06/18/2022 Telephone [facility] [address] [place], [place] [phone] Gloria Jacobo FNP Social History Tobacco Use Types Packs/Day Years [...] as of this encounter Plan of Treatment Not on file documented as of this encounter Visit Diagnoses Not on filedocumented in this encounter Care Teams Testing Analyst Relationship Specialty Start Date End Date Gloria Jacobo FNP PCP - General Family Medicine 01/01/22 12/01/22 May Tinsley MD [address] [place] [address] PCP - General Internal Medicine 12/02/22 documented as of this encounter
--- OUTSIDE RECORDS SUMMARY | 2025-03-01 19:35 | XMS_ITS | Clinical Summary ---
Author Organization [email or web address] Address [address] [place] [address] Care Team Providers Care Processing [employer] Supervisor Name Role Phone May Tinsley MD Primary [...] the morning. 90 tablet 3 3 Active lidocaine (Lidoderm) 5 % patch Apply 1 patch topically Once per day. Remove & discard patch within 12 hours or as directed by . 30 patch 2 4 Active metFORMIN (Glucophage) 500 MG tablet Take 1 tablet (500 mg) by mouth with breakfast and with evening meal. 180 tablet 1 4 04/12/20 25 Active gabapentin (Neurontin) 300 MG capsule TAKE 1 CAPSULE BY MOUTH TWICE A DAY FOR NERVE PAIN 4 Active cholecalciferol (Vitamin D-3) 50 MCG (1999 UT) tablet Take 2,000 Units by mouth Once per day. 90 tablet 1 5 09/14/19 26 Active buPROPion SR (Wellbutrin SR) 150 MG 12 hr tablet Take 1 tablet (150 mg) by mouth 2 times daily. Do not crush, chew, or split. Take 1 tablet daily for 3 days then 1 tab twice a day 60 tablet 2 5 Active nicotine (Nicoderm CQ) 14 MG/24HR patch Place 1 patch on the skin 1 (one) time each day at the same time. 42 patch 1 Active Active Problems Problem Noted Date Diagnosed Date Mild anxiety 09/13/2024 Assessment & Plan (09/14/2024 9:14 AM EDT): During [facility] Consult Nata presenting with Difficulty with attention, Difficulty completing tasks/jumping between tasks or activities, Difficulty with organization, Difficulty with focus, Avoidance of tasks, Easily distracted, Forgetful, Executive functioning difficulty, and Difficulty with relationships; for a period of 18+ mo, for most or all symptoms in the context of unable to identify significant stressors. Pt reported she has been struggling with sxs described above for awhile now. She reports hx of ADHD during childhood. Her anxiety might be associated with her inability to complete tasks and lack of organization. Was referred in the past to services with [facility] and reports not being able to start services with agency. Pt receives positive support at home. She will be referred to [facility] for medication management. We explored coping strategies to use when feeling sxs increase. She was on medication for ADHD in the past per her report and medical chart. 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 08/12/2022 Overview (11/05/2022): Encouraged pt to stop smoking, avoid marijuana, and lose 5% weight will improve her fertility Had appt with [facility], pt uncertain if she will continue Assessment & Plan (12/02/2022 8:34 PM EDT): Never received reproductive notes from [facility] consult will hold sending since pt is focusing on weight loss currently and not seeking F/u 3 months or sooner PRN with new PCP Assessment & Plan (11/05/2022 8:49 PM EDT): Pt concerned about decreasing Testosterone to assist her fertility Will request notes from [facility] appt Will submit [facility] Followup 1 month or sooner PRN Attention and concentration deficit 07/10/2022 Overview (11/05/2022): Discussed ADHD with pt Pt history consistent with ADHD symptoms Sx improved w/ Adderrall 15mg BID Pt aware she will need to stop as soon as she may be Assessment & Plan (09/14/2024 9:14 AM EDT): During [facility] Consult Nata presenting with Difficulty with attention, Difficulty completing tasks/jumping between tasks or activities, Difficulty with organization, Difficulty with focus, Avoidance of tasks, Easily distracted, Forgetful, Executive functioning difficulty, and Difficulty with relationships; for a period of 18+ mo, for most or all symptoms in the context of unable to identify significant stressors. Pt reported she has been struggling with sxs described above for awhile now. She reports hx of ADHD during childhood. Her anxiety might be associated with her inability to complete tasks and lack of organization. Was referred in the past to services with [facility] and reports not being able to start services with agency. Pt receives positive support at home. She will be referred to [facility] for medication management. We explored coping strategies to use when feeling sxs increase. She was on medication for ADHD in the past per her report and medical chart. Assessment & Plan (12/02/2022 8:25 PM EDT): [...] Allergic rhinitis 02/16/2012 Anxiety 02/16/2012 Severe obesity (CMS/HCC) 02/16/2012 Overview (12/02/2022): Diet and exercise currently Poor sleep Assessment & Plan (12/02/2022 8:30 PM EDT): Recommended pt drink 8 bottles water/day Sleep 8 hours Seek to optimize schedule Discussed lose-regain cycle. Weight loss affected by PCOS Will refer pt to Weight management F/u 3 months or sooner PRN Resolved Problems Problem Noted Date Diagnosed Date Resolved Date Left leg cellulitis 04/12/2024 09/14/19 25 Immunizations Immunization Administration Dates Next Due DTP 07/21/2001, 8,1997,09/11 HPV, Quadrivalent 02/21/2013,05/13/2012,02/16/20 12 Hep A, ped/adol, 2 dose 03/21/2015 Hep B, Adolescent or Pediatric 02/07/1998,1997,1997 Hep B, adult 09/13/2024,02/09/2024,01/11/2024 Hib (HbOC) 02/06/1999, 8,1997,09/11 Influenza injectable quadriv alent preservative free 02/02/2018 Influenza, Split (incl. dionicio fied surface antigen) 02/21/2013,02/16/2012 Influenza, seasonal, injecta ble, preservative free 01/26/2024 MMR 07/21/2001,08/12/1998 Meningococcal MCV4P [id number]-135 03/21/2015,02/16/20 OPV, Trivalent 07/21/2001, 8,1997,09/11 Tdap 01/26/2024,02/04/2012 Varicella [...] Answer Date Recorded Internet Access Q1 Yes 01/11/2025 Internet Access Q2 Not on file 01/11/2025 Comments No Sex and Gender Information Value Date Recorded Sex Assigned at Female 03/09/2022 10:22 AM EDT Legal Sex Female 10:22 AM EDT Gender Identity Female 03/09/2022 10:22 AM EDT Sexual Orientation Straight 03/09/2022 10 :22 AM EDT Last Filed Vital Signs Vital Sign Reading Time Taken Comments Blood Pressure 139/74 09/13/2024 10:02 AM EDT Pulse 82 09/13/2024 10:02 AM EDT Temperature 36.6 C (97.8 F) 09/13/2024 10:02 AM EDT Respiratory Rate 20 09/13/2024 10:02 AM EDT Oxygen Saturation 98% 09/13/2024 10:02 AM EDT Inhaled Oxygen Concentration - - Weight 154 kg (338 lb 9.6 oz) 09/13/2024 10:02 A M EDT Height 165.1 cm (5' 5 ) 09/13/2024 10:02 AM EDT Body Mass Index 56.35 09/13/2024 10:02 AM EDT Plan of Treatment Health Maintenance Due Date Last Done Comments Dental Oral Exam 1997 Dental Prophylaxis 1997 Dental X-Ray: Bitewings 1997 Family Planning (PISQ) 2012 Hepatitis A Vaccines (2 of 2 - 2-dose series) 09/19/2015 03/21/2015 Pneumococcal Vaccine: Pediatrics (0 to 5 Years) and At-Risk Patients (6 to 49) Years (1 of 2 - PCV) 2016 Pap Smear 2018 COVID-19 Vaccine ( - season) 2025 Influenza Vaccine (#1) 2025 , 02/02/2018, 02/21/2013, Additional history exists Dental X-Ray: Full Mouth 07/28/2025 07/27/2022 Alcohol/Substance Use Screening 09/13/2025 09/13/2024 Depression Screening 09/13/2025 09/13/2024, 09/14/19 Disability Screening 09/13/2025 09/13/2024 SDOH Screening 09/13/2025 09/13/2024 Tobacco Screening 09/13/2025 09/13/2024 Lipid Panel 06/16/2029 06/16/2024, 12/09, 07/01/2022, Additional [...] C Screening Completed 01/05/2024 , 12/02/2022, 08/16/2020 Hepatitis B Vaccines Completed 09/13/2024, 02/09/2024, 01/11/2024, Additional history exists Meningococcal B Vaccine Aged Out No l onger eligible based on patient's age to complete this topic RSV under 20 months Aged Out No longe r eligible based on patient's age to complete this topic Rotavirus Vaccines Aged Out No longer eligible based on patient's age to complete this topic Procedures Procedure Name Priority Date/Time Associated Diagnosis Comments LIPID PANEL, STANDARD Routine 06/16/2024 7:06 AM EST HEPATITIS C AB W/REFL TO HCV RNA, QN, PCR Routine 01/05/2024 10:03 AM EDT Annual physical exam HIV 1/2 ANTIGEN/ANTIBODY, FOURTH GENERATION W/RFL Routine 01/05/2024 10:03 AM EDT Annual physical exam PANORAMIC RADIOGRAPHIC IMAGE Routine 07/27/2022 1:00 PM EDT Dental abscess from Last 3 Months or Most Recently Relevant to Health Maintenance Results * Lipid Panel, Standard (06/16/2024 7:06 AM EST) Triglycerides 77 <150 mg/dL [facility] Comment:Desirable Triglyceri de: less than 150 mg/dLBorderline High Triglyceride 150-199 mg/dLHigh Triglyceride: 200-499 mg/dLVery High Triglyceride: greater than or equal to 5OO mg/dL Cholesterol 142 <200 mg/dL [facility] Comment:Desirable Cholestero l: less than 200 mg/dLBorderline High Cholesterol: 200-239 mg/dLHigh Cholesterol: greater than 239 mg/dL LDL Cholesterol Calculated 84 <100 mg/dL [facility] Comment:Desirable LDL: less than 100 mg/dLNear Optimal/Above Optimal LDL: 110- 129 mg/dLBorderline High LDL: 130-159 mg/dLHigh LDL: 160-189 mg/dLVery High LDL: greater than or equal to 190 mg/dL HDL Cholesterol 43 >40 mg/dL [facility] Comment:Desirable HDL: great er than 40 mg/dL Note: This HDL assay may give artificially low results in patients with liver disease. 06/16/2024 7:06 AM EST 06/16/2024 7:06 AM EST us Generic External Data Provider LAB BLOOD ORDERAB LES Final Result Performing Organization Address [facility] Co de Phone Number [facility] [address] [place] [phone] * Hepatitis C Antibody with Reflex to HCV, RNA, Quantitative, Real-Time PCR (01/05/2024 10:03 AM EDT) Hepatitis C Antibody Nonreactive Nonreactive [facility] Comment:Antibodies to HCV no t detected; does not exclude early acuteHCV infection. Blood Venous blood specimen / Unknown 01/05/2024 10:03 AM EDT 01/05/2024 11:13 AM EDT us May Ruvalcaba MD LAB BLOOD ORDERAB LES Final Result [facility] [address] [place] [phone] * HIV-1/2 Antigen and Antibodies, Fourth Generation, with Reflexes (01/05/2024 10:03 AM EDT) [facility] HIV AB/AG Nonreactive Nonreactive [facility] Comment:HIV-1 p24 Ag and/or HIV-1/HIV-2 Ab not detected.A test result that is nonreactive does not exclude thepossibility of exposure to or infection with HIV-1 and/orHIV-2. Nonreactive results in this assay for individualswith prior exposure to HIV-1 and/or HIV-2 may be due toantigen and antibody levels that are below the limit ofdetection of this assay.The [employer] HIV Ag/Ab Combo assay result andsupplemental assay results should be interpreted inconjunction with the patient's clinical presentation,history and other laboratory results. If the results areinconsistent with clinical evidence, additional testing issuggested to confirm the result. Blood Venous blood specimen / Unknown 01/05/2024 10:03 AM EDT 01/05/2024 11:13 AM EDT us May Ruvalcaba MD LAB BLOOD ORDERAB LES Final Result Performing Organization Address [facility] Co de Phone Number [facility] [address] [place] [address] [phone] from Last 3 Months or Most Recently Relevant to Health Maintenance Insurance [facility] STANDARD DENTAL [facility] Care Teams Processing [employer] Supervisor Relationship Specialty Start Date End Date May Tinsley MD [address] [place] [address] PCP - General Internal Medicine 12/02/22
== END 2025-03-01 17:31 | disposition home or self-care (01) ==
LOC: HO.ENCR 16:43
PROVIDERS: PCP Student in an Organized Health Care Education/Training Program; Visit Provider Student in an Organized Health Care Education/Training Program
DX: R79.89 Other specified abnormal findings of blood chemistry (principal); E28.2 Polycystic ovarian syndrome; E66.01 Morbid (severe) obesity due to excess calories
CPT/HCPCS: 99214